=== PATIENT | female | born 1950 | race Caucasian/White ===

== ENCOUNTER 2016-10-18 23:04 | Emergency (ER) | payer OTHER, MEDICARE ==
[~2016-10-18] VITALS: Ht 165.1 cm; Wt 121.8 kg
[2016-10-18 23:14] VITALS: Ht 165.1 cm; Wt 121.8 kg
[2016-10-18 23:40] LABS: BASO % 0.5 %; BASO ABS # 0.05 K/uL (0-0.2); COMPLETE YES; EOS % 3.4 %; HEMATOCRIT 40.3 % (37-47); IG% 0.3 %; LYMPH % 42.2 %; LYMPH ABS # 4.68 K/uL (1.2-3.4); MEAN CELL VOLUME 93.1 fL (80-100); MEAN CORPUSCULAR HEMOGLOBIN 31.2 pg (25-34); MEAN CORPUSCULAR HGB CONC 33.5 g/dl (32-36); MEAN PLATELET VOLUME 10.7 fL (7.4-10.4); MONO % 5.1 %; NEUT % 48.5 %; PLATELET COUNT 245 K/uL (130-400); RED BLOOD COUNT 4.33 M/uL (4.2-5.4)
[2016-10-19 00:07] LABS: BUN/CREATININE RATIO 20.8 (10-20); CALCIUM 9.9 mg/dl (8.5-10.1); POTASSIUM 3.5 mmol/L (3.5-5.1)
[2016-10-19] MEDS ORDERED: ONDANSETRON INJ 2 MG/ML 2 ML VIAL IV STA ×2 (00:11→02:22)
[2016-10-19] MEDS ORDERED: ONDANSETRON INJ 2 MG/ML 2 ML VIAL ONE ×2 (00:12→02:12)
[2016-10-19] MEDS ORDERED: FRS/40 PO (00:20)
[2016-10-19] MEDS ORDERED: LISI-461 PO (00:21)
[2016-10-19] MEDS ORDERED: PANT40TA PO (00:22)
[2016-10-19] MEDS ORDERED: SERT-234 PO (00:22)
[2016-10-19] MEDS ORDERED: MAGN400T6 PO (00:23)
[2016-10-19] MEDS ORDERED: FENO145T26 PO (00:24)
[2016-10-19] MEDS ORDERED: ASPI81TA28 PO (00:26)
[2016-10-19] MEDS ORDERED: EZET10TA63 PO (00:27)
[2016-10-19] MEDS ORDERED: ALLO100T PO (00:28)
[2016-10-19] MEDS ORDERED: CARV6.252 PO (00:29)
[2016-10-19] MEDS ORDERED: CLB/200 PO (00:29)
[2016-10-19] MEDS ORDERED: GLUCTAB7 PO (00:31)
[2016-10-19] MEDS ORDERED: DEXTROSE 50% 50 ML SYR ONE (00:33)
[2016-10-19] MEDS ORDERED: LEVO137T3 PO ×2 (00:33→00:35)
[2016-10-19] MEDS ORDERED: INSDGI SQ (00:37)
[2016-10-19] MEDS ORDERED: INSU100I SQ ×3 (00:39→00:42)
[2016-10-19] MEDS ORDERED: ACET-1256 BT (00:43)
[2016-10-19] MEDS ORDERED: HYDR-4383 PO (00:44)
[2016-10-19] MEDS ORDERED: ACETAMINOPHEN 500 MG TAB PO STA (01:44)
[2016-10-19] MEDS ORDERED: ACETAMINOPHEN 500 MG TAB PO ONE (01:46)
--- NOTE | 2016-10-19 03:26 | EMERGENCY ROOM VISIT NOTE ---
History First contact with patient: 23:08 Chief Complaint: OVERDOSE (ACCIDENTAL) Stated Complaint: INSULIN OVERDOSE Nursing Triage Summary: Patient accidently took humalog when she thought she was taking her Lantus. Patient Usually takes 30 units humalog and 54 units of Lantus but accidently took a total of 65 units of humalog and 19 units of Lantus about one hour prior to arival . BSG for EMS 208 History of Present Illness The patient is a 65 year old female who presents to the Emergency Room with complaints of accidental overdose of insulin. Patient is a diabetic and normally takes Lantus 54 units daily at bedtime and Humalog 24 units in the morning and 18 units at lunch and 26 units with dinner with also a sliding scale. Patient states she was giving her bedtime dose of Lantus and sara up 19 units which was left in the bottle and then she reached for another bottle and pulled out 35 units and gave this to herself. She thought this was Lantus but was Humalog instead. Patient states tonight she had extra bread and a huge- sized chocolate cake so she ended up taking Humalog 30 units with dinner. She took the extra medication at 10 PM tonight. Initial blood sugar was 278 at home. It is currently 132. Patient state she has no current symptoms. Patient denies chest pain, dyspnea, diaphoresis, shakiness, vision problems, urinary issues, abdominal pain, vomiting, diarrhea. Patient states she feels fine. 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 Review of Systems See HPI for pertinent positives & negatives. A total of 10 systems reviewed and were otherwise negative. Past Medical/Surgical History Diabetes, hypertension, hyperlipidemia, gout, GERD, anxiety, depression, thyroid disorder, knee surgery, appendectomy, cholecystectomy Social History Smoking Status: Never Smoker Smokeless Tobacco Use: No Alcohol Use: none Drug Use: none Occupation Status: retired Current/Historical Medications Scheduled Allopurinol (Zyloprim), 100 MG PO BID Aspirin (Aspirin Ec), 81 MG PO HS Carvedilol (Coreg), 6.25 MG PO BID Celecoxib (CeleBREX), 200 MG PO BID Ezetimibe (Zetia), 10 MG PO HS Fenofibrate (Tricor ), 145 MG PO HS Furosemide (Lasix), 40 MG PO DAILY Mixyzzuqhfz-Tafouxfszii-Jsx C- (Glucosamine Chondroitin), 1 TAB PO BID Insulin Glargine (Lantus), 54 UNITS SQ HS Insulin Lispro (Human) (Humalog), 24 UNITS SQ QAM Insulin Lispro (Human) (Humalog), 18 UNITS SQ DAILY@NOON Insulin Lispro (Human) (Humalog), 26 UNITS SQ EVENING MEAL Levothyroxine Sodium (Levothyroxine Sodium), 137 MCG PO 3XWK Levothyroxine Sodium (Levothyroxine Sodium), 274 MCG PO 4XWK Lisinopril (Zestril), 10 MG PO DAILY Magnesium Oxide (Mag-Ox), Unknown Dose PO TID Pantoprazole (Protonix), 40 MG PO DAILY Sertraline (Zoloft), 100 MG PO DAILY Scheduled PRN Acetaminophen (Tylenol), 500 MG BT Q8 PRN for Pain Hydrocodone/Acetaminophen ([place] 10/325 Tab), 1 TAB PO Q8 PRN for Pain Physical Exam Vital Signs Date Time Temp Pulse Resp B/P (MAP) Pulse Ox O2 Delivery O2 Flow Rate FiO2 10/19/16 02:46 62 16 118/63 94 Room Air 10/19/16 02:41 60 16 99/38 94 Room Air 10/19/16 00:54 60 20 104/53 95 Room Air 10/19/16 00:19 62 16 106/34 94 Room Air 10/18/16 23:14 36.9 60 16 115/69 95 Room Air Physical Exam VITALS: Vitals are noted on the nurse's note and reviewed by myself. Vital signs stable. GENERAL: Pleasant female, in no acute distress, nondiaphoretic, well-developed well-nourished. SKIN: The skin was without rashes, erythema, edema, or bruising. There is no tenting of the skin. Capillary reflex less than 2 seconds. HEAD: Normocephalic atraumatic. EARS: External auditory canals clear, tympanic membranes pearly meier without erythema or effusion bilaterally. EYES: Pupils equal round and reactive to light and accommodation. Conjunctivae without injection, sclerae without icterus. Extraocular movements intact. NOSE: Patent, turbinates without inflammation or discharge. MOUTH: Mucous membranes moist. Pharynx without erythema or exudate. Uvula midline. Airway patent. Tongue does not deviate. NECK: Supple without nuchal rigidity. No lymphadenopathy. No thyromegaly. Cervical spine is nontender. No JVD. HEART: Regular rate and rhythm without murmurs gallops or rubs. LUNGS: Clear to auscultation bilaterally without wheezes, rales or rhonchi. No dullness to percussion. No retractions or accessory muscle use. ABDOMEN: Positive bowel sounds x 4. Normal tympanic percussion. Soft, nontender, without masses or organomegaly. Maldonado sign negative. No guarding or rebound tenderness. MUSCULOSKELETAL: No muscle atrophy, erythema, or edema noted. NEURO: Patient was alert and oriented to person place and time. Normal sensation to light and sharp touch. No focal neurological deficits. Medical Decision & Procedures Laboratory Results 10/18/16 23:25 Red Blood Count 4.33, Mean Corpuscular Volume 93.1, Mean Corpuscular Hemoglobin 31.2, Mean Corpuscular Hemoglobin Concent 33.5, Mean Platelet Volume 10.7, Neutrophils (%) (Auto) 48.5, Lymphocytes (%) (Auto) 42.2, Monocytes (%) (Auto) 5.1, Eosinophils (%) (Auto) 3.4, Basophils (%) (Auto) 0.5, Neutrophils # (Auto) 5.39, Lymphocytes # (Auto) 4.68, Monocytes # (Auto) 0.57, Eosinophils # (Auto) 0.38, Basophils # (Auto) 0.05 10/18/16 23:25 Test 10/18/16 23:25 10/19/16 02:45 White Blood Count 11.10 K/uL (4.8-10.8) Red Blood Count 4.33 M/uL (4.2-5.4) Hemoglobin 13.5 g/dL (12.0-16.0) Hematocrit 40.3 % (37-47) Mean Corpuscular Volume 93.1 fL (80-100) Mean Corpuscular Hemoglobin 31.2 pg (25-34) Mean Corpuscular Hemoglobin Concent 33.5 g/dl (32-36) Platelet Count 245 K/uL (130-400) Mean Platelet Volume 10.7 fL (7.4-10.4) Neutrophils (%) (Auto) 48.5 % Lymphocytes (%) (Auto) 42.2 % Monocytes (%) (Auto) 5.1 % Eosinophils (%) (Auto) 3.4 % Basophils (%) (Auto) 0.5 % Neutrophils # (Auto) 5.39 K/uL (1.4-6.5) Lymphocytes # (Auto) 4.68 K/uL (1.2-3.4) Monocytes # (Auto) 0.57 K/uL (0.11-0.59) Eosinophils # (Auto) 0.38 K/uL (0-0.5) Basophils # (Auto) 0.05 K/uL (0-0.2) RDW Standard Deviation 45.0 fL (36.4-46.3) RDW Coefficient of Variation 13.2 % (11.5-14.5) Immature Granulocyte % (Auto) 0.3 % Immature Granulocyte # (Auto) 0.03 K/uL (0.00-0.02) Anion Gap 7.0 mmol/L (3-11) Est Creatinine Clear Calc Drug Dose 74.4 ml/min Estimated GFR () 69.0 Estimated GFR (Non- 59.5 BUN/Creatinine Ratio 20.8 (10-20) Calcium Level 9.9 mg/dl (8.5-10.1) Bedside Glucose 113 mg/dl (70-90) Medications Administered Medications (Trade) Dose Ordered Sig/Stephenie Route Start Time Stop Time Status Last Admin Dose Admin Ondansetron HCl (Zofran Inj) 4 mg STK-MED ONCE .ROUTE 10/19/16 00:12 10/19/16 00:13 DC 10/19/16 00:17 4 MG Dextrose (Dextrose 50% 50ML Syringe) 50 ml STK-MED ONCE .ROUTE 10/19/16 00:33 10/19/16 00:34 DC 10/19/16 00:41 50 ML Acetaminophen (Tylenol Tab) 1,000 mg NOW STAT PO 10/19/16 01:44 10/19/16 01:45 DC 10/19/16 01:48 1,000 MG Ondansetron HCl (Zofran Inj) 4 mg STK-MED ONCE .ROUTE 10/19/16 02:12 10/19/16 02:13 DC 10/19/16 02:14 4 MG ED Course Prior records/ancillary studies reviewed and summarized above. Nursing notes reviewed. Additional history obtained from family. The patient's history was concerning for accidental overdose of insulin. Differential diagnosis: Etiologies such as metabolic, infection, hypo/hyperglycemia, electrolyte abnormalities, cardiac sources, intracerebral event, toxicologic, neurologic, as well as others were entertained. Physical examination: As above. ER treatment provided: IV Lock IV fluids, by mouth food, dextrose On reassessment the patient felt better. Diagnostics interpretation by me: The labs revealed hyperglycemia than hypoglycemia then hyperglycemia Exam and history seem consistent with accidental overdose of insulin. Patient was observed for greater than 4 hours. The Humalog should've worn off by now. Her blood sugars have normalized. She was offered admission and declined. She states her daughter will check her sugar every hour throughout the night and will stay with her. 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 Patient was strongly encouraged to return to the ER immediately for problems with her blood sugar, chest pains, diaphoresis, weakness, worsening signs or symptoms or as needed. By the evaluation outlined above emergent etiologies such as infection, electrolyte abnormalities, cardiac sources, intracerebral event, toxologic, neurologic, metabolic, as well as others were deemed relatively unlikely. The pt informed about the findings as listed above. All questions were answered and pleased with the treatment. Return instructions were outlined and the patient was discharged in stable condition. Referral: The patient was referred back to primary care physician for follow-up in 2 to 3 days for a recheck of the current condition. Case reviewed with my attending Medical Decision As above Medication Reconcilliation Current Medication List: was personally reviewed by me Blood Pressure Screening Patient's blood pressure: Normal blood pressure Impression Primary Impression: Accidental overdose Departure Information Dispostion Home / Self-Care Condition GOOD Referrals Russ Browning D.O. (PCP) Patient Instructions My [facility] Additional Instructions Check her blood sugar every hour for the next 8 hours. Carefully watch which insulin you use. Rest and drink plenty of fluids as tolerated. Continue current medications. Return to the ER immediately for worsening or persistent problems with blood sugar, abdominal pain, vomiting, fevers, chest pains, difficulty breathing, worsening of your condition, or as needed. Follow up with your primary physician in 2-3 days for a recheck of your current condition. Problem Qualifiers Primary Impression: Accidental overdose Encounter type: initial encounter Qualified Codes: T50.901A - Poisoning by unspecified drugs, medicaments and biological substances, accidental ( unintentional), initial encounter
--- NOTE | 2016-10-19 03:27 | EMERGENCY ROOM VISIT NOTE ---
ED Visit Note First contact with patient: 23:08 Patient seen with the venous practitioner, agree with assessment, agree with the patient's evaluation and treatment of an accidental overdose of insulin. 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 Medications Scheduled Allopurinol (Zyloprim), 100 MG PO BID Aspirin (Aspirin Ec), 81 MG PO HS Carvedilol (Coreg), 6.25 MG PO BID Celecoxib (CeleBREX), 200 MG PO BID Ezetimibe (Zetia), 10 MG PO HS Fenofibrate (Tricor ), 145 MG PO HS Furosemide (Lasix), 40 MG PO DAILY Psmazfgciok-Lbnszpqqnte-Hma C- (Glucosamine Chondroitin), 1 TAB PO BID Insulin Glargine (Lantus), 54 UNITS SQ HS Insulin Lispro (Human) (Humalog), 24 UNITS SQ QAM Insulin Lispro (Human) (Humalog), 18 UNITS SQ DAILY@NOON Insulin Lispro (Human) (Humalog), 26 UNITS SQ EVENING MEAL Levothyroxine Sodium (Levothyroxine Sodium), 137 MCG PO 3XWK Levothyroxine Sodium (Levothyroxine Sodium), 274 MCG PO 4XWK Lisinopril (Zestril), 10 MG PO DAILY Magnesium Oxide (Mag-Ox), Unknown Dose PO TID Pantoprazole (Protonix), 40 MG PO DAILY Sertraline (Zoloft), 100 MG PO DAILY Scheduled PRN Acetaminophen (Tylenol), 500 MG BT Q8 PRN for Pain Hydrocodone/Acetaminophen ([place] 10/325 Tab), 1 TAB PO Q8 PRN for Pain Allergies Uncoded Allergies: SULFA (Allergy, Severe, ANAPHYLAXIS, 10/18/16) TALWIN (Allergy, Intermediate, lethagic, nausea, 10/19/16) Vital Signs Date Time Temp Pulse Resp B/P (MAP) Pulse Ox O2 Delivery O2 Flow Rate FiO2 10/19/16 02:46 62 16 118/63 94 Room Air 10/19/16 02:41 60 16 99/38 94 Room Air 10/19/16 00:54 60 20 104/53 95 Room Air 10/19/16 00:19 62 16 106/34 94 Room Air 10/18/16 23:14 36.9 60 16 115/69 95 Room Air Laboratory Results 10/18/16 23:25 Red Blood Count 4.33, Mean Corpuscular Volume 93.1, Mean Corpuscular Hemoglobin 31.2, Mean Corpuscular Hemoglobin Concent 33.5, Mean Platelet Volume 10.7, Neutrophils (%) (Auto) 48.5, Lymphocytes (%) (Auto) 42.2, Monocytes (%) (Auto) 5.1, Eosinophils (%) (Auto) 3.4, Basophils (%) (Auto) 0.5, Neutrophils # (Auto) 5.39, Lymphocytes # (Auto) 4.68, Monocytes # (Auto) 0.57, Eosinophils # (Auto) 0.38, Basophils # (Auto) 0.05 10/18/16 23:25 Test 10/18/16 23:25 10/19/16 02:45 White Blood Count 11.10 K/uL (4.8-10.8) Red Blood Count 4.33 M/uL (4.2-5.4) Hemoglobin 13.5 g/dL (12.0-16.0) Hematocrit 40.3 % (37-47) Mean Corpuscular Volume 93.1 fL (80-100) Mean Corpuscular Hemoglobin 31.2 pg (25-34) Mean Corpuscular Hemoglobin Concent 33.5 g/dl (32-36) Platelet Count 245 K/uL (130-400) Mean Platelet Volume 10.7 fL (7.4-10.4) Neutrophils (%) (Auto) 48.5 % Lymphocytes (%) (Auto) 42.2 % Monocytes (%) (Auto) 5.1 % Eosinophils (%) (Auto) 3.4 % Basophils (%) (Auto) 0.5 % Neutrophils # (Auto) 5.39 K/uL (1.4-6.5) Lymphocytes # (Auto) 4.68 K/uL (1.2-3.4) Monocytes # (Auto) 0.57 K/uL (0.11-0.59) Eosinophils # (Auto) 0.38 K/uL (0-0.5) Basophils # (Auto) 0.05 K/uL (0-0.2) RDW Standard Deviation 45.0 fL (36.4-46.3) RDW Coefficient of Variation 13.2 % (11.5-14.5) Immature Granulocyte % (Auto) 0.3 % Immature Granulocyte # (Auto) 0.03 K/uL (0.00-0.02) Anion Gap 7.0 mmol/L (3-11) Est Creatinine Clear Calc Drug Dose 74.4 ml/min Estimated GFR () 69.0 Estimated GFR (Non- 59.5 BUN/Creatinine Ratio 20.8 (10-20) Calcium Level 9.9 mg/dl (8.5-10.1) Bedside Glucose 113 mg/dl (70-90) Medications Administered Medications (Trade) Dose Ordered Sig/Stephenie Route Start Time Stop Time Status Last Admin Dose Admin Ondansetron HCl (Zofran Inj) 4 mg STK-MED ONCE .ROUTE 10/19/16 00:12 10/19/16 00:13 DC 10/19/16 00:17 4 MG Dextrose (Dextrose 50% 50ML Syringe) 50 ml STK-MED ONCE .ROUTE 10/19/16 00:33 10/19/16 00:34 DC 10/19/16 00:41 50 ML Acetaminophen (Tylenol Tab) 1,000 mg NOW STAT PO 10/19/16 01:44 10/19/16 01:45 DC 10/19/16 01:48 1,000 MG Ondansetron HCl (Zofran Inj) 4 mg STK-MED ONCE .ROUTE 10/19/16 02:12 10/19/16 02:13 DC 10/19/16 02:14 4 MG Departure Information Impression Primary Impression: Accidental overdose Dispostion Home / Self-Care Condition GOOD Referrals Russ Browning D.O. (PCP) Patient Instructions My [facility] Additional Instructions Check her blood sugar every hour for the next 8 hours. Carefully watch which insulin you use. Rest and drink plenty of fluids as tolerated. Continue current medications. Return to the ER immediately for worsening or persistent problems with blood sugar, abdominal pain, vomiting, fevers, chest pains, difficulty breathing, worsening of your condition, or as needed. Follow up with your primary physician in 2-3 days for a recheck of your current condition.
[2016-10-19 03:34] VITALS: BP 118/63; PULSE 62; TEMP 36.9; O2SAT 94
== END 2016-10-19 03:30 | disposition home or self-care (01) ==
LOC: EDBD 23:04 → C.EDC 23:05
DX: T38.3X1A Poisoning by insulin and oral hypoglycemic [antidiabetic] drugs, accidental (unintentional), initial encounter (principal); I10 Essential (primary) hypertension; E78.5 Hyperlipidemia, unspecified; E11.9 Type 2 diabetes mellitus without complications; K21.9 Gastro-esophageal reflux disease without esophagitis; F41.9 Anxiety disorder, unspecified; F32.9 Major depressive disorder, single episode, unspecified; M10.9 Gout, unspecified; E07.9 Disorder of thyroid, unspecified; Z90.49 Acquired absence of other specified parts of digestive tract; Z98.890 Other specified postprocedural states; Z79.82 Long term (current) use of aspirin; Z79.4 Long term (current) use of insulin; Z79.899 Other long term (current) drug therapy

== ENCOUNTER 2018-04-02 16:57 | Inpatient (IN) ==
[2018-04-02] MEDS ORDERED: ONDANSETRON INJ 2 MG/ML 2 ML VIAL IV STA (18:17)
[2018-04-02] MEDS ORDERED: ALBUT/IPRATROP 3MG/0.5MG NEB 3 ML VIAL NEB STA (18:27)
--- NOTE | 2018-04-02 19:14 | XRay Report ---
SINGLE VIEW CHEST CLINICAL HISTORY: Atypical chest pain. FINDINGS: An AP, portable, upright chest radiograph is obtained. No prior studies are available for c omparison at the time of dictation. The examination is degraded by portable technique and patient rot ation. The heart is enlarged. The pulmonary vasculature is noncongested. Emphysematous changes suspe cted. Bibasilar scarring/atelectasis is observed. No airspace consolidation or large pleural effusion is identified. No pneumothorax is seen. The skeletal structures are osteopenic. The bony thorax is g rossly intact. IMPRESSION: Cardiomegaly with no acute cardiopulmonary abnormality. Electronically signed by: Manuel Coreas M.D. 04/02/2018 7:12 PM
[2018-04-02 19:16] LABS: Influenza B virus by PCR Neg for Influ B (Neg)
[2018-04-02 19:17] LABS: BUN Creatinine Ratio 28.2 (10-20); Blood Urea Nitrogen 29 mg/dl (7-18); Calcium 8.6 mg/dl (8.5-10.1); Carbon Dioxide 28 mmol/L (21-32); Chloride 104 mmol/L (98-107); Creatinine Clr Calc Pharmacy 61.8 ml/min; Est GFR (African American) 65.6; Est GFR (Non-African American) 56.6; Glucose 172 mg/dl (70-99); Potassium 4.1 mmol/L (3.5-5.1); Sodium 137 mmol/L (136-145)
[2018-04-02 19:18] LABS: Base Excess VBG 1.5 mEq/L; Oxygen Saturation VBG 80.9 %; pH VBG 7.42 (7.36-7.41)
[2018-04-02 19:22] LABS: NT Pro B Type Natriuretic Pept 65 pg/ml (0-900); Troponin I < 0.015 ng/ml (0-0.045)
[2018-04-02 19:35] LABS: Basophils # (auto) 0.02 K/uL (0-0.2); Basophils % (auto) 0.2 %; Eosinophils # (auto) 0.04 K/uL (0-0.5); Eosinophils % (auto) 0.4 %; Hematocrit (blood only) 44.4 % (37-47); Hemoglobin 14.5 g/dL (12.0-16.0); Immature Granulocytes # (auto) 0.07 K/uL (0.00-0.02); Immature Granulocytes % (auto) 0.7 %; Lymphocytes # (auto) 2.85 K/uL (1.2-3.4); Lymphocytes % (auto) 28.2 %; Mean Corpuscular Hgb Conc 32.7 g/dL (32-36); Mean Corpuscular Volume 91.9 fL (80-100); Mean Platelet Volume 10.8 fL (7.4-10.4); Monocytes # (auto) 0.93 K/uL (0.11-0.59); Monocytes % (auto) 9.2 %; Neutrophils # (auto) 6.19 K/uL (1.4-6.5); Neutrophils % (auto) 61.3 %; Platelet Count 223 K/uL (130-400); RDW Coefficient of Variation 13.8 % (11.5-14.5); RDW Standard Deviation 46.6 fL (36.4-46.3); Red Blood Count 4.83 M/uL (4.2-5.4)
[2018-04-02] MEDS ORDERED: OPTIRAY 320 125ml IV PRN (19:49)
--- NOTE | 2018-04-02 20:06 | CT Scan Report ---
CHEST CTA for PULMONARY ARTERIES CT DOSE: 701.44 mGy.cm HISTORY: Atypical Chest Pain, eval for PE TECHNIQUE: Multiaxial CT images of the chest were performed following the intravenous administration of contrast to evaluate the pulmonary arteries. Maximal intensity projection images were also obtaine d. A dose lowering technique was utilized adhering to the principles of ALARA. COMPARISON STUDY: None. FINDINGS: Normal caliber thoracic aorta with no evidence for dissection. The heart is mildly enlarged . Suboptimal evaluation of the bilateral lower lobe segmental pulmonary arteries due to the respirato ry motion artifact. However, no definite filling defects within the pulmonary arteries to suggest pul monary embolus. No pleural or pericardial effusions. Normal esophagus. A few prominent bilateral yo r lymph nodes the largest on the right measuring 1 cm in short axis diameter. No mediastinal lymphade nopathy. Hepatic steatosis. The spleen and right adrenal gland are unremarkable. Indeterminate 2 cm l eft adrenal gland nodule. No fractures within the visualized osseous structures. Mild bilateral bronc hial wall thickening. No pneumothorax. A 9 mm groundglass nodule within the left lower lobe on image 99. An 8 mm nodule at the base of the right lower lobe on image 80. IMPRESSION: 1. No evidence for pulmonary embolus. 2. Mild cardiomegaly. 3. A few prominent bilateral hilar lymph nodes. These bear watching on future examinations. 4. Bilateral lower lobe nodules as described above with the largest on the left measuring 9 mm. These may represent atelectasis or mild inflammatory change. [address] follow-up is recommended to ensure stability. 5. An indeterminate 2 cm left adrenal gland nodule. Electronically signed by: Jenaro Posada M.D. 04/02/2018 8:04 PM
[2018-04-02 20:07] LABS: Partial Thromboplastin Ratio 0.9; Partial Thromboplastin Time 24.5 Seconds (21.0-31.0); Prothrombin Time 10.1 Seconds (9.0-12.0)
[2018-04-02] MEDS ORDERED: OSELTAMIVIR PHOSPHATE 75 MG CAP PO STA (21:15)
[2018-04-02] MEDS ORDERED: KETOROLAC TROMETHAMINE 15 MG/ML VIAL IV STA (21:22)
[2018-04-02 22:49] LABS: Magnesium 1.8 mg/dl (1.8-2.4)
[2018-04-02] MEDS ORDERED: ACETAMINOPHEN 325 MG TAB PO STA (23:04)
[2018-04-02] MEDS ORDERED: DOXYCYCLINE HYCLATE 100 MG in DEXTROSE 5% 100 ML IV STA (23:04)
[2018-04-02] MEDS ORDERED: MAGNESIUM SULFATE / D5W 1 GM/100 ML BAG IV STA (23:13)
[2018-04-02] MEDS ORDERED: DOXYCYCLINE HYCLATE 100 MG CAP PO ONE (23:20)
--- NOTE | 2018-04-02 23:59 | Emergency Department Note ---
Entered by Hillary Chaudhry acting as a scribe for Alexandre James History of Present Illness General Chief complaint: Respiratory Problems Stated complaint: BRONCHITIS, PAIN IN RT CHEST Time Seen by Provider: 04/02/18 18:04 Source: patient History of Present Illness Onset (ago): week(s) 1 Location: chest Pain Consistency: + other (persistent ) Maximum Pain Intensity: 9 Quality: + other (cough) Associated symptoms: + chest pain (constant right-sided ), + cough (positive coughed up a blood clot ), + nausea/vomiting (positive nausea; negative vomiting ) and + other (positive diarrhea) Treatments prior to arrival: other (prednisone; inhaler; tessalon perles) The patient is a 67 year old female who presents to the Emergency Room with complaints of a persistent cough that began last week. The patient states that last week she was diagnosed with bronchitis, and was put on 10mg of prednisone that she finished yesterday. The patient states that she has also been using an inhaler and tessalon perles during this time. The patient states that her cough has not resolved. The patient states that she now has a constant pain in the right side of her chest. She states that she has nausea and diarrhea today. The patient states that several hours ago she coughed up a blood clot. The patient denies fever. The patient states that she is not on blood thinners. The patient states that she had asthma as a child. Home Medications Home Medications Medication Instructions Recorded Confirmed Type allopurinol 100 mg PO DAILY 04/02/18 04/02/18 History apremilast [Otezla] 30 mg PO BID 04/02/18 04/02/18 History aspirin [Aspir-81] 81 mg PO DAILY 04/02/18 04/02/18 History carvedilol [Coreg] 6.25 mg PO BID 04/02/18 04/02/18 History celecoxib 200 mg PO BID 04/02/18 04/02/18 History empagliflozin [Jardiance] 25 mg PO DAILY 04/02/18 04/02/18 History ergocalciferol (vitamin D2) 50,000 unit PO WK 04/02/18 04/02/18 History [Vitamin D2] ezetimibe 10 mg PO DAILY 04/02/18 04/02/18 History fenofibrate nanocrystallized 145 mg PO HS 04/02/18 04/02/18 History [Tricor] furosemide 40 mg PO DAILY 04/02/18 04/02/18 History gabapentin 400 mg PO BID 04/02/18 04/02/18 History glucosamine sulfate [Glucosamine] 500 mg PO BID 04/02/18 04/02/18 History hydrocodone-acetaminophen 1 tab PO TID PRN 04/02/18 04/02/18 History insulin glargine [Lantus Solostar 50 unit SUBCUT HS 04/02/18 04/02/18 History U-100 Insulin] insulin lispro [Humalog KwikPen 14 unit SUBCUT QAM 04/02/18 04/02/18 History Insulin] insulin lispro [Humalog KwikPen 15 unit SUBCUT BID 04/02/18 04/02/18 History Insulin] levothyroxine 137 mcg PO 3XWK 04/02/18 04/02/18 History levothyroxine 274 mcg PO 4XWK 04/02/18 04/02/18 History lisinopril 10 mg PO DAILY 04/02/18 04/02/18 History magnesium 200 mg PO DAILY 04/02/18 04/02/18 History pantoprazole [Protonix] 40 mg PO DAILY 04/02/18 04/02/18 History sertraline 100 mg PO DAILY 04/02/18 04/02/18 History Allergies Allergy/AdvReac Type Severity Reaction Status Date / Time Sulfa (Sulfonamide Allergy Anaphylaxis Unverified 04/02/18 18:13 Antibiotics) pentazocine [From Talwin] AdvReac Nausea Unverified 04/02/18 18:13 Past Med/Surg History Medical History Asthma (Resolved) Social History Feels Safe at Home: Yes Smoking Status: Never smoker Preferred Language: Tajik Review of Systems See HPI for pertinent positives & negatives. and A total of 10 systems reviewed and were otherwise negative Physical Exam Vital Signs Vital Signs - 24 hr 04/02/18 17:09 04/02/18 17:21 04/02/18 18:20 Temperature 37 C Temperature Source Oral Sepsis Recent Fever Within 48 Hours No Sepsis New/Unexplained Change in Mental Status No Sepsis Action Taken by Nursing No Action Required Pulse Rate 61 61 Pulse Rate [Apical] Pulse Rate [Recovery] Pulse Rate from SpO2 Sensor Pulse Rhythm Regular Regular Pulse Rhythm [Apical] Pulse Strength Normal Respiratory Rate 22 22 Respiratory Rate [Exercises] Respiratory Rate [Recovery] Respiratory Effort / Characteristics Non-Labored Spontaneous Respiratory Depth Normal Respiratory Pattern Blood Pressure 102/61 Blood Pressure [Left Arm] Blood Pressure Mean 74 Blood Pressure Mean [Left Arm] Blood Pressure Position Sitting Pulse Oximetry 92 94 94 Pulse Oximetry [Exercises] Pulse Oximetry [Recovery] Oxygen Delivery Method Room Air Nasal Cannula Nasal Cannula Oxygen Flow Rate 2 2 04/02/18 19:05 04/02/18 19:06 04/02/18 21:16 Temperature Temperature Source Sepsis Recent Fever Within 48 Hours Sepsis New/Unexplained Change in Mental Status Sepsis Action Taken by Nursing Pulse Rate 50 L 54 L Pulse Rate [Apical] 53 L 52 L Pulse Rate [Recovery] 56 L Pulse Rate from SpO2 Sensor 51 L 55 L Pulse Rhythm Pulse Rhythm [Apical] Regular Regular Pulse Strength Respiratory Rate 18 18 19 Respiratory Rate [Exercises] 30 H Respiratory Rate [Recovery] 25 H Respiratory Effort / Characteristics Non-Labored Respiratory Depth Normal Normal Respiratory Pattern Regular Blood Pressure 105/59 L 124/68 Blood Pressure [Left Arm] 105/59 L 124/68 Blood Pressure Mean 74 86 Blood Pressure Mean [Left Arm] 74 86 Blood Pressure Position Pulse Oximetry 94 93 95 Pulse Oximetry [Exercises] 91 Pulse Oximetry [Recovery] 88 L Oxygen Delivery Method Room Air Room Air Oxygen Flow Rate 2 04/02/18 22:48 Temperature Temperature Source Sepsis Recent Fever Within 48 Hours Sepsis New/Unexplained Change in Mental Status Sepsis Action Taken by Nursing Pulse Rate 57 L Pulse Rate [Apical] Pulse Rate [Recovery] Pulse Rate from SpO2 Sensor 60 Pulse Rhythm Pulse Rhythm [Apical] Pulse Strength Respiratory Rate 15 Respiratory Rate [Exercises] Respiratory Rate [Recovery] Respiratory Effort / Characteristics Respiratory Depth Respiratory Pattern Blood Pressure 127/71 Blood Pressure [Left Arm] Blood Pressure Mean 89 Blood Pressure Mean [Left Arm] Blood Pressure Position Pulse Oximetry 95 Pulse Oximetry [Exercises] Pulse Oximetry [Recovery] Oxygen Delivery Method Oxygen Flow Rate GENERAL: The patient is oriented to person, place, and time. Appears well- developed and well-nourished. Does not appear distressed. HENT: Exam performed. Head: Normocephalic and atraumatic. Right Ear: External ear normal. No mastoid tenderness. Left Ear: External ear normal. No mastoid tenderness. Mouth/Throat: The oropharynx is clear and moist. No trismus in the jaw. No dental abscesses or uvula swelling. No oropharyngeal exudate or tonsillar abscesses. EYES: Conjunctivae and EOM are normal. Pupils are equal, round, and reactive to light. Right eye exhibits no discharge. Left eye exhibits no discharge. No scleral icterus. NECK: Normal range of motion. Neck supple. No JVD present. No spinous process tenderness present. No carotid bruit present. No rigidity. No tracheal deviation and normal range of motion present. No Brudzinski's sign and no Kernig 's sign noted. CV: Normal rate, regular rhythm, normal heart sounds and intact distal pulses. There is no peripheral edema. Palpable radial pulses bue. PULM/CHEST: Effort normal. No respiratory distress. No stridor. There are no rales. Expiratory wheezes bilterally. Chest Wall: Patient exhibits no tenderness. ABD: The abdomen is soft. Bowel sounds are normal. There is no distension. No mass is present. There is no tenderness. There is no rebound, no guarding, no Maldonado's sign and no tenderness at McBurney's point. Rovsig negative MUSC/SKEL: Normal range of motion. There is no peripheral edema, tenderness or deformity. LYMPH: No cervical adenopathy. NEURO: Patient is alert and oriented to person, place, and time. Normal strength. No cranial nerve deficit or sensory deficit. Coordination and gait normal. GCS eye subscore is 4. GCS verbal subscore is 5. GCS motor subscore is 6. cerbellar tests wnl. SKIN: Skin is warm and dry. Patient is not diaphoretic. PSYCH: Patient has a normal mood and affect. Behavior is normal. Judgment and thought content normal. Course 1812: Past medical records reviewed. The patient was evaluated in room B10, and a complete history and physical examination were performed. 2117: The patient's labs were within normal limits with the exception of positive influenza A. The CTA of the chest was negative for pneumonia, but showed mutlipe nodules. The patient was still coughing, so an ambulatory trial was performed. The patient's oxygen saturation dropped to 88, so the patient was started on 2L of oxygen via nasal cannula. The patient was given tamaflu in the emergency department. The patient will be evaluated under Dr. Juan Miguel Hospitalist service. Administered Medications Doxycycline Hyclate 100 mg/ (Dextrose) 110 mls @ 50 mls/hr IV NOW STA Stop: 04/03/18 01:15 Last Admin: 04/02/18 23:34 Dose: 50 mls/hr Magnesium Sulfate/Dextrose (Magnesium Sulfate / D5w) 1 gm in 100 mls @ 100 mls/ hr IV NOW STA Stop: 04/03/18 00:12 Last Admin: 04/02/18 23:27 Dose: 100 mls/hr Ioversol (Optiray 320 125ml) 120 ml IV ONCE PRN PRN Reason: Interaction Checking Stop: 04/06/18 19:48 Last Admin: 04/02/18 19:50 Dose: 120 ml Discontinued Medications Acetaminophen (Tylenol) 650 mg PO NOW STA Stop: 04/02/18 23:05 Last Admin: 04/02/18 23:26 Dose: 650 mg Albuterol (Duoneb) 3 ml NEB NOW STA Stop: 04/02/18 18:28 Last Admin: 04/02/18 19:06 Dose: 3 ml Doxycycline Hyclate (Vibramycin) Confirm Administered Dose 100 mg PO .STK-MED ONE Stop: 04/02/18 23:21 Last Admin: 04/02/18 23:26 Dose: Not Given Ketorolac Tromethamine (Toradol) 15 mg IV NOW STA Stop: 04/02/18 21:23 Last Admin: 04/02/18 22:00 Dose: 15 mg Methylprednisolone (Solumedrol) 20 mg IV NOW STA Stop: 04/02/18 22:43 Last Admin: 04/02/18 22:58 Dose: 20 mg Ondansetron HCl (Zofran) 4 mg IV NOW STA Stop: 04/02/18 18:18 Last Admin: 04/02/18 19:06 Dose: 4 mg Oseltamivir Phosphate (Tamiflu) 75 mg PO NOW STA Stop: 04/02/18 21:16 Last Admin: 04/02/18 22:00 Dose: 75 mg Medical Decision Making Medical Records Attestation: I reviewed the patient's medical records. Home Medications Current Medication List: was personally reviewed by me Laboratory Data Attestation: I reviewed the patient's lab results. Result diagrams: 04/02/18 18:35 04/02/18 18:35 Lab Results 04/02/18 04/02/18 04/02/18 Range/Units 18:25 18:35 18:35 WBC 10.10 (4.8-10.8) K/uL RBC 4.83 (4.2-5.4) M/uL Hgb 14.5 (12.0-16.0) g/dL Hct 44.4 (37-47) % MCV 91.9 (80-100) fL MCH 30.0 (25-34) pg MCHC 32.7 (32-36) g/dL RDW Std Deviation 46.6 H (36.4-46.3) fL RDW Coeff of Nadege 13.8 (11.5-14.5) % Plt Count 223 (130-400) K/uL MPV 10.8 H (7.4-10.4) fL Immature Gran % (Auto) 0.7 % Neut % (Auto) 61.3 % Lymph % (Auto) 28.2 % Ransom % (Auto) 9.2 % Eos % (Auto) 0.4 % Baso % (Auto) 0.2 % Immature Gran # (Auto) 0.07 H (0.00-0.02) K/uL Neut # (Auto) 6.19 (1.4-6.5) K/uL Lymph # (Auto) 2.85 (1.2-3.4) K/uL Ransom # (Auto) 0.93 H (0.11-0.59) K/uL Eos # (Auto) 0.04 (0-0.5) K/uL Baso # (Auto) 0.02 (0-0.2) K/uL PT 10.1 (9.0-12.0) Seconds INR 1.0 (0.9-1.1) APTT 24.5 (21.0-31.0) Seconds PTT Ratio 0.9 VBG pH (7.36-7.41) VBG pCO2 (38-50) mmHg VBG pO2 mmHg VBG HCO3 mmol/L VBG O2 Saturation % VBG Base Excess mEq/L Barometric Pressure mm/Hg Sodium (136-145) mmol/L Potassium (3.5-5.1) mmol/L Chloride (98-107) mmol/L Carbon Dioxide (21-32) mmol/L Anion Gap (3-11) BUN (7-18) mg/dl Creatinine (0.6-1.2) mg/dl Est Cr Clr Drug Dosing ml/min Est GFR ( Amer) Est GFR (Non-Af Amer) BUN/Creatinine Ratio (10-20) Glucose (70-99) mg/dl Lactate (0.4-2.0) mmol/L Calcium (8.5-10.1) mg/dl Magnesium (1.8-2.4) mg/dl Troponin I (0-0.045) ng/ml NT-Pro-B Natriuret Pep (0-900) pg/ml TSH (0.300-4.500) uIu/ml Influenza Type A (PCR) Pos for Influ A A* (Neg) Influenza Type B (PCR) Neg for Influ B (Neg) 04/02/18 04/02/18 04/02/18 Range/Units 18:35 18:35 18:40 WBC (4.8-10.8) K/uL RBC (4.2-5.4) M/uL Hgb (12.0-16.0) g/dL Hct (37-47) % MCV (80-100) fL MCH (25-34) pg MCHC (32-36) g/dL RDW Std Deviation (36.4-46.3) fL RDW Coeff of Nadege (11.5-14.5) % Plt Count (130-400) K/uL MPV (7.4-10.4) fL Immature Gran % (Auto) % Neut % (Auto) % Lymph % (Auto) % Ransom % (Auto) % Eos % (Auto) % Baso % (Auto) % Immature Gran # (Auto) (0.00-0.02) K/uL Neut # (Auto) (1.4-6.5) K/uL Lymph # (Auto) (1.2-3.4) K/uL Ransom # (Auto) (0.11-0.59) K/uL Eos # (Auto) (0-0.5) K/uL Baso # (Auto) (0-0.2) K/uL PT (9.0-12.0) Seconds INR (0.9-1.1) APTT (21.0-31.0) Seconds PTT Ratio VBG pH (7.36-7.41) VBG pCO2 (38-50) mmHg VBG pO2 mmHg VBG HCO3 mmol/L VBG O2 Saturation % VBG Base Excess mEq/L Barometric Pressure mm/Hg Sodium 137 (136-145) mmol/L Potassium 4.1 (3.5-5.1) mmol/L Chloride 104 (98-107) mmol/L Carbon Dioxide 28 (21-32) mmol/L Anion Gap 5.0 (3-11) BUN 29 H (7-18) mg/dl Creatinine 1.03 (0.6-1.2) mg/dl Est Cr Clr Drug Dosing 61.8 ml/min Est GFR ( Amer) 65.6 Est GFR (Non-Af Amer) 56.6 BUN/Creatinine Ratio 28.2 H (10-20) Glucose 172 H (70-99) mg/dl Lactate 1.2 (0.4-2.0) mmol/L Calcium 8.6 (8.5-10.1) mg/dl Magnesium 1.8 (1.8-2.4) mg/dl Troponin I < 0.015 (0-0.045) ng/ml NT-Pro-B Natriuret Pep 65 (0-900) pg/ml TSH 0.257 L (0.300-4.500) uIu/ml Influenza Type A (PCR) (Neg) Influenza Type B (PCR) (Neg) 04/02/18 Range/Units 18:41 WBC (4.8-10.8) K/uL RBC (4.2-5.4) M/uL Hgb (12.0-16.0) g/dL Hct (37-47) % MCV (80-100) fL MCH (25-34) pg MCHC (32-36) g/dL RDW Std Deviation (36.4-46.3) fL RDW Coeff of Nadege (11.5-14.5) % Plt Count (130-400) K/uL MPV (7.4-10.4) fL Immature Gran % (Auto) % Neut % (Auto) % Lymph % (Auto) % Ransom % (Auto) % Eos % (Auto) % Baso % (Auto) % Immature Gran # (Auto) (0.00-0.02) K/uL Neut # (Auto) (1.4-6.5) K/uL Lymph # (Auto) (1.2-3.4) K/uL Ransom # (Auto) (0.11-0.59) K/uL Eos # (Auto) (0-0.5) K/uL Baso # (Auto) (0-0.2) K/uL PT (9.0-12.0) Seconds INR (0.9-1.1) APTT (21.0-31.0) Seconds PTT Ratio VBG pH 7.42 H (7.36-7.41) VBG pCO2 41 (38-50) mmHg VBG pO2 44 mmHg VBG HCO3 26 mmol/L VBG O2 Saturation 80.9 % VBG Base Excess 1.5 mEq/L Barometric Pressure 745.1 mm/Hg Sodium (136-145) mmol/L Potassium (3.5-5.1) mmol/L Chloride (98-107) mmol/L Carbon Dioxide (21-32) mmol/L Anion Gap (3-11) BUN (7-18) mg/dl Creatinine (0.6-1.2) mg/dl Est Cr Clr Drug Dosing ml/min Est GFR ( Amer) Est GFR (Non-Af Amer) BUN/Creatinine Ratio (10-20) Glucose (70-99) mg/dl Lactate (0.4-2.0) mmol/L Calcium (8.5-10.1) mg/dl Magnesium (1.8-2.4) mg/dl Troponin I (0-0.045) ng/ml NT-Pro-B Natriuret Pep (0-900) pg/ml TSH (0.300-4.500) uIu/ml Influenza Type A (PCR) (Neg) Influenza Type B (PCR) (Neg) Imaging Data Radiologist's Impression: Radiology results as stated below per my review and the radiologist's interpretation: SINGLE VIEW CHEST CLINICAL HISTORY: Atypical chest pain. FINDINGS: An AP, portable, upright chest radiograph is obtained. No prior studies are available for comparison at the time of dictation. The examination is degraded by portable technique and patient rotation. The heart is enlarged. The pulmonary vasculature is noncongested. Emphysematous changes suspected. Bibasilar scarring/atelectasis is observed. No airspace consolidation or large pleural effusion is identified. No pneumothorax is seen. The skeletal structures are osteopenic. The bony thorax is grossly intact. IMPRESSION: Cardiomegaly with no acute cardiopulmonary abnormality. Electronically signed by: Manuel Coreas M.D. 04/02/2018 7:12 PM CHEST CTA for PULMONARY ARTERIES CT DOSE: 701.44 mGy.cm HISTORY: Atypical Chest Pain, eval for PE TECHNIQUE: Multiaxial CT images of the chest were performed following the intravenous administration of contrast to evaluate the pulmonary arteries. Maximal intensity projection images were also obtained. A dose lowering technique was utilized adhering to the principles of ALARA. COMPARISON STUDY: None. FINDINGS: Normal caliber thoracic aorta with no evidence for dissection. The heart is mildly enlarged. Suboptimal evaluation of the bilateral lower lobe segmental pulmonary arteries due to the respiratory motion artifact. However, no definite filling defects within the pulmonary arteries to suggest pulmonary embolus. No pleural or pericardial effusions. Normal esophagus. A few prominent bilateral hilar lymph nodes the largest on the right measuring 1 cm in short axis diameter. No mediastinal lymphadenopathy. Hepatic steatosis. The spleen and right adrenal gland are unremarkable. Indeterminate 2 cm left adrenal gland nodule. No fractures within the visualized osseous structures. Mild bilateral bronchial wall thickening. No pneumothorax. A 9 mm groundglass nodule within the left lower lobe on image 99. An 8 mm nodule at the base of the right lower lobe on image 80. IMPRESSION: 1. No evidence for pulmonary embolus. 2. Mild cardiomegaly. 3. A few prominent bilateral hilar lymph nodes. These bear watching on future examinations. 4. Bilateral lower lobe nodules as described above with the largest on the left measuring 9 mm. These may represent atelectasis or mild inflammatory change. [address] follow-up is recommended to ensure stability. 5. An indeterminate 2 cm left adrenal gland nodule. Electronically signed by: Jenaro Posada M.D. 04/02/2018 8:04 PM ECG Data Attestation: I personally reviewed and interpreted this ECG as follows: Indication: SOB/dyspnea Rate (beats per minute): 53 Rhythm: sinus rhythm Findings: + other (NE, QRS, QTC intervals within normal limits); no ST depression and no ST elevation Blood Pressure Blood Pressure Findings: Normal blood pressure MDM Narrative The patient's labs were within normal limits with the exception of positive influenza A. The CTA of the chest was negative for pneumonia, but showed mutlipe nodules. The patient was still coughing, so an ambulatory trial was performed. The patient's oxygen saturation dropped to 88, so the patient was started on 2L of oxygen via nasal cannula. The patient was given tamaflu in the emergency department. The patient will be evaluated under Dr. Linton Hospitalist service. Impression & Plan Hypoxia, Influenza A Discharge Plan Visit Data Chief Complaint: Respiratory Problems Stated Complaint: BRONCHITIS, PAIN IN RT CHEST ED Provider: Alexandre James Discharge Problem: Hypoxia, Influenza A Patient Disposition: Being Evaluated by Hospitalist Forms Stand Alone Forms: [facility] Prescriptions Prescriptions: No Action celecoxib 200 mg capsule 200 mg PO BID RF: 0 furosemide 40 mg Tablet 40 mg PO DAILY RF: 0 levothyroxine 137 mcg Tablet 137 mcg PO 3XWK RF: 0 levothyroxine 137 mcg Tablet 274 mcg PO 4XWK RF: 0 carvedilol [Coreg] 6.25 mg tablet 6.25 mg PO BID RF: 0 gabapentin 400 mg capsule 400 mg PO BID RF: 0 sertraline 100 mg Tablet 100 mg PO DAILY RF: 0 glucosamine sulfate [Glucosamine] 500 mg tablet 500 mg PO BID RF: 0 allopurinol 100 mg tablet 100 mg PO DAILY RF: 0 aspirin [Aspir-81] 81 mg Tablet,Delayed Release (Dr/Ec) 81 mg PO DAILY RF: 0 pantoprazole [Protonix] 40 mg tablet,delayed release (DR/EC) 40 mg PO DAILY RF: 0 lisinopril 10 mg tablet 10 mg PO DAILY RF: 0 ergocalciferol (vitamin D2) [Vitamin D2] 50,000 unit capsule 50,000 unit PO WK RF: 0 magnesium 200 mg tablet 200 mg PO DAILY RF: 0 insulin lispro [Humalog KwikPen Insulin] 100 unit/mL Insulin Pen 14 unit SUBCUT QAM RF: 0 insulin lispro [Humalog KwikPen Insulin] 100 unit/mL Insulin Pen 15 unit SUBCUT BID RF: 0 ezetimibe 10 mg tablet 10 mg PO DAILY RF: 0 hydrocodone-acetaminophen 10-300 mg tablet 1 tab PO TID PRN (Reason: Pain) RF: 0 fenofibrate nanocrystallized [Tricor] 145 mg tablet 145 mg PO HS RF: 0 insulin glargine [Lantus Solostar U-100 Insulin] 100 unit/mL (3 mL) Insulin Pen 50 unit SUBCUT HS RF: 0 apremilast [Otezla] 30 mg tablet 30 mg PO BID RF: 0 empagliflozin [Jardiance] 25 mg tablet 25 mg PO DAILY RF: 0 Referrals Referrals: Russ Browning [Primary Care Provider] - The scribe's documentation has been prepared under my direction and personally reviewed by me in its entirety. I confirm that the note above accurately reflects all work, treatment, procedures, and medical decision making performed by me.
[2018-04-03] MEDS ORDERED: GLUCAGON FOR INJ 1 MG VIAL SQ PRN (00:23)
[2018-04-03] MEDS ORDERED: CARBOHYDRATES FOR HYPOGLYCEMIA PO PRN (00:23)
[2018-04-03] MEDS ORDERED: MoRPHine SULFATE 4 MG/ML 1 ML CARP\\VIAL IV PRN (00:23)
[2018-04-03] MEDS ORDERED: GLUCOSE 40% GEL 15 GM TUBE PO PRN (00:23)
[2018-04-03] MEDS ORDERED: GLUCOSE 10 TABS/TUBE PO PRN (00:23)
[2018-04-03] MEDS ORDERED: PROCHLORPERAZINE 5 MG in SYRINGE 4 ML IV PRN (00:23)
[2018-04-03] MEDS ORDERED: DEXTROSE 50% 50 ML SYRINGE IV PRN (00:23)
[2018-04-03] MEDS ORDERED: SODIUM CHLORIDE 0.9% 1000ML 1,000 ML IV STA (00:23)
[2018-04-03 00:46] LABS: Hemoglobin 13.5 g/dL (12.0-16.0)
[2018-04-03] MEDS: TRAMADOL HCL 50 MG TABLET PO PRN ×3 (01:17→18:07)
[2018-04-03] MEDS: INSULIN ASPART 100 UNITS/ML 3 ML PEN SC SCH ×5 (01:21→20:19)
[2018-04-03] MEDS: INSULIN GLARGINE SOLOSTAR 100 UNITS/ML 3 ML PEN SC SCH ×3 (01:23→20:19)
[2018-04-03] MEDS ORDERED: XOPENEX/ATROVENT 1.25mg/0.5MG NEB COMBO NEB SCH (02:00)
[2018-04-03] MEDS: IPRATROPIUM BROMIDE NEB SOLN 0.02% 2.5 ML VIAL INH SCH ×4 (02:24→19:34)
[2018-04-03] MEDS: LEVALBUTEROL 1.25MG/0.5ML NEB INH SCH ×4 (02:25→19:34)
--- NOTE | 2018-04-03 03:00 | History & Physical Report ---
Date of Service April 02, 2018 Assessment & Plan (1) Acute hypoxemic respiratory failure: Secondary to complicated bronchitis secondary to flu pneumonia No sepsis Hemoptysis secondary to above, hemoglobin stable chronic diastolic heart failure as per records, patient on the dry side hypertension, stable CHRISTIANO on CPAP psoriatic arthritis as per records DM2, insulin requiring, unknown baseline control Asymptomatic bradycardia likely secondary to home beta-noreen Incidental finding of pulmonary nodules on CT GMF Supplemental O2 Doxycycline, nebs, prednisone course Tamiflu course Antitussives as needed to prevent further hemoptysis Pulmonary consult if without improvement for respiratory failure or for persistent hemoptysis Serial H&H, transfuse PRBC if hemoglobin less than 7 and or for symptomatic anemia Basal insulin, ISS BG goal 140-180, check hemoglobin A1c Decrease maintenance Coreg dose Outpatient CT chest surveillance follow-up study for pulmonary nodules DVT prophylaxis. SCDs RE hemoptysis Full code Total critical time was 45 minutes. History of Present Illness Chief Complaint: Cough, S OB Primary Care Provider: Russ Browning History obtained from patient and records. Medical history significant for chronic diastolic heart failure as per records, hypertension, hyperlipidemia, CHRISTIANO on CPAP, psoriatic arthritis, DM2, insulin requiring. 10 days history of dry cough symptoms later noted to be junky. Patient prescribed prednisone, inhaler, Tessalon Perles for bronchitis symptoms by urgent care center. Worsening cough, shortness of breath, chest pain with coughing, loose stools symptoms. Patient coughed out blood clots today. Home blood sugars a little lower than usual. At the ER, patient noted to be hypoxemic in the 80s. Patient given neb treatment and Tamiflu with positive flu swab. 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 Allergies Allergy/AdvReac Type Severity Reaction Status Date / Time Sulfa (Sulfonamide Allergy Anaphylaxis Unverified 04/02/18 18:13 Antibiotics) pentazocine [From Talwin] AdvReac Nausea Unverified 04/02/18 18:13 Home Medications Home Medications Medication Instructions Recorded Confirmed Type allopurinol 100 mg PO DAILY 04/02/18 04/02/18 History apremilast [Otezla] 30 mg PO BID 04/02/18 04/02/18 History aspirin [Aspir-81] 81 mg PO DAILY 04/02/18 04/02/18 History carvedilol [Coreg] 6.25 mg PO BID 04/02/18 04/02/18 History celecoxib 200 mg PO BID 04/02/18 04/02/18 History empagliflozin [Jardiance] 25 mg PO DAILY 04/02/18 04/02/18 History ergocalciferol (vitamin D2) 50,000 unit PO WK 04/02/18 04/02/18 History [Vitamin D2] ezetimibe 10 mg PO DAILY 04/02/18 04/02/18 History fenofibrate nanocrystallized 145 mg PO HS 04/02/18 04/02/18 History [Tricor] furosemide 40 mg PO DAILY 04/02/18 04/02/18 History gabapentin 400 mg PO BID 04/02/18 04/02/18 History glucosamine sulfate [Glucosamine] 500 mg PO BID 04/02/18 04/02/18 History hydrocodone-acetaminophen 1 tab PO TID PRN 04/02/18 04/02/18 History insulin glargine [Lantus Solostar 50 unit SUBCUT HS 04/02/18 04/02/18 History U-100 Insulin] insulin lispro [Humalog KwikPen 14 unit SUBCUT QAM 04/02/18 04/02/18 History Insulin] insulin lispro [Humalog KwikPen 15 unit SUBCUT BID 04/02/18 04/02/18 History Insulin] levothyroxine 137 mcg PO 3XWK 04/02/18 04/02/18 History levothyroxine 274 mcg PO 4XWK 04/02/18 04/02/18 History lisinopril 10 mg PO DAILY 04/02/18 04/02/18 History magnesium 200 mg PO DAILY 04/02/18 04/02/18 History pantoprazole [Protonix] 40 mg PO DAILY 04/02/18 04/02/18 History sertraline 100 mg PO DAILY 04/02/18 04/02/18 History Past Med/Surg History Medical History Asthma (Resolved) Social History Current Living Situation: Alone Other Information That Helps Us Care for You: No Feels Safe at Home: Yes Safety Concerns: Feels Safe At This Time Smoking Status: Never smoker Hx Alcohol Use: Yes (occasionally) Hx Substance Use: No Beliefs That Will Affect Care: None Preferred Language: Nauruan Communication Ability: Effective Senior Quality Technician Required: No Review of Systems As per HPI, all 10 systems reviewed, all other ROS negative Physical Exam 2 Vital Signs (Past 24 Hours): Last Vital Signs Temp 36.6 C 04/03/18 01:32 Pulse 88 04/03/18 02:25 Resp 18 04/03/18 02:25 BP 103/65 04/03/18 01:32 Pulse Ox 92 04/03/18 02:25 Physical Exam: GENERAL: Obese, slightly uncomfortable , audible wheezing, minimal respiratory distress, pleasant SKIN: Normal color, warm HEENT: Bespectacled, pink palpebral conjunctivae, no ptosis, dry buccal mucosa NECK : Supple, short neck, no tenderness CHEST : Expiratory wheezes/rhonchi, no tenderness HEART : RRR, no obvious murmurs ABDOMEN: Some distention, nontender EXTREMITIES : No LE swelling/tenderness, no other conspicuous deformities noted NEUROLOGIC : Coherent, no facial asymmetry, no other gross focality Results & Data Laboratory Results Laboratory Results WBC 10.10 K/uL (4.8-10.8) 04/02/18 18:35 RBC 4.83 M/uL (4.2-5.4) 04/02/18 18:35 Hgb 13.5 g/dL (12.0-16.0) 04/03/18 00:28 Hct 42.0 % (37-47) 04/03/18 00:28 MCV 91.9 fL (80-100) 04/02/18 18:35 MCH 30.0 pg (25-34) 04/02/18 18:35 MCHC 32.7 g/dL (32-36) 04/02/18 18:35 RDW Std Deviation 46.6 fL (36.4-46.3) H 04/02/18 18:35 RDW Coeff of Nadege 13.8 % (11.5-14.5) 04/02/18 18:35 Plt Count 223 K/uL (130-400) 04/02/18 18:35 MPV 10.8 fL (7.4-10.4) H 04/02/18 18:35 Immature Gran % (Auto) 0.7 % 04/02/18 18:35 Neut % (Auto) 61.3 % 04/02/18 18:35 Lymph % (Auto) 28.2 % 04/02/18 18:35 Cavalier % (Auto) 9.2 % 04/02/18 18:35 Eos % (Auto) 0.4 % 04/02/18 18:35 Baso % (Auto) 0.2 % 04/02/18 18:35 Immature Gran # (Auto) 0.07 K/uL (0.00-0.02) H 04/02/18 18:35 Neut # (Auto) 6.19 K/uL (1.4-6.5) 04/02/18 18:35 Lymph # (Auto) 2.85 K/uL (1.2-3.4) 04/02/18 18:35 Cavalier # (Auto) 0.93 K/uL (0.11-0.59) H 04/02/18 18:35 Eos # (Auto) 0.04 K/uL (0-0.5) 04/02/18 18:35 Baso # (Auto) 0.02 K/uL (0-0.2) 04/02/18 18:35 PT 10.1 Seconds (9.0-12.0) 04/02/18 18:35 INR 1.0 (0.9-1.1) 04/02/18 18:35 APTT 24.5 Seconds (21.0-31.0) 04/02/18 18:35 PTT Ratio 0.9 04/02/18 18:35 VBG pH 7.42 (7.36-7.41) H 04/02/18 18:41 VBG pCO2 41 mmHg (38-50) 04/02/18 18:41 VBG pO2 44 mmHg 04/02/18 18:41 VBG HCO3 26 mmol/L 04/02/18 18:41 VBG O2 Saturation 80.9 % 04/02/18 18:41 VBG Base Excess 1.5 mEq/L 04/02/18 18:41 Barometric Pressure 745.1 mm/Hg 04/02/18 18:41 Sodium 137 mmol/L (136-145) 04/02/18 18:35 Potassium 4.1 mmol/L (3.5-5.1) 04/02/18 18:35 Chloride 104 mmol/L (98-107) 04/02/18 18:35 Carbon Dioxide 28 mmol/L (21-32) 04/02/18 18:35 Anion Gap 5.0 (3-11) 04/02/18 18:35 BUN 29 mg/dl (7-18) H 04/02/18 18:35 Creatinine 1.03 mg/dl (0.6-1.2) 04/02/18 18:35 Est Cr Clr Drug Dosing 61.8 ml/min 04/02/18 18:35 Est GFR ( Amer) 65.6 04/02/18 18:35 Est GFR (Non-Af Amer) 56.6 04/02/18 18:35 BUN/Creatinine Ratio 28.2 (10-20) H 04/02/18 18:35 Glucose 172 mg/dl (70-99) H 04/02/18 18:35 POC Glucose 232 (70-99) H 04/03/18 00:33 Lactate 1.2 mmol/L (0.4-2.0) 04/02/18 18:40 Calcium 8.6 mg/dl (8.5-10.1) 04/02/18 18:35 Magnesium 1.8 mg/dl (1.8-2.4) 04/02/18 18:35 Troponin I < 0.015 ng/ml (0-0.045) 04/02/18 18:35 NT-Pro-B Natriuret Pep 65 pg/ml (0-900) 04/02/18 18:35 TSH 0.257 uIu/ml (0.300-4.500) L 04/02/18 18:35 Influenza Type A (PCR) Pos for Influ A (Neg) A* 04/02/18 18:25 Influenza Type B (PCR) Neg for Influ B (Neg) 04/02/18 18:[address] chest: 1. No evidence for pulmonary embolus. 2. Mild cardiomegaly. 3. A few prominent bilateral hilar lymph nodes. These bear watching on future examinations. 4. Bilateral lower lobe nodules as described above with the largest on the left measuring 9 mm. These may represent atelectasis or mild inflammatory change. [address] follow-up is recommended to ensure stability. 5. An indeterminate 2 cm left adrenal gland nodule. EKG as per my interpretation: Rate 50, sinus bradycardia, T wave flattening septal leads
[2018-04-03] MEDS: LEVOTHYROXINE SODIUM 137 MCG TABLET PO SCH (05:39)
[2018-04-03 06:39] LABS: Estimated Average Glucose 209 mg/dl
[2018-04-03 07:28] LABS: Basophils # (auto) 0.01 K/uL (0-0.2); Basophils % (auto) 0.1 %; Eosinophils # (auto) 0.01 K/uL (0-0.5); Eosinophils % (auto) 0.1 %; Hematocrit (blood only) 43.1 % (37-47); Immature Granulocytes # (auto) 0.03 K/uL (0.00-0.02); Immature Granulocytes % (auto) 0.4 %; Lymphocytes # (auto) 2.19 K/uL (1.2-3.4); Lymphocytes % (auto) 27.4 %; Mean Corpuscular Hgb Conc 32.5 g/dL (32-36); Mean Corpuscular Volume 92.5 fL (80-100); Mean Platelet Volume 10.5 fL (7.4-10.4); Monocytes # (auto) 0.39 K/uL (0.11-0.59); Monocytes % (auto) 4.9 %; Neutrophils # (auto) 5.37 K/uL (1.4-6.5); Neutrophils % (auto) 67.1 %; Platelet Count 213 K/uL (130-400); RDW Standard Deviation 47.3 fL (36.4-46.3); Red Blood Count 4.66 M/uL (4.2-5.4)
[2018-04-03] MEDS: DOXYCYCLINE HYCLATE 100 MG CAP PO SCH ×2 (08:15→20:23)
[2018-04-03] MEDS: EZETIMIBE 10 MG TABLET PO SCH (08:15)
[2018-04-03] MEDS ORDERED: PNEUMOCOCCAL POLYSACCHARIDES 25 MCG/0.5 ML VIAL/SYR IM ONE (08:15)
[2018-04-03] MEDS ORDERED: PNEUMOCOCCAL ADMINISTRATION CHARGE ONE (08:15)
[2018-04-03] MEDS: PANTOprazole 40 MG TAB PO SCH (08:15)
[2018-04-03] MEDS ORDERED: INFLUENZA VACCINE HIGH DOSE 65+ 0.5 ML SYR IM ONE (08:15)
[2018-04-03] MEDS ORDERED: INFLUENZA ADMINISTRATION CHARGE ONE (08:15)
[2018-04-03] MEDS: GABAPENTIN 400 MG CAP PO SCH ×2 (08:15→20:14)
[2018-04-03] MEDS: ALLOPURINOL 100 MG TAB PO SCH (08:16)
[2018-04-03] MEDS: SERTRALINE HCL 100 MG TABLET PO SCH (08:16)
[2018-04-03] MEDS: CARVEDILOL 3.125 MG TAB PO SCH ×2 (08:16→20:14)
[2018-04-03] MEDS: predniSONE 20 MG TAB PO SCH (08:16)
[2018-04-03] MEDS: BENZONATATE 100 MG CAPSULE PO PRN ×2 (08:16→20:13)
[2018-04-03] MEDS: LISINOPRIL 10 MG TAB PO SCH (08:16)
[2018-04-03] MEDS: OSELTAMIVIR PHOSPHATE 75 MG CAP PO SCH ×3 (08:29→20:17)
[2018-04-03] MEDS ORDERED: CARVEDILOL 6.25 MG TAB PO SCH (09:00)
--- NOTE | 2018-04-03 17:09 | Hospitalist Progress Note ---
Date of Service April 03, 2018 Assessment & Plan (1) Acute hypoxemic respiratory failure: Secondary to complicated bronchitis secondary to flu pneumonia,No sepsis Hemoptysis secondary to above, hemoglobin stable Complicated by chronic diastolic heart failure Supplemental O2 Doxycycline, nebs, prednisone course Tamiflu course Antitussives as needed to prevent further hemoptysis Clinically much better this morning We will continue current medications Chronic diastolic heart failure No acute symptoms Chest x-ray is not showing any fluid overload hypertension, stable Continue current medications CHRISTIANO on CPAP Breathing seems to be improved Psoriatic arthritis as per records DM2, insulin requiring, unknown baseline control Basal insulin, ISS BG goal 140-180, check hemoglobin A1c Asymptomatic bradycardia likely secondary to home beta-noreen Beta-noreen dose has been adjusted DVT prophylaxis. SCDs RE hemoptysis Full code Subjective She is a 67 y old Female with significant PMH of chronic diastolic heart failure as per records, hypertension, hyperlipidemia, CHRISTIANO on CPAP, psoriatic arthritis, DM2, insulin requiring. Admitted with 10 days history of dry cough symptoms later noted to be junky. 04/03 Patient was seen and examined the medical floor She has minimal cough otherwise denies any symptoms She feels a lot better following admission Physical Exam 2 Vital Signs (Past 24 Hours): Last Vital Signs Temp 36.7 C 04/03/18 14:58 Pulse 66 04/03/18 14:58 Resp 18 04/03/18 14:58 BP 112/70 04/03/18 14:58 Pulse Ox 91 04/03/18 14:58 Physical Exam: Minimal discomfort at rest Constitutional: WD/WN, vitals as above Eyes: PERRL, conjunctivae normal, anicteric sclerae ENMT: external ear and nose normal, oropharynx normal Neck: trachea midline, no thyromegaly Respiratory: normal respiratory effort; no respiratory distress, no labored breathing and does not use accessory muscles Auscultation: + diminished lung sounds and + wheezes (Minimal wheezing) Cardiovascular: Rate/Rhythm: regular rate and regular rhythm Heart Sounds: normal S1 and normal S2 Gastrointestinal (Abdomen): Inspection/Auscultation: abdomen normal to inspection and normal bowel sounds Percussion/Palpation: abdomen soft Neurologic: Alert, awake and oriented x3. Generally weak
[2018-04-03] MEDS: ACETAMINOPHEN 325 MG TAB PO PRN (20:13)
[2018-04-03] MEDS: FENOFIBRATE NANOCRYSTALLIZED 145 MG TABLET PO SCH (20:15)
[2018-04-04] MEDS: LEVALBUTEROL 1.25MG/0.5ML NEB INH SCH ×4 (02:35→19:21)
[2018-04-04] MEDS: IPRATROPIUM BROMIDE NEB SOLN 0.02% 2.5 ML VIAL INH SCH ×4 (02:35→19:22)
[2018-04-04] MEDS: ACETAMINOPHEN 325 MG TAB PO PRN ×2 (06:27→23:16)
[2018-04-04] MEDS ORDERED: LEVOTHYROXINE SODIUM 137 MCG TABLET PO SCH (06:30)
[2018-04-04] MEDS: OSELTAMIVIR PHOSPHATE 75 MG CAP PO SCH ×2 (07:33→20:38)
[2018-04-04] MEDS: GABAPENTIN 400 MG CAP PO SCH ×2 (07:34→20:38)
[2018-04-04] MEDS: DOXYCYCLINE HYCLATE 100 MG CAP PO SCH ×2 (07:34→20:38)
[2018-04-04] MEDS: LISINOPRIL 10 MG TAB PO SCH (07:34)
[2018-04-04] MEDS: ALLOPURINOL 100 MG TAB PO SCH (07:36)
[2018-04-04] MEDS: CARVEDILOL 3.125 MG TAB PO SCH ×2 (07:37→20:42)
[2018-04-04] MEDS: INSULIN GLARGINE SOLOSTAR 100 UNITS/ML 3 ML PEN SC SCH ×2 (07:41→20:44)
[2018-04-04] MEDS: INSULIN ASPART 100 UNITS/ML 3 ML PEN SC SCH ×4 (07:41→20:44)
[2018-04-04] MEDS: PANTOprazole 40 MG TAB PO SCH (09:01)
[2018-04-04] MEDS: SERTRALINE HCL 100 MG TABLET PO SCH (09:01)
[2018-04-04] MEDS: predniSONE 20 MG TAB PO SCH (09:01)
[2018-04-04] MEDS: EZETIMIBE 10 MG TABLET PO SCH (09:02)
[2018-04-04] MEDS: BENZONATATE 100 MG CAPSULE PO PRN (09:12)
[2018-04-04] MEDS: HYDROCODONE/HOMATROPINE SYRUP 5MG/1.5MG 5ML UDP PO PRN ×2 (12:49→20:39)
--- NOTE | 2018-04-04 18:12 | Hospitalist Progress Note ---
Date of Service April 04, 2018 Assessment & Plan (1) Acute hypoxemic respiratory failure: (1) Acute hypoxemic respiratory failure: Secondary to complicated bronchitis secondary to flu pneumonia,No sepsis Hemoptysis secondary to above, hemoglobin stable Complicated by chronic diastolic heart failure Supplemental O2 Doxycycline, nebs, prednisone course Tamiflu course Antitussives as needed to prevent further hemoptysis Clinically much better this morning We will continue current medications Appreciate pulmonary input and recommendation Continue current treatment With discharge tomorrow Chronic diastolic heart failure No acute symptoms Chest x-ray is not showing any fluid overload hypertension, stable Continue current medications CHRISTIANO on CPAP Breathing seems to be improved Psoriatic arthritis as per records DM2, insulin requiring, unknown baseline control Basal insulin, ISS BG goal 140-180, check hemoglobin A1c Asymptomatic bradycardia likely secondary to home beta-noreen Beta-noreen dose has been adjusted DVT prophylaxis. SCDs RE hemoptysis Full code Subjective She is a 67 y old Female with significant PMH of chronic diastolic heart failure as per records, hypertension, hyperlipidemia, CHRISTIANO on CPAP, psoriatic arthritis, DM2, insulin requiring. Admitted with 10 days history of dry cough symptoms later noted to be junky. 04/03 Patient was seen and examined the medical floor She has minimal cough otherwise denies any symptoms She feels a lot better following admission 04/04 The patient was seen and examined in medical floor She is symptomatically not better Denies any increasing cough and no shortness of breath Physical Exam 2 Vital Signs (Past 24 Hours): Last Vital Signs Temp 36.7 C 04/04/18 15:06 Pulse 65 04/04/18 15:06 Resp 20 04/04/18 15:06 BP 118/71 04/04/18 15:06 Pulse Ox 92 04/04/18 15:06 Constitutional: WD/WN, vitals as above Eyes: PERRL, conjunctivae normal, anicteric sclerae ENMT: external ear and nose normal, oropharynx normal Neck: trachea midline, no thyromegaly Respiratory: normal respiratory effort; no respiratory distress, no labored breathing and does not use accessory muscles Auscultation: + diminished lung sounds and + wheezes (Minimal wheezing) Cardiovascular: Rate/Rhythm: regular rate and regular rhythm Heart Sounds: normal S1 and normal S2 Gastrointestinal (Abdomen): Inspection/Auscultation: abdomen normal to inspection and normal bowel sounds Percussion/Palpation: abdomen soft Neurologic: Alert, awake and oriented x3. Generally weak Results & Data Medications Administered Current Inpatient Medications Acetaminophen (Tylenol) 650 mg PO Q4H PRN PRN Reason: pain/fever Stop: 05/03/18 00:22 Last Admin: 04/04/18 06:27 Dose: 650 mg Allopurinol (Zyloprim) 100 mg PO DAILY HAYDEN Stop: 05/03/18 08:59 Last Admin: 04/04/18 07:36 Dose: 100 mg Benzonatate (Tessalon Perle) 100 mg PO TID PRN PRN Reason: Cough Stop: 05/03/18 00:22 Last Admin: 04/04/18 09:12 Dose: 100 mg Carvedilol (Coreg) 3.125 mg PO BID HAYDEN Stop: 05/03/18 08:59 Last Admin: 04/04/18 07:37 Dose: Not Given Dextrose (Dextrose 50%) 25 - 50 ml IV UD PRN; Protocol PRN Reason: Hypoglycemia Protocol Stop: 05/03/18 00:22 Doxycycline Hyclate (Vibramycin) 100 mg PO BID HAYDEN Stop: 04/10/18 08:59 Last Admin: 04/04/18 07:34 Dose: 100 mg Ezetimibe (Zetia) 10 mg PO DAILY HAYDEN Stop: 05/03/18 08:59 Last Admin: 04/04/18 09:02 Dose: 10 mg Fenofibrate (Tricor) 145 mg PO HS [facility] Stop: 05/03/18 20:59 Last Admin: 04/03/18 20:15 Dose: 145 mg Gabapentin (Neurontin) 400 mg PO BID HAYDEN Stop: 05/03/18 08:59 Last Admin: 04/04/18 07:34 Dose: 400 mg Glucagon (Glucagen) 1 mg SQ UD PRN; Protocol PRN Reason: Hypoglycemia Protocol Stop: 05/03/18 00:22 Glucose (Dex4 Glucose) 4 - 8 tabs PO UD PRN; Protocol PRN Reason: Hypoglycemia Protocol Stop: 05/03/18 00:22 Glucose (Glucose 40%) 15 - 30 gm PO UD PRN; Protocol PRN Reason: Hypoglycemia Protocol Stop: 05/03/18 00:22 Hydrocodone Bit/Homatropine Methylb (Hycodan) 5 ml PO Q6H PRN PRN Reason: Cough Stop: 04/18/18 09:39 Last Admin: 04/04/18 12:49 Dose: 5 ml Prochlorperazine 5 mg/ Syringe 5 mls @ 5 mls/min IV Q6H PRN PRN Reason: Nausea And Vomiting Stop: 05/03/18 00:22 Insulin Aspart (Novolog Flexpen) 0 units SC ACHS [facility] Stop: 05/03/18 00:22 Last Admin: 04/04/18 12:47 Dose: 3 units Insulin Glargine (Lantus Solostar Pen) 20 units SC BID [facility] Stop: 05/03/18 00:22 Last Admin: 04/04/18 07:41 Dose: Not Given Ipratropium [place] (Atrovent 0.02% 0.5mg/2.5ml) 0.5 mg INH Q6R [facility] Stop: 05/03/18 01:59 Last Admin: 04/04/18 13:47 Dose: 0.5 mg Levalbuterol HCl (Xopenex 1.25mg/0.5ml Neb) 1.25 mg INH Q6R [facility] Stop: 05/03/18 01:59 Last Admin: 04/04/18 13:48 Dose: 1.25 mg Levothyroxine Sodium (Levothyroxine Sodium) 137 mcg PO [email or web address] [facility] Stop: 05/03/18 06:29 Last Admin: 04/03/18 05:39 Dose: 137 mcg Levothyroxine Sodium (Levothyroxine Sodium) 274 mcg PO [email or web address] [facility] Stop: 05/04/18 06:29 Last Admin: 04/04/18 05:43 Dose: 274 mcg Lisinopril (Zestril) 10 mg PO DAILY [facility] Stop: 05/03/18 08:59 Last Admin: 04/04/18 07:34 Dose: 10 mg Miscellaneous (Carbohydrates For Hypoglycemia) 15 - 30 gm PO UD PRN PRN Reason: Hypoglycemia Treatment Stop: 05/03/18 00:22 Miscellaneous (Order Awaiting Action) 1 ea N/A QS [facility] Stop: 05/03/18 07:59 Last Admin: 04/04/18 16:25 Dose: Not Given Morphine Sulfate (Morphine Sulfate) 4 mg IV Q4H PRN PRN Reason: Pain Stop: 04/17/18 00:22 Last Admin: 02/21/19 00:30 Dose: 4 mg Oseltamivir Phosphate (Tamiflu) 75 mg PO BID [facility] Stop: 04/08/18 08:59 Last Admin: 04/04/18 07:33 Dose: 75 mg Pantoprazole Sodium (Protonix) 40 mg PO DAILY HAYDEN Stop: 05/03/18 08:59 Last Admin: 04/04/18 09:01 Dose: 40 mg Prednisone (Prednisone) 20 mg PO DAILY HAYDEN Stop: 04/07/18 08:59 Last Admin: 04/04/18 09:01 Dose: 20 mg Sertraline HCl (Zoloft) 100 mg PO DAILY [facility] Stop: 05/03/18 08:59 Last Admin: 04/04/18 09:01 Dose: 100 mg Tramadol HCl (Ultram) 25 - 50 mg PO Q4H PRN PRN Reason: Pain Stop: 05/03/18 00:22 Last Admin: 04/03/18 18:07 Dose: 50 mg
[2018-04-04] MEDS: FENOFIBRATE NANOCRYSTALLIZED 145 MG TABLET PO SCH (20:39)
--- NOTE | 2018-04-04 22:00 | Pulmonary Consultation ---
Date of Consultation April 04, 2018 Assessment & Plan (1) Acute hypoxemic respiratory failure: Impression: 1. Reticulonodular disease of the chest in a patient who had history of psoriasis is suspicious for Psoriatec pneumonitis. 2. Incidental finding of influenza a. Not influenza pneumonia, patient has no fever, and no signs of constitutional symptoms, or leukocytosis. 3. Persistent cough. 4. Obstructive sleep apnea on CPAP. Plan: 1. Start prednisone 0.5 mg/kg dose, I will start the patient at 60 mg p.o. daily. 2. Continue prednisone for 7 days then decrease it to 40 mg for 7 days then 20 mg ongoing until seen in the pulmonary clinic. 3. Add amantadine 100 mg p.o. twice daily for 7 days. 4. Discontinue lisinopril. 5. Start losartan p.o. 6. Glucose control. 7. She would need repeat CAT scan of the chest in 3 months. 8. Continue oseltamivir even though the patient is only a carrier, the patient is not vaccinated. Thank you, will follow. History of Present Illness Reason for Consultation: Respiratory failure. Requesting Physician: Dr. Webb. Attending Physician: Royal Webb MD History of Present Illness Dear Dr. Webb: Thank you for the kind referral of Mrs. Jacobo to pulmonary service. This is 67 -year-old female who is non-smoker lifetime, does not have history of respiratory disease, does not have a history of COPD, history of asthma as a child, has a history of obstructive sleep apnea with morbid obesity, treated with CPAP at home, history of diabetes, and psoriasis, presented to the hospital with persistent cough for the past 10 days, accompanied with mild sputum production, she has been treated as an outpatient with Tessalon Perles in addition to as needed inhaler, the patient also was given a short course of prednisone without any benefit, her cough has been worsening and the patient was admitted to the hospital for further evaluation. Patient was found to have O2 saturation in the 80s, she did not have any chest pain, no abdominal pain, denies any nausea or vomiting, she does have a heartburn but she takes pill for it according to her. No increased swelling in her lower extremities, no nausea or vomiting and no change of bowel movements or urine habits. No increased rash or increased swelling in any of her joints. No constitutional symptoms or fever. 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 Allergies Allergy/AdvReac Type Severity Reaction Status Date / Time Sulfa (Sulfonamide Allergy Anaphylaxis Unverified 04/02/18 18:13 Antibiotics) pentazocine [From Talwin] AdvReac Nausea Unverified 04/02/18 18:13 Home Medications Home Medications Medication Instructions Recorded Confirmed Type allopurinol 100 mg PO DAILY 04/02/18 04/02/18 History apremilast [Otezla] 30 mg PO BID 04/02/18 04/02/18 History aspirin [Aspir-81] 81 mg PO DAILY 04/02/18 04/02/18 History carvedilol [Coreg] 6.25 mg PO BID 04/02/18 04/02/18 History celecoxib 200 mg PO BID 04/02/18 04/02/18 History empagliflozin [Jardiance] 25 mg PO DAILY 04/02/18 04/02/18 History ergocalciferol (vitamin D2) 50,000 unit PO WK 04/02/18 04/02/18 History [Vitamin D2] ezetimibe 10 mg PO DAILY 04/02/18 04/02/18 History fenofibrate nanocrystallized 145 mg PO HS 04/02/18 04/02/18 History [Tricor] furosemide 40 mg PO DAILY 04/02/18 04/02/18 History gabapentin 400 mg PO BID 04/02/18 04/02/18 History glucosamine sulfate [Glucosamine] 500 mg PO BID 04/02/18 04/02/18 History hydrocodone-acetaminophen 1 tab PO TID PRN 04/02/18 04/02/18 History insulin glargine [Lantus Solostar 50 unit SUBCUT HS 04/02/18 04/02/18 History U-100 Insulin] insulin lispro [Humalog KwikPen 14 unit SUBCUT QAM 04/02/18 04/02/18 History Insulin] insulin lispro [Humalog KwikPen 15 unit SUBCUT BID 04/02/18 04/02/18 History Insulin] levothyroxine 137 mcg PO 3XWK 04/02/18 04/02/18 History levothyroxine 274 mcg PO 4XWK 04/02/18 04/02/18 History lisinopril 10 mg PO DAILY 04/02/18 04/02/18 History magnesium 200 mg PO DAILY 04/02/18 04/02/18 History pantoprazole [Protonix] 40 mg PO DAILY 04/02/18 04/02/18 History sertraline 100 mg PO DAILY 04/02/18 04/02/18 History Patient History Medical History Asthma (Resolved) Social History Current Living Situation: Alone Other Information That Helps Us Care for You: No Feels Safe at Home: Yes Safety Concerns: Feels Safe At This Time Smoking Status: Never smoker Hx Alcohol Use: Yes (occasionally) Hx Substance Use: No Beliefs That Will Affect Care: None Preferred Language: Italian Communication Ability: Effective Ambulatory Technologist Required: No Review of Systems 14 systems has been reviewed as above otherwise were unremarkable. Physical Exam 2 Vital Signs (Past 24 Hours): Last Vital Signs Temp 36.7 C 04/04/18 15:06 Pulse 78 04/04/18 19:22 Resp 18 04/04/18 19:22 BP 118/71 04/04/18 15:06 Pulse Ox 96 04/04/18 19:22 Physical Exam: Vital signs are stable, S1-S2 regular rate and rhythm, occasional cough, distant breath sounds bilaterally, abdomen is benign, no edema , neurologically she is nonfocal, no rash and oral mucosa is normal. Results & Data Laboratory Results No leukocytosis, pH is normal, BMP is normal. Influenza A is positive. Diagnostic Findings CAT scan of the chest reviewed personally which showed mild lymphadenopathy in the mediastinum, 2 cm left adrenal mass, bilateral lower lobe nodules noted.
[2018-04-05] MEDS: IPRATROPIUM BROMIDE NEB SOLN 0.02% 2.5 ML VIAL INH SCH ×3 (01:43→13:57)
[2018-04-05] MEDS: LEVALBUTEROL 1.25MG/0.5ML NEB INH SCH ×3 (01:43→13:57)
[2018-04-05] MEDS: ACETAMINOPHEN 325 MG TAB PO PRN (05:47)
[2018-04-05] MEDS: LEVOTHYROXINE SODIUM 137 MCG TABLET PO SCH (05:47)
[2018-04-05] MEDS: DOXYCYCLINE HYCLATE 100 MG CAP PO SCH (08:07)
[2018-04-05] MEDS: OSELTAMIVIR PHOSPHATE 75 MG CAP PO SCH (08:07)
[2018-04-05] MEDS: SERTRALINE HCL 100 MG TABLET PO SCH (08:07)
[2018-04-05] MEDS: PANTOprazole 40 MG TAB PO SCH (08:07)
[2018-04-05] MEDS: EZETIMIBE 10 MG TABLET PO SCH (08:07)
[2018-04-05] MEDS: ALLOPURINOL 100 MG TAB PO SCH (08:07)
[2018-04-05] MEDS: LISINOPRIL 10 MG TAB PO SCH (08:08)
[2018-04-05] MEDS: CARVEDILOL 3.125 MG TAB PO SCH (08:09)
[2018-04-05] MEDS: INSULIN GLARGINE SOLOSTAR 100 UNITS/ML 3 ML PEN SC SCH (08:09)
[2018-04-05] MEDS: GABAPENTIN 400 MG CAP PO SCH (08:09)
[2018-04-05] MEDS: BENZONATATE 100 MG CAPSULE PO PRN (08:09)
[2018-04-05] MEDS: TRAMADOL HCL 50 MG TABLET PO PRN (08:17)
[2018-04-05] MEDS: HYDROCODONE/HOMATROPINE SYRUP 5MG/1.5MG 5ML UDP PO PRN (08:17)
[2018-04-05] MEDS ORDERED: predniSONE 20 MG TAB PO SCH (09:00)
[2018-04-05] MEDS ORDERED: AMANTADINE HCL 100 MG CAPSULE PO SCH (09:00)
[2018-04-05] MEDS: INSULIN ASPART 100 UNITS/ML 3 ML PEN SC SCH ×2 (10:28→12:53)
--- NOTE | 2018-04-05 13:27 | Hospitalist Progress Note ---
Date of Service April 05, 2018 Assessment & Plan (1) Acute hypoxemic respiratory failure: (1) Acute hypoxemic respiratory failure: Secondary to complicated bronchitis secondary to flu pneumonia,No sepsis Hemoptysis secondary to above, hemoglobin stable Complicated by chronic diastolic heart failure Supplemental O2 Doxycycline, nebs, prednisone course Tamiflu course Antitussives as needed to prevent further hemoptysis Clinically much better this morning We will continue current medications Appreciate pulmonary input and recommendation Continue current treatment-steroid tapered dose Will give Hycodan for cough Chronic cough May be complicated by use of lisinopril Lisinopril has been stopped and losartan has been prescribed We will give Hycodan on discharge Chronic diastolic heart failure No acute symptoms Chest x-ray is not showing any fluid overload hypertension, stable Continue current medications CHRISTIANO on CPAP Breathing seems to be improved Psoriatic arthritis as per records May have psoriatic lung disease DM2, insulin requiring, unknown baseline control Basal insulin, ISS BG goal 140-180, check hemoglobin A1c Asymptomatic bradycardia likely secondary to home beta-noreen Beta-noreen dose has been adjusted DVT prophylaxis. SCDs RE hemoptysis Full code Likely be discharged this afternoon To a steps oxygen saturation test before discharge Subjective She is a 67 y old Female with significant PMH of chronic diastolic heart failure as per records, hypertension, hyperlipidemia, CHRISTIANO on CPAP, psoriatic arthritis, DM2, insulin requiring. Admitted with 10 days history of dry cough symptoms later noted to be junky. 04/03 Patient was seen and examined the medical floor She has minimal cough otherwise denies any symptoms She feels a lot better following admission 04/04 The patient was seen and examined in medical floor She is symptomatically not better Denies any increasing cough and no shortness of breath 04/05 The patient was seen and examined in medical Her cough is better and shortness of breath is much improved Denies any chest pain Will have to a steps oxygen saturation test before discharge Physical Exam 2 Vital Signs (Past 24 Hours): Last Vital Signs Temp 36.7 C 04/05/18 11:39 Pulse 54 L 04/05/18 11:39 Resp 16 04/05/18 11:39 BP 108/65 04/05/18 11:39 Pulse Ox 91 04/05/18 11:39 Physical Exam: Lying in bed comfortably Constitutional: WD/WN, vitals as above Eyes: PERRL, conjunctivae normal, anicteric sclerae ENMT: external ear and nose normal, oropharynx normal Neck: trachea midline, no thyromegaly Respiratory: normal respiratory effort; no respiratory distress, no labored breathing and does not use accessory muscles Auscultation: + diminished lung sounds, + crackles (Minimal bibasilar crackles) and + wheezes (Minimal) Cardiovascular: Rate/Rhythm: regular rate and regular rhythm Heart Sounds: normal S1 and normal S2 Gastrointestinal (Abdomen): Inspection/Auscultation: abdomen normal to inspection and normal bowel sounds Percussion/Palpation: abdomen soft Neurologic: Alert, awake and oriented x3. Generally weak
--- NOTE | 2018-04-06 08:20 | Discharge Summary ---
Date of Service April 06, 2018 Admission HPI Per Admitting Provider History obtained from patient and records. Medical history significant for chronic diastolic heart failure as per records, hypertension, hyperlipidemia, CHRISTIANO on CPAP, psoriatic arthritis, DM2, insulin requiring. 10 days history of dry cough symptoms later noted to be junky. Patient prescribed prednisone, inhaler, Tessalon Perles for bronchitis symptoms by urgent care center. Worsening cough, shortness of breath, chest pain with coughing, loose stools symptoms. Patient coughed out blood clots today. Home blood sugars a little lower than usual. At the ER, patient noted to be hypoxemic in the 80s. Patient given neb treatment and Tamiflu with positive flu swab. 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 Admission Exam Per Admitting Provider Vital Signs (Past 24 Hours): Last Vital Signs Temp 36.6 C 04/03/18 01:32 Pulse 88 04/03/18 02:25 Resp 18 04/03/18 02:25 BP 103/65 04/03/18 01:32 Pulse Ox 92 04/03/18 02:25 Physical Exam: GENERAL: Obese, slightly uncomfortable , audible wheezing, minimal respiratory distress, pleasant SKIN: Normal color, warm HEENT: Bespectacled, pink palpebral conjunctivae, no ptosis, dry buccal mucosa NECK : Supple, short neck, no tenderness CHEST : Expiratory wheezes/rhonchi, no tenderness HEART : RRR, no obvious murmurs ABDOMEN: Some distention, nontender EXTREMITIES : No LE swelling/tenderness, no other conspicuous deformities noted NEUROLOGIC : Coherent, no facial asymmetry, no other gross focality Principal Diagnosis Acute hypoxic respiratory failure, 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 , complicated bronchitis, influenza A Discharge Exam Constitutional WD/WN, vitals as above Eyes PERRL, conjunctivae normal, anicteric sclerae ENMT external ear and nose normal, oropharynx normal Neck trachea midline, no thyromegaly Respiratory normal respiratory effort; no respiratory distress, no labored breathing and does not use accessory muscles Auscultation: + diminished lung sounds, + crackles (Minimal bibasilar crackles) and + wheezes (Minimal) Cardiovascular Rate/Rhythm: regular rate and regular rhythm Heart Sounds: normal S1 and normal S2 Gastrointestinal (Abdomen) Inspection/Auscultation: abdomen normal to inspection and normal bowel sounds Percussion/Palpation: abdomen soft Discharge Data Allergies Allergy/AdvReac Type Severity Reaction Status Date / Time Sulfa (Sulfonamide Allergy Anaphylaxis Unverified 04/02/18 18:13 Antibiotics) pentazocine [From Talwin] AdvReac Nausea Unverified 04/02/18 18:13 Consultations 04/02/18 21:16 ED Decision to Admit Stat 04/04/18 09:38 Consult Pulmonology Routine Ordered Studies 04/02/18 18:18 CT angio chest PE protocol Stat Hospital Course (1) Acute hypoxemic respiratory failure: (1) Acute hypoxemic respiratory failure: Secondary to complicated bronchitis secondary to flu pneumonia,No sepsis Hemoptysis secondary to above, hemoglobin stable Complicated by chronic diastolic heart failure Supplemental O2 Doxycycline, nebs, prednisone course Tamiflu course Antitussives as needed to prevent further hemoptysis Clinically much better this morning We will continue current medications Appreciate pulmonary input and recommendation Continue current treatment-steroid tapered dose Will give Hycodan for cough Chronic cough May be complicated by use of lisinopril Lisinopril has been stopped and losartan has been prescribed We will give Hycodan on discharge Chronic diastolic heart failure No acute symptoms Chest x-ray is not showing any fluid overload hypertension, stable Continue current medications CHRISTIANO on CPAP Breathing seems to be improved Psoriatic arthritis as per records May have psoriatic lung disease DM2, insulin requiring, unknown baseline control Basal insulin, ISS BG goal 140-180, check hemoglobin A1c Asymptomatic bradycardia likely secondary to home beta-noreen Beta-noreen dose has been adjusted DVT prophylaxis. SCDs RE hemoptysis Full code Likely be discharged this afternoon To a steps oxygen saturation test before discharge Total Time Total Time Spent Total Time Spent (In Minutes): 35 minutes Total Time Includes: Examination of the Patient, Discharge Planning, Medication Reconciliation and Communication With Other Providers Discharge Plan Discharge Items Patient Disposition: Home - Self-Care Reason For Visit: RESP FAILURE Discharge Diagnosis: Acute hypoxic respiratory failure, 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, complicated bronchitis, influenza A Condition: Fair Discharge Goals: Decrease discomfort, Improve disease control and Improve function Activity: Resume your previous activity Non-emergency contact: Primary Care Provider Call non-emergency contact if: you have any medication questions and your symptoms worsen Follow-up/Referrals: David Benitez MD [Physician] - (Please make an appointment with Dr. Benitez in about 2-3 weeks) SELF,REFERRED [Staff Physician] - (Please make an appointment with your primary care provider in 1 week) Diet: Heart Healthy and Lactose Intolerant Addtl Provider Instructions: Please take precaution to avoid fall Prescriptions: New doxycycline hyclate 100 mg Capsule 100 mg PO BID 4 Days Qty: 8 RF: 0 oseltamivir [Tamiflu] 75 mg Capsule 75 mg PO BID Qty: 4 RF: 0 hydrocodone-homatropine [Hydromet] 5-1.5 mg/5 mL Syrup 5 ml PO Q6H PRN (Reason: cough) Qty: 100 RF: 0 prednisone 20 mg Tablet 20 mg PO UD 15 Days Qty: 30 RF: 0 Continue celecoxib 200 mg capsule 200 mg PO BID RF: 0 furosemide 40 mg Tablet 40 mg PO DAILY RF: 0 levothyroxine 137 mcg Tablet 137 mcg PO 3XWK RF: 0 levothyroxine 137 mcg Tablet 274 mcg PO 4XWK RF: 0 carvedilol 6.25 mg tablet 6.25 mg PO BID RF: 0 gabapentin 400 mg capsule 400 mg PO BID RF: 0 sertraline 100 mg Tablet 100 mg PO DAILY RF: 0 glucosamine sulfate 500 mg tablet 500 mg PO BID RF: 0 allopurinol 100 mg tablet 100 mg PO DAILY RF: 0 aspirin [Aspir-81] 81 mg Tablet,Delayed Release (Dr/Ec) 81 mg PO DAILY RF: 0 pantoprazole 40 mg tablet,delayed release (DR/EC) 40 mg PO DAILY RF: 0 ergocalciferol (vitamin D2) 50,000 unit capsule 50,000 unit PO WK RF: 0 magnesium 200 mg tablet 200 mg PO DAILY RF: 0 insulin lispro [Humalog KwikPen Insulin] 100 unit/mL Insulin Pen 14 unit SUBCUT QAM RF: 0 insulin lispro [Humalog KwikPen Insulin] 100 unit/mL Insulin Pen 15 unit SUBCUT BID RF: 0 ezetimibe 10 mg tablet 10 mg PO DAILY RF: 0 hydrocodone-acetaminophen 10-300 mg tablet 1 tab PO TID PRN (Reason: Pain) RF: 0 fenofibrate nanocrystallized 145 mg tablet 145 mg PO HS RF: 0 insulin glargine [Lantus Solostar U-100 Insulin] 100 unit/mL (3 mL) Insulin Pen 50 unit SUBCUT HS RF: 0 apremilast 30 mg tablet 30 mg PO BID RF: 0 empagliflozin 25 mg tablet 25 mg PO DAILY RF: 0 Discontinued lisinopril 10 mg tablet 10 mg PO DAILY RF: 0 Stand-Alone Forms: [facility] Discharge Orders: Discharge Order (Routine); Ordered 04/05/18 Ordered By: Royal Webb Admission Data Admit Date/Time: 04/02/18 23:12 Attending Provider: Royal Webb Admit Provider: Jluis Kim Primary Care Provider: Russ Browning Other Providers: Jluis Kim ; David Benitez ; Hussein Wilson ; Nancy Brice ; Manuel Ornelas Jessica L. ; Jluis Matos ; Heather Frazier ; Janell Devries ; Edson Gallagher ; Edward Branham ; Ernesto Yu ; Clifford Beck Service: Medical Other Interventions: Discharge Summary Assessment (RN) Last Done: 04/05/18 14:29 DC Date/Time DO NOT enter until pt leaves facility: 04/05/18 15:11
== END 2018-04-05 15:11 | disposition home or self-care (01) | DRG 193 ==
LOC: ED 16:57 → 4E 23:12

== ENCOUNTER 2019-07-26 19:28 | Inpatient (IN) ==
[2019-07-26] MEDS ORDERED: MoRPHine SULFATE 4 MG/ML 1 ML CARP\\VIAL IV STA ×2 (20:49→21:42)
[2019-07-26 21:11] LABS: Appearance Urine Clear (Clear); Bacteria Urine Automated Negative (Negative); Bilirubin Urine Negative (Negative); Blood Urine Negative (Negative); Color Urine Yellow; Epithelial Cell Urine Auto >30 /lpf (0-5); Glucose Urine UA 2+ (Negative); Ketones Urine Negative (Negative); Leukocyte Esterase Urine 1+ (Negative); Nitrite Urine Negative (Negative); Protein Urine Negative (Negative); RBC Urine Automated 0-4 /hpf (0-4); Specific Gravity Urine 1.018 (1.000-1.030); Urobilinogen Urine Negative (Negative)
[2019-07-26 22:14] LABS: Basophils # (auto) 0.04 K/uL (0-0.2); Basophils % (auto) 0.3 %; Eosinophils # (auto) 0.31 K/uL (0-0.5); Eosinophils % (auto) 2.3 %; Hematocrit (blood only) 38.7 % (37-47); Hemoglobin 12.8 g/dL (12.0-16.0); Immature Granulocytes # (auto) 0.03 K/uL (0.00-0.02); Immature Granulocytes % (auto) 0.2 %; Lymphocytes # (auto) 4.74 K/uL (1.2-3.4); Lymphocytes % (auto) 35.1 %; Mean Corpuscular Hgb Conc 33.1 g/dL (32-36); Mean Corpuscular Volume 93.7 fL (80-100); Mean Platelet Volume 10.3 fL (7.4-10.4); Monocytes # (auto) 0.87 K/uL (0.11-0.59); Monocytes % (auto) 6.4 %; Neutrophils # (auto) 7.52 K/uL (1.4-6.5); Neutrophils % (auto) 55.7 %; Platelet Count 244 K/uL (130-400); RDW Coefficient of Variation 13.2 % (11.5-14.5); RDW Standard Deviation 45.6 fL (36.4-46.3); Red Blood Count 4.13 M/uL (4.2-5.4); White Blood Count 13.51 K/uL (4.8-10.8)
[2019-07-26 22:33] LABS: Albumin Level 3.5 gm/dl (3.4-5.0); BUN Creatinine Ratio 31.5 (10-20); Calcium 9.3 mg/dl (8.5-10.1); Creatinine Clr Calc Pharmacy 80.8 ml/min; Est GFR (African American) 84.6; Potassium 3.7 mmol/L (3.5-5.1)
[2019-07-26 22:35] LABS: Bilirubin,Total 0.2 mg/dl (0.2-1); Globulin 3.4 gm/dl (2.5-4.0); Total Protein 6.9 gm/dl (6.4-8.2)
--- NOTE | 2019-07-26 23:23 | Emergency Department Note ---
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 She is been having back pain radiating into her left hip and down her left leg for the past several months. She was seen here recently for the same complaint following which she had x-rays and was discharged. She notes that she normally walks with a cane but recently has been having to use 2 canes to support her. She notes that tonight she fell and she could not get herself back up because she was having severe pain. She brushed her head as she went down. She has no headache or neck pain. No chest pain shortness of breath or belly pain. She describes her pain as a 10 out of 10. Pain is significantly w orse with movement of the left hip. She denies any focal weakness but is weak throughout. No numbness in the groin. She does note that she has been unable to get to the bathroom several times to urinate and has went in her pants because of the pain or trouble moving. No other exacerbating or remitting factors. ROS: See above HPI for pertinent positives & negatives. A total of 10 systems reviewed and were otherwise negative. PAST MEDICAL HISTORY:See Below PAST SURGICAL HISTORY:See Below FAMILY HISTORY:See Below SOCIAL HISTORY:See Below HOME MEDICATIONS:See Below ALLERGIES:See Below VITALS:See Below PHYSICAL EXAMINATION: GENERAL: Laying in bed disheveled, moderate distress EYE EXAM: normal conjunctiva. OROPHARYNX: no exudate, no erythema, lips, buccal mucosa, and tongue normal and mucous membranes are moist NECK: supple, no nuchal rigidity, no adenopathy, non-tender LUNGS: Clear to auscultation. Normal chest wall mechanics HEART: no murmurs, S1 normal and S2 normal ABDOMEN: abdomen soft, non-tender, normo-active bowel sounds, no masses, no rebound or guarding. BACK: Back is symmetrical on inspection and there is no deformity, no midline tenderness, no CVA tenderness. UPPER EXTREMITIES: upper extremities are grossly normal. LOWER EXTREMITIES: Cold incisions over bilateral knees. Flexion-extension of the hip knee ankle and EHL on the right 5 out of 5. Flexion extension of the hip on the left 4 out of 5 with significant pain with flexion beyond 30 degrees. Significant pain with flexion extension of the knee and ankle and EHL although 5 out of 5 on the left. Unable to obtain reflexes. Her sensation intact. NEURO EXAM: Normal sensorium, cranial nerves II-XII grossly intact, normal speech. MEDICAL DECISION MAKING: Patient is a 68-year-old female who presents the ER for severe back and hip pain associated with a fall. IV was established blood work was obtained. Labs show mild leukocytosis 13,000. No significant anemia. BMP along with LFTs bilirubin was unremarkable. UA was contaminated with multiple epithelial cells. X-rays of the left hip and knee show no acute fractures. Patient was updated bedside. She was given multiple dose IV morphine. She is really unable to get up at this point. Do not believe that there is any acute cauda equina. She was agreeable to coming into the hospital. Discussed with the hospitalist and she will likely need an MRI and further work-up. Triage Nursing notes reviewed. Prior medical records reviewed Vital Signs: reviewed and remarkable for no significant abnormalities Differential diagnosis: Differential diagnoses includes but is not limited to lumbar radiculopathy, kidney stone, muscle strain, facture, cauda equina, mass, and disc herniation. ER treatment provided: See below Diagnostics interpreted by me: Cardiac Monitoring: An order was placed for continuous cardiac monitoring. The monitor shows a rate of 69 with sinus rhythm. Laboratory studies: As stated above and show below. 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 Required: No Beliefs That Will Affect Care: None Current Living Situation: Alone Feels Safe at Home: Yes Smoking Status: Never smoker Hx Alcohol Use: Yes (occasionally) Hx Substance Use: No Allergies Allergies Allergy/AdvReac Type Severity Reaction Status Date / Time Sulfa (Sulfonamide Allergy Anaphylaxis Unverified 07/22/19 09:27 Antibiotics) pentazocine [From Talwin] AdvReac Nausea Unverified 07/22/19 09:27 Home Meds Home Medications Medication Instructions Recorded Confirmed allopurinol 100 mg PO BID 04/02/18 07/26/19 apremilast 30 mg PO BID 04/02/18 07/26/19 aspirin [Aspir-81] 81 mg PO DAILY 04/02/18 07/26/19 carvedilol 6.25 mg PO BID 04/02/18 07/26/19 ergocalciferol (vitamin D2) 50,000 unit PO WK 04/02/18 07/26/19 fenofibrate nanocrystallized 145 mg PO HS 04/02/18 07/26/19 furosemide 40 mg PO DAILY 04/02/18 07/26/19 gabapentin 400 mg PO BID 04/02/18 07/26/19 hydrocodone-acetaminophen 1 tab PO TID PRN 04/02/18 07/26/19 sertraline 150 mg PO DAILY 04/02/18 07/26/19 acetaminophen [Tylenol Extra 1,500 mg PO BID PRN 05/30/18 07/26/19 Strength] diphenhydramine HCl [Benadryl] 25 mg PO DIRECTED PRN 05/30/18 07/26/19 glucosamine de la cruz 2KCl-chondroit 1 tab PO BID 05/30/18 07/26/19 [Glucosamine-Chondroitin DS] lisinopril 10 mg PO DAILY 05/30/18 07/26/19 famotidine 40 mg tablet 40 mg PO DAILY 01/14/19 07/26/19 insulin glargine 100 unit/mL (3 30 units SUBCUT BID ml 01/14/19 07/26/19 mL) subcutaneous pen insulin lispro 100 unit/mL 0 units SUBCUT TIDM ml 01/14/19 07/26/19 subcutaneous pen alirocumab [Praluent Pen] 0 mg SUBCUT .[id number] 07/05/19 07/26/19 levothyroxine [Synthroid] 200 mcg PO DAILY 07/05/19 07/26/19 diclofenac sodium 1 % topical gel 4 gm TOP QID gm 07/18/19 07/26/19 magnesium oxide 500 mg capsule 500 mg PO DAILY cap 07/18/19 07/26/19 lidocaine 5 % topical patch 1 patch TOPICAL Q24H PRN ea 07/22/19 07/26/19 methylprednisolone 4 mg tablet 4 mg PO DAILY PRN 07/22/19 07/26/19 Previous Rx's Medication Instructions Recorded albuterol sulfate [Proventil HFA] 2 puffs INH Q6H PRN #8 gm 03/27/19 oxycodone 5 mg PO Q8H PRN #10 tab 07/06/19 Results & Data (ED) Vital Signs Vital Signs - 24 hr 07/26/19 19:40 07/26/19 20:59 07/26/19 21:48 Temperature 36.8 C Temperature Source Oral Pulse Rate 50 L Pulse Rate [Right Finger] 49 L 52 L Pulse Rhythm Irregular Pulse Rhythm [Right Finger] Irregular Respiratory Rate 14 14 16 Respiratory Effort / Characteristics Non-Labored Spontaneous Non-Labored Spontaneous Non-Labored Spontaneous Respiratory Depth Normal Normal Normal Blood Pressure 134/72 Blood Pressure [Right Arm] 130/67 122/53 L Blood Pressure Mean 92 Blood Pressure Mean [Right Arm] 88 76 Pulse Oximetry 97 97 100 Oxygen Delivery Method Room Air Room Air Room Air Sepsis Recent Fever Within 48 Hours No Sepsis New/Unexplained Change in Mental Status No Sepsis Action Taken by Nursing No Action Required 07/26/19 22:02 Temperature Temperature Source Pulse Rate Pulse Rate [Right Finger] Pulse Rhythm Pulse Rhythm [Right Finger] Respiratory Rate Respiratory Effort / Characteristics Respiratory Depth Blood Pressure Blood Pressure [Right Arm] Blood Pressure Mean Blood Pressure Mean [Right Arm] Pulse Oximetry 100 Oxygen Delivery Method Room Air Sepsis Recent Fever Within 48 Hours Sepsis New/Unexplained Change in Mental Status Sepsis Action Taken by Nursing Laboratory Data Result diagrams: 07/26/19 22:06 07/26/19 22:06 Lab Results 07/26/19 07/26/19 07/26/19 Range/Units 20:55 22:06 22:06 WBC 13.51 H (4.8-10.8) K/uL RBC 4.13 L (4.2-5.4) M/uL Hgb 12.8 (12.0-16.0) g/dL Hct 38.7 (37-47) % MCV 93.7 (80-100) fL MCH 31.0 (25-34) pg MCHC 33.1 (32-36) g/dL RDW Std Deviation 45.6 (36.4-46.3) fL RDW Coeff of Nadege 13.2 (11.5-14.5) % Plt Count 244 (130-400) K/uL MPV 10.3 (7.4-10.4) fL Immature Gran % (Auto) 0.2 % Neut % (Auto) 55.7 % Lymph % (Auto) 35.1 % [place] % (Auto) 6.4 % Eos % (Auto) 2.3 % Baso % (Auto) 0.3 % Immature Gran # (Auto) 0.03 H (0.00-0.02) K/uL Neut # (Auto) 7.52 H (1.4-6.5) K/uL Lymph # (Auto) 4.74 H (1.2-3.4) K/uL [place] # (Auto) 0.87 H (0.11-0.59) K/uL Eos # (Auto) 0.31 (0-0.5) K/uL Baso # (Auto) 0.04 (0-0.2) K/uL Sodium 141 (136-145) mmol/L Potassium 3.7 (3.5-5.1) mmol/L Chloride 105 (98-107) mmol/L Carbon Dioxide 30 (21-32) mmol/L Anion Gap 6.0 (3-11) BUN 26 H (7-18) mg/dl Creatinine 0.83 (0.6-1.2) mg/dl Est Cr Clr Drug Dosing 80.8 ml/min Est GFR ( Amer) 84.6 Est GFR (Non-Af Amer) 73.0 BUN/Creatinine Ratio 31.5 H (10-20) Glucose 91 (70-99) mg/dl Calcium 9.3 (8.5-10.1) mg/dl Total Bilirubin 0.2 (0.2-1) mg/dl AST 10 L (15-37) U/L ALT 28 (12-78) U/L Alkaline Phosphatase 38 L (45-117) U/L Total Protein 6.9 (6.4-8.2) gm/dl Albumin 3.5 (3.4-5.0) gm/dl Globulin 3.4 (2.5-4.0) gm/dl Albumin/Globulin Ratio 1.0 (0.9-2) Urine Color Yellow Urine Appearance Clear (Clear) Urine pH 5.0 (4.5-7.5) Ur Specific [place] 1.018 (1.000-1.030) Urine Protein Negative (Negative) Urine Glucose (UA) 2+ H (Negative) Urine Ketones Negative (Negative) Urine Blood Negative (Negative) Urine Nitrite Negative (Negative) Urine Bilirubin Negative (Negative) Urine Urobilinogen Negative (Negative) Ur Leukocyte Esterase 1+ H (Negative) Urine WBC (Auto) 10-30 H (0-5) /hpf Urine RBC (Auto) 0-4 (0-4) /hpf U Hyaline Cast (Auto) 1-5 (0-5) /lpf U Epithel Cells (Auto) >30 H (0-5) /lpf Urine Bacteria (Auto) Negative (Negative) Administered Medications Discontinued Medications Morphine Sulfate (Morphine Sulfate) 4 mg IV NOW STA Stop: 07/26/19 20:50 Last Admin: 07/26/19 20:56 Dose: 4 mg Documented by: [id number] Morphine Sulfate (Morphine Sulfate) 4 mg IV NOW STA Stop: 07/26/19 21:43 Last Admin: 07/26/19 21:48 Dose: 4 mg Documented by: [id number] Discharge Plan Visit Data Chief Complaint: Hip Pain Stated Complaint: FALL, L HIP PAIN ED Provider: Theodore Hall Discharge Problem: Fall, Back pain, Acute knee pain, Leukocytosis Patient Disposition: Admitted As Inpatient Forms Stand Alone Forms: [facility] Prescriptions Prescriptions: No Action magnesium oxide 500 mg capsule 500 mg PO DAILY RF: 0 diclofenac sodium 1 % gel 4 gm TOP QID RF: 0 lidocaine 5 % adhesive patch,medicated 1 patch topical Q24H PRN (Reason: Pain) RF: 0 famotidine [Pepcid] 40 mg tablet 40 mg PO DAILY RF: 0 albuterol sulfate [Proventil HFA] 90 mcg/actuation HFA aerosol inhaler 2 puffs INH Q6H PRN (Reason: shortness of breath or wheezing) Qty: 8 RF: 0 levothyroxine [Synthroid] 200 mcg tablet 200 mcg PO DAILY RF: 0 Praluent Pen 150 mg/mL pen injector 0 mg SUBCUT .[id number] RF: 0 oxycodone 5 mg tablet 5 mg PO Q8H PRN (Reason: pain) Qty: 10 RF: 0 methylprednisolone [Medrol] 4 mg tablet 4 mg PO DAILY PRN (Reason: Unknown) RF: 0 furosemide 40 mg Tablet 40 mg PO DAILY RF: 0 carvedilol 6.25 mg tablet 6.25 mg PO BID RF: 0 gabapentin 400 mg capsule 400 mg PO BID RF: 0 sertraline 100 mg Tablet 150 mg PO DAILY RF: 0 allopurinol 100 mg tablet 100 mg PO BID RF: 0 aspirin [Aspir-81] 81 mg Tablet,Delayed Release (Dr/Ec) 81 mg PO DAILY RF: 0 ergocalciferol (vitamin D2) 50,000 unit capsule 50,000 unit PO WK RF: 0 hydrocodone-acetaminophen 10-300 mg tablet 1 tab PO TID PRN (Reason: Pain) RF: 0 fenofibrate nanocrystallized 145 mg tablet 145 mg PO HS RF: 0 apremilast 30 mg tablet 30 mg PO BID RF: 0 Lantus Solostar U-100 Insulin 100 unit/mL (3 mL) insulin pen 30 units SUBCUT BID RF: 0 acetaminophen [Tylenol Extra Strength] 500 mg Tablet 1,500 mg PO BID PRN (Reason: Pain) RF: 0 diphenhydramine HCl [Benadryl] 25 mg Capsule 25 mg PO DIRECTED PRN (Reason: NEEDED) RF: 0 lisinopril 10 mg Tablet 10 mg PO DAILY RF: 0 glucosamine de la cruz 2KCl-chondroit [Glucosamine-Chondroitin DS] 500-400 mg Tablet 1 tab PO BID RF: 0 insulin lispro [Humalog KwikPen Insulin] 100 unit/mL insulin pen 0 units SUBCUT TIDM RF: 0 Referrals Referrals: Russ Browning [Primary Care Provider] - Discharge Problem: Fall Qualifiers: Encounter type: initial encounter Qualified Code(s): W19.XXXA - Unspecified fall, initial encounter Back pain Qualifiers: Back pain location: low back pain Chronicity: acute Back pain laterality: unspecified Sciatica presence: unspecified whether sciatica present Qualified Code(s): M54.5 - Low back pain Acute knee pain Qualifiers: Laterality: left Qualified Code(s): M25.562 - Pain in left knee Leukocytosis Qualifiers: Leukocytosis type: unspecified Qualified Code(s): D72.829 - Elevated white blood cell count, unspecified
[2019-07-26] MEDS ORDERED: methylPREDNISolone 4 MG TAB PO PRN (23:54)
[2019-07-26] MEDS ORDERED: POLYETHYLENE (MIRALAX) 17 GM PACK PO PRN (23:54)
[2019-07-26] MEDS ORDERED: LIDOCAINE 5% 1 PATCH TD PRN (23:54)
[2019-07-26] MEDS ORDERED: ACETAMINOPHEN 325 MG TAB PO PRN (23:54)
[2019-07-26] MEDS ORDERED: ONDANSETRON INJ 2 MG/ML 2 ML VIAL IV PRN (23:54)
[2019-07-26] MEDS ORDERED: ALBUTEROL HFA 8 GM INHALER INH PRN (23:54)
[2019-07-26] MEDS ORDERED: HYDROmorphone INJ 0.5 MG/0.5 ML SYR IV PRN (23:54)
[2019-07-27] MEDS ORDERED: CARBOHYDRATES FOR HYPOGLYCEMIA PO PRN (00:30)
[2019-07-27] MEDS ORDERED: GLUCOSE 40% GEL 15 GM TUBE PO PRN (00:30)
[2019-07-27] MEDS ORDERED: GLUCAGON FOR INJ 1 MG VIAL SQ PRN (00:30)
[2019-07-27] MEDS ORDERED: DEXTROSE 50% 50 ML SYRINGE IV PRN (00:30)
[2019-07-27] MEDS ORDERED: GLUCOSE 10 TABS/TUBE PO PRN (00:30)
[2019-07-27] MEDS: HYDROCODONE/ACETAMINOPHEN 10/325 TAB PO PRN ×3 (01:53→23:52)
--- NOTE | 2019-07-27 02:04 | History and Physical Report ---
DATE OF ADMISSION: 07/26/2019 CHIEF COMPLAINT: Severe left hip pain and back pain. HISTORY OF PRESENT ILLNESS: This is a 68-year-old female with past medical history significant for chronic diastolic heart failure, hypertension, hyperlipidemia, obstructive sleep apnea on CPAP, psoriatic arthritis, diabetes insulin requiring, diabetic neuropathy, who lives alone, but kids are close by. Walks with help of cane. Presents with severe left hip pain and back pain. Today while she was ambulating with her cane her left hip gave away. The patient says this pain is going on for last 2 months. She could not see a doctor because of the COVID lock down. She just saw Dr. Little last Sunday and she was given a short into bursa on the left hip and he also advised to get an MRI scan as the pain is mostly coming from the back and it is radiating to the left hip and leg region.She is also having some mild incontinence of urine for last 1 month. Saw her PCP, did a UA which was negative and was told that it could be coming from the back. No burning micturition, no blood in the urine. Normal bowel movements. No black stools or blood in the stools. Currently resting comfortable and hemodynamically stable. X-rays were done which were unremarkable. Denies any chest pain, no shortness of breath, no cough, no fever, no chills, no nausea, no abdominal pain. Appetite is okay. No dysphagia. No runny nose, no sore throat. No blurred visions. No earache. Currently, no headache or dizziness. No loss of smell or taste. No exposure to COVID patients. ALLERGIES: SULFA ANTIBIOTICS, PENTAZOCINE. PAST MEDICAL HISTORY: As mentioned above. PAST SURGICAL HISTORY: Carpal tunnel surgery, lumpectomy under the left arm, appendectomy, cholecystectomy, nasal septum repair, total abdominal hysterectomy with bilateral salpingo-oophorectomy, knee replacement. FAMILY HISTORY: Significant for stomach cancer, lung cancer. SOCIAL HISTORY: No smoking. No alcohol use. 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 MEDICATIONS: The patient is currently on Tylenol Extra Strength b.i.d. p.r.n., albuterol 2 puffs q. 6 hours p.r.n., Praluent subcutaneous q. 2 weeks, allopurinol 100 mg p.o. b.i.d., apremilast 30 mg p.o. b.i.d., aspirin 81 mg p.o. daily, Coreg 6.25 mg p.o. b.i.d., diclofenac sodium 4 grams topical q.i.d., Benadryl 25 mg p.o. p.r.n., vitamin D 50,000 units p.o. q. weekly, famotidine 40 mg p.o. daily, fenofibrate 145 mg p.o. at bedtime, Lasix 40 mg p.o. daily, gabapentin 400 mg p.o. b.i.d., glucosamine/chondroitin 1 tablet p.o. b.i.d., hydrocodone/acetaminophen 10 mg one tablet p.o. t.i.d. p.r.n., Lantus 30 units b.i.d., insulin lispro subcutaneous t.i.d., levothyroxine 200 mcg p.o. daily, lidocaine topical daily p.r.n., lisinopril 10 mg p.o. daily, magnesium oxide 500 mg p.o. daily, methylprednisolone 4 mg p.o. daily, oxycodone, sertraline 150 mg p.o. daily. REVIEW OF SYSTEMS: As per HPI. Rest of the review of systems negative. PHYSICAL EXAMINATION: GENERAL: The patient is obese, not in acute distress. VITAL SIGNS: Temperature 36.8, pulse 52, respiratory rate 16, blood pressure 122/53, oxygen 100% on room air. HEENT: No pallor, no icterus. Pupils equal, round, reactive to light. Extraocular muscles intact. NECK: No JVD, no neck masses. CARDIOVASCULAR: S1, S2 heard, regular rate and rhythm, no murmur, no gallop. RESPIRATORY SYSTEM: Normal AP diameter. No accessory muscle use. No wheezing, no crackles. ABDOMEN: Soft, bowel sounds present, nontender. No distention. CENTRAL NERVOUS SYSTEM: Alert and oriented. Obeys commands. Moves extremities. EXTREMITIES: No edema, no erythema. MUSCULOSKELETAL: Left leg straight leg raise test positive. LABORATORY DATA: WBC 13.5, hemoglobin 12.8, hematocrit 38.7, platelets 244. Sodium 141, potassium 3.7, chloride 105, bicarbonate 30, BUN 26, creatinine 0.8, serum glucose 91, calcium 9.3, total bilirubin 0.2, AST 10, ALT 22, alkaline phosphatase 38, total protein 6.9. Urinalysis +2 glucose, +1 leukocyte esterase. IMAGING DATA: Hip and pelvic x-ray and knee x-ray results pending. ASSESSMENT AND PLAN: This is a 68-year-old female who presents with ongoing left hip pain and back pain. 1. Left hip and back pain, going for last 2 months. The patient saw Pain Management and given injection to her bursa and advised to get MRI scan. X-ray done in the ER was unremarkable on the preliminary report. Today, she was walking with a cane in the house. Her hip gave in and she fell down. Ambulatory dysfunction. We will get MRI scans in a.m. We will get ortho consult. Pain control, PT, OT. Monitor in the medical floor. 2. Possible urinary tract infection. We will follow the urine culture. We will empirically start on Rocephin. 3. Diabetes. Continue home insulin glargine, insulin sliding scale. Follow the blood sugars. 4. Hypothyroidism. Continue Synthroid. 5. High blood pressure. Continue lisinopril. 6. Arthritis. Her kohinoor operator recently put her on methylprednisone 4 mg and also increased her gabapentin. 7. Depression. Continue Zoloft. 8. Hyperlipidemia, continue fenofibrate. 9. Chronic diastolic congestive heart failure, on Lasix daily and Coreg. 10. Gout, on allopurinol. 11. Obstructive sleep apnea, on CPAP. 12. Deep venous thrombosis prophylaxis, sequential compression devices for now. 13. Disposition: Monitor in the medical floor. Expect to discharge home and follow with family doctor. PT and OT prior to discharge. Social service to help with discharge planning. CODE STATUS: Full code. MTDD
[2019-07-27 04:40] LABS: Basophils # (auto) 0.05 K/uL (0-0.2); Basophils % (auto) 0.4 %; Eosinophils # (auto) 0.34 K/uL (0-0.5); Eosinophils % (auto) 2.9 %; Hematocrit (blood only) 38.4 % (37-47); Hemoglobin 12.4 g/dL (12.0-16.0); Immature Granulocytes # (auto) 0.04 K/uL (0.00-0.02); Immature Granulocytes % (auto) 0.3 %; Lymphocytes # (auto) 4.27 K/uL (1.2-3.4); Lymphocytes % (auto) 36.5 %; Mean Corpuscular Hemoglobin 30.6 pg (25-34); Mean Corpuscular Hgb Conc 32.3 g/dL (32-36); Mean Corpuscular Volume 94.8 fL (80-100); Mean Platelet Volume 10.2 fL (7.4-10.4); Monocytes # (auto) 0.75 K/uL (0.11-0.59); Monocytes % (auto) 6.4 %; Neutrophils # (auto) 6.25 K/uL (1.4-6.5); Neutrophils % (auto) 53.5 %; Platelet Count 232 K/uL (130-400); RDW Coefficient of Variation 13.3 % (11.5-14.5); RDW Standard Deviation 46.3 fL (36.4-46.3); Red Blood Count 4.05 M/uL (4.2-5.4)
[2019-07-27 05:07] LABS: BUN Creatinine Ratio 28.1 (10-20); Calcium 8.7 mg/dl (8.5-10.1); Creatinine Clr Calc Pharmacy 74.8 ml/min; Est GFR (Non-African American) 69.9; Magnesium 1.6 mg/dl (1.8-2.4); Potassium 4.1 mmol/L (3.5-5.1)
[2019-07-27] MEDS ORDERED: LEVOTHYROXINE SODIUM 200 MCG TABLET PO SCH ×2 (06:30→21:00)
[2019-07-27] MEDS ORDERED: TRAMADOL HCL 50 MG TABLET PO STA (07:51)
[2019-07-27] MEDS ORDERED: TRAMADOL HCL 50 MG TABLET PO PRN (07:51)
[2019-07-27] MEDS: DICLOFENAC SOD 1% GEL 100 GM TUBE EXT SCH ×4 (08:00→20:48)
[2019-07-27] MEDS: SERTRALINE HCL 50 MG TABLET PO SCH (08:04)
[2019-07-27] MEDS: allopurinoL 100 MG TAB PO SCH ×2 (08:05→20:50)
[2019-07-27] MEDS: ASPIRIN 81 MG ECTAB PO SCH (08:05)
[2019-07-27] MEDS: FAMOTIDINE 40 MG TABLET PO SCH (08:05)
[2019-07-27] MEDS: lisinopriL 10 MG TAB PO SCH (08:05)
[2019-07-27] MEDS: GABAPENTIN 400 MG CAP PO SCH ×2 (08:05→20:48)
[2019-07-27] MEDS: MAGNESIUM OXIDE 400 MG TAB PO SCH (08:05)
[2019-07-27] MEDS: carvediloL 6.25 MG TAB PO SCH ×2 (08:05→20:49)
[2019-07-27] MEDS: cefTRIAXone SODIUM 2,000 MG in DEXTROSE 5% 50 ML IV SCH (08:13)
[2019-07-27] MEDS: INSULIN GLARGINE SOLOSTAR 100 UNITS/ML 3 ML PEN SQ SCH ×2 (08:17→20:48)
--- NOTE | 2019-07-27 08:28 | XRay Report ---
XR hip LT 2V w pelvis HISTORY: 68 years-old Female l hip pain acute left-sided hip pain status post fall COMPARISON: Pelvis and left hip radiographs 07/05/2019 TECHNIQUE: AP view the pelvis with 2 views of the left hip FINDINGS: Limited exam secondary to patient body habitus with overlying pannus. There is at least mild osteoart hritis of the bilateral femoral acetabular joints. No definite acute fracture, dislocation or avascul ar necrosis identified. Moderate degeneration of the SI joints and pubic symphysis with disc space na rrowing, spondylitic spurring and facet arthrosis noted involving the lower lumbar spine. IMPRESSION: No acute fracture or dislocation identified. ACT 112: Negative or not required by law. The above report was generated using voice recognition software. It may contain grammatical, syntax o r spelling errors. Electronically signed by: Alan Nichols M.D. 07/27/2019 8:26 AM
--- NOTE | 2019-07-27 08:28 | XRay Report ---
XR knee LT 3V HISTORY: 68 years-old Female l knee pain acute left-sided knee pain without reported trauma COMPARISON: None TECHNIQUE: 3 views of the left knee FINDINGS: Left knee total joint arthroplasty and patella resurfacing. No evidence of hardware complication. Dem ineralized appearance of the bones. No acute fracture or dislocation. Mild suprapatellar soft tissue swelling. IMPRESSION: No acute fracture or dislocation. ACT 112: Negative or not required by law. The above report was generated using voice recognition software. It may contain grammatical, syntax o r spelling errors. Electronically signed by: Alan Nichols M.D. 07/27/2019 8:27 AM
[2019-07-27] MEDS ORDERED: FUROSEMIDE 40 MG TAB PO SCH (09:00)
[2019-07-27] MEDS ORDERED: GLUCOSAMINE SU PO SCH (09:00)
[2019-07-27] MEDS: INSULIN ASPART 100 UNITS/ML 3 ML PEN SC SCH ×4 (09:05→20:47)
[2019-07-27] MEDS ORDERED: MoRPHine SULFATE 2 MG/ML CARP IV PRN (10:02)
[2019-07-27] MEDS: SENNA 8.6 MG TAB PO SCH (10:53)
[2019-07-27] MEDS ORDERED: LORazepam 0.5 MG/1 ML VIAL IV PRN (11:00)
[2019-07-27] MEDS ORDERED: SODIUM CHLORIDE 0.9% 1000ML 1,000 ML IV SCH ×2 (11:00→19:00)
[2019-07-27] MEDS ORDERED: GADOBUTROL 65ML VIAL IV PRN (16:00)
[2019-07-27] MEDS ORDERED: Nursing to Pharmacy Communication SCH (16:00)
--- NOTE | 2019-07-27 17:53 | Magnetic Resonance Report ---
MR lumbar spine wo/w con CLINICAL HISTORY: 68 years-old Female with severe back pain radiating to left hip and leg. Acute sev ere low back pain with reported radiation to the left lower extremity history of multiple recent fall s. COMPARISON: Pelvis and left hip radiographs 07/26/2019, lumbar spine radiographs 09/26/2018 TECHNIQUE: Multiplanar, multi sequence MRI of the lumbar spine was performed both with and without th e use of 10.7 mL Gadavist FINDINGS: Instructional Design Consultant localizer images demonstrate no gross extraspinal abnormality. Urinary bladder disten tion. Liver appears prominent in size. No aortic aneurysm or adenopathy. Paraspinal tissues are unrem arkable. Conus medullaris terminates at the L1-L2 interspace. Signal within imaged thoracic spinal co rd and cauda equina appears unremarkable. Mild to moderate bone marrow edema at L1-L2 likely secondar y to combination of Modic type I endplate degeneration. Multilevel Schmorl's node formation, notably at T10-T11 and T11-T12. Multilevel facet effusions. Enhancing focus at the T11-T12 disc space is sugg estive of a Schmorl's node. Reactive enhancement surrounding the L4-L5 facet. T12-L1: Mild to moderate disc space narrowing with small posterior annular disc bulge. Moderate to s evere facet arthrosis. No central canal or foraminal narrowing. L1-L2: Moderate disc space narrowing. Spondylitic spurring. Circumferential annular disc bulge. Liga mentum flavum thickening with severe facet arthrosis. AP dimension of the thecal sac measures 9 mm. T here is mild central canal stenosis with mild right and mild to moderate left lateral recess narrowin g. Mild left foraminal narrowing. The right neuroforamen is patent. L2-L3: Moderate disc space narrowing with spondylitic spurring, circumferential annular disc bulge w ith ligamentum flavum thickening and severe facet arthrosis. AP dimension of the thecal sac measures 9 mm. Mild central canal stenosis with mild narrowing of the lateral recesses. Moderate bilateral for aminal narrowing. L3-L4: Mild disc space narrowing. Spondylitic spurring with circumferential annular disc bulge. Liga mentum flavum thickening with severe facet arthrosis. Central canal is patent. Mild narrowing of the left lateral recess. Mild bilateral foraminal stenosis. L4-L5: Moderate disc space narrowing. 7 mm anterolisthesis L4 on L5, likely secondary to long-standi ng facet arthrosis. Circumferential annular disc bulge with disc space uncovering. Ligamentum flavum thickening with advanced facet arthrosis and large bilateral facet effusions. AP dimension of the the samira sac measures 6 mm. Moderate to severe central canal stenosis with severe narrowing of the lateral recesses. Severe bilateral foraminal narrowing. L5-S1: Severe disc space narrowing with spondylitic spurring, circumferential annular disc bulge wit h central posterior disc osteophyte complex. Ligamentum flavum thickening with advanced facet arthros is. No significant central canal narrowing. Severe right with moderate to severe left foraminal steno sis. IMPRESSION: 1. No acute fracture or subluxation. 2. Discogenic degeneration with advanced facet arthrosis as detailed above. 3. Multilevel central canal stenosis, moderate to severe at L4-L5. 4. Multilevel foraminal narrowing as above, most pronounced at L4-L5 and L5-S1. 5. Moderate enhancement surrounding the L4-L5 facets is likely on a reactive basis. ACT 112: Negative or not required by law. The above report was generated using voice recognition software. It may contain grammatical, syntax o r spelling errors. Electronically signed by: Alan Nichlos M.D. 07/27/2019 5:52 PM
[2019-07-27] MEDS: MAGNESIUM SULFATE / D5W 1 GM/100 ML BAG IV SCH ×2 (18:00→20:40)
--- NOTE | 2019-07-27 18:20 | Magnetic Resonance Report ---
MR hip LT wo/w con CLINICAL HISTORY: 68 years-old Female with severe left hip pain. Acute severe left-sided hip pain wi th history of psoriatic arthritis COMPARISON: Pelvis and left hip radiographs 07/26/2019 TECHNIQUE: Multiplanar, multi sequence MRI of the left hip was performed both with and without the us e of 10.7 mL Gadavist FINDINGS: Mapping Analyst localizer images demonstrate a moderate-sized fat filled periumbilical hernia. Mild urinary yodit dder distention. No pelvic free fluid. Hysterectomy. No adnexal mass lesions. LABRUM: Multifocal fraying and irregularity of the bilateral rich. Probable chronic tear of the ant erosuperior left labrum. BONE MARROW: Bone marrow signal is within normal limits. No evidence of avascular necrosis, fractur e or transient osteoporosis. BURSAE: There is no evidence for iliopsoas or trochanteric bursitis. HIP JOINT: Mild to moderate right and moderate left hip osteoarthritis. Mild subcortical cystic otoole ges of the left acetabulum. Trace bilateral hip joint effusions. MUSCLES: Partially imaged moderate enhancement is noted adjacent to the right ischial tuberosity, im age 27 series 17 and 21 of series 30 with edema/fluid surrounding the insertional fibers of the abduc tor panda which appears to be at least partially torn.. This portion of the anatomy is only partiall y imaged on the axial series. Mild enhancement and edema surrounds the insertional tendinous fibers o f the right hamstring tendon insertion sites without high-grade partial or full-thickness tear. SCIATIC NERVE: The morphology and signal characteristics of the sciatic nerve appear normal. IMPRESSION: 1. No acute fracture, dislocation or bone marrow edema. 2. Mild to moderate right and moderate left hip osteoarthritis with subcortical cystic changes of the left acetabulum. 3. No evidence of erosive arthropathy. 4. Acute or subacute appearing partial-thickness tearing of the insertional tendon fibers of the righ t abductor panda at the insertion site of the ischial tuberosity with mild reactive edema and modera te enhancement. 5. Moderate sized periumbilical hernia. ACT 112: Negative or not required by law. The above report was generated using voice recognition software. It may contain grammatical, syntax o r spelling errors. Electronically signed by: Alan Nichols M.D. 07/27/2019 6:19 PM
--- NOTE | 2019-07-27 18:38 | Hospitalist Progress Note ---
Date of Service July 27, 2019 Assessment & Plan (1) Fall: Left Hip pain from Acute or subacute appearing partial-thickness tearing of the insertional tendon fibers of the right abductor panda Osteoarthritis Back pain from multilevel degenerative disc disease -This is a 68-year-old female who presents with ongoing left hip pain and back pain. -symptoms for around 2 months. The patient saw Pain Management and given injection to her bursa and advised to get MRI scan. Which originally was scheduled as outpatient for 07/28/2019 -However, on 07/26/2019, she was walking with a cane in the house when her hip gave in and she fell down. Admission X ray of left knee and hip with no fracture or dislocation. On exam when on the bed, patient appears to have difficulty doing left lower extremity leg raises from pain limitations and was given some morphine IV. -MRI scan lumbar spine without contrast -10/25/2017 (FINDINGS There is at least moderate multilevel degenerative disc disease with loss of disc height and disc desiccation seen diffusely throughout the lumbar spine. Th ere is a grade 1 anterolisthesis of L4 over L5. Degenerative disc disease is more progressed at L5-S1 with loss of disc height and disc desiccation. On the sagittal T2 weighted images, The canal narrows at the L4-5 disc level without evidence of a high-grade canal stenosis. Conus ends normally at L1 level. On review of axial images, At L1-2 global disc bulge with irky-jz-hjfwjztl bilateral foraminal narrowing and lkoi-mt-goaryovo canal stenosis At L2-3 global disc bulge with moderate bilateral foraminal narrowing and qmsa-ya-lhzjwkpl canal stenosis. At L3-4 global disc bulge mild canal stenosis and glnu-ac-axzfrwzn bilateral foraminal narrowing At L4-5 global disc bulge and facet hypertrophy with fluid in the facet joints with yolcnsnz-yv-rqpxun bilateral foraminal narrowing that appears greater on the left. At L5-S1 global disc bulge with tboe-kt-ihsiqcmj canal stenosis with severe bilateral foraminal narrowing. Bilateral lateral recess narrowing is noted at this level. IMPRESSION 1. At least moderate multilevel degenerative disc disease. 2. Grade 1 anterolisthesis of L4 over L5. 3. At L4-5 global disc bulge and facet hypertrophy with fluid in the facet joints with atfftecu-py-nvidui bilateral foraminal narrowing appears greater on the left. 4. At L5-S1 global disc bulge with qtuy-ky-ncttcpuy canal stenosis with severe bilateral foraminal narrowing. Bilateral lateral recess narrowing is noted at this level) -MRI on this hospital stay: (MR lumbar spine wo/w con 07/27/2019 CLINICAL HISTORY: 68 years-old Female with severe back pain radiating to left hip and leg. Acute severe low back pain with reported radiation to the left lower extremity history of multiple recent falls. COMPARISON: Pelvis and left hip radiographs 07/26/2019, lumbar spine radiographs 09/26/2018 TECHNIQUE: Multiplanar, multi sequence MRI of the lumbar spine was performed both with and without the use of 10.7 mL Gadavist FINDINGS: Police Liaison Officer localizer images demonstrate no gross extraspinal abnormality. Urinary bladder distention. Liver appears prominent in size. No aortic aneurysm or adenopathy. Paraspinal tissues are unremarkable. Conus medullaris terminates at the L1-L2 interspace. Signal within imaged thoracic spinal cord and cauda equina appears unremarkable. Mild to moderate bone marrow edema at L1-L2 likely secondary to combination of Modic type I endplate degeneration. Multilevel Schmorl's node formation, notably at T10-T11 and T11-T12. Multilevel facet effusions. Enhancing focus at the T11-T12 disc space is suggestive of a Schmorl's node. Reactive enhancement surrounding the L4-L5 facet. T12-L1: Mild to moderate disc space narrowing with small posterior annular disc bulge. Moderate to severe facet arthrosis. No central canal or foraminal narrowing. L1-L2: Moderate disc space narrowing. Spondylitic spurring. Circumferential annular disc bulge. Ligamentum flavum thickening with severe facet arthrosis. AP dimension of the thecal sac measures 9 mm. There is mild central canal stenosis with mild right and mild to moderate left lateral recess narrowing. Mild left foraminal narrowing. The right neuroforamen is patent. L2-L3: Moderate disc space narrowing with spondylitic spurring, circumferential annular disc bulge with ligamentum flavum thickening and severe facet arthrosis. AP dimension of the thecal sac measures 9 mm. Mild central canal stenosis with mild narrowing of the lateral recesses. Moderate bilateral foraminal narrowing. L3-L4: Mild disc space narrowing. Spondylitic spurring with circumferential annular disc bulge. Ligamentum flavum thickening with severe facet arthrosis. Central canal is patent. Mild narrowing of the left lateral recess. Mild bilateral foraminal stenosis. L4-L5: Moderate disc space narrowing. 7 mm anterolisthesis L4 on L5, likely secondary to long-standing facet arthrosis. Circumferential annular disc bulge with disc space uncovering. Ligamentum flavum thickening with advanced facet arthrosis and large bilateral facet effusions. AP dimension of the thecal sac measures 6 mm. Moderate to severe central canal stenosis with severe narrowing of the lateral recesses. Severe bilateral foraminal narrowing. L5-S1: Severe disc space narrowing with spondylitic spurring, circumferential annular disc bulge with central posterior disc osteophyte complex. Ligamentum flavum thickening with advanced facet arthrosis. No significant central canal narrowing. Severe right with moderate to severe left foraminal stenosis. IMPRESSION: 1. No acute fracture or subluxation. 2. Discogenic degeneration with advanced facet arthrosis as detailed above. 3. Multilevel central canal stenosis, moderate to severe at L4-L5. 4. Multilevel foraminal narrowing as above, most pronounced at L4-L5 and L5-S1. 5. Moderate enhancement surrounding the L4-L5 facets is likely on a reactive basis.) Left Hip MRI w/wout contrast (MR hip LT wo/w con CLINICAL HISTORY: 68 years-old Female with severe left hip pain. Acute severe left-sided hip pain with history of psoriatic arthritis COMPARISON: Pelvis and left hip radiographs 07/26/2019 TECHNIQUE: Multiplanar, multi sequence MRI of the left hip was performed both with and without the use of 10.7 mL Gadavist FINDINGS: Police Liaison Officer localizer images demonstrate a moderate-sized fat filled periumbilical hernia. Mild urinary bladder distention. No pelvic free fluid. Hysterectomy. No adnexal mass lesions. LABRUM: Multifocal fraying and irregularity of the bilateral rich. Probable chronic tear of the anterosuperior left labrum. BONE MARROW: Bone marrow signal is within normal limits. No evidence of avascular necrosis, fracture or transient osteoporosis. BURSAE: There is no evidence for iliopsoas or trochanteric bursitis. HIP JOINT: Mild to moderate right and moderate left hip osteoarthritis. Mild subcortical cystic changes of the left acetabulum. Trace bilateral hip joint effusions. MUSCLES: Partially imaged moderate enhancement is noted adjacent to the right ischial tuberosity, image 26 series 17 and 21 of series 30 with edema/fluid surrounding the insertional fibers of the abductor panda which appears to be at least partially torn.. This portion of the anatomy is only partially imaged on the axial series. Mild enhancement and edema surrounds the insertional tendinous fibers of the right hamstring tendon insertion sites without high-grade partial or full-thickness tear. SCIATIC NERVE: The morphology and signal characteristics of the sciatic nerve appear normal. IMPRESSION: 1. No acute fracture, dislocation or bone marrow edema. 2. Mild to moderate right and moderate left hip osteoarthritis with subcortical cystic changes of the left acetabulum. 3. No evidence of erosive arthropathy. 4. Acute or subacute appearing partial-thickness tearing of the insertional tendon fibers of the right abductor panda at the insertion site of the ischial tuberosity with mild reactive edema and moderate enhancement. 5. Moderate sized periumbilical hernia.) -hospitalist explained to patient that this injury may not be operable but will wait for orthopedic service to assess (2) Hypomagnesemia: -serum magnesium 1.6. patient was ordered magnesium supplements, trend and replete to target level close to 2 -Patient should have magnesium levels followed by primary care doctor and continue home oral magnesium supplements daily especially while cristy on furosemide medication which can reduce serum magnesium levels Chronic diastolic congestive heart failure -on Lasix daily and Coreg. Pinpoint growth in urine culture is not suggestive of urinary tract infection but patient was empirically given ceftriaxone by admitting physician. will continue ceftriaxone for now, because of unclear whether any surgical interventions of the hip Diabetes Type 2 with hospice spiritual care coordinator current use of insulin -Continue home insulin glargine, insulin sliding scale. -continue Lisinopril for renal protection - Arthritis. Her cio recently put her on methylprednisone 4 mg and also increased her gabapentin Hypothyroidism -Continue Synthroid. Dyslipidemia -continue fenofibrate. Obstructive sleep apnea, on CPAP. -CPAP at night Gout, on allopurinol. Depression -Continue Zoloft. Admission and Anticipated Discharge Date Admission Date: July 26, 2019 Subjective patient seen and examined multiple times today. Main painful areas as running down the left thigh from the back but was able to perform adequately when hospitalist physician returned to see her at end of a physical therapy session. Patient returned from MRI testing and getting IV magnesium and post imaging IV fluids Review of Systems Review of Systems: All systems reviewed & are unremarkable except as noted in Subjective Physical Exam Constitutional: + obese Eyes: PERRL, conjunctivae normal, anicteric sclerae EOM intact bilaterally ENMT: external ear and nose normal, oropharynx normal Neck: normal visual inspection Respiratory: normal respiratory effort, lungs clear to auscultation Cardiovascular: Rate/Rhythm: regular rate and regular rhythm Gastrointestinal (Abdomen): normal bowel sounds, soft, nontender, no hepatosplenomegaly Musculoskeletal: Head/Neck/Chest: normocephalic and head atraumatic Neurologic: PERRL, EOMI, accommodation nl, no face palsy, no dysarthria CN's II-XI intact bilaterally Psychiatric: A+Ox3, euthymic affect Results & Data Results & Data ([facility]) Vital Signs (Past 12 Hours) Vital Signs Temp Pulse Resp BP Pulse Ox 07/27/19 07:29 36.4 C L 58 L 17 117/67 92 (1) Fall Encounter type: initial encounter Qualified Code(s): W19.XXXA - Unspecified fall, initial encounter
[2019-07-27] MEDS ORDERED: FENOFIBRATE NANOCRYSTALLIZED 145 MG TABLET PO SCH (21:00)
[2019-07-27 22:18] LABS: BUN Creatinine Ratio 19.8 (10-20); Calcium 9.5 mg/dl (8.5-10.1); Creatinine Clr Calc Pharmacy 48.4 ml/min; Est GFR (African American) 47.8; Est GFR (Non-African American) 41.3; Magnesium 2.1 mg/dl (1.8-2.4); Potassium 4.3 mmol/L (3.5-5.1)
[2019-07-28] MEDS ORDERED: SODIUM CHLORIDE 0.9% 1000ML 250 ML IV ONE (07:23)
[2019-07-28] MEDS ORDERED: SODIUM CHLORIDE 0.9% 500 ML IV SCH (07:30)
[2019-07-28] MEDS: MAGNESIUM OXIDE 400 MG TAB PO SCH (08:34)
[2019-07-28] MEDS: GABAPENTIN 400 MG CAP PO SCH (08:34)
[2019-07-28] MEDS: SENNA 8.6 MG TAB PO SCH (08:35)
[2019-07-28] MEDS: lisinopriL 10 MG TAB PO SCH (08:35)
[2019-07-28] MEDS: FAMOTIDINE 40 MG TABLET PO SCH (08:35)
[2019-07-28] MEDS: allopurinoL 100 MG TAB PO SCH (08:36)
[2019-07-28] MEDS: SERTRALINE HCL 50 MG TABLET PO SCH (08:36)
[2019-07-28] MEDS: ASPIRIN 81 MG ECTAB PO SCH (08:36)
[2019-07-28] MEDS: carvediloL 6.25 MG TAB PO SCH (08:40)
[2019-07-28] MEDS: INSULIN GLARGINE SOLOSTAR 100 UNITS/ML 3 ML PEN SQ SCH (08:44)
[2019-07-28] MEDS: INSULIN ASPART 100 UNITS/ML 3 ML PEN SC SCH ×2 (08:46→12:58)
[2019-07-28] MEDS: cefTRIAXone SODIUM 2,000 MG in DEXTROSE 5% 50 ML IV SCH (08:51)
[2019-07-28] MEDS ORDERED: ERGOCALCIFEROL 50,000 UNITS CAP PO SCH (09:00)
[2019-07-28 12:32] LABS: BUN Creatinine Ratio 28.5 (10-20); Calcium 9.2 mg/dl (8.5-10.1); Creatinine Clr Calc Pharmacy 71.5 ml/min; Est GFR (African American) 76.7; Est GFR (Non-African American) 66.2; Potassium 3.7 mmol/L (3.5-5.1)
--- NOTE | 2019-07-28 12:57 | Orthopedic Consultation ---
Date of Consultation July 28, 2019 Assessment & Plan (1) Neurogenic claudication due to lumbar spinal stenosis: I did review the patient's MRI findings with her. She does have evidence of spondylolisthesis L4-5 with severe bilateral neuroforaminal disease left greater than right. There could be underlying far lateral disc herniation at L4-5 and on the left as well. There is evidence is complete disc base collapse and spondylosis at L4-5 S1. At this time we discussed treatment options which could continue with this oral medications observation or ultimately surgical intervention. Surgery would require a lumbar decompression and fusion at L4-5 L5-S1. Risk benefits pros cons and alternatives were outlined in detail. Patient will consider her options would like to follow-up in our office. We will make further recommendations at that time. Present on Admission?: Yes History of Present Illness Reason for Consultation: Back and leg pain Attending Physician: Jimbo Carlin MD History of Present Illness This is a 68-year-old female that noted worsening back bilateral buttock and left leg pain. Is been progressive over the past 5 or 6 months. She has had several epidural injections without prolonged relief. Her symptoms are quite debilitating nature. She is only unable to stand and ambulate for any distance. She does obtain relief with sitting. Allergies Allergy/AdvReac Type Severity Reaction Status Date / Time Sulfa (Sulfonamide Allergy Anaphylaxis Unverified 07/22/19 09:27 Antibiotics) pentazocine [From Talwin] AdvReac Nausea Unverified 07/22/19 09:27 Home Medications Home Medications Medication Instructions Recorded Confirmed Type allopurinol 100 mg PO BID 04/02/18 07/26/19 History apremilast 30 mg PO BID 04/02/18 07/26/19 History aspirin [Aspir-81] 81 mg PO DAILY 04/02/18 07/26/19 History carvedilol 6.25 mg PO BID 04/02/18 07/26/19 History ergocalciferol (vitamin D2) 50,000 unit PO WK 04/02/18 07/26/19 History fenofibrate nanocrystallized 145 mg PO HS 04/02/18 07/26/19 History furosemide 40 mg PO DAILY 04/02/18 07/26/19 History gabapentin 400 mg PO BID 04/02/18 07/26/19 History hydrocodone-acetaminophen 1 tab PO TID PRN 04/02/18 07/26/19 History sertraline 150 mg PO DAILY 04/02/18 07/26/19 History acetaminophen [Tylenol Extra 1,500 mg PO BID PRN 05/30/18 07/26/19 History Strength] diphenhydramine HCl [Benadryl] 25 mg PO DIRECTED PRN 05/30/18 07/26/19 History glucosamine de la cruz 2KCl-chondroit 1 tab PO BID 05/30/18 07/26/19 History [Glucosamine-Chondroitin DS] lisinopril 10 mg PO DAILY 05/30/18 07/26/19 History famotidine 40 mg tablet 40 mg PO DAILY 01/14/19 07/26/19 History insulin glargine 100 unit/mL (3 30 units SUBCUT BID ml 01/14/19 07/26/19 History mL) subcutaneous pen insulin lispro 100 unit/mL 0 units SUBCUT TIDM ml 01/14/19 07/26/19 History subcutaneous pen albuterol sulfate [Proventil HFA] 2 puffs INH Q6H PRN #8 gm 03/27/19 07/26/19 Rx alirocumab [Praluent Pen] 0 mg SUBCUT .[id number] 07/05/19 07/26/19 History levothyroxine [Synthroid] 200 mcg PO DAILY 07/05/19 07/26/19 History oxycodone 5 mg PO Q8H PRN #10 tab 07/06/19 07/26/19 Rx diclofenac sodium 1 % topical gel 4 gm TOP QID gm 07/18/19 07/26/19 History magnesium oxide 500 mg capsule 500 mg PO DAILY cap 07/18/19 07/26/19 History lidocaine 5 % topical patch 1 patch TOPICAL Q24H PRN ea 07/22/19 07/26/19 History methylprednisolone 4 mg tablet 4 mg PO DAILY PRN 07/22/19 07/26/19 History Patient History Social History Preferred Language: Yoruba Communication Ability: Effective Supervisor Sandblaster Required: No Beliefs That Will Affect Care: None Current Living Situation: Alone Feels Safe at Home: No Is there a partner from a previous relationship who is making you feel unsafe now?: No Safety Concerns: Feels Safe At This Time Smoking Status: Never smoker Hx Alcohol Use: Yes (occasionally) Alcohol type: beer, wine and hard liquor Hx Substance Use: No Physical Exam Physical Exam: Patient is able to sit up in the side of the bed. She has tension signs to straight leg raising on the left negative on the right. She has reasonable plus out of 5 plantar flexion dorsiflexion quadriceps bilaterally. Results & Data ([facility]) Vital Signs (Past 12 Hours) Vital Signs Temp Pulse Pulse Resp BP Pulse Ox 07/28/19 08:39 78 118/68 91 07/28/19 07:14 36.7 C 55 L 16 109/62 92 07/28/19 03:56 60 20 93
--- NOTE | 2019-07-28 13:02 | Hospitalist Progress Note ---
Date of Service July 28, 2019 Assessment & Plan (1) Fall: Left Hip pain from Acute or subacute appearing partial-thickness tearing of the insertional tendon fibers of the right abductor pnada Osteoarthritis (Back pain from multilevel degenerative disc disease) Neurogenic claudication due to lumbar spinal stenosis: -This is a 68-year-old female who presents with ongoing left hip pain and back pain. -symptoms for around 2 months. The patient saw Pain Management and given injection to her bursa and advised to get MRI scan. Which originally was scheduled as outpatient for 07/28/2019 -However, on 07/26/2019, she was walking with a cane in the house when her hip gave in and she fell down. Admission X ray of left knee and hip with no fracture or dislocation. On exam when on the bed, patient appears to have difficulty doing left lower extremity leg raises from pain limitations and was given some morphine IV. -MRI scan lumbar spine without contrast -10/25/2017 (FINDINGS There is at least moderate multilevel degenerative disc disease with loss of disc height and disc desiccation seen diffusely throughout the lumbar spine. There is a grade 1 anterolisthesis of L4 over L5. Degenerative disc disease is more progressed at L5-S1 with loss of disc height and disc desiccation. On the sagittal T2 weighted images, The canal narrows at the L4-5 disc level without evidence of a high-grade canal stenosis. Conus ends normally at L1 level. On review of axial images, At L1-2 global disc bulge with cxnb-ne-sezafguu bilateral foraminal narrowing and xaad-op-zkmvdfyg canal stenosis At L2-3 global disc bulge with moderate bilateral foraminal narrowing and xzyj-nb-yoxlzwav canal stenosis. At L3-4 global disc bulge mild canal stenosis and iieq-gu-kxtzszhg bilateral foraminal narrowing At L4-5 global disc bulge and facet hypertrophy with fluid in the facet joints with kulvgegs-of-kfufsc bilateral foraminal narrowing that appears greater on the left. At L5-S1 global disc bulge with epso-ok-kuakoeoj canal stenosis with severe bilateral foraminal narrowing. Bilateral lateral recess narrowing is noted at this level. IMPRESSION 1. At least moderate multilevel degenerative disc disease. 2. Grade 1 anterolisthesis of L4 over L5. 3. At L4-5 global disc bulge and facet hypertrophy with fluid in the facet joints with mgbzsavh-ra-lwrdbn bilateral foraminal narrowing appears greater on the left. 4. At L5-S1 global disc bulge with afyz-ha-xzbdkwxp canal stenosis with severe bilateral foraminal narrowing. Bilateral lateral recess narrowing is noted at this level) -MRI on this hospital stay: (MR lumbar spine wo/w con 07/27/2019 CLINICAL HISTORY: 68 years-old Female with severe back pain radiating to left hip and leg. Acute severe low back pain with reported radiation to the left lower extremity history of multiple recent falls. COMPARISON: Pelvis and left hip radiographs 07/26/2019, lumbar spine radiographs 09/26/2018 TECHNIQUE: Multiplanar, multi sequence MRI of the lumbar spine was performed both with and without the use of 10.7 mL Gadavist FINDINGS: Cabana Attendant localizer images demonstrate no gross extraspinal abnormality. Urinary bladder distention. Liver appears prominent in size. No aortic aneurysm or adenopathy. Paraspinal tissues are unremarkable. Conus medullaris terminates at the L1-L2 interspace. Signal within imaged thoracic spinal cord and cauda equina appears unremarkable. Mild to moderate bone marrow edema at L1-L2 likely secondary to combination of Modic type I endplate degeneration. Multilevel Schmorl's node formation, notably at T10-T11 and T11-T12. Multilevel facet effusions. Enhancing focus at the T11-T12 disc space is suggestive of a Schmorl's node. Reactive enhancement surrounding the L4-L5 facet. T12-L1: Mild to moderate disc space narrowing with small posterior annular disc bulge. Moderate to severe facet arthrosis. No central canal or foraminal narrowing. L1-L2: Moderate disc space narrowing. Spondylitic spurring. Circumferential annular disc bulge. Ligamentum flavum thickening with severe facet arthrosis. AP dimension of the thecal sac measures 9 mm. There is mild central canal stenosis with mild right and mild to moderate left lateral recess narrowing. Mild left foraminal narrowing. The right neuroforamen is patent. L2-L3: Moderate disc space narrowing with spondylitic spurring, circumferential annular disc bulge with ligamentum flavum thickening and severe facet arthrosis. AP dimension of the thecal sac measures 9 mm. Mild central canal stenosis with mild narrowing of the lateral recesses. Moderate bilateral foraminal narrowing. L3-L4: Mild disc space narrowing. Spondylitic spurring with circumferential annular disc bulge. Ligamentum flavum thickening with severe facet arthrosis. Central canal is patent. Mild narrowing of the left lateral recess. Mild bilateral foraminal stenosis. L4-L5: Moderate disc space narrowing. 7 mm anterolisthesis L4 on L5, likely secondary to long-standing facet arthrosis. Circumferential annular disc bulge with disc space uncovering. Ligamentum flavum thickening with advanced facet arthrosis and large bilateral facet effusions. AP dimension of the thecal sac measures 6 mm. Moderate to severe central canal stenosis with severe narrowing of the lateral recesses. Severe bilateral foraminal narrowing. L5-S1: Severe disc space narrowing with spondylitic spurring, circumferential annular disc bulge with central posterior disc osteophyte complex. Ligamentum flavum thickening with advanced facet arthrosis. No significant central canal narrowing. Severe right with moderate to severe left foraminal stenosis. IMPRESSION: 1. No acute fracture or subluxation. 2. Discogenic degeneration with advanced facet arthrosis as detailed above. 3. Multilevel central canal stenosis, moderate to severe at L4-L5. 4. Multilevel foraminal narrowing as above, most pronounced at L4-L5 and L5-S1. 5. Moderate enhancement surrounding the L4-L5 facets is likely on a reactive basis.) Left Hip MRI w/wout contrast (MR hip LT wo/w con CLINICAL HISTORY: 68 years-old Female with severe left hip pain. Acute severe left-sided hip pain with history of psoriatic arthritis COMPARISON: Pelvis and left hip radiographs 07/26/2019 TECHNIQUE: Multiplanar, multi sequence MRI of the left hip was performed both with and without the use of 10.7 mL Gadavist FINDINGS: Cabana Attendant localizer images demonstrate a moderate-sized fat filled periumbilical hernia. Mild urinary bladder distention. No pelvic free fluid. Hysterectomy. No adnexal mass lesions. LABRUM: Multifocal fraying and irregularity of the bilateral rich. Probable chronic tear of the anterosuperior left labrum. BONE MARROW: Bone marrow signal is within normal limits. No evidence of avascular necrosis, fracture or transient osteoporosis. BURSAE: There is no evidence for iliopsoas or trochanteric bursitis. HIP JOINT: Mild to moderate right and moderate left hip osteoarthritis. Mild subcortical cystic changes of the left acetabulum. Trace bilateral hip joint effusions. MUSCLES: Partially imaged moderate enhancement is noted adjacent to the right ischial tuberosity, image 26 series 17 and 21 of series 30 with edema/fluid surrounding the insertional fibers of the abductor panda which appears to be at least partially torn.. This portion of the anatomy is only partially imaged on the axial series. Mild enhancement and edema surrounds the insertional tendinous fibers of the right hamstring tendon insertion sites without high-grade partial or full-thickness tear. SCIATIC NERVE: The morphology and signal characteristics of the sciatic nerve appear normal. IMPRESSION: 1. No acute fracture, dislocation or bone marrow edema. 2. Mild to moderate right and moderate left hip osteoarthritis with subcortical cystic changes of the left acetabulum. 3. No evidence of erosive arthropathy. 4. Acute or subacute appearing partial-thickness tearing of the insertional tendon fibers of the right abductor panda at the insertion site of the ischial tuberosity with mild reactive edema and moderate enhancement. 5. Moderate sized periumbilical hernia.) - patient evaluted by Dr. Berman from orthopedics on 07/28/2019 " I did review the patient's MRI findings with her. She does have evidence of spondylolisthesis L4-5 with severe bilateral neuroforaminal disease left greater than right. There could be underlying far lateral disc herniation at L4-5 and on the left as well. There is evidence is complete disc base collapse and spondylosis at L4-5 S1. At this time we discussed treatment options which could continue with this oral medications observation or ultimately surgical intervention. Surgery would require a lumbar decompression and fusion at L4-5 L5-S1. Risk benefits pros cons and alternatives were outlined in detail. Patient will consider her options would like to follow-up in our office. We will make further recommendations at that time." -the hip is apparently not the acute issue that Dr. Franco assesses in regards for surgical options -Patient should have a CD of hospital imaging when leaving on discharge to bring to her outpatient doctors. Patient should follow up with primary care doctor and pain management doctor and surgical doctor Patient should have magnesium levels followed by primary care doctor and continue home oral magnesium supplements daily especially while cristy on furosemide medication which can reduce serum magnesium levels Patient should avoid more than 2000 mg of acetaminophen in a day in her home medication uses because excessive acetaminophen use can lead to liver problems and hepatic toxicity (2) Hypomagnesemia: -serum magnesium 1.6 on 07/27/2019. patient was given magnesium supplements, serum magnesium at goal on 07/28/2019 -Patient should have magnesium levels followed by primary care doctor and continue home oral magnesium supplements daily especially while cristy on furosemide medication which can reduce serum magnesium levels Chronic diastolic congestive heart failure -on Lasix daily and Coreg. Acute Kidney Injury secondary to MRI contrast (acute kidney injury resolved) -creatinine incased to 1.3 after MRI imaging on 07/28/2019 despite pre-hydration. after further IV fluids by 07/28/2019, the creatinine returned to normal Pinpoint growth in urine culture is not suggestive of urinary tract infection but patient was empirically given ceftriaxone by admitting physician. 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 -continue Lisinopril for renal protection - Arthritis. Her ladies attendant recently put her on methylprednisone 4 mg and also increased her gabapentin Hypothyroidism -Continue Synthroid. Dyslipidemia -continue fenofibrate. Obstructive sleep apnea, on CPAP. -CPAP at night Gout, on allopurinol. Depression -Continue Zoloft. Admission and Anticipated Discharge Date Admission Date: July 26, 2019 Subjective patient seen and examined. no acute distress. breathing on room air. no chest pain. no shortness of breath. appears to be able to tolerate back hip discomfort s. no dizziness. no lightheadedness Review of Systems Review of Systems: All systems reviewed & are unremarkable except as noted in Subjective Physical Exam Constitutional: + obese Eyes: PERRL, conjunctivae normal, anicteric sclerae EOM intact bilaterally ENMT: external ear and nose normal, oropharynx normal Neck: normal visual inspection Respiratory: normal respiratory effort, lungs clear to auscultation Cardiovascular: Rate/Rhythm: regular rate and regular rhythm Gastrointestinal (Abdomen): normal bowel sounds, soft, nontender, no hepatosplenomegaly Musculoskeletal: Head/Neck/Chest: normocephalic and head atraumatic Neurologic: PERRL, EOMI, accommodation nl, no face palsy, no dysarthria CN's II-XI intact bilaterally Psychiatric: A+Ox3, euthymic affect Results & Data Results & Data ([facility]) Vital Signs (Past 12 Hours) Vital Signs Temp Pulse Pulse Resp BP Pulse Ox 07/28/19 08:39 78 118/68 91 07/28/19 07:14 36.7 C 55 L 16 109/62 92 07/28/19 03:56 60 20 93 (1) Fall Encounter type: initial encounter Qualified Code(s): W19.XXXA - Unspecified fall, initial encounter
--- NOTE | 2019-07-28 13:22 | Discharge Summary ---
Date of Service July 28, 2019 Admission HPI Per Admitting Provider CHIEF COMPLAINT: Severe left hip pain and back pain. HISTORY OF PRESENT ILLNESS: This is a 68-year-old female with past medical history significant for chronic diastolic heart failure, hypertension, hyperlipidemia, obstructive sleep apnea on CPAP, psoriatic arthritis, diabetes insulin requiring, diabetic neuropathy, who lives alone, but kids are close by. Walks with help of cane. Presents with severe left hip pain and back pain. Today while she was ambulating with her cane her left hip gave away. The patient says this pain is going on for last 2 months. She could not see a doctor because of the COVID lock down. She just saw Dr. Little last Sunday and she was given a short into bursa on the left hip and he also advised to get an MRI scan as the pain is mostly coming from the back and it is radiating to the left hip and leg region.She is also having some mild incontinence of urine for last 1 month. Saw her PCP, did a UA which was negative and was told that it could be coming from the back. No burning micturition, no blood in the urine. Normal bowel movements. No black stools or blood in the stools. Currently resting comfortable and hemodynamically stable. X-rays were done which were unremarkable. Denies any chest pain, no shortness of breath, no cough, no fever, no chills, no nausea, no abdominal pain. Appetite is okay. No dysphagia. No runny nose, no sore throat. No blurred visions. No earache. Currently, no headache or dizziness. No loss of smell or taste. No exposure to COVID patients. Principal Diagnosis Left Hip pain from Acute or subacute appearing partial-thickness tearing of the insertional tendon fibers of the right abductor panda Osteoarthritis (Back pain from multilevel degenerative disc disease) Neurogenic claudication due to lumbar spinal stenosis Hypomagnesemia Acute Kidney Injury secondary to MRI contrast (acute kidney injury resolved) Discharge Exam Constitutional + obese Eyes PERRL, conjunctivae normal, anicteric sclerae EOM intact bilaterally ENMT external ear and nose normal, oropharynx normal Neck normal visual inspection Respiratory normal respiratory effort, lungs clear to auscultation Cardiovascular Rate/Rhythm: regular rate and regular rhythm Gastrointestinal (Abdomen) normal bowel sounds, soft, nontender, no hepatosplenomegaly Musculoskeletal Head/Neck/Chest: normocephalic and head atraumatic Neurologic PERRL, EOMI, accommodation nl, no face palsy, no dysarthria CN's II-XI intact bilaterally Psychiatric A+Ox3, euthymic affect Discharge Data Allergies Allergy/AdvReac Type Severity Reaction Status Date / Time Sulfa (Sulfonamide Allergy Anaphylaxis Unverified 07/22/19 09:27 Antibiotics) pentazocine [From Talwin] AdvReac Nausea Unverified 07/22/19 09:27 Consultations 07/26/19 22:00 ED Decision to Admit Stat 07/26/19 23:54 Consult Case Management - Discharge Planning Routine 07/27/19 08:00 Consult Orthopedic Surgery Routine 07/28/19 09:34 Burn CD for patient Stat Ordered Studies 07/27/19 08:00 MR hip LT wo/w con Routine MR lumbar spine wo/w con Routine Hospital Course (1) Fall: Left Hip pain from Acute or subacute appearing partial-thickness tearing of the insertional tendon fibers of the right abductor panda Osteoarthritis (Back pain from multilevel degenerative disc disease) Neurogenic claudication due to lumbar spinal stenosis: -This is a 68-year-old female who presents with ongoing left hip pain and back pain. -symptoms for around 2 months. The patient saw Pain Management and given injection to her bursa and advised to get MRI scan. Which originally was scheduled as outpatient for 07/28/2019 -However, on 07/26/2019, she was walking with a cane in the house when her hip gave in and she fell down. Admission X ray of left knee and hip with no fracture or dislocation. On exam when on the bed, patient appears to have difficulty doing left lower extremity leg raises from pain limitations and was given some morphine IV. -MRI scan lumbar spine without contrast -10/25/2017 (FINDINGS There is at least moderate multilevel degenerative disc disease with loss of disc height and disc desiccation seen diffusely throughout the lumbar spine. There is a grade 1 anterolisthesis of L4 over L5. Degenerative disc disease is more progressed at L5-S1 with loss of disc height and disc desiccation. On the sagittal T2 weighted images, The canal narrows at the L4-5 disc level without evidence of a high-grade canal stenosis. Conus ends normally at L1 level. On review of axial images, At L1-2 global disc bulge with gxvl-lz-pyabjydc bilateral foraminal narrowing and ljbw-uz-cmtdyisj canal stenosis At L2-3 global disc bulge with moderate bilateral foraminal narrowing and zxlv-er-ehfnhvuq canal stenosis. At L3-4 global disc bulge mild canal stenosis and gjhx-ar-bzvcegyi bilateral foraminal narrowing At L4-5 global disc bulge and facet hypertrophy with fluid in the facet joints with wkruezyl-oj-tlpsjc bilateral foraminal narrowing that appears greater on the left. At L5-S1 global disc bulge with muer-qm-sxkilcah canal stenosis with severe bilateral foraminal narrowing. Bilateral lateral recess narrowing is noted at this level. IMPRESSION 1. At least moderate multilevel degenerative disc disease. 2. Grade 1 anterolisthesis of L4 over L5. 3. At L4-5 global disc bulge and facet hypertrophy with fluid in the facet joints with wxdrdoob-bw-bxzoue bilateral foraminal narrowing appears greater on the left. 4. At L5-S1 global disc bulge with tldx-jy-ioxoctkk canal stenosis with severe bilateral foraminal narrowing. Bilateral lateral recess narrowing is noted at this level) -MRI on this hospital stay: (MR lumbar spine wo/w con 07/27/2019 CLINICAL HISTORY: 68 years-old Female with severe back pain radiating to left hip and leg. Acute severe low back pain with reported radiation to the left lower extremity history of multiple recent falls. COMPARISON: Pelvis and left hip radiographs 07/26/2019, lumbar spine radiographs 09/26/2018 TECHNIQUE: Multiplanar, multi sequence MRI of the lumbar spine was performed both with and without the use of 10.7 mL Gadavist FINDINGS: Buffer Copper localizer images demonstrate no gross extraspinal abnormality. Urinary bladder distention. Liver appears prominent in size. No aortic aneurysm or adenopathy. Paraspinal tissues are unremarkable. Conus medullaris terminates at the L1-L2 interspace. Signal within imaged thoracic spinal cord and cauda equina appears unremarkable. Mild to moderate bone marrow edema at L1-L2 likely secondary to combination of Modic type I endplate degeneration. Multilevel Schmorl's node formation, notably at T10-T11 and T11-T12. Multilevel facet effusions. Enhancing focus at the T11-T12 disc space is suggestive of a Schmorl's node. Reactive enhancement surrounding the L4-L5 facet. T12-L1: Mild to moderate disc space narrowing with small posterior annular disc bulge. Moderate to severe facet arthrosis. No central canal or foraminal narrowing. L1-L2: Moderate disc space narrowing. Spondylitic spurring. Circumferential annular disc bulge. Ligamentum flavum thickening with severe facet arthrosis. AP dimension of the thecal sac measures 9 mm. There is mild central canal stenosis with mild right and mild to moderate left lateral recess narrowing. Mild left foraminal narrowing. The right neuroforamen is patent. L2-L3: Moderate disc space narrowing with spondylitic spurring, circumferential annular disc bulge with ligamentum flavum thickening and severe facet arthrosis. AP dimension of the thecal sac measures 9 mm. Mild central canal stenosis with mild narrowing of the lateral recesses. Moderate bilateral foraminal narrowing. L3-L4: Mild disc space narrowing. Spondylitic spurring with circumferential annular disc bulge. Ligamentum flavum thickening with severe facet arthrosis. Central canal is patent. Mild narrowing of the left lateral recess. Mild bilateral foraminal stenosis. L4-L5: Moderate disc space narrowing. 7 mm anterolisthesis L4 on L5, likely secondary to long-standing facet arthrosis. Circumferential annular disc bulge with disc space uncovering. Ligamentum flavum thickening with advanced facet arthrosis and large bilateral facet effusions. AP dimension of the thecal sac measures 6 mm. Moderate to severe central canal stenosis with severe narrowing of the lateral recesses. Severe bilateral foraminal narrowing. L5-S1: Severe disc space narrowing with spondylitic spurring, circumferential annular disc bulge with central posterior disc osteophyte complex. Ligamentum flavum thickening with advanced facet arthrosis. No significant central canal narrowing. Severe right with moderate to severe left foraminal stenosis. IMPRESSION: 1. No acute fracture or subluxation. 2. Discogenic degeneration with advanced facet arthrosis as detailed above. 3. Multilevel central canal stenosis, moderate to severe at L4-L5. 4. Multilevel foraminal narrowing as above, most pronounced at L4-L5 and L5-S1. 5. Moderate enhancement surrounding the L4-L5 facets is likely on a reactive basis.) Left Hip MRI w/wout contrast (MR hip LT wo/w con CLINICAL HISTORY: 68 years-old Female with severe left hip pain. Acute severe left-sided hip pain with history of psoriatic arthritis COMPARISON: Pelvis and left hip radiographs 07/26/2019 TECHNIQUE: Multiplanar, multi sequence MRI of the left hip was performed both with and without the use of 10.7 mL Gadavist FINDINGS: Buffer Copper localizer images demonstrate a moderate-sized fat filled periumbilical hernia. Mild urinary bladder distention. No pelvic free fluid. Hysterectomy. No adnexal mass lesions. LABRUM: Multifocal fraying and irregularity of the bilateral rich. Probable chronic tear of the anterosuperior left labrum. BONE MARROW: Bone marrow signal is within normal limits. No evidence of avascular necrosis, fracture or transient osteoporosis. BURSAE: There is no evidence for iliopsoas or trochanteric bursitis. HIP JOINT: Mild to moderate right and moderate left hip osteoarthritis. Mild subcortical cystic changes of the left acetabulum. Trace bilateral hip joint effusions. MUSCLES: Partially imaged moderate enhancement is noted adjacent to the right ischial tuberosity, image 26 series 17 and 21 of series 30 with edema/fluid surrounding the insertional fibers of the abductor panda which appears to be at least partially torn.. This portion of the anatomy is only partially imaged on the axial series. Mild enhancement and edema surrounds the insertional tendinous fibers of the right hamstring tendon insertion sites without high-grade partial or full-thickness tear. SCIATIC NERVE: The morphology and signal characteristics of the sciatic nerve appear normal. IMPRESSION: 1. No acute fracture, dislocation or bone marrow edema. 2. Mild to moderate right and moderate left hip osteoarthritis with subcortical cystic changes of the left acetabulum. 3. No evidence of erosive arthropathy. 4. Acute or subacute appearing partial-thickness tearing of the insertional tendon fibers of the right abductor panda at the insertion site of the ischial tuberosity with mild reactive edema and moderate enhancement. 5. Moderate sized periumbilical hernia.) - patient evaluted by Dr. Berman from orthopedics on 07/28/2019 " I did review the patient's MRI findings with her. She does have evidence of spondylolisthesis L4-5 with severe bilateral neuroforaminal disease left greater than right. There could be underlying far lateral disc herniation at L4-5 and on the left as well. There is evidence is complete disc base collapse and spondylosis at L4-5 S1. At this time we discussed treatment options which could continue with this oral medications observation or ultimately surgical intervention. Surgery would require a lumbar decompression and fusion at L4-5 L5-S1. Risk benefits pros cons and alternatives were outlined in detail. Patient will consider her options would like to follow-up in our office. We will make further recommendations at that time." -the hip is apparently not the acute issue that Dr. Franco assesses in regards for surgical options -Patient should have a CD of hospital imaging when leaving on discharge to bring to her outpatient doctors. Patient should follow up with primary care doctor and pain management doctor and surgical doctor Patient should have magnesium levels followed by primary care doctor and continue home oral magnesium supplements daily especially while cristy on furosemide medication which can reduce serum magnesium levels Patient should avoid more than 2000 mg of acetaminophen in a day in her home medication uses because excessive acetaminophen use can lead to liver problems and hepatic toxicity (2) Hypomagnesemia: -serum magnesium 1.6 on 07/27/2019. patient was given magnesium supplements, serum magnesium at goal on 07/28/2019 -Patient should have magnesium levels followed by primary care doctor and continue home oral magnesium supplements daily especially while cristy on furosemide medication which can reduce serum magnesium levels Chronic diastolic congestive heart failure -on Lasix daily and Coreg. Acute Kidney Injury secondary to MRI contrast (acute kidney injury resolved) -creatinine incased to 1.3 after MRI imaging on 07/28/2019 despite pre-hydration. after further IV fluids by 07/28/2019, the creatinine returned to normal Pinpoint growth in urine culture is not suggestive of urinary tract infection but patient was empirically given ceftriaxone by admitting physician. was empirically on ceftriaxone but urine culture as Group B Beta Strep which is likely from skin fela and no further antibiotics for urinary imdication on discharge Diabetes Type 2 with usp current use of insulin -Continue home insulin glargine, insulin sliding scale. -continue Lisinopril for renal protection - Arthritis. 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 Dyslipidemia -continue fenofibrate. Obstructive sleep apnea, on CPAP. -CPAP at night Gout, on allopurinol. Depression -Continue Zoloft. Total Time Total Time Spent Total Time Spent (In Minutes): 40 minutes Total Time Includes: Examination of the Patient, Discharge Planning, Medication Reconciliation and Communication With Other Providers Discharge Plan Discharge Items Patient Disposition: Home - Self-Care Reason For Visit: HIP AND BACK PAIN Discharge Diagnosis: Left Hip pain from Acute or subacute appearing partial-thickness tearing of the insertional tendon fibers of the right abductor panda Osteoarthritis (Back pain from multilevel degenerative disc disease) Neurogenic claudication due to lumbar spinal stenosis Hypomagnesemia Acute Kidney Injury secondary to MRI contrast (acute kidney injury resolved) Condition on Discharge: Fair Activity: Resume your previous activity Non-emergency contact: Primary Care Provider and Specialist Call non-emergency contact if: you have any medication questions Follow-up/Referrals: Spencer Berman DO [Surgeon] - Russ Browning [Primary Care Provider] - Diet: Carb Consistent or DM2 Addtl Attending Provider Instructions: Patient should have a CD of hospital imaging when leaving on discharge to bring to her outpatient doctors. Patient should follow up with primary care doctor and pain management doctor and surgical doctor Patient should have magnesium levels followed by primary care doctor and continue home oral magnesium supplements daily especially while cristy on furo semide medication which can reduce serum magnesium levels Patient should avoid more than 2000 mg of acetaminophen in a day in her home medication uses because excessive acetaminophen use can lead to liver problems and hepatic toxicity Patient's preferred pharmacy is [facility] [address] [address] Pending Studies at Discharge: No Stand-Alone Forms: My [facility], Smoking Cessation Medications and DC Order Prescriptions: Continued magnesium oxide 500 mg capsule 500 mg PO DAILY RF: 0 diclofenac sodium 1 % gel 4 gm TOP QID RF: 0 lidocaine 5 % adhesive patch,medicated 1 patch topical Q24H PRN (Reason: Pain) RF: 0 famotidine [Pepcid] 40 mg tablet 40 mg PO DAILY RF: 0 albuterol sulfate [Proventil HFA] 90 mcg/actuation HFA aerosol inhaler 2 puffs INH Q6H PRN (Reason: shortness of breath or wheezing) Qty: 8 RF: 0 levothyroxine [Synthroid] 200 mcg tablet 200 mcg PO DAILY RF: 0 Praluent Pen 150 mg/mL pen injector 0 mg SUBCUT .[id number] RF: 0 oxycodone 5 mg tablet 5 mg PO Q8H PRN (Reason: pain) Qty: 10 RF: 0 methylprednisolone [Medrol] 4 mg tablet 4 mg PO DAILY PRN (Reason: Unknown) RF: 0 furosemide 40 mg Tablet 40 mg PO DAILY RF: 0 carvedilol 6.25 mg tablet 6.25 mg PO BID RF: 0 gabapentin 400 mg capsule 400 mg PO BID RF: 0 sertraline 100 mg Tablet 150 mg PO DAILY RF: 0 allopurinol 100 mg tablet 100 mg PO BID RF: 0 aspirin [Aspir-81] 81 mg Tablet,Delayed Release (Dr/Ec) 81 mg PO DAILY RF: 0 ergocalciferol (vitamin D2) 50,000 unit capsule 50,000 unit PO WK RF: 0 hydrocodone-acetaminophen 10-300 mg tablet 1 tab PO TID PRN (Reason: Pain) RF: 0 fenofibrate nanocrystallized 145 mg tablet 145 mg PO HS RF: 0 apremilast 30 mg tablet 30 mg PO BID RF: 0 Lantus Solostar U-100 Insulin 100 unit/mL (3 mL) insulin pen 30 units SUBCUT BID RF: 0 diphenhydramine HCl [Benadryl] 25 mg Capsule 25 mg PO DIRECTED PRN (Reason: NEEDED) RF: 0 lisinopril 10 mg Tablet 10 mg PO DAILY RF: 0 glucosamine de [place] cruz 2KCl-chondroit [Glucosamine-Chondroitin DS] 500-400 mg Tablet 1 tab PO BID RF: 0 insulin lispro [Humalog KwikPen Insulin] 100 unit/mL insulin pen 0 units SUBCUT TIDM RF: 0 Discontinued acetaminophen [Tylenol Extra Strength] 500 mg Tablet 1,500 mg PO BID PRN (Reason: Pain) RF: 0 Discharge Orders: Discharge Order (Routine); Ordered 07/28/19 Ordered By: Jimbo Carlin Admission Data Admit Date/Time: 07/26/19 22:45 Attending Provider: Jimbo Carlin Admit Provider: Jacob Abdi Primary Care Provider: Russ Browning Other Providers: Jacob Abdi ; Spencer Berman
[2019-07-28] MEDS: HYDROCODONE/ACETAMINOPHEN 10/325 TAB PO PRN (13:41)
== END 2019-07-28 16:40 | disposition home or self-care (01) | DRG 554 ==
LOC: ED 19:28 → SUATTDRO 22:45 → 3N 22:45

== ENCOUNTER 2019-08-29 06:16 | Inpatient (IN) ==
--- NOTE | 2019-08-05 09:37 | PAT Medication Instructions ---
Medication Instructions Date of Service August 05, 2019 Home Medications Medication Instructions Recorded albuterol sulfate [Proventil HFA] 2 puffs INH Q6H PRN #8 gm 03/27/19 allopurinol 100 mg PO BID apremilast [Otezla] 30 mg PO BID aspirin [Aspir-81] 81 mg PO DAILY carvedilol 6.25 mg PO BID ergocalciferol (vitamin D2) 50,000 unit PO WK fenofibrate nanocrystallized 145 mg PO HS furosemide 40 mg PO DAILY gabapentin 400 mg PO TID hydrocodone-acetaminophen 1 tab PO TID PRN sertraline 150 mg PO DAILY diphenhydramine HCl [Benadryl] 25 mg PO BID PRN glucosamine de la cruz 2KCl-chondroit [Glucosamine-Chondroitin DS] 1 tab PO BID lisinopril 10 mg PO DAILY famotidine 40 mg tablet 40 mg PO DAILY insulin glargine 100 unit/mL (3 mL) subcutaneous pen 30 units SUBCUT BID insulin lispro 100 unit/mL subcutaneous pen 0 units SUBCUT TIDM albuterol sulfate [Proventil HFA] 2 puffs INH Q6H PRN Praluent Pen 150 mg SUBCUT Q14D levothyroxine [Synthroid] 200 mcg PO DAILY diclofenac sodium 1 % topical gel 4 gm TOP QID PRN magnesium oxide 500 mg capsule 500 mg PO DAILY methylprednisolone 4 mg tablet 4 mg PO DAILY PRN ASK your prescriber and surgeon apremilast [Otezla] 30 mg PO BID aspirin [Aspir-81] 81 mg PO DAILY Praluent Pen 150 mg SUBCUT Q14D STOP taking 2 weeks before surgery (or as soon as possible if surgery is within 2 weeks) glucosamine de la cruz 2KCl-chondroit [Glucosamine-Chondroitin DS] 1 tab PO BID STOP taking 48 hours before surgery fenofibrate nanocrystallized 145 mg PO HS STOP taking 24 hours before surgery diclofenac sodium 1 % topical gel 4 gm TOP QID PRN DO NOT take the morning of surgery ergocalciferol (vitamin D2) 50,000 unit PO WK furosemide 40 mg PO DAILY diphenhydramine HCl [Benadryl] 25 mg PO BID PRN lisinopril 10 mg PO DAILY insulin lispro 100 unit/mL subcutaneous pen 0 units SUBCUT TIDM magnesium oxide 500 mg capsule 500 mg PO DAILY Take morning of surgery With a small sip of water, OTHERWISE NOTHING TO EAT OR DRINK AFTER MIDNIGHT: allopurinol 100 mg PO BID carvedilol 6.25 mg PO BID gabapentin 400 mg PO TID hydrocodone-acetaminophen 1 tab PO TID PRN (okay to take up to 4 hours prior to surgery if needed) sertraline 150 mg PO DAILY famotidine 40 mg tablet 40 mg PO DAILY albuterol sulfate [Proventil HFA] 2 puffs INH Q6H PRN (use if needed; please b ring with you to hospital day of surgery if possible) levothyroxine [Synthroid] 200 mcg PO DAILY methylprednisolone 4 mg tablet 4 mg PO DAILY PRN (if needed) Take evening before surgery allopurinol 100 mg PO BID apremilast [Otezla] 30 mg PO BID carvedilol 6.25 mg PO BID gabapentin 400 mg PO TID hydrocodone-acetaminophen 1 tab PO TID PRN (if needed) diphenhydramine HCl [Benadryl] 25 mg PO BID PRN (if needed) insulin glargine 100 unit/mL (3 mL) subcutaneous pen 30 units SUBCUT BID insulin lispro 100 unit/mL subcutaneous pen 0 units SUBCUT TIDM albuterol sulfate [Proventil HFA] 2 puffs INH Q6H PRN (if needed) methylprednisolone 4 mg tablet 4 mg PO DAILY PRN (if needed) Insulin Dependent Diabetic Patients * Test your blood sugar the morning of surgery * If Blood Sugar is GREATER THAN 150, take HALF of your regular dose of: insulin glargine 100 unit/mL (3 mL) subcutaneous pen take 15 units * If Blood Sugar is LESS THAN 150, DO NOT TAKE ANY: insulin glargine Other Notes If you have any questions please call us at [phone] or [phone] or [phone] or [phone]
--- NOTE | 2019-08-05 14:56 | Anesthesiology Consultation ---
Date of Service August 05, 2019 Assessment & Plan (1) Encounter for pre-operative examination: - Awaiting most recent hgba1c. - Patient states she is scheduled to see cardiology prior to surgery. Awaiting cardiology office visit (Dr. Pruitt). Also awaiting cardiac cath which was done 12/2018 for evaluation of abormal stress test 11/2018. Per PAT assessment on 08/04: No known COVID-19 positive contacts. No current COVID-19 related symptoms. No hx of COVID-19 testing. Patient went to visit sister at [place] who is not doing well [facility] (not a COVID type of concern- in fact sister has recently been COVID tested negative). Patient has gowned, mask, gloved, + face shield in order to visit sister. No COVID positive residents or staff at [facility]'s facility. She states that she will contact surgeon/PAT if visiting [facility]/[place] in the two weeks leading up to surgery. Patient states surgeon is preop protocol COVID-19 testing (exact date/location TBD). Awaiting results. - Check BSG AM DOS History Surgery Operation Date: 08/29/19 13:25 Proposed Procedures p L4-S1 Decompression and Fusion, Spinal Cord Monitoring - Spencer Berman, Height/Weight Height: 5 ft 3 in Weight: 109.1 kg Allergies Allergy/AdvReac Type Severity Reaction Status Date / Time Sulfa (Sulfonamide Allergy Anaphylaxis, Unverified 08/05/19 08:34 Antibiotics) rash pentazocine [From Talwin] AdvReac Nausea Unverified 08/05/19 08:34 Medications Home Medications Medication Instructions Recorded Confirmed Last Taken allopurinol 100 mg PO BID 04/02/18 08/05/19 05/29/18 apremilast [Otezla] 30 mg PO BID 04/02/18 08/05/19 05/29/18 aspirin [Aspir-81] 81 mg PO DAILY 04/02/18 08/05/19 05/29/18 carvedilol 6.25 mg PO BID 04/02/18 08/05/19 05/29/18 ergocalciferol (vitamin D2) 50,000 unit PO WK 04/02/18 08/05/19 Unknown fenofibrate nanocrystallized 145 mg PO HS 04/02/18 08/05/19 05/29/18 furosemide 40 mg PO DAILY 04/02/18 08/05/19 05/29/18 gabapentin 400 mg PO TID 04/02/18 08/05/19 05/29/18 hydrocodone-acetaminophen 1 tab PO TID PRN 04/02/18 08/05/19 Unknown sertraline 150 mg PO DAILY 04/02/18 08/05/19 05/29/18 diphenhydramine HCl [Benadryl] 25 mg PO BID PRN 05/30/18 08/05/19 Unknown glucosamine de la cruz 2KCl-chondroit 1 tab PO BID 05/30/18 08/05/19 05/29/18 [Glucosamine-Chondroitin DS] lisinopril 10 mg PO DAILY 05/30/18 08/05/19 05/29/18 famotidine 40 mg tablet 40 mg PO DAILY 01/14/19 08/05/19 Unknown insulin glargine 100 unit/mL (3 30 units SUBCUT BID ml 01/14/19 08/05/19 Unknown mL) subcutaneous pen insulin lispro 100 unit/mL 0 units SUBCUT TIDM ml 01/14/19 08/05/19 Unknown subcutaneous pen albuterol sulfate [Proventil HFA] 2 puffs INH Q6H PRN #8 gm 03/27/19 08/05/19 Unknown Praluent Pen 150 mg SUBCUT Q14D 07/05/19 08/05/19 Unknown levothyroxine [Synthroid] 200 mcg PO DAILY 07/05/19 08/05/19 Unknown diclofenac sodium 1 % topical gel 4 gm TOP QID PRN gm 07/18/19 08/05/19 Unknown magnesium oxide 500 mg capsule 500 mg PO DAILY cap 07/18/19 08/05/19 Unknown methylprednisolone 4 mg tablet 4 mg PO DAILY PRN 07/22/19 08/05/19 Unknown Past Medical History Medical History (Updated 08/05/19 @ 15:32 by Shira Eng) Anxiety Arthritis with psoriasis on chronic methylprednisolone 4mg daily Asthma (Resolved) chronic obstructive airway disease. rarely uses albuterol inhaler Bronchitis hx CAD (coronary artery disease) non-obstructive per 12/2018 cardiac cath per patient Chronic back pain Congestive heart failure 2013 with pulmonary edema --> respiratory arrest --> [facility] Degenerative disc disease Depression DM type 2 (diabetes mellitus, type 2) IDDM GERD (gastroesophageal reflux disease) History of blood transfusion post-op knee surgery Hyperlipidemia Hypertension Hypothyroidism s/p radioactive iodine Lumbar radiculopathy CHRISTIANO (obstructive sleep apnea) CPAP Osteoarthritis Peptic ulcer disease hx Peripheral neuropathy right foot Exercise / Class Metabolic Activity III < 4 Walking/Shop/Light housework (uses walker PRN) Past Family History Family History Other No family history of adverse response to anesthesia No pertinent family history Past Surgical History Surgical History History of appendectomy History of cardiac cath no stents. Fall 2018, [facility] History of carpal tunnel release bilateral History of cholecystectomy History of colonoscopy History of dilatation and curettage History of esophagogastroduodenoscopy (EGD) History of nasal septoplasty History of revision of total knee arthroplasty left History of tonsillectomy History of total knee arthroplasty bilateral S/P Achilles tendon repair and tarsal tunnel repair right foot S/P epidural steroid injection S/P lymph node biopsy left axillary node (-) S/P right knee arthroscopy S/P SHONA-BSO umbilicial hernia repair with cystocele & rectocele Past Anesthesia History No Family Hx of Anesthesia Complications and Other "2013" respiratory arrest following post op day 1 (knee surgery) at [facility], from pulmonary edema after "receiving too much fluid in the OR." Patient also reports that she has been told she has had perioperative hypotension with previous surgeries in the past. History of PONV No Hx of PONV and No Hx of Motion Sickness Social History Smoking Status: Never smoker Do You Dip or Chew Tobacco: No Hx Alcohol Use: Yes (occasionally) Alcohol type: beer, wine and hard liquor alcohol intake frequency: holidays/special occasions only Hx Substance Use: No substance use type: does not use Review of Systems Patient denies chest pain, shortness of breath, fever, chills, cough, wheezing, palpitations. Physical Exam Vital Signs VITALS BP 100/57 P 67 TEMP 98.8 SP02 94%RA RESP 16 PHYSICAL Full neck and c-spine range of motion. Full TMJ range of motion. TMD 3 finger breaths Mallampati Score 1 (large tonsils) Dentition: intact Lungs: clear throughout to auscultation Cardiac: regular rate and rhythm, no murmurs noted Spine: normal Carotid arteries: negative bruit Extremities: no edema Testing Laboratory Results 08/05/19 15:20 PT 10.9 Seconds (9.0-12.0) 08/05/19 15:20 INR 1.0 (0.9-1.1) 08/05/19 15:20 APTT 25.7 Seconds (21.0-31.0) 08/05/19 15:20 Urine Color Yellow 08/05/19 15:20 Urine Appearance Clear (Clear) 08/05/19 15:20 Urine pH 5.0 (4.5-7.5) 08/05/19 15:20 Ur Specific Cullen 1.016 (1.000-1.030) 08/05/19 15:20 Urine Protein Negative (Negative) 08/05/19 15:20 Urine Glucose (UA) Negative (Negative) 08/05/19 15:20 Urine Ketones Negative (Negative) 08/05/19 15:20 Urine Nitrite Negative (Negative) 08/05/19 15:20 Ur Leukocyte Esterase Negative (Negative) 08/05/19 15:20 Surgeon's office made aware of elevated WBC. Patient on chronic steroids for arthritis* 07/28/19 SODIUM 139 POTASSIUM 3.7 CHLORIDE 101 CO2 30 BUN 26 CREATININE 0.90 GLUCOSE 143 Electrocardiogram Date: 08/05/19 Findings: + SB @ (59) Chest X-Ray Date: 03/27/19 Findings: + NAD Echocardiogram Date: 12/03/18 EF 50%. No RWMA. LAE/LVE. Borderline LVH. Mild MD/TI. Mild to at most low moderate pulmonary HTN. Stress Test Date: 12/03/18 Type: nuclear Abnormal myocardial perfusion SPECT images with evidence for pharmacologically induced large, moderately dense anteroapical ischemia. LVEF rest 62%.
[2019-08-05 15:58] LABS: Basophils # (auto) 0.05 K/uL (0-0.2); Basophils % (auto) 0.4 %; Eosinophils # (auto) 0.16 K/uL (0-0.5); Eosinophils % (auto) 1.1 %; Hematocrit (blood only) 39.1 % (37-47); Hemoglobin 12.5 g/dL (12.0-16.0); Immature Granulocytes # (auto) 0.05 K/uL (0.00-0.02); Immature Granulocytes % (auto) 0.4 %; Lymphocytes # (auto) 2.85 K/uL (1.2-3.4); Lymphocytes % (auto) 20.4 %; Mean Corpuscular Hemoglobin 30.5 pg (25-34); Mean Corpuscular Volume 95.4 fL (80-100); Mean Platelet Volume 10.5 fL (7.4-10.4); Monocytes % (auto) 5.7 %; Neutrophils # (auto) 10.03 K/uL (1.4-6.5); Platelet Count 285 K/uL (130-400); RDW Coefficient of Variation 13.4 % (11.5-14.5); RDW Standard Deviation 46.4 fL (36.4-46.3); White Blood Count 13.94 K/uL (4.8-10.8)
[2019-08-05 16:00] LABS: Appearance Urine Clear (Clear); Bilirubin Urine Negative (Negative); Blood Urine Negative (Negative); Color Urine Yellow; Glucose Urine UA Negative (Negative); Ketones Urine Negative (Negative); Leukocyte Esterase Urine Negative (Negative); Nitrite Urine Negative (Negative); Protein Urine Negative (Negative); Specific Gravity Urine 1.016 (1.000-1.030); Urobilinogen Urine Negative (Negative)
--- NOTE | 2019-08-05 16:02 | Electrocardiogram Report ---
Test Reason : Blood Pressure : / mmHG Vent. Rate : 059 BPM Atrial Rate : 059 BPM P-R Int : 136 ms QRS Dur : 092 ms QT Int : 430 ms P-R-T Axes : 013 021 069 degrees QTc Int : 425 ms Sinus bradycardia Otherwise normal ECG When compared with ECG of 30-MAY-2018 00:10, Premature atrial complexes are no longer Present Confirmed by David Mar ([id number]) on 08/05/2019 4:01:44 PM Referred By: Spencer Berman Confirmed By:David Mar
[2019-08-05 16:12] LABS: Partial Thromboplastin Ratio 0.9; Partial Thromboplastin Time 25.7 Seconds (21.0-31.0); Prothrombin Time 10.9 Seconds (9.0-12.0)
[~2019-08-29 06:16] MED LIST: ACETAMINOPHEN 500 MG TAB PO SCH; CEFAZOLIN 2000MG 2,000 MG/15 ML SYR IV SCH; GABAPENTIN 300 MG CAP PO SCH; LR 15ML/HR IV SCH
[2019-08-29] MEDS ORDERED: BACITRACIN INJ 50,000 UNIT VIAL ONE (06:57)
[2019-08-29] MEDS ORDERED: BUPIVACAINE/EPINEPHRINE 0.5% MPF 1:200,000 10 ML VIAL ONE (06:57)
[2019-08-29] MEDS ORDERED: ROCURONIUM BROMIDE 10 MG/ML 5 ML VIAL IV ONE ×4 (07:00→09:22)
[2019-08-29] MEDS ORDERED: LIDOCAINE HCL 2% 2 ML VIAL/AMP(20MG/ML) INFIL ONE (07:00)
[2019-08-29] MEDS ORDERED: ONDANSETRON INJ 2 MG/ML 2 ML VIAL ONE (07:00)
[2019-08-29] MEDS ORDERED: MIDAZOLAM HCL 1 MG/ML 2ML VIAL ONE (07:00)
[2019-08-29] MEDS ORDERED: PROPOFOL IV EMULSION 10 MG/ML 20 ML VIAL IV ONE (07:00)
[2019-08-29] MEDS ORDERED: fentaNYL citrate 100 MCG/2 ML VIAL ONE (07:00)
[2019-08-29] MEDS ORDERED: DEXAMETHASONE SOD INJ 4 MG/ML VIAL ONE (07:00)
[2019-08-29] MEDS: CeleBREX 200 MG CAP PO SCH ×2 (07:20→07:25)
--- NOTE | 2019-08-29 07:25 | History & Physical Bridge Note ---
Date of Service August 29, 2019 History & Physical Bridge Note I have examined the patient, reviewed the History & Physical and in the interval since the performance of the History & Physical I have noted the following changes of clinical significance: no changes noted
--- NOTE | 2019-08-29 07:26 | History & Physical Report ---
Date of Service August 29, 2019 Assessment & Plan (1) Neurogenic claudication due to lumbar spinal stenosis: L4-S1 decompression fusion Present on Admission?: Yes History of Present Illness Chief Complaint: Back and leg pain Primary Care Provider: Russ Browning This is a 68-year-old female who presents with worsening back and bilateral leg pain. After failing extensive course of nonoperative care is here for surgical intervention. Allergies Allergy/AdvReac Type Severity Reaction Status Date / Time Sulfa (Sulfonamide Allergy Anaphylaxis, Unverified 08/29/19 06:41 Antibiotics) rash pentazocine [From Talwin] AdvReac Nausea Unverified 08/29/19 06:41 Home Medications Home Medications Medication Instructions Recorded Confirmed Type allopurinol 100 mg PO BID 04/02/18 08/29/19 History apremilast [Otezla] 30 mg PO BID 04/02/18 08/29/19 History aspirin [Aspir-81] 81 mg PO DAILY 04/02/18 08/29/19 History carvedilol 6.25 mg PO BID 04/02/18 08/29/19 History ergocalciferol (vitamin D2) 50,000 unit PO WK 04/02/18 08/29/19 History fenofibrate nanocrystallized 145 mg PO HS 04/02/18 08/29/19 History furosemide 40 mg PO DAILY 04/02/18 08/29/19 History gabapentin 400 mg PO TID 04/02/18 08/29/19 History hydrocodone-acetaminophen 1 tab PO TID PRN 04/02/18 08/29/19 History sertraline 150 mg PO DAILY 04/02/18 08/29/19 History diphenhydramine HCl [Benadryl] 25 mg PO BID PRN 05/30/18 08/29/19 History glucosamine de la cruz 2KCl-chondroit 1 tab PO BID 05/30/18 08/29/19 History [Glucosamine-Chondroitin DS] lisinopril 10 mg PO DAILY 05/30/18 08/29/19 History famotidine 40 mg tablet 40 mg PO DAILY 01/14/19 08/29/19 History insulin glargine 100 unit/mL (3 30 units SUBCUT BID ml 01/14/19 08/29/19 History mL) subcutaneous pen insulin lispro 100 unit/mL 0 units SUBCUT TIDM ml 01/14/19 08/29/19 History subcutaneous pen albuterol sulfate [Proventil HFA] 2 puffs INH Q6H PRN #8 gm 03/27/19 08/29/19 Rx Praluent Pen 150 mg SUBCUT Q14D 07/05/19 08/29/19 History levothyroxine [Synthroid] 200 mcg PO DAILY 07/05/19 08/29/19 History diclofenac sodium 1 % topical gel 4 gm TOP QID PRN gm 07/18/19 08/29/19 History magnesium oxide 500 mg capsule 500 mg PO DAILY cap 07/18/19 08/29/19 History methylprednisolone 4 mg tablet 4 mg PO DAILY 07/22/19 08/29/19 History semaglutide 0.25 mg SQ WK 08/19/19 08/29/19 History Past Med/Surg History Medical History Anxiety Arthritis with psoriasis on chronic methylprednisolone 4mg daily Asthma (Resolved) chronic obstructive airway disease. rarely uses albuterol inhaler Bronchitis hx CAD (coronary artery disease) non-obstructive per 12/2018 cardiac cath per patient Chronic back pain Congestive heart failure 2013 with pulmonary edema --> respiratory arrest --> [facility] Degenerative disc disease Depression DM type 2 (diabetes mellitus, type 2) IDDM GERD (gastroesophageal reflux disease) History of blood transfusion post-op knee surgery Hyperlipidemia Hypertension Hypothyroidism s/p radioactive iodine Lumbar radiculopathy CHRISTIANO (obstructive sleep apnea) CPAP Osteoarthritis Peptic ulcer disease hx Peripheral neuropathy right foot Surgical History (Updated 08/29/19 @ 06:41 by Kassandra Michele, RICHARD) History of appendectomy History of cardiac cath no stents. Fall 2018, [facility] History of carpal tunnel release bilateral History of cholecystectomy History of colonoscopy History of dilatation and curettage History of esophagogastroduodenoscopy (EGD) History of nasal septoplasty History of revision of total knee arthroplasty left History of total knee arthroplasty bilateral S/P Achilles tendon repair and tarsal tunnel repair right foot S/P epidural steroid injection S/P lymph node biopsy left axillary node (-) S/P right knee arthroscopy S/P SHONA-BSO umbilicial hernia repair with cystocele & rectocele Family History Other No family history of adverse response to anesthesia No pertinent family history Social History Preferred Language: Bermudian Communication Ability: Effective Fire Management Technician Required: No Beliefs That Will Affect Care: None Current Living Situation: Alone Other Information That Helps Us Care for You: No Feels Safe at Home: No Is there a partner from a previous relationship who is making you feel unsafe now?: No Any Concerns about Your Family Situation: No Would You Like to Speak to Someone About Your Situation: No Safety Concerns: Feels Safe At This Time Smoking Status: Never smoker Do You Dip or Chew Tobacco: No ; Second Hand Exposure: No ; Tobacco Cessation Education Requested by Patient: No Hx Alcohol Use: Yes (occasionally) Alcohol type: beer, wine and hard liquor Hx Substance Use: No Physical Exam Physical Exam: Patient is alert and oriented neurologically intact. Heart regular rate and rhythm. Lungs clear to auscultation. Results & Data Vital Signs (Past 12 Hours) Vital Signs Temp Pulse Resp BP Pulse Ox 08/29/19 06:58 36.7 C 58 L 20 118/74 96
[2019-08-29] MEDS ORDERED: ATROPINE SULFATE 0.1 MG/ML 10ML SYR IV PRN (07:35)
[2019-08-29] MEDS ORDERED: ONDANSETRON INJ 2 MG/ML 2 ML VIAL IV PRN ×2 (07:35→12:13)
[2019-08-29] MEDS ORDERED: HYDROmorphone INJ 1 MG/ML SYRINGE IV PRN ×2 (07:35→12:13)
[2019-08-29] MEDS ORDERED: ePHEDrine sulfate 50 MG/ML AMP IV PRN (07:35)
[2019-08-29] MEDS ORDERED: SUCCINYLCHOLINE 100MG/5ML SYR IV ONE (08:26)
[2019-08-29] MEDS ORDERED: FLOSEAL HEMOSTATIC MATRIX 10ML TOP ONE (08:27)
[2019-08-29] MEDS ORDERED: HYDROCORTISONE SOD SUCCINATE 100 MG/2 ML VIAL ONE (08:28)
[2019-08-29] MEDS ORDERED: ePHEDrine sulfate 50 MG/ML SYR ONE ×2 (08:54→09:30)
--- NOTE | 2019-08-29 10:06 | Operative Report ---
Post Operative Report Pre & Post Diagnosis Operation Date: 08/29/19 07:45 Pre-Op Diagnosis: Neurogenic claudication due to lumbar spinal stenosis Spondylolisthesis L4-5. Morbid obesity Post-Op Diagnosis: Same I identified the patient and participated in the time-out.: Yes Procedure Operation Date: 08/29/19 07:45 Actual Procedures 1 lumbar decompression with bilateral medial facetectomies and foraminotomies L3-4, L4-5 and L5-S1. #2 posterior spinal fusion L4-5 L5-S1. #3 placement posterior instrumentation L4-5 L5-S1. #4 interbody fusion L4-5 per #5 placement of 11 x 22 mm peek cage at L4-5. #6 placement of locally harvested morselized autograft in the posterior gutters. #7 placement infuse collagen sponge, master graft in the posterior lateral gutters and ostial amp and interbody space. Surgeon Spencer Berman, DO Chute [employer] Winston Yoon Estimated Blood Loss 400 Findings See Below Patient is 5 foot 3 inches tall weighing 108 kg with a BMI in excess of 42. The patient's body habitus did create significant technical difficulty requiring her deepest retractors and longus instruments in order to perform her procedure. This added at least 50% increase to the operative time. Specimens None Indications This is a 68-year-old female presents with above-mentioned diagnosis after failing course of nonoperative care is here for the above-mentioned procedure. Description of Procedure Patient was met with identified informed consent obtained. Patient was then taken to the operative suite underwent intubation placed in the prone position Mat table on top of the Jaime frame. All bony prominences well-padded eyes inspected to ensure no external pressure placed upon them. This point the lumbar spine was prepped and draped in a normal sterile fashion. Sharp dissection with the assistance of Bovie cautery was performed down to and exposing the lamina and transverse processes of L 4 L5 and the sacral ala bilaterally. From caudal cephalad fashion complete laminectomy of L5 L4 and partial laminectomy L3 was performed including bilateral medial facetectomies and foraminotomies addressing severe spinal stenosis. Pedicle screws and placed in L4-L5 and S1 levels bilaterally with assistance of fluoroscopy and appropriate size fiorella placed. By way of a transforaminal approach on the left complete discectomy of L4-5 was performed endplates curetted to subcortical bleeding bone and 11 x 22 mm peek cage filled osteo-bone graft tapped in position. The rods were then locked into final position bilaterally. The transverse processes of L 4 L5 and the sacral ala burred to subcortical bleeding bone. Infuse collagen sponge master graft local autograft was then placed in the posterior gutters. 15 round DAVID drain inserted. The incision was then closed with 1 Vicryl the fascia 2-0 Vicryl subcutaneously and 4 Monocryl for fi nal skin closure. Steri-Strips dressings placed. Patient will continue PACU stable addition. Please note spinal cord monitoring was utilized that the procedure no changes noted. Lastly Winston shultz was present at the entire procedure involved the patient positioning complex portions of the surgery and final skin closure. I attest to the content of the Intraoperative Record and any orders documented therein. Any exceptions are noted below.
--- NOTE | 2019-08-29 10:11 | Fluoroscopy Report ---
FL lumbar spine 2-3V CLINICAL HISTORY: L4-S1 DECOMPRESSION/FUSION/INTERBODY COMPARISON STUDY: L4 S1 decompression and fusion FLUOROSCOPY TIME: 25 seconds. FINDINGS: 2 fluoroscopic spot images of the lumbar spine demonstrate posterior decompression fusion f rom L4 through S1 with pedicle screws and rods. The hardware appears intact. IMPRESSION: Fluoroscopy provided for L4-S1 posterior decompression and fusion. ACT 112: Negative or not required by law. Electronically signed by: Jenaro Posada M.D. 08/29/2019 10:10 AM
[2019-08-29] MEDS: fentaNYL citrate 100 MCG/2 ML VIAL IV PRN ×2 (11:06→11:13)
[2019-08-29] MEDS ORDERED: GLYCOPYRROLATE 0.2 MG/ML VIAL ONE (11:28)
[2019-08-29] MEDS ORDERED: NEOSTIGMINE METHYLSULFATE 1 MG/ML 10ML VIAL ONE (11:28)
[2019-08-29] MEDS ORDERED: ESMOLOL HCL INJ 10 MG/ML 10ML VIAL IV ONE (11:28)
--- NOTE | 2019-08-29 11:40 | Anesthesiology Progress Note ---
Date of Service August 29, 2019 Anesthesia Post Procedure Vital Signs Vital Signs: Temp Pulse Pulse Resp BP BP Pulse Ox 08/29/19 11:10 69 15 121/80 96 08/29/19 11:00 81 16 134/74 95 08/29/19 10:50 91 H 16 135/89 98 08/29/19 10:40 90 20 135/84 95 08/29/19 10:32 36.4 C L 101 H 20 157/96 H 97 08/29/19 06:58 36.7 C 58 L 20 118/74 96 Pain Intensity Bilateral Lower Back: Pain Intensity: 4 Transfer of Care Handoff Completed per policy Notes Mental Status: alert / awake / arousable and participated in evaluation Patient Amnestic to Procedure: Yes Nausea / Vomiting: adequately controlled Pain: adequately controlled Airway Patency, RR, SpO2: stable & adequate BP & HR: stable & adequate Hydration State: stable & adequate Anesthetic Complications: no major complications apparent and Pt Satisfied with anesthetic care Notes: Patient discussed with Dr. Casiano who will be following the patient on the floor.
[2019-08-29] MEDS ORDERED: ALUMINUM/MAGNESIUM SUSP 30 ML UDC PO PRN (12:13)
[2019-08-29] MEDS ORDERED: DO NOT ADMINISTER FLU VACCINE PRN (12:13)
[2019-08-29] MEDS ORDERED: DO NOT ADMINISTER PNEUMOCOCCAL VACCINE PRN (12:13)
[2019-08-29] MEDS ORDERED: HYDROmorphone INJ 0.5 MG/0.5 ML SYR IV PRN (12:13)
[2019-08-29] MEDS ORDERED: TRAMADOL HCL 50 MG TABLET PO PRN (12:13)
[2019-08-29] MEDS ORDERED: MAGNESIUM HYDROXIDE SUSP 30 ML UDC PO PRN (12:13)
[2019-08-29] MEDS ORDERED: NON-FORMULARY MEDICATION (Hydrocodone-Acetaminophen 1 TAB) PO PRN (12:13)
[2019-08-29] MEDS ORDERED: LORazepam 0.5 MG TAB PO PRN (12:13)
[2019-08-29] MEDS ORDERED: LORazepam 0.5 MG/1 ML VIAL IV PRN (12:13)
[2019-08-29] MEDS ORDERED: SOD PHOSPHATE/SOD BIPHOSPHATE ENEMA 132 ML BTL PR PRN (12:13)
[2019-08-29] MEDS ORDERED: FAMOTIDINE 20 MG TAB PO PRN (12:13)
[2019-08-29] MEDS ORDERED: NALOXONE HCL 0.4 MG/1 ML VIAL/CARP IV PRN (12:13)
[2019-08-29] MEDS ORDERED: bisacodyL 10 MG SUPP PR PRN (12:13)
[2019-08-29] MEDS ORDERED: ALBUTEROL HFA 8 GM INHALER INH PRN (12:13)
[2019-08-29] MEDS ORDERED: METOCLOPRAMIDE HCL INJ 5 MG/ML 2 ML VIAL IV PRN (12:13)
[2019-08-29] MEDS ORDERED: PROMETHAZINE HCL 12.5 MG in SODIUM CHLORIDE 0.9% 50 ML IV PRN (12:13)
[2019-08-29] MEDS ORDERED: ONDANSETRON 4 MG OD TAB PO PRN (12:13)
[2019-08-29] MEDS ORDERED: ACETAMINOPHEN 1,000 MG/100 ML VIAL IV PRN (12:13)
[2019-08-29] MEDS ORDERED: PHARMACY GLYCEMIC MGMT CONSULT SCH (12:45)
--- NOTE | 2019-08-29 12:47 | Hospitalist Consultation ---
Date of Consultation August 29, 2019 Assessment & Plan (1) Neurogenic claudication due to lumbar spinal stenosis: - POD#0 L4-S1 decompression and fusion by Dr. Berman - activity and wound care orders as per ortho - pain control with bowel regimen - PT/OT - monitor H/H for acute blood loss anemia and transfuse blood products PRN - EBL 400 cc (2) DM type 2 (diabetes mellitus, type 2): -Hgb A1c 8.9 03/2019 -Hold home Ozempic and utilize Lantus and NovoLog per protocol while hospitalized -Monitor closely for hyperglycemia due to steroids given intraoperatively -Glycemic pharmacy consult placed by spine orthopedics (3) CAD (coronary artery disease): -Cardiac cath 12/2017 showed moderate multivessel CAD, no intervention was performed -Continue beta-noreen, noted to be statin intolerant and takes Praluent every 14 days (4) Chronic diastolic CHF (congestive heart failure): -Appears euvolemic -Echo 11/2018: EF 50%, left atrium and left ventricle enlarged, borderline LVH, mild mitral and tricuspid valvular insufficiency, mild to moderate pulmonary hypertension -Hold Lasix pending a.m. labs and blood pressure (5) Arthritis with psoriasis: -Managed with Otezla and chronic methylprednisolone 4 mg daily -Received Decadron 8 mg and hydrocortisone 100 mg intraoperatively -Resume home dose of methylprednisolone tomorrow, no need for stress dose steroids at this time (6) CHRISTIANO (obstructive sleep apnea): -CPAP as per home settings (7) Hypertension: BP controlled, continue carvedilol and lisinopril (8) DVT prophylaxis: -TEDs/SCDs as per spine orthopedics Thank you for this consultation. We will follow the patient with you during their hospital stay. You can reach a member of the [facility] Hospitalist Team 04/09 via pager @ [phone]. Supervising Physician Co-Signing Physician Notes Patient is a 68-year-old female with history of CAD, diabetes mellitus, obstructive sleep apnea on CPAP, diastolic heart failure, asthma, lumbar radiculopathy and other medical problems was seen and examined postop after having lumbar decompression/fusion surgery for neurogenic claudication due to lumbar spinal stenosis spondylolisthesis L4-5. Patient is doing well postop. She denies any chest pain, shortness of breath, dizziness, nausea, abdominal pain. Back pain at surgical site is well controlled. Offers no other complaints currently. Patient is on methylprednisolone 4 mg daily for psoriatic arthritis. She received hydrocortisone 100 mg postop. Also receiving Decadron 8 mg. Physical Exam: Vitals signs as noted above General Appearance:Morbidly Obese, no apparent distress Head: normocephalic, Atraumatic Eyes: normal inspection, EOMI Neck: supple, Trachea midline Respiratory/Chest: Decreased breath sounds, CTA, No accessory muscle use Cardiovascular: S1, S2, No murmur, distant heart sounds Abdomen/GI:Soft, Non tender, +Umbilical Hernia, Bowel sounds present Back: Surgical site in dressing, +Drain Extremities/Musculoskelatal:normal inspection, Trace pedal edema, +Arthritic changes in UE small Jts Neurologic/Psych:AAOX3, grossly no focal neurological deficits Skin: normal color, warm, +Psoriatic skin changes on extremities S/P L4-S1 decompression and fusion by Dr. Berman Pain management, DVT prophylaxis, activity as per primary team Monitor for postop anemia Continue bowel regimen to prevent constipation Continue incentive spirometry Chronic methylprednisolone use Likely nonsuppressed HPA axis given low-dose steroid use Already received hydrocortisone, Decadron Continue methylprednisolone 4 mg daily Check a.m. cortisol and consider hydrocortisone if HPA axis suppressed Asthma No signs of exacerbation I personally reviewed the record. Patient is interviewed and examined at bedside. Patient's care is coordinated with Sherri Melendez NP. Please refer to the documentation above for details of patient's presentation and for discussion of other issues. History of Present Illness Reason for Consultation: Post Op Medical Management Requesting Physician: Dr. Berman Attending Physician: Dr. Hoyos History of Present Illness 68 year old female with PMH CAD, diastolic CHF, HTN, DM type II on insulin, CHRISTIANO on CPAP, and other problems listed below who is s/p L4-S1 decompression and fusion today by Dr. Berman. Post operatively the patient is doing well. She reports her pain is well controlled. No numbness or tingling to the lower extremities. Denies chest pain and shortness of breath. No abdominal pain or nausea. Denies lightheadedness and dizziness. Bello is plance draining clear yellow urine. Allergies Allergy/AdvReac Type Severity Reaction Status Date / Time Sulfa (Sulfonamide Allergy Anaphylaxis, Unverified 08/29/19 06:41 Antibiotics) rash pentazocine [From Talwin] AdvReac Nausea Unverified 08/29/19 06:41 Home Medications Home Medications Medication Instructions Recorded Confirmed Type allopurinol 100 mg PO BID 04/02/18 08/29/19 History apremilast [Otezla] 30 mg PO BID 04/02/18 08/29/19 History aspirin [Aspir-81] 81 mg PO DAILY 04/02/18 08/29/19 History carvedilol 6.25 mg PO BID 04/02/18 08/29/19 History ergocalciferol (vitamin D2) 50,000 unit PO WK 04/02/18 08/29/19 History fenofibrate nanocrystallized 145 mg PO HS 04/02/18 08/29/19 History furosemide 40 mg PO DAILY 04/02/18 08/29/19 History gabapentin 400 mg PO TID 04/02/18 08/29/19 History hydrocodone-acetaminophen 1 tab PO TID PRN 04/02/18 08/29/19 History sertraline 150 mg PO DAILY 04/02/18 08/29/19 History diphenhydramine HCl [Benadryl] 25 mg PO BID PRN 05/30/18 08/29/19 History glucosamine de la cruz 2KCl-chondroit 1 tab PO BID 05/30/18 08/29/19 History [Glucosamine-Chondroitin DS] lisinopril 10 mg PO DAILY 05/30/18 08/29/19 History famotidine 40 mg tablet 40 mg PO DAILY 01/14/19 08/29/19 History insulin glargine 100 unit/mL (3 30 units SUBCUT BID ml 01/14/19 08/29/19 History mL) subcutaneous pen insulin lispro 100 unit/mL 0 units SUBCUT TIDM ml 01/14/19 08/29/19 History subcutaneous pen albuterol sulfate [Proventil HFA] 2 puffs INH Q6H PRN #8 gm 03/27/19 08/29/19 Rx Praluent Pen 150 mg SUBCUT Q14D 07/05/19 08/29/19 History levothyroxine [Synthroid] 200 mcg PO DAILY 07/05/19 08/29/19 History diclofenac sodium 1 % topical gel 4 gm TOP QID PRN gm 07/18/19 08/29/19 History magnesium oxide 500 mg capsule 500 mg PO DAILY cap 07/18/19 08/29/19 History methylprednisolone 4 mg tablet 4 mg PO DAILY 07/22/19 08/29/19 History semaglutide 0.25 mg SQ WK 08/19/19 08/29/19 History Patient History Medical History (Updated 08/29/19 @ 13:05 by MARY JANE Tai) Anxiety Arthritis with psoriasis on chronic methylprednisolone 4mg daily Asthma (Resolved) chronic obstructive airway disease. rarely uses albuterol inhaler Bronchitis hx CAD (coronary artery disease) non-obstructive per 12/2018 cardiac cath per patient Chronic back pain Chronic diastolic CHF (congestive heart failure) Congestive heart failure 2013 with pulmonary edema --> respiratory arrest --> [facility] Degenerative disc disease Depression DM type 2 (diabetes mellitus, type 2) IDDM GERD (gastroesophageal reflux disease) History of blood transfusion post-op knee surgery Hyperlipidemia Hypertension Hypothyroidism s/p radioactive iodine Lumbar radiculopathy CHRISTIANO (obstructive sleep apnea) CPAP Osteoarthritis Peptic ulcer disease hx Peripheral neuropathy right foot Surgical History History of appendectomy History of cardiac cath no stents. Fall 2018, [facility] History of carpal tunnel release bilateral History of cholecystectomy History of colonoscopy History of dilatation and curettage History of esophagogastroduodenoscopy (EGD) History of nasal septoplasty History of revision of total knee arthroplasty left History of total knee arthroplasty bilateral S/P Achilles tendon repair and tarsal tunnel repair right foot S/P epidural steroid injection S/P lymph node biopsy left axillary node (-) S/P right knee arthroscopy S/P SHONA-BSO umbilicial hernia repair with cystocele & rectocele Family History Other No family history of adverse response to anesthesia No pertinent family history Social History Preferred Language: Yi Communication Ability: Effective Embedder Required: No Beliefs That Will Affect Care: None Current Living Situation: Alone Other Information That Helps Us Care for You: No Feels Safe at Home: No Is there a partner from a previous relationship who is making you feel unsafe now?: No Any Concerns about Your Family Situation: No Would You Like to Speak to Someone About Your Situation: No Safety Concerns: Feels Safe At This Time Smoking Status: Never smoker Do You Dip or Chew Tobacco: No ; Second Hand Exposure: No ; Tobacco Cessation Education Requested by Patient: No Hx Alcohol Use: Yes (occasionally) Alcohol type: beer, wine and hard liquor Hx Substance Use: No Review of Systems Review of Systems: ROS per HPI, all other systems reviewed and negative Physical Exam Physical Exam: please refer to Dr. Hoyos's addendum for physical exam Results & Data Results & Data ([facility]) Vital Signs (Past 12 Hours) Vital Signs Temp Pulse Pulse Resp BP BP Pulse Ox 08/29/19 12:32 36.6 C 71 16 101/63 97 08/29/19 11:59 36.7 C 86 16 94/48 L 96 08/29/19 11:45 36.4 C L 74 14 125/57 L 96 08/29/19 11:30 83 15 116/46 L 96 08/29/19 11:20 80 16 121/59 L 94 08/29/19 11:10 69 15 121/80 96 08/29/19 11:00 81 16 134/74 95 08/29/19 10:50 91 H 16 135/89 98 08/29/19 10:40 90 20 135/84 95 08/29/19 10:32 36.4 C L 101 H 20 157/96 H 97 08/29/19 06:58 36.7 C 58 L 20 118/74 96
[2019-08-29] MEDS ORDERED: CARBOHYDRATES FOR HYPOGLYCEMIA PO PRN (13:00)
[2019-08-29] MEDS ORDERED: DEXTROSE 50% 50 ML SYRINGE IV PRN (13:00)
[2019-08-29] MEDS ORDERED: GLUCAGON FOR INJ 1 MG VIAL IM PRN (13:00)
[2019-08-29] MEDS ORDERED: GLUCOSE 10 TABS/TUBE PO PRN (13:00)
[2019-08-29] MEDS ORDERED: GLUCOSE 40% GEL 15 GM TUBE PO PRN (13:00)
[2019-08-29] MEDS: INSULIN ASPART 100 UNITS/ML 3 ML PEN SC SCH ×3 (13:44→21:40)
--- NOTE | 2019-08-29 13:47 | Communication Note ---
Date of Service: August 29, 2019 Delayed entry: A 20 [address] arterial line was [address] in the left upper extremity intraoperatively. The are was prepped with chloraprep, sterile technique was used. There was one attempt, atraumatic, easily placed.
[2019-08-29] MEDS: INSULIN GLARGINE SOLOSTAR 100 UNITS/ML 3 ML PEN SC SCH ×2 (14:12→21:40)
[2019-08-29] MEDS: GABAPENTIN 400 MG CAP PO SCH ×2 (14:14→21:39)
--- NOTE | 2019-08-29 14:25 | Pharmacy Report ---
Glycemic Control Consultation - Date of Service August 29, 2019 - Scope Scope: Glycemic Pharmacist consulted for glycemic control and to write orders per [facility] inpatient glycemic control protocol. - Objective Weight: 108 kg Accuchecks BSG (last 24hrs): 08/29/19 08/29/19 08/29/19 06:39 10:38 12:21 POC Glucose 103 H 156 H 168 H - Recent Pertinent Medications Outpatient Anti-diabetic Regimen: * Lantus 30 units BID * Humalog Sliding scale * A1c = 8.9 % 04/02/18, updated A1c ordered Risk Factors for Insulin Resistance: * Steroids: Hydrocortisone 100mg IV x1 preop * Recent Surgery:POD#0 L4-S1 decompression and fusion * Diet:Type 2 DM - Assessment & Plan Assessment & Plan: ASSESSMENT: * 68 yo female, POD#0 L4-S1 decompression and fusion by Dr. Berman, uncontrolled type 2 diabetic on Lantus and Humalog at home. * Will continue basal bolus dosing while inpatient, and give dose of basal now to cover steroids and because basal was held this morning prior to surgery. * Will begin with tight CF/CR for steroid coverage and loosen as needed. * ADA & AACE recommend a goal blood sugar range 140-180 mg/dl for the majority of critically ill & non-critically ill patients. However, more stringent targets may be selected in individual cases. Will utilize more stringent goal of 110-140mg/dl based on patient age & comorbidities. Additionally, tighter glycemic control is warranted to facilitate wound/infection healing. PLAN FOR INPATIENT GLYCEMIC CONTROL: * Basal insulin * Lantus SQ BID starting now at 1400 * 0 units for BSG < 100mg/dl * 30 units for BSG 100-180mg/dl * 40 units for BSG > 180mg/dl * Bolus insulin * NovoLog per scale ACHS or Q6hrs while NPO * Goal Range: Low 110 mg/dL - High 140 mg/dL * Correction Factor: 15 mg/dL/unit * Nutritional / Prandial insulin per carb ratio of 1 unit per 5 grams CHO consumed * Please note that the plan above was derived based on current level of insulin resistance and hospital stress. These recommendations are appropriate for inpatient admission only. Plan of care upon discharge will need to be reassessed to avoid potential outpatient hypo/hyperglycemia. Thank you.
[2019-08-29] MEDS: SODIUM CHLORIDE 0.9% 1000ML 1,000 ML IV SCH ×2 (15:53→22:40)
[2019-08-29] MEDS: CEFAZOLIN 2000MG 2,000 MG/15 ML SYR IV SCH ×2 (16:00→23:55)
[2019-08-29] MEDS: OXYCODONE HCL IR 5 MG TAB (IMMEDIATE RELEASE) PO PRN ×2 (18:47→23:55)
[2019-08-29] MEDS: FENOFIBRATE NANOCRYSTALLIZED 145 MG TABLET PO SCH (21:38)
[2019-08-29] MEDS: allopurinoL 100 MG TAB PO SCH (21:38)
[2019-08-29] MEDS: carvediloL 6.25 MG TAB PO SCH (21:38)
[2019-08-29] MEDS: DOCUSATE SODIUM/SENNA 50/8.6MG TAB PO SCH (21:39)
[2019-08-30] MEDS: INSULIN ASPART 100 UNITS/ML 3 ML PEN SC SCH ×6 (00:19→20:42)
[2019-08-30] MEDS: SODIUM CHLORIDE 0.9% 1000ML 1,000 ML IV SCH ×2 (03:40→16:27)
[2019-08-30] MEDS: LEVOTHYROXINE SODIUM 200 MCG TABLET PO SCH (05:36)
[2019-08-30] MEDS: ACETAMINOPHEN 500 MG TAB PO PRN ×2 (05:36→17:21)
[2019-08-30] MEDS: POLYETHYLENE (MIRALAX) 17 GM PACK PO SCH ×4 (05:37→23:47)
[2019-08-30 08:04] LABS: Basophils # (auto) 0.03 K/uL (0-0.2); Basophils % (auto) 0.2 %; Eosinophils # (auto) 0.08 K/uL (0-0.5); Eosinophils % (auto) 0.6 %; Hematocrit (blood only) 35.3 % (37-47); Hemoglobin 11.3 g/dL (12.0-16.0); Immature Granulocytes # (auto) 0.04 K/uL (0.00-0.02); Immature Granulocytes % (auto) 0.3 %; Lymphocytes # (auto) 2.46 K/uL (1.2-3.4); Lymphocytes % (auto) 16.9 %; Mean Corpuscular Hemoglobin 30.4 pg (25-34); Mean Corpuscular Volume 94.9 fL (80-100); Mean Platelet Volume 9.6 fL (7.4-10.4); Monocytes # (auto) 1.17 K/uL (0.11-0.59); Neutrophils # (auto) 10.76 K/uL (1.4-6.5); Platelet Count 234 K/uL (130-400); RDW Coefficient of Variation 13.7 % (11.5-14.5); RDW Standard Deviation 47.6 fL (36.4-46.3); Red Blood Count 3.72 M/uL (4.2-5.4); White Blood Count 14.54 K/uL (4.8-10.8)
[2019-08-30 08:10] LABS: Estimated Average Glucose 197 mg/dl; Hemoglobin A1C 8.5 % (4.5-5.6)
[2019-08-30] MEDS: OXYCODONE HCL IR 5 MG TAB (IMMEDIATE RELEASE) PO PRN ×2 (08:13→20:40)
[2019-08-30 08:46] LABS: BUN Creatinine Ratio 15.6 (10-20); Calcium 8.6 mg/dl (8.5-10.1); Creatinine Clr Calc Pharmacy 82.5 ml/min; Est GFR (African American) 91.2; Est GFR (Non-African American) 78.7; Potassium 3.9 mmol/L (3.5-5.1)
[2019-08-30 08:49] LABS: Magnesium 1.4 mg/dl (1.8-2.4)
[2019-08-30] MEDS ORDERED: lisinopriL 10 MG TAB PO SCH (09:00)
[2019-08-30] MEDS ORDERED: FUROSEMIDE 40 MG TAB PO SCH (09:00)
[2019-08-30] MEDS: GABAPENTIN 400 MG CAP PO SCH ×3 (09:35→20:17)
[2019-08-30] MEDS: carvediloL 6.25 MG TAB PO SCH (09:35)
[2019-08-30] MEDS: ASPIRIN 81 MG ECTAB PO SCH (09:35)
[2019-08-30] MEDS: allopurinoL 100 MG TAB PO SCH ×2 (09:35→20:18)
[2019-08-30] MEDS: FAMOTIDINE 40 MG TABLET PO SCH (09:35)
[2019-08-30] MEDS: MAGNESIUM OXIDE 400 MG TAB PO SCH ×4 (09:36→20:18)
[2019-08-30] MEDS: SERTRALINE HCL 50 MG TABLET PO SCH (09:37)
[2019-08-30] MEDS: methylPREDNISolone 4 MG TAB PO SCH (09:37)
[2019-08-30] MEDS: INSULIN GLARGINE SOLOSTAR 100 UNITS/ML 3 ML PEN SC SCH ×2 (09:43→20:41)
--- NOTE | 2019-08-30 09:51 | Orthopedic Progress Note ---
Date of Service August 30, 2019 Assessment & Plan (1) Neurogenic claudication due to lumbar spinal stenosis: This time we will continue physical therapy monitor DAVID output anticipate discharge home Sunday. Present on Admission?: Yes Admission and Anticipated Discharge Date Admission Date: August 29, 2019 Subjective Back pain controlled leg symptoms markedly improved. Physical Exam Physical Exam: Patient is in a chair at the bedside. Is good strength testing. Appears comfortable. Results & Data ([facility]) Vital Signs (Past 12 Hours) Vital Signs Temp Pulse Resp BP Pulse Ox 08/30/19 07:28 37.0 C 104 H 18 119/74 90 08/30/19 04:01 37.4 C 87 16 105/67 91 08/29/19 22:56 37.1 C 83 18 107/54 L 92
[2019-08-30] MEDS: NYSTATIN 30 ML, DEXAMETHASONE CONC 3.75 MG, DiphenhydrAMINE Syrup 300 MG, ORA-SWEET SYR... PO PRN ×2 (16:27→22:03)
[2019-08-30] MEDS ORDERED: CEFEPIME CONSULT ACTIVE PRN (18:50)
--- NOTE | 2019-08-30 19:02 | Ultrasound Report ---
LEFT LOWER EXTREMITY VENOUS DOPPLER CLINICAL HISTORY: left leg swelling r/o dvt COMPARISON STUDY: Left lower extremity venous Doppler ultrasound July 06, 2019. TECHNIQUE: Sonography of the deep venous system of the left lower extremity was performed. Compressi on and augmentation were evaluated. FINDINGS: The left common femoral, superficial femoral and popliteal veins were compressible. Augmen tation was normal. Flow was shown within the deep calf vessels. IMPRESSION: No evidence of deep venous thrombus within the left lower extremity. ACT 112: Negative or not required by law. Electronically signed by: James Kaplan M.D. 08/30/2019 7:00 PM
--- NOTE | 2019-08-30 19:15 | Hospitalist Progress Note ---
Date of Service August 30, 2019 Assessment & Plan (1) Fever: T-max 38.4 Check urinalysis, chest x-ray, blood cultures Start cefepime IV Monitor closely (2) Neurogenic claudication due to lumbar spinal stenosis: Postop day #1 L4-S1 decompression and fusion by Dr. Berman Monitor hemoglobin (3) DM type 2 (diabetes mellitus, type 2): -Hgb A1c 8.9 03/2019 -Hold home Ozempic and utilize Lantus and NovoLog per protocol while hospitalized Pharmacy glycemic control consult placed BSG's within acceptable range (4) CAD (coronary artery disease): -Cardiac cath 12/2017 showed moderate multivessel CAD, no intervention was performed -Continue beta-noreen, noted to be statin intolerant and takes Praluent every 14 days -No cardiac symptoms (5) Chronic diastolic CHF (congestive heart failure): Patient appears dry, blood pressure on the lower side Hold Lasix Start gentle IV fluids -Echo 11/2018: EF 50%, left atrium and left ventricle enlarged, borderline LVH, mild mitral and tricuspid valvular insufficiency, mild to moderate pulmonary hypertension -Hold Lasix (6) Arthritis with psoriasis: -Managed with Otezla and chronic methylprednisolone 4 mg daily -Received Decadron 8 mg and hydrocortisone 100 mg intraoperatively -Resume home dose of methylprednisolone Decadron ordered for tomorrow Continue to monitor closely (7) CHRISTIANO (obstructive sleep apnea): -CPAP as per home settings (8) Hypertension: BP on the lower side Hold carvedilol and lisinopril Monitor blood pressure closely (9) DVT prophylaxis: -TEDs/SCDs as per spine orthopedics Thank you for this consultation. We will follow the patient with you during their hospital stay. You can reach a member of the [facility] Hospitalist Team 04/09 via pager @ [phone]. Admission and Anticipated Discharge Date Admission Date: August 29, 2019 Subjective Follow-up for postoperative back surgery Seen resting in bed, not in distress, appears tired States she feels increased pain today in her back Also reports a sore throat Denies dizziness stood up and walked today Denies chest pain, palpitations, dizziness, No other symptoms Review of Systems Review of Systems: All systems reviewed & are unremarkable except as noted in HPI & below Physical Exam Physical Exam: General- oriented x 3, not in distress, speaks in sentences with no effort or accessory muscle use Eyes- anicteric Neck- no JVD Lungs- clear breath sounds bilaterally, no rales/wheezes Heart- normal rate, regular rhythm; no murmurs Abdomen- normal bowel sounds, nondistended, soft, nontender Extremities- no pretibial edema, no calf tenderness Left lower extremity: Positive mild edema, no erythema/warmth/tenderness Back-dressings in place, no discharge or bleeding Neuro- alert, oriented x 3; no gross focal neurologic deficits Skin- warm & dry Results & Data Results & Data ([facility]) Vital Signs (Past 12 Hours) Vital Signs Temp Pulse Resp BP Pulse Ox 08/30/19 18:23 38 C H 08/30/19 17:13 38.4 C H 08/30/19 15:13 36.8 C 78 17 97/58 L 91 08/30/19 11:57 37.5 C 70 18 91/49 L 92 08/30/19 07:28 37.0 C 104 H 18 119/74 90 Laboratory Results Laboratory Results - last 24 hr 08/29/19 08/30/19 08/30/19 20:35 00:00 03:59 WBC RBC Hgb Hct MCV MCH MCHC RDW Std Deviation RDW Coeff of Nadege Plt Count MPV Immature Gran % (Auto) Neut % (Auto) Lymph % (Auto) [place] % (Auto) Eos % (Auto) Baso % (Auto) Neut # (Auto) Lymph # (Auto) [place] # (Auto) Eos # (Auto) Baso # (Auto) Immature Gran # (Auto) Sodium Potassium Chloride Carbon Dioxide Anion Gap BUN Creatinine Est Cr Clr Drug Dosing Est GFR ( Amer) Est GFR (Non-Af Amer) BUN/Creatinine Ratio Glucose POC Glucose 85 111 H 104 H Estimat Average Glucose Hemoglobin A1c Calcium Magnesium Cortisol AM Sample 08/30/19 08/30/19 08/30/19 07:51 07:51 07:51 WBC 14.54 H RBC 3.72 L Hgb 11.3 L Hct 35.3 L MCV 94.9 MCH 30.4 MCHC 32.0 RDW Std Deviation 47.6 H RDW Coeff of Nadege 13.7 Plt Count 234 MPV 9.6 Immature Gran % (Auto) 0.3 Neut % (Auto) 74.0 Lymph % (Auto) 16.9 [place] % (Auto) 8.0 Eos % (Auto) 0.6 Baso % (Auto) 0.2 Neut # (Auto) 10.76 H Lymph # (Auto) 2.46 [place] # (Auto) 1.17 H Eos # (Auto) 0.08 Baso # (Auto) 0.03 Immature Gran # (Auto) 0.04 H Sodium 141 Potassium 3.9 Chloride 107 Carbon Dioxide 32 Anion Gap 2.0 L BUN 12 Creatinine 0.78 Est Cr Clr Drug Dosing 82.5 Est GFR ( Amer) 91.2 Est GFR (Non-Af Amer) 78.7 BUN/Creatinine Ratio 15.6 Glucose 118 H POC Glucose Estimat Average Glucose 197 Hemoglobin A1c 8.5 H Calcium 8.6 Magnesium 1.4 L Cortisol AM Sample 08/30/19 08/30/19 08/30/19 07:51 07:51 12:02 WBC RBC Hgb Hct MCV MCH MCHC RDW Std Deviation RDW Coeff of Nadege Plt Count MPV Immature Gran % (Auto) Neut % (Auto) Lymph % (Auto) [place] % (Auto) Eos % (Auto) Baso % (Auto) Neut # (Auto) Lymph # (Auto) [place] # (Auto) Eos # (Auto) Baso # (Auto) Immature Gran # (Auto) Sodium Potassium Chloride Carbon Dioxide Anion Gap BUN Creatinine Est Cr Clr Drug Dosing Est GFR ( Amer) Est GFR (Non-Af Amer) BUN/Creatinine Ratio Glucose POC Glucose 126 H 179 H Estimat Average Glucose Hemoglobin A1c Calcium Magnesium Cortisol AM Sample 9.64 08/30/19 17:03 WBC RBC Hgb Hct MCV MCH MCHC RDW Std Deviation RDW Coeff of Nadege Plt Count MPV Immature Gran % (Auto) Neut % (Auto) Lymph % (Auto) [place] % (Auto) Eos % (Auto) Baso % (Auto) Neut # (Auto) Lymph # (Auto) [place] # (Auto) Eos # (Auto) Baso # (Auto) Immature Gran # (Auto) Sodium Potassium Chloride Carbon Dioxide Anion Gap BUN Creatinine Est Cr Clr Drug Dosing Est GFR ( Amer) Est GFR (Non-Af Amer) BUN/Creatinine Ratio Glucose POC Glucose 224 H Estimat Average Glucose Hemoglobin A1c Calcium Magnesium Cortisol AM Sample
--- NOTE | 2019-08-30 19:29 | XRay Report ---
XR chest 1V portable CLINICAL HISTORY: fever, r/o pneumonia COMPARISON STUDY: Chest CT January 14, 2019. Chest radiograph March 17, 2019. FINDINGS: Lung volumes are normal. There is no pneumothorax or pleural effusion. Cardiomegaly is unch anged. There is no evidence for pulmonary edema or pneumonia. The appearance of the chest is unchange d. Apparent mild left basilar opacity is likely artifactual. IMPRESSION: No acute cardiopulmonary findings. No change in appearance of the chest. ACT 112: Negative or not required by law. Electronically signed by: James Kaplan M.D. 08/30/2019 7:27 PM
[2019-08-30] MEDS: DOCUSATE SODIUM/SENNA 50/8.6MG TAB PO SCH (20:16)
[2019-08-30] MEDS: CEFEPIME 2,000 MG in SYRINGE 7.5 ML IV SCH (20:16)
[2019-08-30] MEDS: FENOFIBRATE NANOCRYSTALLIZED 145 MG TABLET PO SCH (20:17)
[2019-08-30 21:06] LABS: Appearance Urine Clear (Clear); Bilirubin Urine Negative (Negative); Blood Urine Trace (Negative); Color Urine Yellow; Glucose Urine UA Negative (Negative); Ketones Urine Negative (Negative); Leukocyte Esterase Urine Negative (Negative); Nitrite Urine Negative (Negative); Protein Urine Negative (Negative); Specific Gravity Urine 1.014 (1.000-1.030); Urobilinogen Urine Negative (Negative)
[2019-08-30 21:50] LABS: Bacteria Urine Negative (Negative); RBC Urine 0-4 /hpf (0-4); WBC Urine 0-5 /hpf (0-5)
[2019-08-31] MEDS: CEFEPIME 2,000 MG in SYRINGE 7.5 ML IV SCH ×3 (04:59→20:16)
[2019-08-31] MEDS: LEVOTHYROXINE SODIUM 200 MCG TABLET PO SCH (05:00)
[2019-08-31] MEDS: POLYETHYLENE (MIRALAX) 17 GM PACK PO SCH ×4 (05:01→23:30)
[2019-08-31] MEDS: SODIUM CHLORIDE 0.9% 1000ML 1,000 ML IV SCH ×2 (05:01→17:20)
[2019-08-31] MEDS: OXYCODONE HCL IR 5 MG TAB (IMMEDIATE RELEASE) PO PRN ×3 (07:31→19:42)
[2019-08-31] MEDS: NYSTATIN 30 ML, DEXAMETHASONE CONC 3.75 MG, DiphenhydrAMINE Syrup 300 MG, ORA-SWEET SYR... PO PRN ×2 (07:32→21:16)
[2019-08-31] MEDS: ASPIRIN 81 MG ECTAB PO SCH (08:34)
[2019-08-31] MEDS: methylPREDNISolone 4 MG TAB PO SCH (08:34)
[2019-08-31] MEDS: allopurinoL 100 MG TAB PO SCH ×2 (08:34→20:16)
[2019-08-31] MEDS: FAMOTIDINE 40 MG TABLET PO SCH (08:34)
[2019-08-31] MEDS: GABAPENTIN 400 MG CAP PO SCH ×3 (08:34→20:16)
[2019-08-31] MEDS: MAGNESIUM OXIDE 400 MG TAB PO SCH ×3 (08:35→20:16)
[2019-08-31] MEDS: SERTRALINE HCL 50 MG TABLET PO SCH (08:36)
[2019-08-31] MEDS: DEXAMETHASONE SOD PHOSPHATE 8 MG in SYRINGE 0 ML IV SCH (08:37)
[2019-08-31] MEDS: INSULIN GLARGINE SOLOSTAR 100 UNITS/ML 3 ML PEN SC SCH ×2 (08:42→21:09)
[2019-08-31] MEDS: INSULIN ASPART 100 UNITS/ML 3 ML PEN SC SCH ×5 (08:43→23:33)
--- NOTE | 2019-08-31 08:51 | Orthopedic Progress Note ---
Date of Service August 31, 2019 Assessment & Plan (1) Neurogenic claudication due to lumbar spinal stenosis: We will continue with physical therapy today. Continue with pain control. Continue with aggressive bowel regimen. DVT prophylaxis is in the form of teds and SCDs. Plan to discharge home within the next 24 to 48 hours. Admission and Anticipated Discharge Date Admission Date: August 29, 2019 Supervising Physician Co-Signing Physician Notes Dr. Spencer Berman Billy Salas is postoperative day 2 L4-S1 decompression fusion. She is having some global complaints of pain. Yesterday in physical therapy she ambulated roughly 85 feet. She is passing flatus but no bowel movement. Denies shortness of breath or chest pain. Review of Systems Review of Systems: All systems reviewed & are unremarkable except as noted in HPI & below Physical Exam Physical Exam: Alert oriented x3. She sitting in bed eating breakfast in no acute distress. Lower extremities are neurovascular intact. Calves are soft and nontender bilaterally. Lumbar dressing clean dry and intact with DAVID drain intact and functioning. Results & Data ([facility]) Vital Signs (Past 12 Hours) Vital Signs Temp Pulse Resp BP Pulse Ox 08/31/19 07:27 37.2 C 71 18 121/71 91 08/30/19 23:12 37.0 C 72 20 93/51 L 90
[2019-08-31] MEDS ORDERED: SODIUM CHLORIDE 0.65% NA SOLN 45 ML (OCEAN) ONE ×2 (08:52→09:45)
[2019-08-31] MEDS ORDERED: SODIUM CHLORIDE 0.65% NA SOLN 45 ML (OCEAN) PRN (09:42)
--- NOTE | 2019-08-31 10:18 | Pharmacy Report ---
Pharmacy Glycemic Short Note 2 - Date of Service August 31, 2019 - Glycemic Short BSG Results (Last 24 hours): 08/30/19 08/30/19 08/30/19 12:02 17:03 20:19 POC Glucose 179 H 224 H 227 H 08/31/19 08:14 POC Glucose 180 H ASSESSMENT: 08/30 * Patient received total of 87 units of insulin yesterday, of which 50 were basal insulin * IV dexamethasone ordered this AM, anticipate BSGs to trend up - tightened CF/CR this AM PLAN FOR INPATIENT GLYCEMIC CONTROL: * Basal insulin * Lantus SQ BID 25-35 BID based upon BSG * Bolus insulin * NovoLog per scale ACHS or Q6hrs while NPO * Goal Range: Low 110 mg/dL - High 140 mg/dL * Correction Factor: 15 mg/dL/unit * Nutritional / Prandial insulin per carb ratio of 1 unit per 5 grams CHO consumed PLAN FOR DISCHARGE: * A1C ~8.5% on admission. A1C <8% is reasonable goal * Would recommend continuation of home diabetic medications at home as long as patient does not report frequent hypoglycemia * Would recommend continued healthy lifestyle (diet,exercise, etc) and disease self management (SMBG)
--- NOTE | 2019-08-31 14:14 | Anesthesiology Progress Note ---
Date of Service August 31, 2019 Anesthesia Post Procedure Vital Signs Vital Signs: Temp Pulse Resp BP BP Pulse Ox 08/31/19 07:27 37.2 C 71 18 121/71 91 08/30/19 23:12 37.0 C 72 20 93/51 L 90 08/30/19 20:14 37.2 C 112/71 08/30/19 18:23 38 C H 08/30/19 17:13 38.4 C H 08/30/19 15:13 36.8 C 78 17 97/58 L 91 Pain Intensity Bilateral Lower Back: Pain Intensity: 3 Notes Mental Status: alert / awake / arousable and participated in evaluation Nausea / Vomiting: adequately controlled Pain: adequately controlled Airway Patency, RR, SpO2: stable & adequate BP & HR: stable & adequate Hydration State: stable & adequate Anesthetic Complications: see Notes below (pt complains of overall achiness in all joints including shoulders, jaw, neck, knees and elbows; pt also had ulcer on right side of tongue and a sore throat. She stated the "magic swizzle" mouth wash helped.)
--- NOTE | 2019-08-31 15:37 | Hospitalist Progress Note ---
Date of Service August 31, 2019 Assessment & Plan (1) Fever: T-max 38.4 Analysis no UTI Chest x-ray no pneumonia Blood cultures pending Monitor fever curve Continue cefepime IV day #2, if continues to be afebrile negative blood cultures tomorrow, discontinue cefepime Monitor closely (2) Neurogenic claudication due to lumbar spinal stenosis: Postop day #2 L4-S1 decompression and fusion by Dr. Berman Patient with a fever noted above Monitor hemoglobin (3) DM type 2 (diabetes mellitus, type 2): -Hgb A1c 8.9 03/2019 -Hold home Ozempic and utilize Lantus and NovoLog per protocol while hospitalized Pharmacy glycemic control consult placed BSG is increasing likely secondary to Decadron (4) CAD (coronary artery disease): -Cardiac cath 12/2017 showed moderate multivessel CAD, no intervention was performed -Continue beta-noreen, noted to be statin intolerant and takes Praluent every 14 days -No cardiac symptoms (5) Chronic diastolic CHF (congestive heart failure): Patient appears dry, blood pressure on the lower side Hold Lasix Continue gentle IV fluids -Echo 11/2018: EF 50%, left atrium and left ventricle enlarged, borderline LVH, mild mitral and tricuspid valvular insufficiency, mild to moderate pulmonary hypertension -Hold Lasix (6) Arthritis with psoriasis: -Managed with Otezla and chronic methylprednisolone 4 mg daily -Received Decadron 8 mg and hydrocortisone 100 mg intraoperatively -Resume home dose of methylprednisolone Decadron ordered daily Continue to monitor closely (7) CHRISTIANO (obstructive sleep apnea): -CPAP as per home settings (8) Hypertension: BP on the lower side Hold carvedilol and lisinopril Monitor blood pressure closely (9) DVT prophylaxis: -TEDs/SCDs as per spine orthopedics Thank you for this consultation. We will follow the patient with you during their hospital stay. You [facility]/09 via pager @ [phone]. Admission and Anticipated Discharge Date Admission Date: August 29, 2019 Subjective Follow-up for postoperative state, fever, etc. Febrile last evening, T-max 30.4 Afebrile since then Seen resting in bed, comfortable, not in distress Awake alert oriented x3 States she still feels weak but improved compared to yesterday For generalized muscle aches Able to ambulate today better than yesterday Denies headache, chest pain, cough, shortness of breath, abdominal pain, nausea or vomiting, problems with urination No arthralgias No other symptoms Review of Systems Review of Systems: All systems reviewed & are unremarkable except as noted in HPI & below Physical Exam Physical Exam: General- oriented x 3, not in distress, speaks in sentences with no effort or accessory muscle use Eyes- anicteric Neck- no JVD Lungs- clear breath sounds bilaterally, no rales/wheezes Heart- normal rate, regular rhythm; no murmurs Abdomen- normal bowel sounds, nondistended, soft, nontender Extremities-mild left lower extremity edema Left lower extremity essentially normal Neuro- alert, oriented x 3; no gross focal neurologic deficits Skin- warm & dry Results & Data Results & Data ([facility]) Vital Signs (Past 12 Hours) Vital Signs Temp Pulse Resp BP BP Pulse Ox 08/31/19 15:11 37.2 C 91 H 17 116/65 92 08/31/19 07:27 37.2 C 71 18 121/71 91
[2019-08-31] MEDS ORDERED: INSULIN ASPART 100 UNITS/ML 3 ML PEN SC STA (15:51)
[2019-08-31 16:02] LABS: Basophils # (auto) 0.02 K/uL (0-0.2); Basophils % (auto) 0.1 %; Hematocrit (blood only) 33.5 % (37-47); Hemoglobin 10.8 g/dL (12.0-16.0); Immature Granulocytes # (auto) 0.04 K/uL (0.00-0.02); Immature Granulocytes % (auto) 0.3 %; Lymphocytes # (auto) 1.01 K/uL (1.2-3.4); Lymphocytes % (auto) 6.5 %; Mean Corpuscular Hemoglobin 30.6 pg (25-34); Mean Corpuscular Hgb Conc 32.2 g/dL (32-36); Mean Corpuscular Volume 94.9 fL (80-100); Mean Platelet Volume 9.7 fL (7.4-10.4); Monocytes # (auto) 0.65 K/uL (0.11-0.59); Monocytes % (auto) 4.2 %; Neutrophils # (auto) 13.71 K/uL (1.4-6.5); Neutrophils % (auto) 88.9 %; Platelet Count 232 K/uL (130-400); RDW Coefficient of Variation 13.4 % (11.5-14.5); RDW Standard Deviation 46.4 fL (36.4-46.3); Red Blood Count 3.53 M/uL (4.2-5.4); White Blood Count 15.43 K/uL (4.8-10.8)
[2019-08-31 16:19] LABS: BUN Creatinine Ratio 16.4 (10-20); Calcium 9.2 mg/dl (8.5-10.1); Creatinine Clr Calc Pharmacy 65.6 ml/min; Est GFR (African American) 69.2; Est GFR (Non-African American) 59.7; Potassium 4.4 mmol/L (3.5-5.1)
[2019-08-31] MEDS: FENOFIBRATE NANOCRYSTALLIZED 145 MG TABLET PO SCH (20:16)
[2019-08-31] MEDS: DOCUSATE SODIUM/SENNA 50/8.6MG TAB PO SCH (20:17)
[2019-09-01] MEDS: OXYCODONE HCL IR 5 MG TAB (IMMEDIATE RELEASE) PO PRN ×4 (03:48→23:04)
[2019-09-01] MEDS: CEFEPIME 2,000 MG in SYRINGE 7.5 ML IV SCH (03:49)
[2019-09-01] MEDS: INSULIN ASPART 100 UNITS/ML 3 ML PEN SC SCH ×5 (04:38→21:23)
[2019-09-01] MEDS: SODIUM CHLORIDE 0.9% 1000ML 1,000 ML IV SCH (05:51)
[2019-09-01] MEDS: LEVOTHYROXINE SODIUM 200 MCG TABLET PO SCH (05:51)
[2019-09-01] MEDS: POLYETHYLENE (MIRALAX) 17 GM PACK PO SCH ×4 (05:51→23:06)
[2019-09-01] MEDS: NYSTATIN 30 ML, DEXAMETHASONE CONC 3.75 MG, DiphenhydrAMINE Syrup 300 MG, ORA-SWEET SYR... PO PRN ×2 (07:33→21:18)
[2019-09-01] MEDS: INSULIN GLARGINE SOLOSTAR 100 UNITS/ML 3 ML PEN SC SCH ×2 (07:42→21:22)
--- NOTE | 2019-09-01 08:20 | Hospitalist Progress Note ---
Date of Service September 01, 2019 Assessment & Plan (1) Neurogenic claudication due to lumbar spinal stenosis: Postop day #3 L4-S1 decompression and fusion by Dr. Berman EBL: 400ml: DAVID Drain output 470ml tolerated procedure well pain/wound management per ortho activity and therapy as directed by ortho continue incentive spirometry H/H stable at 10.8 and 33.5 Monitor hemoglobin Had fever POD #1 - work up has been negative w/o recurrence of fever. She is doing well. D/C IV fluids and IV antibiotics (2) Fever: T-max 38.4 Analysis no UTI Chest x-ray no pneumonia Blood cultures pending afebrile D/C Cefepime (3) DM type 2 (diabetes mellitus, type 2): Hgb A1c 8.9 03/2019 Hold home Ozempic and utilize Lantus and NovoLog per protocol while hospitalized Pharmacy glycemic control consult placed BSG 116 this a.m. (4) CAD (coronary artery disease): Cardiac cath 12/2017 showed moderate multivessel CAD, no intervention was performed Continue beta-noreen, lisinopril, asa noted to be statin intolerant and takes Praluent every 14 days No cardiac symptoms (5) Chronic diastolic CHF (congestive heart failure): Weight 108kg, euvolemic, bp stable Resume lasix at discharge D/C IVF Echo 11/2018: EF 50%, left atrium and left ventricle enlarged, borderline LVH, mild mitral and tricuspid valvular insufficiency, mild to moderate pulmonary hypertension (6) Arthritis with psoriasis: Managed with Otezla and chronic methylprednisolone 4 mg daily Received Decadron 8 mg and hydrocortisone 100 mg intraoperatively Resume home dose of methylprednisolone Decadron ordered daily Continue to monitor closely (7) CHRISTIANO (obstructive sleep apnea): CPAP as per home settings (8) Hypertension: BP stable and improved consider resuming home meds in a.m. if remains stable (9) DVT prophylaxis: TEDs/SCDs as per spine orthopedics Pt was seen and examined in collaboration with Dr. Sanchez, please see addendum Thank you for this consultation. We will follow the patient with you during their hospital stay. You can reach a [facility] of the [facility] 04/09 via pager @ [phone]. Admission and Anticipated Discharge Date Admission Date: August 29, 2019 Supervising Physician Co-Signing Physician Notes Attending Addendum: care coordinated with THELMA Islas notes please refer to her notes for full details, I agree with her notes patient seen and examined, records reviewed by myself as well on exam, patient seen resting in chair, brighter, alert generalized pain is much better no SOB, cough, chills, abdominal pain no other symptoms VS noted and reviewed oriented x 2 , not in distress, speaks in sentences with no effort nor accessory muscle use normal rate, regular rhythm, no murmurs clear breath sounds bilaterally non distended, soft, nontender mild left leg edema, erythema, warmth no neuro deficits Blood cultures: negative ASSESSMENT AND PLAN Post Op Fever afebrile no source of infection clinically cultures negative d/c antibiotics history of arthritis on Decadron other diagnoses and plan of care as per THELMA Islas notes Joaquim Sanchez MD Subjective Patient was seen and examined in room 320. S/P Lumbar decompression fusion by Dr. Berman POD #3. Overall feels well. Mild incisional discomfort. Denies further f/c/s. Appetite has been well. Anxious to get off of IVF. Has been ambulating. Denies neurogenic claudication sx. Has urinary incontinence most times, but this was present before surgery. She had hoped surgery would correct that, but was told it likely wouldn't. Denies dizziness, lightheaded, chest pain, sob, cough, n/v/d. Hoping to stay another day for additional therapy with hopes to d/c home. Review of Systems Review of Systems: All systems reviewed & are unremarkable except as noted in HPI & below Physical Exam Physical Exam: Gen: WD/WN, F, sitting up at bedside, NAD, A&O x3 HEENT: Normocephalic, atraumatic, conjunctivae moist, sclerae anicteric, mucous membranes moist. Lung: Clear to Auscultation bilaterally, no wheezes/rales/rhonchi Heart: Regular rate, regular rhythm, no murmurs, rubs, or gallops Abdomen: Soft, NT, ND +BS x 4 Extremities: No edema, TEDS in place, lumbar dressing CDI, DAVID drain intact Skin: Warm, no rash, negative turgor. Results & Data Results & Data ([facility]) Vital Signs (Past 12 Hours) Vital Signs Temp Pulse Resp BP BP Pulse Ox 09/01/19 06:37 36.8 C 62 16 135/73 95 08/31/19 23:05 36.8 C 64 16 118/73 93 Laboratory Results Short CBC 08/31/19 Range/Units 15:54 WBC 15.43 H (4.8-10.8) K/uL Hgb 10.8 L (12.0-16.0) g/dL Hct 33.5 L (37-47) % Plt Count 232 (130-400) K/uL BMP 08/31/19 15:54 Sodium 139 Potassium 4.4 Chloride 104 Carbon Dioxide 29 BUN 16 Creatinine 0.98 Glucose 239 H Calcium 9.2 Diagnostic Findings VDS: negative CXR: negative UA: Negative B.C. NGTD Medications Administered Acetaminophen (Tylenol) 1,000 mg PO Q8H PRN PRN Reason: MILD Pain Scale 1,2,3 & Pre PT Stop: 09/28/19 12:12 Last Admin: 08/30/19 17:21 Dose: 1,000 mg Documented by: [id number] Admin: 08/30/19 05:36 Dose: 1,000 mg Documented by: [id number] Allopurinol (Zyloprim) 100 mg PO BID [facility] Stop: 09/28/19 20:59 Last Admin: 08/31/19 20:16 Dose: 100 mg Documented by: [id number] Admin: 08/31/19 08:34 Dose: 100 mg Documented by: [id number] Admin: 08/30/19 20:18 Dose: 100 mg Documented by: [id number] Admin: 08/30/19 09:35 Dose: 100 mg Documented by: [id number] Admin: 08/29/19 21:38 Dose: 100 mg Documented by: [id number] Aspirin (Ecotrin Ectab) 81 mg PO DAILY [facility] Stop: 09/29/19 08:59 Last Admin: 08/31/19 08:34 Dose: 81 mg Documented by: [id number] Admin: 08/30/19 09:35 Dose: 81 mg Documented by: [id number] Nystatin 30 ml/ Dexamethasone 3.75 mg/ Diphenhydramine HCl 300 mg/ Sucrose 45 ml/Microcrystalline Cellulose 45 ml/ [employer]CODE IDENTIFIER 1 ea 0 ml PO Q4H PRN PRN Reason: Sore Throat Stop: 09/29/19 15:45 Last Admin: 09/01/19 07:33 Dose: 5 ml Documented by: [id number] Admin: 08/31/19 21:16 Dose: 5 ml Documented by: [id number] Admin: 08/31/19 07:32 Dose: 5 ml Documented by: [id number] Admin: 08/30/19 22:03 Dose: 5 ml Documented by: [id number] Admin: 08/30/19 16:27 Dose: 5 ml Documented by: [id number] Famotidine (Pepcid) 40 mg PO DAILY [facility] Stop: 09/29/19 08:59 Last Admin: 08/31/19 08:34 Dose: 40 mg Documented by: [id number] Admin: 08/30/19 09:35 Dose: 40 mg Documented by: [id number] Fenofibrate (Tricor) 145 mg PO HS [facility] Stop: 09/28/19 20:59 Last Admin: 08/31/19 20:16 Dose: 145 mg Documented by: [id number] Admin: 08/30/19 20:17 Dose: 145 mg Documented by: [id number] Admin: 08/29/19 21:38 Dose: 145 mg Documented by: [id number] Gabapentin (Neurontin) 400 mg PO TID [facility] Stop: 09/28/19 13:59 Last Admin: 08/31/19 20:16 Dose: 400 mg Documented by: [id number] Admin: 08/31/19 13:31 Dose: 400 mg Documented by: [id number] Admin: 08/31/19 08:34 Dose: 400 mg Documented by: [id number] Admin: 08/30/19 20:17 Dose: 400 mg Documented by: [id number] Admin: 08/30/19 14:12 Dose: 400 mg Documented by: [id number] Admin: 08/30/19 09:35 Dose: 400 mg Documented by: [id number] Admin: 08/29/19 21:39 Dose: 400 mg Documented by: [id number] Admin: 08/29/19 14:14 Dose: 400 mg Documented by: [id number] Dexamethasone Sodium Phosphate (8 mg/ Syringe) 2 mls @ 1 mls/min IV DAILY [facility] Stop: 09/30/19 08:59 Last Admin: 08/31/19 08:37 Dose: 1 mls/min Documented by: [id number] Insulin Aspart (Novolog Flexpen) 0 units SC ACHS [facility]; Protocol Stop: 09/28/19 12:59 Last Admin: 09/01/19 07:42 Dose: 14 units Documented by: [id number] Cosigned by: [id number] Admin: 08/31/19 21:10 Dose: 12 units Documented by: [id number] Cosigned by: [id number] Admin: 08/31/19 17:57 Dose: 26 units Documented by: [id number] Cosigned by: [id number] Admin: 08/31/19 12:50 Dose: 24 units Documented by: [id number] Cosigned by: [id number] Admin: 08/31/19 08:43 Dose: 10 units Documented by: [id number] Cosigned by: [id number] Admin: 08/30/19 20:42 Dose: 5 units Documented by: [id number] Cosigned by: [id number] Admin: 08/30/19 18:19 Dose: 14 units Documented by: [id number] Cosigned by: [id number] Admin: 08/30/19 13:06 Dose: 10 units Documented by: [id number] Cosigned by: [id number] Admin: 08/30/19 09:42 Dose: 8 units Documented by: [id number] Cosigned by: [id number] Admin: 08/29/19 21:40 Dose: Not Given Documented by: [id number] Cosigned by: [id number] Admin: 08/29/19 18:40 Dose: 8 units Documented by: [id number] Cosigned by: [id number] Admin: 08/29/19 13:44 Dose: 13 units Documented by: [id number] Cosigned by: [id number] Insulin Glargine (Lantus Solostar Pen) 0 units SC BID [facility]; Protocol Stop: 09/28/19 12:59 Last Admin: 09/01/19 07:42 Dose: 25 units Documented by: [id number] Cosigned by: [id number] Admin: 08/31/19 21:09 Dose: 35 units Documented by: [id number] Cosigned by: [id number] Admin: 08/31/19 08:42 Dose: 30 units Documented by: [id number] Cosigned by: [id number] Admin: 08/30/19 20:41 Dose: 30 units Documented by: [id number] Cosigned by: [id number] Admin: 08/30/19 09:43 Dose: 20 units Documented by: [id number] Cosigned by: [id number] Admin: 08/29/19 21:40 Dose: Not Given Documented by: [id number] Admin: 08/29/19 14:12 Dose: 30 units Documented by: [id number] Cosigned by: [id number] Levothyroxine Sodium (Synthroid) 200 mcg PO DAILYBB [facility] Stop: 09/29/19 06:29 Last Admin: 09/01/19 05:51 Dose: 200 mcg Documented by: [id number] Admin: 08/31/19 05:00 Dose: 200 mcg Documented by: [id number] Admin: 08/30/19 05:36 Dose: 200 mcg Documented by: [id number] Magnesium Oxide (Mag-Ox) 400 mg PO DAILY [facility] Stop: 09/29/19 08:59 Last Admin: 08/31/19 08:35 Dose: 400 mg Documented by: [id number] Admin: 08/30/19 11:54 Dose: 400 mg Documented by: [id number] Admin: 08/30/19 09:36 Dose: 400 mg Documented by: [id number] Magnesium Oxide (Mag-Ox) 400 mg PO BID [facility] Stop: 09/29/19 09:59 Last Admin: 08/31/19 20:16 Dose: 400 mg Documented by: [id number] Admin: 08/31/19 08:37 Dose: 400 mg Documented by: [id number] Admin: 08/30/19 20:18 Dose: 400 mg Documented by: [id number] Admin: 08/30/19 11:54 Dose: 400 mg Documented by: [id number] Methylprednisolone (Medrol) 4 mg PO DAILY [facility] Stop: 09/29/19 08:59 Last Admin: 08/31/19 08:34 Dose: 4 mg Documented by: [id number] Admin: 08/30/19 09:37 Dose: 4 mg Documented by: [id number] Miscellaneous (Order Awaiting Action) 1 ea N/A QS [facility] Stop: 09/28/19 15:59 Last Admin: 09/01/19 07:49 Dose: Not Given Documented by: [id number] Admin: 08/31/19 23:00 Dose: Not Given Documented by: [id number] Admin: 08/31/19 15:49 Dose: Not Given Documented by: [id number] Admin: 08/31/19 08:34 Dose: Not Given Documented by: [id number] Admin: 08/30/19 22:48 Dose: Not Given Documented by: [id number] Admin: 08/30/19 15:24 Dose: Not Given Documented by: [id number] Admin: 08/30/19 09:46 Dose: Not Given Documented by: [id number] Admin: 08/29/19 23:56 Dose: Not Given Documented by: [id number] Admin: 08/29/19 15:54 Dose: Not Given Documented by: [id number] Oxycodone HCl (Roxicodone Immediate Rel) 5 - 10 mg PO Q4H PRN PRN Reason: Moderate-Severe Pain & Pre PT Stop: 09/12/19 12:12 Last Admin: 09/01/19 07:32 Dose: 10 mg Documented by: [id number] Admin: 09/01/19 03:48 Dose: 10 mg Documented by: [id number] Admin: 08/31/19 19:42 Dose: 10 mg Documented by: [id number] Admin: 08/31/19 08:48 Dose: 5 mg Documented by: [id number] Admin: 08/31/19 07:31 Dose: 5 mg Documented by: [id number] Admin: 08/30/19 20:40 Dose: 5 mg Documented by: [id number] Admin: 08/30/19 08:13 Dose: 10 mg Documented by: [id number] Admin: 08/29/19 23:55 Dose: 10 mg Documented by: [id number] Admin: 08/29/19 18:47 Dose: 10 mg Documented by: [id number] Polyethylene Glycol (Miralax Powder Packet) 17 gm PO Q6 [facility] Stop: 09/29/19 05:59 Last Admin: 09/01/19 05:51 Dose: 17 gm Documented by: [id number] Admin: 08/31/19 23:30 Dose: Not Given Documented by: [id number] Admin: 08/31/19 17:57 Dose: 17 gm Documented by: [id number] Admin: 08/31/19 11:51 Dose: Not Given Documented by: [id number] Admin: 08/31/19 05:01 Dose: Not Given Documented by: [id number] Admin: 08/30/19 23:47 Dose: Not Given Documented by: [id number] Admin: 08/30/19 17:21 Dose: 17 gm Documented by: [id number] Admin: 08/30/19 13:00 Dose: 17 gm Documented by: [id number] Admin: 08/30/19 05:37 Dose: Not Given Documented by: [id number] Senna/Docusate Sodium (Senokot S) 2 tab PO HS [facility] Stop: 09/28/19 20:59 Last Admin: 08/31/19 20:17 Dose: 2 tab Documented by: [id number] Admin: 08/30/19 20:16 Dose: 2 tab Documented by: [id number] Admin: 08/29/19 21:39 Dose: 2 tab Documented by: [id number] Sertraline HCl (Zoloft) 150 mg PO DAILY [facility] Stop: 09/29/19 08:59 Last Admin: 08/31/19 08:36 Dose: 150 mg Documented by: [id number] Admin: 08/30/19 09:37 Dose: 150 mg Documented by: [id number] Sodium Chloride ([place] Nasal) 1 sprays NA UD PRN PRN Reason: Dryness Stop: 09/30/19 09:41 Last Admin: 08/31/19 10:07 Dose: 1 sprays Documented by: [id number] Discontinued Medications Acetaminophen (Tylenol) 1,000 mg PO PREOP [facility] Stop: 08/29/19 18:00 Last Admin: 08/29/19 07:20 Dose: 1,000 mg Documented by: [id number] Bacitracin (Bacitracin) Confirm Administered Dose 50,000 units .ROUTE .STK-MED ONE Stop: 08/29/19 06:58 Last Admin: 08/29/19 08:26 Dose: 50,000 units Documented by: [id number] Bupivacaine HCl/Epinephrine Bitart (Sensorcaine/Epinephrine 0.5% Mpf 1:200,000) Confirm Administered Dose 30 ml .ROUTE .STK-MED ONE Stop: 08/29/19 06:58 Last Admin: 08/29/19 08:14 Dose: 30 ml Documented by: [id number] Carvedilol (Coreg) 6.25 mg PO BID [facility] Stop: 09/28/19 20:59 Last Admin: 08/30/19 09:35 Dose: 6.25 mg Documented by: [id number] Admin: 08/29/19 21:38 Dose: 6.25 mg Documented by: [id number] Celecoxib (Celebrex) 200 mg PO PREOP [facility] Stop: 08/29/19 18:00 Last Admin: 08/29/19 07:25 Dose: Not Given Documented by: [id number] Fentanyl Citrate (Fentanyl Citrate) 25 mcg IV Q5M PRN PRN Reason: PACU Use Only-Pain Stop: 08/29/19 15:35 Last Admin: 08/29/19 11:06 Dose: 25 mcg Documented by: [id number] Gabapentin (Neurontin) 300 mg PO PREOP [facility] Stop: 08/29/19 18:00 Last Admin: 08/29/19 07:20 Dose: 300 mg Documented by: [id number] Lactated Ringer's (Lr) 1,000 mls @ 15 mls/hr IV .Q24H [facility] Stop: 08/30/19 05:59 Last Infusion: 08/29/19 07:40 Dose: 0 mls/hr Documented by: [id number] Admin: 08/29/19 07:19 Dose: 15 mls/hr Documented by: [id number] Cefazolin Sodium (Ancef 2000mg) 2,000 mg in 15 mls @ 3.75 mls/min IV PREOP [facility]; Protocol Stop: 08/29/19 18:00 Last Admin: 08/29/19 07:40 Dose: 3.75 mls/min Documented by: [id number] Acetaminophen (Ofirmev) 1,000 mg in 100 mls @ 400 mls/hr IV Q8H PRN PRN Reason: MILD Pain Rating 1,2,3 Stop: 08/30/19 12:12 Last Infusion: 08/29/19 13:29 Dose: 0 mls/hr Documented by: [id number] Admin: 08/29/19 13:14 Dose: 400 mls/hr Documented by: [id number] Sodium Chloride (Nss 1000ml) 1,000 mls @ 150 mls/hr IV .Q6H40M [facility] Stop: 09/28/19 12:44 Last Infusion: 08/30/19 05:38 Dose: 0 mls/hr Documented by: [id number] Admin: 08/30/19 03:40 Dose: Not Given Documented by: [id number] Admin: 08/29/19 22:40 Dose: 150 mls/hr Documented by: [id number] Infusion: 08/29/19 22:34 Dose: 150 mls/hr Documented by: [id number] Admin: 08/29/19 15:53 Dose: 150 mls/hr Documented by: [id number] Cefazolin Sodium (Ancef 2000mg) 2,000 mg in 15 mls @ 3.75 mls/min IV Q8H [facility]; Protocol Stop: 08/30/19 00:03 Last Admin: 08/29/19 23:55 Dose: 3.75 mls/min Documented by: [id number] Admin: 08/29/19 16:00 Dose: 3.75 mls/min Documented by: [id number] Sodium Chloride (Nss 1000ml) 1,000 mls @ 80 mls/hr IV .[id number] [facility] Stop: 09/29/19 15:59 Last Infusion: 09/01/19 08:39 Dose: 0 mls/hr Documented by: [id number] Admin: 09/01/19 05:51 Dose: 80 mls/hr Documented by: [id number] Infusion: 09/01/19 05:50 Dose: 80 mls/hr Documented by: [id number] Admin: 08/31/19 17:20 Dose: 80 mls/hr Documented by: [id number] Infusion: 08/31/19 17:20 Dose: 80 mls/hr Documented by: [id number] Admin: 08/31/19 05:01 Dose: 80 mls/hr Documented by: [id number] Infusion: 08/31/19 04:57 Dose: 80 mls/hr Documented by: [id number] Admin: 08/30/19 16:27 Dose: 80 mls/hr Documented by: [id number] Cefepime HCl 2,000 mg/ Syringe 20 mls @ 5 mls/min IV Q8H [facility]; Protocol Stop: 09/01/19 19:59 Last Admin: 09/01/19 03:49 Dose: 5 mls/min Documented by: [id number] Admin: 08/31/19 20:16 Dose: 5 mls/min Documented by: [id number] Admin: 08/31/19 11:50 Dose: 5 mls/min Documented by: [id number] Admin: 08/31/19 04:59 Dose: 5 mls/min Documented by: [id number] Admin: 08/30/19 20:16 Dose: 5 mls/min Documented by: [id number] Insulin Aspart (Novolog Flexpen) 0 units SC 0000,0400 [facility]; Protocol Stop: 09/29/19 00:00 Last Admin: 08/30/19 04:29 Dose: Not Given Documented by: [id number] Cosigned by: [id number] Admin: 08/30/19 00:19 Dose: Not Given Documented by: [id number] Cosigned by: [id number] Insulin Aspart (Novolog Flexpen) 0 units SC 0000,0400 [facility]; Protocol Stop: 09/01/19 04:01 Last Admin: 09/01/19 04:38 Dose: Not Given Documented by: [id number] Cosigned by: [id number] Admin: 08/31/19 23:33 Dose: 4 units Documented by: [id number] Cosigned by: [id number] Insulin Aspart (Novolog Flexpen) 0 units SC NOW [facility]; Protocol Stop: 08/31/19 15:52 Last Admin: 08/31/19 15:56 Dose: 4 units Documented by: [id number] Cosigned by: [id number] Lisinopril (Zestril) 10 mg PO DAILY [facility] Stop: 09/29/19 08:59 Last Admin: 08/30/19 09:36 Dose: 10 mg Documented by: [id number] Miscellaneous (Floseal Hemostatic Matrix 10ml) 10 ml TOP ONCE ONE Stop: 08/29/19 08:28 Last Admin: 08/29/19 09:53 Dose: 25 ml Documented by: [id number]
[2019-09-01] MEDS: MAGNESIUM OXIDE 400 MG TAB PO SCH ×2 (09:19→21:16)
[2019-09-01] MEDS: GABAPENTIN 400 MG CAP PO SCH ×3 (09:19→21:16)
[2019-09-01] MEDS: DEXAMETHASONE SOD PHOSPHATE 8 MG in SYRINGE 0 ML IV SCH (09:19)
[2019-09-01] MEDS: ASPIRIN 81 MG ECTAB PO SCH (09:20)
[2019-09-01] MEDS: SERTRALINE HCL 50 MG TABLET PO SCH (09:20)
[2019-09-01] MEDS: allopurinoL 100 MG TAB PO SCH ×2 (09:20→21:16)
[2019-09-01] MEDS: methylPREDNISolone 4 MG TAB PO SCH (09:20)
[2019-09-01] MEDS: FAMOTIDINE 40 MG TABLET PO SCH (09:20)
--- NOTE | 2019-09-01 11:43 | Orthopedic Progress Note ---
Date of Service September 01, 2019 Assessment & Plan (1) Neurogenic claudication due to lumbar spinal stenosis: At this time we will continue physical therapy occupational therapy today. If she progresses appropriately hopefully discharge home tomorrow. Present on Admission?: Yes Admission and Anticipated Discharge Date Admission Date: August 29, 2019 Subjective Back pain controlled leg pain improved Physical Exam Physical Exam: Patient is good strength testing appears comfortable. Results & Data ([facility]) Vital Signs (Past 12 Hours) Vital Signs Temp Pulse Resp BP Pulse Ox 09/01/19 06:37 36.8 C 62 16 135/73 95
[2019-09-01] MEDS: DOCUSATE SODIUM/SENNA 50/8.6MG TAB PO SCH (21:16)
[2019-09-01] MEDS: FENOFIBRATE NANOCRYSTALLIZED 145 MG TABLET PO SCH (21:16)
[2019-09-02] MEDS: INSULIN ASPART 100 UNITS/ML 3 ML PEN SC SCH ×4 (00:37→12:54)
[2019-09-02] MEDS: ACETAMINOPHEN 500 MG TAB PO PRN (04:41)
[2019-09-02] MEDS: POLYETHYLENE (MIRALAX) 17 GM PACK PO SCH ×2 (05:51→12:57)
[2019-09-02] MEDS: LEVOTHYROXINE SODIUM 200 MCG TABLET PO SCH (05:51)
[2019-09-02] MEDS: DEXAMETHASONE SOD PHOSPHATE 8 MG in SYRINGE 0 ML IV SCH (07:59)
[2019-09-02] MEDS: methylPREDNISolone 4 MG TAB PO SCH (08:01)
[2019-09-02] MEDS: GABAPENTIN 400 MG CAP PO SCH ×2 (08:01→13:38)
[2019-09-02] MEDS: MAGNESIUM OXIDE 400 MG TAB PO SCH ×2 (08:01→08:02)
[2019-09-02] MEDS: allopurinoL 100 MG TAB PO SCH (08:01)
[2019-09-02] MEDS: FAMOTIDINE 40 MG TABLET PO SCH (08:01)
[2019-09-02] MEDS: SERTRALINE HCL 50 MG TABLET PO SCH (08:01)
[2019-09-02] MEDS: ASPIRIN 81 MG ECTAB PO SCH (08:02)
[2019-09-02] MEDS ORDERED: INSULIN GLARGINE SOLOSTAR 100 UNITS/ML 3 ML PEN SC SCH ×2 (09:00→21:00)
--- NOTE | 2019-09-02 09:19 | Hospitalist Progress Note ---
Date of Service September 02, 2019 Assessment & Plan (1) Neurogenic claudication due to lumbar spinal stenosis: Postop day #4 L4-S1 decompression and fusion by Dr. Berman EBL: 400ml: DAVID Drain output 470ml tolerated procedure well pain/wound management per ortho activity and therapy as directed by ortho continue incentive spirometry H/H stable at 10.8 and 33.5 Monitor hemoglobin Had fever POD #1 - work up has been negative w/o recurrence of fever. She is doing well. (2) Fever: T-max 38.4 Analysis no UTI Chest x-ray no pneumonia Blood cultures pending afebrile, antibiotics D/C resolved (3) DM type 2 (diabetes mellitus, type 2): Hgb A1c 8.9 03/2019 Hold home Ozempic and utilize Lantus and NovoLog per protocol while hospitalized Pharmacy glycemic control consult placed BSG 93 this a.m. (4) CAD (coronary artery disease): Cardiac cath 12/2017 showed moderate multivessel CAD, no intervention was performed Continue beta-noreen, lisinopril, asa noted to be statin intolerant and takes Praluent every 14 days No cardiac symptoms (5) Chronic diastolic CHF (congestive heart failure): Weight 108kg, euvolemic, bp stable Resume lasix at discharge with bp parameters Echo 11/2018: EF 50%, left atrium and left ventricle enlarged, borderline LVH, mild mitral and tricuspid valvular insufficiency, mild to moderate pulmonary hypertension (6) Arthritis with psoriasis: Managed with Otezla and chronic methylprednisolone 4 mg daily Received Decadron 8 mg and hydrocortisone 100 mg intraoperatively Resume home dose of methylprednisolone Decadron ordered daily Continue to monitor closely (7) CHRISTIANO (obstructive sleep apnea): CPAP as per home settings (8) Hypertension: BP on low side this a.m. discussed with patient regarding resuming BP meds at home recommend daily BP checks. IF SBP < 120 would hold lasix and lisinopril Continue coreg monitor daily weight as well, any increase >2lb 1 day or 5lb in 1 week contact PCP (9) DVT prophylaxis: TEDs/SCDs as per spine orthopedics Pt was seen and examined in collaboration with Dr. Sanchez, please see addendum Thank you for this consultation. We will follow the patient with you during their hospital stay. You can reach a member of the [facility] Hospitalist Team 04/09 via pager @ [phone]. Admission and Anticipated Discharge Date Admission Date: August 29, 2019 Supervising Physician Co-Signing Physician Notes Attending Addendum: care coordinated with THELMA Islas please refer to her notes for full details, I agree with her notes patient seen and examined, records reviewed by myself as well on exam, patient seen resting in bed sitting up states she feels fine overall no chest pain, dyspnea, dizziness, SOB no other symptoms VS noted and reviewed oriented x 3, not in distress, speaks in sentences with no effort nor accessory muscle use normal rate, regular rhythm, no murmurs clear breath sounds bilaterally non distended, soft, nontender no bipedal edema, erythema, warmth no neuro deficits blood cultures: negative ASSESSMENT AND PLAN Post Op Fever cultures negative no focus of infection afebrile d/c antibiotics Rheumatoid Arthritis continue usual Solumedrol other diagnoses and plan of care as per THELMA Islas's notes Joaquim Sanchez MD Subjective Patient seen and examined in room 320-1. Follow up Lumbar decompression/fusion POD #4. Feels well this morning. Has not had a BM and is drinking coffee to help, "stimulate one." Denies f/c/s, dizziness, lightheaded, chest pain, sob, n/v/d. Tolerating diet. Appetite is good. PT is going well. C/o muscle spasm to posterior thigh and knee last evening. Review of Systems Review of Systems: All systems reviewed & are unremarkable except as noted in HPI & below Physical Exam Physical Exam: Gen: WD/WN, F, sitting up at bedside, NAD, A&O x3 HEENT: Normocephalic, atraumatic, conjunctivae moist, sclerae anicteric, mucous membranes moist. Lung: Clear to Auscultation bilaterally, no wheezes/rales/rhonchi Heart: Regular rate, regular rhythm,1/6 BUTCH noted LUSB, rubs, or gallops Abdomen: Soft, NT, ND +BS x 4 Extremities: No edema, TEDS in place, lumbar dressing CDI, Skin: Warm, no rash, negative turgor. Results & Data Results & Data ([facility]) Vital Signs (Past 12 Hours) Vital Signs Temp Pulse Resp BP Pulse Ox 09/02/19 06:48 36.4 C L 53 L 16 103/64 96 07/20/20 23:15 36.6 C 86 16 123/69 93 Medications Administered Acetaminophen (Tylenol) 1,000 mg PO Q8H PRN PRN Reason: MILD Pain Scale 1,2,3 & Pre PT Stop: 09/28/19 12:12 Last Admin: 09/02/19 04:41 Dose: 1,000 mg Documented by: [id number] Admin: 08/30/19 17:21 Dose: 1,000 mg Documented by: [id number] Admin: 08/30/19 05:36 Dose: 1,000 mg Documented by: [id number] Allopurinol (Zyloprim) 100 mg PO BID [facility] Stop: 09/28/19 20:59 Last Admin: 09/02/19 08:01 Dose: 100 mg Documented by: [id number] Admin: 09/01/19 21:16 Dose: 100 mg Documented by: [id number] Admin: 09/01/19 09:20 Dose: 100 mg Documented by: [id number] Admin: 08/31/19 20:16 Dose: 100 mg Documented by: [id number] Admin: 08/31/19 08:34 Dose: 100 mg Documented by: [id number] Admin: 08/30/19 20:18 Dose: 100 mg Documented by: [id number] Admin: 08/30/19 09:35 Dose: 100 mg Documented by: [id number] Admin: 08/29/19 21:38 Dose: 100 mg Documented by: [id number] Aspirin (Ecotrin Ectab) 81 mg PO DAILY [facility] Stop: 09/29/19 08:59 Last Admin: 09/02/19 08:02 Dose: 81 mg Documented by: [id number] Admin: 09/01/19 09:20 Dose: 81 mg Documented by: [id number] Admin: 08/31/19 08:34 Dose: 81 mg Documented by: [id number] Admin: 08/30/19 09:35 Dose: 81 mg Documented by: [id number] Nystatin 30 ml/ Dexamethasone 3.75 mg/ Diphenhydramine HCl 300 mg/ Sucrose 45 ml/Microcrystalline Cellulose 45 ml/ [employer]CODE IDENTIFIER 1 ea 0 ml PO Q4H PRN PRN Reason: Sore Throat Stop: 09/29/19 15:45 Last Admin: 09/01/19 21:18 Dose: 5 ml Documented by: [id number] Admin: 09/01/19 07:33 Dose: 5 ml Documented by: [id number] Admin: 08/31/19 21:16 Dose: 5 ml Documented by: [id number] Admin: 08/31/19 07:32 Dose: 5 ml Documented by: [id number] Admin: 08/30/19 22:03 Dose: 5 ml Documented by: [id number] Admin: 08/30/19 16:27 Dose: 5 ml Documented by: [id number] Famotidine (Pepcid) 40 mg PO DAILY [facility] Stop: 09/29/19 08:59 Last Admin: 09/02/19 08:01 Dose: 40 mg Documented by: [id number] Admin: 09/01/19 09:20 Dose: 40 mg Documented by: [id number] Admin: 08/31/19 08:34 Dose: 40 mg Documented by: [id number] Admin: 08/30/19 09:35 Dose: 40 mg Documented by: [id number] Fenofibrate (Tricor) 145 mg PO HS [facility] Stop: 09/28/19 20:59 Last Admin: 09/01/19 21:16 Dose: 145 mg Documented by: [id number] Admin: 08/31/19 20:16 Dose: 145 mg Documented by: [id number] Admin: 08/30/19 20:17 Dose: 145 mg Documented by: [id number] Admin: 08/29/19 21:38 Dose: 145 mg Documented by: [id number] Gabapentin (Neurontin) 400 mg PO TID [facility] Stop: 09/28/19 13:59 Last Admin: 09/02/19 08:01 Dose: 400 mg Documented by: [id number] Admin: 09/01/19 21:16 Dose: 400 mg Documented by: [id number] Admin: 09/01/19 13:27 Dose: 400 mg Documented by: [id number] Admin: 09/01/19 09:19 Dose: 400 mg Documented by: [id number] Admin: 08/31/19 20:16 Dose: 400 mg Documented by: [id number] Admin: 08/31/19 13:31 Dose: 400 mg Documented by: [id number] Admin: 08/31/19 08:34 Dose: 400 mg Documented by: [id number] Admin: 08/30/19 20:17 Dose: 400 mg Documented by: [id number] Admin: 08/30/19 14:12 Dose: 400 mg Documented by: [id number] Admin: 08/30/19 09:35 Dose: 400 mg Documented by: [id number] Admin: 08/29/19 21:39 Dose: 400 mg Documented by: [id number] Admin: 08/29/19 14:14 Dose: 400 mg Documented by: [id number] Dexamethasone Sodium Phosphate (8 mg/ Syringe) 2 mls @ 1 mls/min IV DAILY [facility] Stop: 09/30/19 08:59 Last Admin: 09/02/19 07:59 Dose: Not Given Documented by: [id number] Admin: 09/01/19 09:19 Dose: 1 mls/min Documented by: [id number] Admin: 08/31/19 08:37 Dose: 1 mls/min Documented by: [id number] Insulin Aspart (Novolog Flexpen) 0 units SC ACHS [facility]; Protocol Stop: 09/28/19 12:59 Last Admin: 09/02/19 07:53 Dose: 17 units Documented by: [id number] Cosigned by: [id number] Admin: 09/01/19 21:23 Dose: 15 units Documented by: [id number] Cosigned by: [id number] Admin: 09/01/19 17:39 Dose: 29 units Documented by: [id number] Cosigned by: [id number] Admin: 09/01/19 12:27 Dose: 21 units Documented by: [id number] Cosigned by: [id number] Admin: 09/01/19 07:42 Dose: 14 units Documented by: [id number] Cosigned by: [id number] Admin: 08/31/19 21:10 Dose: 12 units Documented by: [id number] Cosigned by: [id number] Admin: 08/31/19 17:57 Dose: 26 units Documented by: [id number] Cosigned by: [id number] Admin: 08/31/19 12:50 Dose: 24 units Documented by: [id number] Cosigned by: [id number] Admin: 08/31/19 08:43 Dose: 10 units Documented by: [id number] Cosigned by: [id number] Admin: 08/30/19 20:42 Dose: 5 units Documented by: [id number] Cosigned by: [id number] Admin: 08/30/19 18:19 Dose: 14 units Documented by: [id number] Cosigned by: [id number] Admin: 08/30/19 13:06 Dose: 10 units Documented by: [id number] Cosigned by: [id number] Admin: 08/30/19 09:42 Dose: 8 units Documented by: [id number] Cosigned by: [id number] Admin: 08/29/19 21:40 Dose: Not Given Documented by: [id number] Cosigned by: [id number] Admin: 08/29/19 18:40 Dose: 8 units Documented by: [id number] Cosigned by: [id number] Admin: 08/29/19 13:44 Dose: 13 units Documented by: [id number] Cosigned by: [id number] Insulin Glargine (Lantus Solostar Pen) 25 units SC BID [facility]; Protocol Stop: 10/02/19 08:59 Last Admin: 09/02/19 07:54 Dose: 25 units Documented by: [id number] Cosigned by: [id number] [facility] Stop: 09/29/19 06:29 Last Admin: 09/02/19 05:51 Dose: 200 mcg Documented by: [id number] Admin: 09/01/19 05:51 Dose: 200 mcg Documented by: [id number] Admin: 08/31/19 05:00 Dose: 200 mcg Documented by: [id number] Admin: 08/30/19 05:36 Dose: 200 mcg Documented by: [id number] Magnesium Hydroxide (Milk Of Magnesia) 30 ml PO DAILY PRN PRN Reason: Constipation Stop: 09/28/19 12:12 Last Admin: 09/02/19 08:11 Dose: 30 ml Documented by: [id number] Magnesium Oxide (Mag-Ox) 400 mg PO DAILY [facility] Stop: 09/29/19 08:59 Last Admin: 09/02/19 08:01 Dose: 400 mg Documented by: [id number] Admin: 08/31/19 08:35 Dose: 400 mg Documented by: [id number] Admin: 08/30/19 11:54 Dose: 400 mg Documented by: [id number] Admin: 08/30/19 09:36 Dose: 400 mg Documented by: [id number] Magnesium Oxide (Mag-Ox) 400 mg PO BID [facility] Stop: 09/29/19 09:59 Last Admin: 09/02/19 08:02 Dose: 400 mg Documented by: [id number] Admin: 09/01/19 21:16 Dose: 400 mg Documented by: [id number] Admin: 09/01/19 09:19 Dose: 400 mg Documented by: [id number] Admin: 08/31/19 20:16 Dose: 400 mg Documented by: [id number] Admin: 08/31/19 08:37 Dose: 400 mg Documented by: [id number] Admin: 08/30/19 20:18 Dose: 400 mg Documented by: [id number] Admin: 08/30/19 11:54 Dose: 400 mg Documented by: [id number] Methylprednisolone (Medrol) 4 mg PO DAILY [facility] Stop: 09/29/19 08:59 Last Admin: 09/02/19 08:01 Dose: 4 mg Documented by: [id number] Admin: 09/01/19 09:20 Dose: 4 mg Documented by: [id number] Admin: 08/31/19 08:34 Dose: 4 mg Documented by: [id number] Admin: 08/30/19 09:37 Dose: 4 mg Documented by: [id number] Miscellaneous (Order Awaiting Action) 1 ea N/A QS [facility] Stop: 09/28/19 15:59 Last Admin: 09/02/19 07:57 Dose: Not Given Documented by: [id number] Admin: 09/01/19 23:17 Dose: Not Given Documented by: [id number] Admin: 09/01/19 15:42 Dose: Not Given Documented by: [id number] Admin: 09/01/19 07:49 Dose: Not Given Documented by: [id number] Admin: 08/31/19 23:00 Dose: Not Given Documented by: [id number] Admin: 08/31/19 15:49 Dose: Not Given Documented by: [id number] Admin: 08/31/19 08:34 Dose: Not Given Documented by: [id number] Admin: 08/30/19 22:48 Dose: Not Given Documented by: [id number] Admin: 08/30/19 15:24 Dose: Not Given Documented by: [id number] Admin: 08/30/19 09:46 Dose: Not Given Documented by: [id number] Admin: 08/29/19 23:56 Dose: Not Given Documented by: [id number] Admin: 08/29/19 15:54 Dose: Not Given Documented by: [id number] Oxycodone HCl (Roxicodone Immediate Rel) 5 - 10 mg PO Q4H PRN PRN Reason: Moderate-Severe Pain & Pre PT Stop: 09/12/19 12:12 Last Admin: 09/01/19 23:04 Dose: 10 mg Documented by: [id number] Admin: 09/01/19 14:30 Dose: 10 mg Documented by: [id number] Admin: 09/01/19 07:32 Dose: 10 mg Documented by: [id number] Admin: 09/01/19 03:48 Dose: 10 mg Documented by: [id number] Admin: 08/31/19 19:42 Dose: 10 mg Documented by: [id number] Admin: 08/31/19 08:48 Dose: 5 mg Documented by: [id number] Admin: 08/31/19 07:31 Dose: 5 mg Documented by: [id number] Admin: 08/30/19 20:40 Dose: 5 mg Documented by: [id number] Admin: 08/30/19 08:13 Dose: 10 mg Documented by: [id number] Admin: 08/29/19 23:55 Dose: 10 mg Documented by: [id number] Admin: 08/29/19 18:47 Dose: 10 mg Documented by: [id number] Polyethylene Glycol (Miralax Powder Packet) 17 gm PO Q6 [facility] Stop: 09/29/19 05:59 Last Admin: 09/02/19 05:51 Dose: 17 gm Documented by: [id number] Admin: 09/01/19 23:06 Dose: 17 gm Documented by: [id number] Admin: 09/01/19 17:35 Dose: 17 gm Documented by: [id number] Admin: 09/01/19 12:29 Dose: 17 gm Documented by: [id number] Admin: 09/01/19 05:51 Dose: 17 gm Documented by: [id number] Admin: 08/31/19 23:30 Dose: Not Given Documented by: [id number] Admin: 08/31/19 17:57 Dose: 17 gm Documented by: [id number] Admin: 08/31/19 11:51 Dose: Not Given Documented by: [id number] Admin: 08/31/19 05:01 Dose: Not Given Documented by: [id number] Admin: 08/30/19 23:47 Dose: Not Given Documented by: [id number] Admin: 08/30/19 17:21 Dose: 17 gm Documented by: [id number] Admin: 08/30/19 13:00 Dose: 17 gm Documented by: [id number] Admin: 08/30/19 05:37 Dose: Not Given Documented by: [id number] Senna/Docusate Sodium (Senokot S) 2 tab PO HS [facility] Stop: 09/28/19 20:59 Last Admin: 09/01/19 21:16 Dose: 2 tab Documented by: [id number] Admin: 08/31/19 20:17 Dose: 2 tab Documented by: [id number] Admin: 08/30/19 20:16 Dose: 2 tab Documented by: [id number] Admin: 08/29/19 21:39 Dose: 2 tab Documented by: [id number] Sertraline HCl (Zoloft) 150 mg PO DAILY [facility] Stop: 09/29/19 08:59 Last Admin: 09/02/19 08:01 Dose: 150 mg Documented by: [id number] Admin: 09/01/19 09:20 Dose: 150 mg Documented by: [id number] Admin: 08/31/19 08:36 Dose: 150 mg Documented by: [id number] Admin: 08/30/19 09:37 Dose: 150 mg Documented by: [id number] Sodium Chloride ([place] Nasal) 1 sprays NA UD PRN PRN Reason: Dryness Stop: 09/30/19 09:41 Last Admin: 08/31/19 10:07 Dose: 1 sprays Documented by: [id number] Discontinued Medications Acetaminophen (Tylenol) 1,000 mg PO PREOP [facility] Stop: 08/29/19 18:00 Last Admin: 08/29/19 07:20 Dose: 1,000 mg Documented by: [id number] Bacitracin (Bacitracin) Confirm Administered Dose 50,000 units .ROUTE .STK-MED ONE Stop: 08/29/19 06:58 Last Admin: 08/29/19 08:26 Dose: 50,000 units Documented by: [id number] Bupivacaine HCl/Epinephrine Bitart (Sensorcaine/Epinephrine 0.5% Mpf 1:200,000) Confirm Administered Dose 30 ml .ROUTE .STK-MED ONE Stop: 08/29/19 06:58 Last Admin: 08/29/19 08:14 Dose: 30 ml Documented by: [id number] Carvedilol (Coreg) 6.25 mg PO BID [facility] Stop: 09/28/19 20:59 Last Admin: 08/30/19 09:35 Dose: 6.25 mg Documented by: [id number] Admin: 08/29/19 21:38 Dose: 6.25 mg Documented by: [id number] Celecoxib (Celebrex) 200 mg PO PREOP [facility] Stop: 08/29/19 18:00 Last Admin: 08/29/19 07:25 Dose: Not Given Documented by: [id number] Fentanyl Citrate (Fentanyl Citrate) 25 mcg IV Q5M PRN PRN Reason: PACU Use Only-Pain Stop: 08/29/19 15:35 Last Admin: 08/29/19 11:06 Dose: 25 mcg Documented by: [id number] Gabapentin (Neurontin) 300 mg PO PREOP [facility] Stop: 08/29/19 18:00 Last Admin: 08/29/19 07:20 Dose: 300 mg Documented by: [id number] Lactated Ringer's (Lr) 1,000 mls @ 15 mls/hr IV .Q24H [facility] Stop: 08/30/19 05:59 Last Infusion: 08/29/19 07:40 Dose: 0 mls/hr Documented by: [id number] Admin: 08/29/19 07:19 Dose: 15 mls/hr Documented by: [id number] Cefazolin Sodium (Ancef 2000mg) 2,000 mg in 15 mls @ 3.75 mls/min IV PREOP [facility]; Protocol Stop: 08/29/19 18:00 Last Admin: 08/29/19 07:40 Dose: 3.75 mls/min Documented by: [id number] Acetaminophen (Ofirmev) 1,000 mg in 100 mls @ 400 mls/hr IV Q8H PRN PRN Reason: MILD Pain Rating 1,2,3 Stop: 08/30/19 12:12 Last Infusion: 08/29/19 13:29 Dose: 0 mls/hr Documented by: [id number] Admin: 08/29/19 13:14 Dose: 400 mls/hr Documented by: [id number] Sodium Chloride (Nss 1000ml) 1,000 mls @ 150 mls/hr IV .Q6H40M [facility] Stop: 09/28/19 12:44 Last Infusion: 08/30/19 05:38 Dose: 0 mls/hr Documented by: [id number] Admin: 08/30/19 03:40 Dose: Not Given Documented by: [id number] Admin: 08/29/19 22:40 Dose: 150 mls/hr Documented by: [id number] Infusion: 08/29/19 22:34 Dose: 150 mls/hr Documented by: [id number] Admin: 08/29/19 15:53 Dose: 150 mls/hr Documented by: [id number] Cefazolin Sodium (Ancef 2000mg) 2,000 mg in 15 mls @ 3.75 mls/min IV Q8H [facility]; Protocol Stop: 08/30/19 00:03 Last Admin: 08/29/19 23:55 Dose: 3.75 mls/min Documented by: [id number] Admin: 08/29/19 16:00 Dose: 3.75 mls/min Documented by: [id number] Sodium Chloride (Nss 1000ml) 1,000 mls @ 80 mls/hr IV .[id number] [facility] Stop: 09/29/19 15:59 Last Infusion: 09/01/19 08:39 Dose: 0 mls/hr Documented by: [id number] Admin: 09/01/19 05:51 Dose: 80 mls/hr Documented by: [id number] Infusion: 09/01/19 05:50 Dose: 80 mls/hr Documented by: [id number] Admin: 08/31/19 17:20 Dose: 80 mls/hr Documented by: [id number] Infusion: 08/31/19 17:20 Dose: 80 mls/hr Documented by: [id number] Admin: 08/31/19 05:01 Dose: 80 mls/hr Documented by: [id number] Infusion: 08/31/19 04:57 Dose: 80 mls/hr Documented by: [id number] Admin: 08/30/19 16:27 Dose: 80 mls/hr Documented by: [id number] Cefepime HCl 2,000 mg/ Syringe 20 mls @ 5 mls/min IV Q8H [facility]; Protocol Stop: 09/01/19 19:59 Last Admin: 09/01/19 03:49 Dose: 5 mls/min Documented by: [id number] Admin: 08/31/19 20:16 Dose: 5 mls/min Documented by: [id number] Admin: 08/31/19 11:50 Dose: 5 mls/min Documented by: [id number] Admin: 08/31/19 04:59 Dose: 5 mls/min Documented by: [id number] Admin: 08/30/19 20:16 Dose: 5 mls/min Documented by: [id number] Insulin Aspart (Novolog Flexpen) 0 units SC 0000,0400 [facility]; Protocol Stop: 09/29/19 00:00 Last Admin: 08/30/19 04:29 Dose: Not Given Documented by: [id number] Cosigned by: [id number] Admin: 08/30/19 00:19 Dose: Not Given Documented by: [id number] Cosigned by: [id number] Insulin Aspart (Novolog Flexpen) 0 units SC 0000,0400 [facility]; Protocol Stop: 09/01/19 04:01 Last Admin: 09/01/19 04:38 Dose: Not Given Documented by: [id number] Cosigned by: [id number] Admin: 08/31/19 23:33 Dose: 4 units Documented by: [id number] Cosigned by: [id number] Insulin Aspart (Novolog Flexpen) 0 units SC NOW [facility]; Protocol Stop: 08/31/19 15:52 Last Admin: 08/31/19 15:56 Dose: 4 units Documented by: [id number] Cosigned by: [id number] Insulin Aspart (Novolog Flexpen) 0 units SC 0030,0400 [facility]; Protocol Stop: 09/02/19 04:01 Last Admin: 09/02/19 04:08 Dose: Not Given Documented by: [id number] Cosigned by: [id number] Admin: 09/02/19 00:37 Dose: Not Given Documented by: [id number] Cosigned by: [id number] Insulin Glargine (Lantus Solostar Pen) 0 units SC BID [facility]; Protocol Stop: 09/28/19 12:59 Last Admin: 09/01/19 21:22 Dose: 35 units Documented by: [id number] Cosigned by: [id number] Admin: 09/01/19 07:42 Dose: 25 units Documented by: [id number] Cosigned by: [id number] Admin: 08/31/19 21:09 Dose: 35 units Documented by: [id number] Cosigned by: [id number] Admin: 08/31/19 08:42 Dose: 30 units Documented by: [id number] Cosigned by: [id number] Admin: 08/30/19 20:41 Dose: 30 units Documented by: [id number] Cosigned by: [id number] Admin: 08/30/19 09:43 Dose: 20 units Documented by: [id number] Cosigned by: [id number] Admin: 08/29/19 21:40 Dose: Not Given Documented by: [id number] Admin: 08/29/19 14:12 Dose: 30 units Documented by: [id number] Cosigned by: [id number] Lisinopril (Zestril) 10 mg PO DAILY [facility] Stop: 09/29/19 08:59 Last Admin: 08/30/19 09:36 Dose: 10 mg Documented by: [id number] Miscellaneous (Floseal Hemostatic Matrix 10ml) 10 ml TOP ONCE ONE Stop: 08/29/19 08:28 Last Admin: 08/29/19 09:53 Dose: 25 ml Documented by: [id number]
--- NOTE | 2019-09-02 10:00 | Discharge Summary ---
Date of Service September 02, 2019 Admission HPI Per Admitting Provider This is a 68-year-old female who presents with worsening back and bilateral leg pain. After failing extensive course of nonoperative care is here for surgical intervention. Principal Diagnosis Lumbar spinal stenosis with neurogenic claudication Discharge Data Allergies Allergy/AdvReac Type Severity Reaction Status Date / Time Sulfa (Sulfonamide Allergy Anaphylaxis, Unverified 08/29/19 06:41 Antibiotics) rash pentazocine [From [facility]] AdvReac Nausea Unverified 08/29/19 06:41 Consultations 08/29/19 12:13 Consult Case Management - Discharge Planning Routine Consult Hospitalist Routine Procedures Performed Operation Date: 08/29/19 07:45 Actual Procedures p L4-S1 Decompression and Fusion, Interbody Cage Insertion L4-L5, Spinal Cord Monitoring(Not Applicable) - Spencer Berman DO Ordered Studies 08/29/19 07:45 FL fluoroscopy <1hr Routine FL lumbar spine 2-3V Routine 08/30/19 15:46 US venous doppler LE LT Stat Hospital Course (1) Neurogenic claudication due to lumbar spinal stenosis: Patient underwent lumbar decompression fusion tolerated this well was taken to orthopedic for postoperative. Postop day 1 she was up and ambulating progressed to postop day 2 and 3 DAVID drain decreasing appropriately. Pain well controlled. Excellent strength testing. Subsequently discharged home. Discharge orders and instructions from the chart for further review. Total Time Total Time Spent Total Time Spent (In Minutes): 20 minutes Discharge Plan Discharge Items Patient Disposition: Home - Self-Care Reason For Visit: LUMBAR SPINAL STENOSIS WO NEUROGENIC CLAUDICATION Discharge Diagnosis: Lumbar spinal stenosis with neurogenic claudication Activity: As commented below Non-emergency contact: Primary Care Provider Call non-emergency contact if: you have any medication questions Follow-up/Referrals: Russ Browning [Primary Care Provider] - Diet: Regular Addtl Attending Provider Instructions: ACTIVITY RECOMMENDATIONS: SELF CARE INSTRUCTIONS AFTER THORACIC/LUMBAR FUSIONS 1. You may walk to your tolerance. It is good exercise for your legs and back. Expect some back and intermittent leg aches and pains. 2. You may perform "counter-top" level activities (make a sandwich, hayden with a project, etc.). 3. No bending or lifting of more than 10 pounds or back twisting of any nature (roll like a log when turning in bed). 4. You may ride in a car for 20-30 minutes at a time. No driving until after your first visit with your doctor. 5. Frequent changes of position and restricting sitting to 30 minutes at a time will help limit the amount of back spasms and stiffness you may experience. 6. You may discontinue the use of ambulatory aids (cane, crutches, etc.) once your strength and confidence allow. 7. You may principal trainer the shower and let water strike your incision when you arrive home at least once daily. Do not take a tub bath, sit in a hot tub or go into a swimming pool until after your first recheck in the office. SPECIAL CARE INSTRUCTIONS: VERY IMPORTANT TO READ AND REVIEW A. Your surgical incision has been closed with a cosmetic suture under the skin that will dissolve in about 6 weeks. In 14 days, you can use a pair of clean scissors and cut the suture that is left outside of the skin at the ends of your incision. 1. The small skin tapes can be removed 7 days after surgery if they have not fallen off by that point. 2. You may keep the wound open to air as much as possible to promote healing after post-op day number 5 unless told otherwise by your doctor. 3. If you think the wound looks like it is becoming infected (redness or worsening drainage) and/or you are experiencing fever, chill or worsening back pain and muscle spasms, contact the office so that we may evaluate you as soon as possible. B. Complications are uncommon, but please contact us if you have any signs or symptoms of: 1. wound infection (fever higher than 102.5 degrees F, redness, separation of wound, drainage, or increasing pain from the incision) 2. blood clots in legs (pain, swelling, redness and warmth in legs) 3. urinary tract infection (fever higher than 102.5 degrees F, burning upon urination or increased frequency of urination) 4. nerve problems (inability to walk on your toes or heels, numbness, loss of bowel or bladder control) 5. any other symptoms that concern you C. Please call the office at if you have any concerns or questions about your operation or recovery. D. No smoking! Smoking drastically decreases the chance of a solid fusion. E. Do not take any anti-inflammatory medications (Indocin, Advil, Motrin, Aspirin, Naprosyn, etc.) as these may inhibit the chance of a solid fusion. Tylenol is okay to take for pain. MANAGING PAIN AFTER SPINAL SURGERY 1. Narcotic medication is intended for short-term use and will be provided for surgical pain. Surgical pain usually lasts for a period of 4-6 weeks. Narcotic medication includes Percocet, Vicodin, Darvocet, Tylenol #3 or Lortab. 2. Longer-term pain is more appropriately treated with non-narcotic medication such as Tylenol ES. 3. Muscle spasm is not appropriately treated with narcotics. Muscle relaxers such as Soma, Flexeril or Skelaxin can be used along with Tylenol ES. 4. Remember that we all live with some "aches and pains". This is not unusual or uncommon after an injury or as we get older. a. Back pain is expected and may include muscle spasms for 4 to 6 weeks after surgery. The pain should gradually improve. If the pain worsens for no apparent reason, please contact the office. b. Intermittent leg pain may also be experienced and should not be concerned about unless it worsens for no apparent reason. If so, please contact the office. 5. We will provide appropriate medication within the normal guidelines of their prescribed use. We will also be very cautious and aware of potential abuse and extended duration of patients' medication needs. a. Pain medications are for your comfort and to assist with sleep and rest so that the tissue can heal. They are not provided in order to return to normal activity and should not be used through the day. To do so or worsening pain at night can result from ongoing tissue damage and development of tolerance to the prescribed medicine. 6. Please allow 2-3 days to process refills. Prescriptions will not be mailed but must be picked up at the office. FOLLOW UP VISIT: Keep your scheduled follow-up appointment. Any questions, please call the office at . Pending Studies at Discharge: No Stand-Alone Forms: My [employer], Smoking Cessation Medications and DC Order Prescriptions: New oxycodone 5 mg tablet 5 mg PO Q6H PRN (Reason: pain, severe) Qty: 20 RF: 0 tramadol 50 mg tablet 50 mg PO Q6H PRN (Reason: pain, moderate) Qty: 30 RF: 0 Continued magnesium oxide 500 mg capsule 500 mg PO DAILY RF: 0 diclofenac sodium 1 % gel 4 gm TOP QID PRN (Reason: Pain) RF: 0 Ozempic 0.25 mg or 0.5 mg(2 mg/1.5 mL) pen injector 0.25 mg SQ WK RF: 0 famotidine [Pepcid] 40 mg tablet 40 mg PO DAILY RF: 0 albuterol sulfate [Proventil HFA] 90 mcg/actuation HFA aerosol inhaler 2 puffs INH Q6H PRN (Reason: shortness of breath or wheezing) Qty: 8 RF: 0 levothyroxine [Synthroid] 200 mcg tablet 200 mcg PO DAILY RF: 0 Praluent Pen 150 mg/mL pen injector 150 mg SUBCUT Q14D RF: 0 methylprednisolone [Medrol] 4 mg tablet 4 mg PO DAILY RF: 0 furosemide 40 mg Tablet 40 mg PO DAILY RF: 0 carvedilol 6.25 mg tablet 6.25 mg PO BID RF: 0 gabapentin 400 mg capsule 400 mg PO TID RF: 0 sertraline 100 mg Tablet 150 mg PO DAILY RF: 0 allopurinol 100 mg tablet 100 mg PO BID RF: 0 aspirin [Aspir-81] 81 mg Tablet,Delayed Release (Dr/Ec) 81 mg PO DAILY RF: 0 ergocalciferol (vitamin D2) 50,000 unit capsule 50,000 unit PO WK RF: 0 fenofibrate nanocrystallized 145 mg tablet 145 mg PO HS RF: 0 Otezla 30 mg tablet 30 mg PO BID RF: 0 Lantus Solostar U-100 Insulin 100 unit/mL (3 mL) insulin pen 30 units SUBCUT BID RF: 0 diphenhydramine HCl [Benadryl] 25 mg Capsule 25 mg PO BID PRN (Reason: Itching) RF: 0 lisinopril 10 mg Tablet 10 mg PO DAILY RF: 0 glucosamine de [place]z 2KCl-chondroit [Glucosamine-Chondroitin DS] 500-400 mg Tablet 1 tab PO BID RF: 0 insulin lispro [Humalog KwikPen Insulin] 100 unit/mL insulin pen 0 units SUBCUT TIDM RF: 0 Discontinued hydrocodone-acetaminophen 10-300 mg tablet 1 tab PO TID PRN (Reason: Pain) RF: 0 Discharge Orders: Discharge Order (Routine); Ordered 09/02/19 Ordered By: Spencer M Antonella Krames/Other Patient Handouts: Managing Type 2 Diabetes Admission Data Admit Date/Time: 08/29/19 10:48 Attending Provider: Spencer Berman Admit Provider: Spencer Berman Primary Care Provider: Russ Browning Other Providers: Brad Casiano ; Joaquim Sanchez
== END 2019-09-02 15:41 | disposition home or self-care (01) | DRG 454 ==
LOC: ASU 06:16 → 3E 10:48

== ENCOUNTER 2024-05-15 23:11 | Inpatient (IN) ==
--- NOTE | 2024-05-16 00:52 | Emergency Department Note ---
Impression & Plan Severe sepsis, Acute UTI (urinary tract infection), Hypomagnesemia ED Provider Note Name: LENNY MOTLEY Age: 73 Sex: Female Arrives Via: Ambulance Informant: Patient, daughter ED Provider: Obinna Jones MD Chief Complaint: Illness Impression: As per impressions above Medical Decision Makin-year-old female with essentially 12 hours of worsening fevers, chills, body aches, weakness and multiple ground-level falls. No head injury or other injury reported by patient. Patient on arrival is mildly hypoxic hypotensive and tachycardic. She did have fevers at home. Concern for sepsis. Blood cultures lactic acid obtained. She is given 1 L normal saline bolus IV with significant improvement in her blood pressure. She was feeling a bit better after this. Urinalysis shows bacteria and is consistent with infection. Laboratory workup also is consistent with infection. She does not have an elevated lactic acid. Zosyn given for infection coverage does not have significant risk factors for MRSA. Patient did have blood pressure start trending down a bit. She was given another 1 L normal saline bolus with again good improvement of blood pressure. Sepsis resuscitation: Patient was given initial 1 L normal saline bolus IV resuscitation rather than 30/kg IV bolus given history of CHF and concerns for fluid overload. Sepsis reevaluation: A sepsis reevaluation examination was completed at 3 AM by me. Blood pressure 106/80 heart rate of 95 and patient breathing comfortably. She is agreeable to hospitalization at this time. Triage/Nursing Notes reviewed by Me Differential:Infection, dehydration, metabolic abnormality, hypo/hyperglycemia, electrolyte disturbance, anemia, hypoxia, cardiac sources, intracerebral event, toxicologic, neurologic, as well as other pathologies. Vital Signs: reviewed and remarkable for hypotensive, tachycardic hypoxia Interventions: Normal saline bolus 1 L IV x 2, Zosyn 4.5 g IV, magnesium 1 g IV Labs:ED labs Reviewed by me and remarkable for elevated white blood cell count, elevated procalcitonin, urinalysis consistent with infection, low magnesium Imagin view chest x-ray as per my interpretation mild congestive findings no lobar infiltrate appreciated. EKG:As per my interpretation. Indication generalized weakness. Sinus rhythm with PACs at 73 bpm and a QTc of 440. There is no ischemia. Compared to EKG of August 05, 2019 PACs are new. Cardiac/Tele Monitoring: Cardiac Monitoring: An Order was placed for continuous cardiac monitoring. The monitor shows a rate of 70 with a normal sinus rhythm. Cons[facility] and manage. Plan: Disposition:Hospitalization. Condition: Fair History of Present Illness: 73-year-old female arrives for evaluation illness. Patient notes for last week she has been having some increased aches and pains but related that to her chronic arthritic problems. Over the last 12 hours no significant worsening body aches, fevers, chills, weakness. She has been unable to get around the house and actually has been sitting on the floor much. She notes falls but without any trauma to head or neck and sort of lowers herself to the ground. He denies any headache or neck pain. Patient does note that she has had some increased urinary frequency. Patient denies any specific shortness of breath cough, runny nose, headache, neck stiffness, abdominal pain, nausea, vomiting, diarrhea, leg swelling, rashes or other concerning signs or symptoms. She has not been eating or drinking well the last day or so. Past Medical History:See Below Home Medications:See Below Allergies:See Below Vitals:Blood Pressure: 98/68, Pulse 115, RR 20, T 36.7C, O2 94% on 2L NC Physical Exam: GENERAL: Patient is unwell and diaphoretic appearing and in mild distress. RESPIRATORY: No dyspnea. Clear to auscultation and equal bilaterally. CARDIOVASCULAR: Tachycardic.No murmur appreciated. GASTROINTESTINAL: Abdomen soft, non-tender, no peritonitis. EXTREMITIES: Normal motion all extremities, no cyanosis, no edema. NEUROLOGIC: Alert and oriented. No focal neurologic deficits appreciated SKIN: No rash, no jaundice, no diaphoresis. PSYCH: Appropriate GCS: 15 ED Course: Times/Reassessments: Repeat evaluations show improvement in blood pressure and patient feeling a bit better after resuscitation. Continues to require some nasal cannula O2 though not in significant respiratory distress. Agreeable to hospitalization. Critical Care: I have personally spent 45 minutes of critical care time in the direct management of this patient. Severe sepsis with hypotension initially secondary to UTI. This was a life/limb threatening event. This 45 minutes is in excess of all separately billable procedures. Obinna Jones MD Past Med/Surg History Problem List (Updated 05/16/24 @ 05:25 by Everett Shaikh MD) Urine retention Hypokalemia Elevated troponin Hypomagnesemia (Acute) Acute UTI (urinary tract infection) (Acute) Severe sepsis (Acute) Chronic anticoagulation Apixaban for history of DVT History of lumbar fusion L4-S1 fusion with Dr. Berman in 2019 Chronic, continuous use of opioids Frequent falls Bilateral sacroiliitis Vulvar rash Arthritis with psoriasis on chronic methylprednisolone 4mg daily Lumbar radiculopathy CHRISTIANO (obstructive sleep apnea) CPAP DM type 2 (diabetes mellitus, type 2) IDDM Neurogenic claudication due to lumbar spinal stenosis Hypertension Hyperlipidemia Peripheral neuropathy right foot CAD (coronary artery disease) non-obstructive per 12/2018 cardiac cath per patient Chronic diastolic CHF (congestive heart failure) DVT prophylaxis Fever Urinary incontinence Acute and chronic respiratory failure with hypoxia Bronchopneumonia Indeterminate pulmonary nodules Influenza A Urinary incontinence Mixed incontinence DVT (deep venous thrombosis) Osteoarthritis of right wrist Chronic venous insufficiency Medical History History of blood transfusion post-op knee surgery Hypothyroidism s/p radioactive iodine Osteoarthritis Degenerative disc disease Chronic back pain Peptic ulcer disease hx GERD (gastroesophageal reflux disease) Depression Anxiety Congestive heart failure 2013 with pulmonary edema --> respiratory arrest --> [facility] [place] Bronchitis hx Surgical History History of cardiac cath no stents. Fall 2018, [facility] History of nasal septoplasty History of dilatation and curettage S/P right knee arthroscopy S/P lymph node biopsy left axillary node (-) S/P Achilles tendon repair and tarsal tunnel repair right foot S/P SHONA-BSO umbilicial hernia repair with cystocele & rectocele History of carpal tunnel release bilateral History of total knee arthroplasty bilateral History of revision of total knee arthroplasty left S/P epidural steroid injection History of cholecystectomy History of appendectomy History of esophagogastroduodenoscopy (EGD) History of colonoscopy Family History Other No family history of adverse response to anesthesia No pertinent family history Social History Smoking Status: Never smoker Second Hand Exposure: No; Do You Dip or Chew Tobacco: No; Hx Alcohol Use: Yes Alcohol type: beer and wine Hx Substance Use: No Preferred Language: Greenlandic Communication Ability: Effective Sales Stock Associate Required: No Beliefs That Will Affect Care: None marital status: / Current Living Situation: Alone Other Information That Helps Us Care for You: No Feels Safe at Home: Yes Safety Concerns: Feels Safe At This Time Assistive Devices: Cane, CPAP, Glasses and Walker Allergies Allergies Allergy/AdvReac Type Severity Reaction Status Date / Time Sulfa (Sulfonamide Allergy Anaphylaxis, Unverified 04/21/24 09:20 Antibiotics) rash pentazocine [From Talwin] AdvReac Nausea Unverified 04/21/24 09:20 Home Meds Home Medications Medication Instructions Recorded Confirmed allopurinol 100 mg tablet 100 mg PO BID 04/02/18 05/16/24 apremilast 30 mg tablet (Otezla) 30 mg PO BID 04/02/18 05/16/24 carvedilol 6.25 mg tablet 6.25 mg PO BID 04/02/18 05/16/24 ergocalciferol (vitamin D2) 1,250 50,000 unit PO WK 04/02/18 05/16/24 mcg (50,000 unit) capsule fenofibrate nanocrystallized 145 145 mg PO HS 04/02/18 05/16/24 mg tablet furosemide 40 mg tablet 40 mg PO DAILY 04/02/18 05/16/24 glucosamine sulf dipotassium Cl 1 tab PO BID 05/30/18 05/16/24 500 mg-chondroitin sulf 400 mg tablet (Glucosamine-Chondroitin DS) lisinopril 10 mg tablet 10 mg PO DAILY 05/30/18 05/16/24 famotidine 40 mg tablet (Pepcid) 40 mg PO DAILY 01/14/19 05/16/24 insulin lispro 100 unit/mL 0 units subcut TIDM 01/14/19 05/16/24 subcutaneous pen (Humalog KwikPen (U-100) Insulin) magnesium oxide 500 mg capsule 500 mg PO DAILY 07/18/19 05/16/24 semaglutide 0.25 mg or 0.5 mg (2 0.25 mg subcut WK 08/19/19 05/16/24 mg/1.5 mL) subcutaneous pen injector (Ozempic) sertraline 100 mg tablet 100 mg PO DAILY 08/11/22 05/16/24 alirocumab 150 mg/mL subcutaneous 150 mg subcut 09/20/22 04/21/24 pen injector (Praluent Pen) insulin glargine 100 unit/mL (3 28 unit subcut DAILY 08/24/23 05/16/24 mL) subcutaneous pen (Lantus Solostar U-100 Insulin) levothyroxine 175 mcg tablet 175 mcg PO DAILY 08/24/23 05/16/24 gabapentin 400 mg capsule 400 mg PO BID 04/15/24 05/16/24 Previous Rx's Medication Instructions Recorded oxycodone 5 mg tablet 5 mg PO Q6H PRN pain, severe #20 08/30/19 tabs apixaban 5 mg tablet (Eliquis) 5 mg PO BID #180 tabs 05/23/23 betamethasone dipropionate 0.05 % 1 applic topical BID #45 grams 11/02/23 topical ointment clotrimazole-betamethasone 1 1 applic topical DAILY PRN itching 04/21/24 %-0.05 % topical cream #45 grams estradiol 0.01% (0.1 mg/gram) 1 g vaginal .COMPLEX #42.5 grams 04/21/24 vaginal cream (Estrace) vibegron 75 mg tablet (Gemtesa) 75 mg PO DAILY #90 tabs 05/09/24 Results & Data (ED) Vital Signs Vital Signs - 24 hr 05/16/24 00:00 05/16/24 00:30 05/16/24 00:30 Temperature Temperature Source Pulse Rate 91 H 82 Pulse Rate [Finger] 78 Pulse Rate from SpO2 Sensor 88 Pulse Rhythm [Finger] Regular Pulse Strength [Finger] Normal Respiratory Rate 24 20 24 Respiratory Effort / Characteristics Non-Labored Spontaneous Respiratory Depth Normal Respiratory Pattern Regular Blood Pressure 97/44 L 92/58 L Blood Pressure [Right Arm] 93/53 L Blood Pressure Mean 53 69 Blood Pressure Mean [Right Arm] 66 Blood Pressure Position [Right Arm] Pulse Oximetry 95 96 95 Oxygen Delivery Method Nasal Cannula Oxygen Flow Rate 2 05/16/24 01:00 05/16/24 01:00 05/16/24 01:06 Temperature Temperature Source Pulse Rate 90 Pulse Rate [Finger] 78 Pulse Rate from SpO2 Sensor 91 H Pulse Rhythm [Finger] Regular Pulse Strength [Finger] Respiratory Rate 24 24 Respiratory Effort / Characteristics Non-Labored Spontaneous Respiratory Depth Normal Respiratory Pattern Regular Blood Pressure 93/53 L Blood Pressure [Right Arm] 115/61 Blood Pressure Mean 66 Blood Pressure Mean [Right Arm] 79 Blood Pressure Position [Right Arm] Lying Pulse Oximetry 98 95 Oxygen Delivery Method Nasal Cannula Room Air Oxygen Flow Rate 2 05/16/24 01:30 05/16/24 02:00 05/16/24 02:00 Temperature 36.6 C Temperature Source Oral Pulse Rate 96 H Pulse Rate [Finger] 115 H 102 H Pulse Rate from SpO2 Sensor 76 Pulse Rhythm [Finger] Regular Regular Pulse Strength [Finger] Normal Normal Respiratory Rate 24 22 22 Respiratory Effort / Characteristics Non-Labored Spontaneous Non-Labored Spontaneous Respiratory Depth Normal Normal Respiratory Pattern Regular Regular Blood Pressure 101/56 L Blood Pressure [Right Arm] 107/65 107/65 Blood Pressure Mean 71 Blood Pressure Mean [Right Arm] 79 79 Blood Pressure Position [Right Arm] Lying Lying Pulse Oximetry 95 94 95 Oxygen Delivery Method Nasal Cannula Nasal Cannula Oxygen Flow Rate 2 2 05/16/24 02:15 05/16/24 02:47 05/16/24 03:00 Temperature Temperature Source Pulse Rate 90 82 Pulse Rate [Finger] 81 Pulse Rate from SpO2 Sensor Pulse Rhythm [Finger] Regular Pulse Strength [Finger] Normal Respiratory Rate 25 H 22 22 Respiratory Effort / Characteristics Non-Labored Respiratory Depth Normal Respiratory Pattern Regular Blood Pressure 107/63 95/62 L Blood Pressure [Right Arm] 106/80 Blood Pressure Mean 81 73 Blood Pressure Mean [Right Arm] 88 Blood Pressure Position [Right Arm] Pulse Oximetry 96 95 Oxygen Delivery Method Nasal Cannula Nasal Cannula Oxygen Flow Rate 2 2 05/16/24 03:00 05/16/24 03:15 05/16/24 03:22 Temperature Temperature Source Pulse Rate 94 H 103 H Pulse Rate [Finger] 100 H Pulse Rate from SpO2 Sensor Pulse Rhythm [Finger] Regular Pulse Strength [Finger] Normal Respiratory Rate 22 18 Respiratory Effort / Characteristics Non-Labored Spontaneous Respiratory Depth Normal Respiratory Pattern Regular Blood Pressure 106/80 Blood Pressure [Right Arm] 106/80 Blood Pressure Mean 93 Blood Pressure Mean [Right Arm] 88 Blood Pressure Position [Right Arm] Lying Pulse Oximetry 95 Oxygen Delivery Method Nasal Cannula Oxygen Flow Rate 2 Laboratory Data 05/16/24 14:09 05/16/24 14:09 Lab Results 05/15/24 05/16/24 05/16/24 Range/Units 23:20 01:15 02:01 WBC 16.97 H (4.8-10.8) K/ul RBC 3.90 L (4.20-5.40) M/uL Hgb 11.8 L (12.0-16.0) g/dl Hct 36.1 L (37.0-47.0) % MCV 92.6 (80.0-100.0) fL MCH 30.3 (25.0-34.0) pg MCHC 32.7 (32.0-36.0) g/dL RDW Std Deviation 45.9 (36.4-46.3) fL RDW Coeff of Nadege 13.7 (11.5-14.5) % Plt Count 269 (130-400) K/uL MPV 10.3 (9.4-12.4) fL Immature Gran % (Auto) 0.5 % Neut % (Auto) 86.1 % Lymph % (Auto) 5.7 % [place] % (Auto) 7.2 % Eos % (Auto) 0.2 % Baso % (Auto) 0.3 % Neut # (Auto) 14.63 H (1.40-6.50) K/uL Lymph # (Auto) 0.96 L (1.20-3.40) K/uL [place] # (Auto) 1.22 H (0.11-0.59) K/uL Eos # (Auto) 0.03 (0.00-0.50) K/uL Baso # (Auto) 0.05 (0.00-0.20) K/uL Immature Gran # (Auto) 0.08 (0.01-0.20) K/uL VBG pH 7.42 H (7.36-7.41) VBG pCO2 41 (38-50) mmHg VBG pO2 54 mmHg VBG HCO3 27 mmol/L VBG O2 Saturation 86.1 % VBG Base Excess 1.9 mEq/L Sodium 137 (136-145) mmol/L Potassium 3.3 L (3.5-5.1) mmol/L Chloride 102 (98-107) mmol/L Carbon Dioxide 26 (21-32) mmol/L Anion Gap 9 (3-11) BUN 28 H (6-23) mg/dl Creatinine 1.05 (0.6-1.2) mg/dl Est Cr Clr Drug Dosing 53.5 ml/min eGFR 56.45 BUN/Creatinine Ratio 26.7 H (10-20) Glucose 196 H (70-99(Fasting)) mg/dl Lactate 1.0 (0.4-2.0) mmol/L Calcium 9.2 (8.6-10.3) mg/dl Magnesium 1.4 L (1.7-2.4) mg/dl Total Bilirubin 0.6 (0.2-1.0) mg/dl Direct Bilirubin 0.2 (0-0.2) mg/dl AST 34 (13-39) U/L ALT 20 (7-52) U/L Alkaline Phosphatase 37 (34-104) U/L Troponin I High Sens 36.4 H (0-14) pg/ml Total Protein 6.4 (6.0-8.3) gm/dl Albumin 3.6 (3.4-5.0) gm/dl Procalcitonin 8.38 H (0-0.5) ng/ml Urine Color Yellow Urine Appearance Cloudy A (Clear) Urine pH 6.0 (4.5-7.5) Ur Specific [place] 1.015 (1.000-1.030) Urine Protein 2+ H (Negative) Urine Glucose (UA) Negative (Negative) Urine Ketones Trace H (Negative) Urine Blood 1+ H (Negative) Urine Nitrite Positive A (Negative) Urine Bilirubin Negative (Negative) Urine Urobilinogen Negative (Negative) Ur Leukocyte Esterase 3+ H (Negative) Urine WBC (Auto) >50 H (0-5) /hpf Urine RBC (Auto) 0-2 (0-2) /hpf U Hyaline Cast (Auto) 3-5 H (0-2) /lpf U Epithel Cells (Auto) 0-2 (0-2) /hpf Urine Bacteria (Auto) 4+ H (None Seen) SARS-CoV-2 (PCR) NEGATIVE (Negative) Enterobacterales (PCR) DETECTED A (NotDetected) E. coli (PCR) DETECTED A (NotDetected) Influenza Type A (PCR) Negative (Neg) Influenza Type B (PCR) Negative (Neg) RSV (RT-PCR) Negative (Neg) mcr-1 Colistin Res Gene PCR Not Detected (NotDetected) blaIMP Car res Gene PCR Not Detected (NotDetected) KPC-Carbap Res Gene PCR Not Detected (NotDetected) blaNDM Car Res Gene PCR Not Detected (NotDetected) OXA-48 Carbapenem Resis Gene (PCR) Not Detected (NotDetected) blaVIM Car Res Gene PCR Not Detected (NotDetected) CTX-M Gene Resistance (PCR) Not Detected (NotDetected) Bld Cult ID Panel PCR See PCR Comment (NotDetected) 05/16/24 Range/Units 03:07 WBC (4.8-10.8) K/ul RBC (4.20-5.40) M/uL Hgb (12.0-16.0) g/dl Hct (37.0-47.0) % MCV (80.0-100.0) fL MCH (25.0-34.0) pg MCHC (32.0-36.0) g/dL RDW Std Deviation (36.4-46.3) fL RDW Coeff of Nadege (11.5-14.5) % Plt Count (130-400) K/uL MPV (9.4-12.4) fL Immature Gran % (Auto) % Neut % (Auto) % Lymph % (Auto) % [place] % (Auto) % Eos % (Auto) % Baso % (Auto) % Neut # (Auto) (1.40-6.50) K/uL Lymph # (Auto) (1.20-3.40) K/uL [place] # (Auto) (0.11-0.59) K/uL Eos # (Auto) (0.00-0.50) K/uL Baso # (Auto) (0.00-0.20) K/uL Immature Gran # (Auto) (0.01-0.20) K/uL VBG pH (7.36-7.41) VBG pCO2 (38-50) mmHg VBG pO2 mmHg VBG HCO3 mmol/L VBG O2 Saturation % VBG Base Excess mEq/L Sodium (136-145) mmol/L Potassium (3.5-5.1) mmol/L Chloride (98-107) mmol/L Carbon Dioxide (21-32) mmol/L Anion Gap (3-11) BUN (6-23) mg/dl Creatinine (0.6-1.2) mg/dl Est Cr Clr Drug Dosing ml/min eGFR BUN/Creatinine Ratio (10-20) Glucose (70-99(Fasting)) mg/dl Lactate (0.4-2.0) mmol/L Calcium (8.6-10.3) mg/dl Magnesium (1.7-2.4) mg/dl Total Bilirubin (0.2-1.0) mg/dl Direct Bilirubin (0-0.2) mg/dl AST (13-39) U/L ALT (7-52) U/L Alkaline Phosphatase (34-104) U/L Troponin I High Sens 28.7 H (0-14) pg/ml Total Protein (6.0-8.3) gm/dl Albumin (3.4-5.0) gm/dl Procalcitonin (0-0.5) ng/ml Urine Color Urine Appearance (Clear) Urine pH (4.5-7.5) Ur Specific [place] (1.000-1.030) Urine Protein (Negative) Urine Glucose (UA) (Negative) Urine Ketones (Negative) Urine Blood (Negative) Urine Nitrite (Negative) Urine Bilirubin (Negative) Urine Urobilinogen (Negative) Ur Leukocyte Esterase (Negative) Urine WBC (Auto) (0-5) /hpf Urine RBC (Auto) (0-2) /hpf U Hyaline Cast (Auto) (0-2) /lpf U Epithel Cells (Auto) (0-2) /hpf Urine Bacteria (Auto) (None Seen) SARS-CoV-2 (PCR) (Negative) Enterobacterales (PCR) (NotDetected) E. coli (PCR) (NotDetected) Influenza Type A (PCR) (Neg) Influenza Type B (PCR) (Neg) RSV (RT-PCR) (Neg) mcr-1 Colistin Res Gene PCR (NotDetected) blaIMP Car res Gene PCR (NotDetected) KPC-Carbap Res Gene PCR (NotDetected) blaNDM Car Res Gene PCR (NotDetected) OXA-48 Carbapenem Resis Gene (PCR) (NotDetected) blaVIM Car Res Gene PCR (NotDetected) CTX-M Gene Resistance (PCR) (NotDetected) Bld Cult ID Panel PCR (NotDetected) Administered Medications Acetaminophen (Acetaminophen 325 Mg Tab) 650 mg PO QID [facility] Stop: 06/15/24 17:14 Last Admin: 05/16/24 21:43 Dose: 650 mg Documented By: Admin: 05/16/24 18:36 Dose: 650 mg Documented By: FELIPE Allopurinol (Allopurinol 100 Mg Tab) 100 mg PO BID [facility] Stop: 06/15/24 08:59 Last Admin: 05/16/24 21:44 Dose: 100 mg Documented By: Admin: 05/16/24 08:22 Dose: 100 mg Documented By: OLI Apixaban (Apixaban 5 Mg Tablet) 5 mg PO BID [facility] Stop: 06/15/24 08:59 Last Admin: 05/16/24 21:44 Dose: Not Given Documented By: Admin: 05/16/24 16:27 Dose: Not Given Documented By: OLI Famotidine (Famotidine 40 Mg Tablet) 40 mg PO DAILY [facility] Stop: 06/15/24 08:59 Last Admin: 05/16/24 08:22 Dose: 40 mg Documented By: OLI Fenofibrate (Fenofibrate Nanocrystallized 145 Mg Tablet) 145 mg PO HS [facility] Stop: 06/15/24 20:59 Last Admin: 05/16/24 21:43 Dose: 145 mg Documented By: OLI Gabapentin (Gabapentin 400 Mg Cap) 400 mg PO BID [facility] Stop: 06/15/24 08:59 Last Admin: 05/16/24 21:43 Dose: 400 mg Documented By: Admin: 05/16/24 08:22 Dose: 400 mg Documented By: OLI Piperacillin Sod/Tazobactam Sod (Zosyn) 4.5 gm in 100 mls @ 25 mls/hr IV Q8H [facility]; Protocol Stop: 05/18/24 07:59 Last Infusion: 05/16/24 19:33 Dose: Infused Documented By: Admin: 05/16/24 15:37 Dose: 25 mls/hr Documented By: Infusion: 05/16/24 12:41 Dose: Infused Documented By: Admin: 05/16/24 08:19 Dose: 25 mls/hr Documented By: OLI Insulin Aspart (Insulin Aspart Per Unit Charge) 0 units SC ACHS [facility] Stop: 06/15/24 07:29 Last Admin: 05/16/24 20:26 Dose: Not Given Documented By: Admin: 05/16/24 17:36 Dose: 6 units Documented By: OLI Co-signed By: LUIS Admin: 05/16/24 12:23 Dose: 11 units Documented By: OLI Co-signed By: FELIPE Admin: 05/16/24 08:31 Dose: 6 units Documented By: OLI Co-signed By: FELIPE Insulin Glargine (Lantus Per Unit Charge) 12 units SC QAM [facility] Stop: 06/15/24 11:59 Last Admin: 05/16/24 12:23 Dose: 12 units Documented By: OLI Co-signed By: FELIPE Levothyroxine Sodium (Levothyroxine Sodium 175 Mcg Tablet) 175 mcg PO DAILYBB [facility] Stop: 06/15/24 06:29 Last Admin: 05/16/24 06:54 Dose: 175 mcg Documented By: SEH Magnesium Oxide (Magnesium Oxide 400 Mg Tab) 400 mg PO DAILY [facility] Stop: 06/15/24 08:59 Last Admin: 05/16/24 08:22 Dose: 400 mg Documented By: OLI Miscellaneous (Otezla~Order Awaiting Action) 1 each N/A QS [facility] Stop: 06/15/24 07:59 Last Admin: 05/16/24 15:42 Dose: Not Given Documented By: Admin: 05/16/24 08:17 Dose: Not Given Documented By: OLI Oxycodone HCl (Oxycodone Hcl Ir 5 Mg Tab (Immediate Release)) 5 mg PO Q6H PRN PRN Reason: pain, severe Stop: 05/30/24 05:41 Last Admin: 05/16/24 18:36 Dose: 5 mg Documented By: FELIPE Sertraline HCl (Sertraline Hcl 100 Mg Tablet) 100 mg PO DAILY [facility] Stop: 06/15/24 08:59 Last Admin: 05/16/24 08:22 Dose: 100 mg Documented By: OLI Vibegron (Vibegron 75 Mg Tab) 75 mg PO DAILY [facility] Stop: 06/15/24 08:59 Last Admin: 05/16/24 08:22 Dose: 75 mg Documented By: OLI Discontinued Medications Acetaminophen (Acetaminophen 325 Mg Tab) 650 mg PO Q4H PRN PRN Reason: pain/fever Stop: 06/15/24 05:41 Last Admin: 05/16/24 14:30 Dose: 650 mg Documented By: OLI Sodium Chloride (Nss) 1,000 mls @ 999 mls/hr IV .Q1H1M [facility] Stop: 05/16/24 02:00 Last Infusion: 05/16/24 03:09 Dose: Infused Documented By: Admin: 05/16/24 02:04 Dose: 999 mls/hr Documented By: FRED Piperacillin Sod/Tazobactam Sod (Zosyn) 4.5 gm in 100 mls @ 200 mls/hr IV NOW ONE Stop: 05/16/24 02:07 Last Infusion: 05/16/24 02:34 Dose: Infused Documented By: Admin: 05/16/24 02:04 Dose: 200 mls/hr Documented By: FRED Sodium Chloride (Nss) 1,000 mls @ 999 mls/hr IV .Q1H1M ONE Stop: 05/16/24 03:34 Last Infusion: 05/16/24 03:58 Dose: Infused Documented By: Admin: 05/16/24 02:38 Dose: 999 mls/hr Documented By: FRED Magnesium Sulfate/Dextrose (Magnesium Sulfate / D5w) 1 gm in 100 mls @ 100 mls/hr IV NOW STA Stop: 05/16/24 03:41 Last Infusion: 05/16/24 04:10 Dose: Infused Documented By: Admin: 05/16/24 03:11 Dose: 100 mls/hr Documented By: FRED Acetaminophen (Ofirmev) 1,000 mg in 100 mls @ 400 mls/hr IV NOW STA Stop: 05/16/24 04:44 Last Infusion: 05/16/24 05:00 Dose: Infused Documented By: [facility] Admin: 05/16/24 04:46 Dose: 400 mls/hr Documented By: FRED Magnesium Sulfate/Dextrose (Magnesium Sulfate / D5w) 1 gm in 100 mls @ 100 mls/hr IV NOW STA Stop: 05/16/24 05:31 Last Infusion: 05/16/24 07:48 Dose: Infused Documented By: Admin: 05/16/24 05:44 Dose: 100 mls/hr Documented By: SHE Famotidine (Pepcid 20mg Iv Push) 20 mg in 5 mls @ 2.5 mls/min IV NOW STA Stop: 05/16/24 04:34 Last Admin: 05/16/24 04:58 Dose: 2.5 mls/min Documented By: FRED Potassium Chloride (K Johan / Wtr) 10 meq in 100 mls @ 100 mls/hr IV Q1H [place] Stop: 05/16/24 06:44 Last Infusion: 05/16/24 07:55 Dose: Infused Documented By: Admin: 05/16/24 06:53 Dose: 100 mls/hr Documented By: Infusion: 05/16/24 06:52 Dose: Infused Documented By: [facility] Admin: 05/16/24 05:52 Dose: 100 mls/hr Documented By: SHE Parenteral Electrolytes (Plasma-Lyte A Ph 7.4) 500 mls @ 80 mls/hr IV .Q6H15M STA Stop: 05/16/24 11:59 Last Infusion: 05/16/24 12:42 Dose: Infused Documented By: Admin: 05/16/24 06:07 Dose: 80 mls/hr Documented By: SHE Sodium Chloride (Nss) 1,000 mls @ 999 mls/hr IV .Q1H1M [place] Stop: 05/16/24 09:01 Last Admin: 05/16/24 09:34 Dose: Not Given Documented By: OLI Ondansetron HCl (Ondansetron Inj 2 Mg/Ml 2 Ml Vial) 4 mg IV NOW STA Stop: 05/16/24 04:32 Last Admin: 05/16/24 04:46 Dose: 4 mg Documented By: FRED Ondansetron HCl (Ondansetron Inj 2 Mg/Ml 2 Ml Vial) Confirm Administered Dose 4 mg .ROUTE .STK-MED ONE Stop: 05/16/24 04:36 Last Admin: 05/16/24 04:58 Dose: Not Given Documented By: [facility] Data Radiologist's Impression: Chest X-Ray 05/16/24 00:49 EXAM: XR chest 1V portable CLINICAL HISTORY: Sepsis. TECHNIQUE: An X-ray image of the chest is obtained in AP projection. COMPARISON: X-ray 08/30/2019 was reviewed. FINDINGS: Pulmonary Parenchyma: Prominent perihilar bronchovascular markings. No evidence of consolidation, collapse, or focal opacities. No pulmonary nodules are identified. Blunting of the left costophrenic angle. The right costophrenic angle is sharp. Heart and Mediastinum: Enlarged cardiac size. Prominent yo. No mediastinal widening or masses. Bony Thorax: The bony thorax appears intact without fractures or deformities. Soft Tissues: Calcification focus at the left greater tuberosity could represent calcific tendinosis. IMPRESSION: Blunting of the left costophrenic angle could represent minimal pleural effusion or be due to the cardiac shadow. Enlarged cardiac size. Stable. Mildly alert pulmonary congestion. Interval pronounced. Electronically signed by Lalit Aguilera 05-16-2024 02:12 AM Discharge Plan Visit Data Chief Complaint: Fall Stated Complaint: Falls, Weakness ED Provider: Obinna Jones Discharge Problem: Severe sepsis, Acute UTI (urinary tract infection), Hypomagnesemia Patient Disposition: Admitted As Inpatient Discharge Instructions Interventions: ED Discharge Assessment Last Done: 05/16/24 04:59
[2024-05-16 01:11] LABS: Basophils # (auto) 0.05 K/uL (0.00-0.20); Basophils % (auto) 0.3 %; Eosinophils # (auto) 0.03 K/uL (0.00-0.50); Eosinophils % (auto) 0.2 %; Hematocrit (blood only) 36.1 % (37.0-47.0); Hemoglobin 11.8 g/dl (12.0-16.0); Immature Granulocytes # (auto) 0.08 K/uL (0.01-0.20); Immature Granulocytes % (auto) 0.5 %; Lymphocytes # (auto) 0.96 K/uL (1.20-3.40); Lymphocytes % (auto) 5.7 %; Mean Corpuscular Hemoglobin 30.3 pg (25.0-34.0); Mean Corpuscular Hgb Conc 32.7 g/dL (32.0-36.0); Mean Corpuscular Volume 92.6 fL (80.0-100.0); Mean Platelet Volume 10.3 fL (9.4-12.4); Monocytes # (auto) 1.22 K/uL (0.11-0.59); Monocytes % (auto) 7.2 %; Neutrophils # (auto) 14.63 K/uL (1.40-6.50); Neutrophils % (auto) 86.1 %; Platelet Count 269 K/uL (130-400); RDW Coefficient of Variation 13.7 % (11.5-14.5); RDW Standard Deviation 45.9 fL (36.4-46.3); White Blood Count 16.97 K/ul (4.8-10.8)
[2024-05-16 01:29] LABS: Base Excess VBG 1.9 mEq/L; HCO3 VBG 27 mmol/L; Oxygen Saturation VBG 86.1 %; PCO2 VBG 41 mmHg (38-50); PO2 VBG 54 mmHg; pH VBG 7.42 (7.36-7.41)
[2024-05-16 01:34] LABS: Albumin Level 3.6 gm/dl (3.4-5.0); BUN Creatinine Ratio 26.7 (10-20); Bilirubin Direct 0.2 mg/dl (0-0.2); Bilirubin,Total 0.6 mg/dl (0.2-1.0); Calcium 9.2 mg/dl (8.6-10.3); Creatinine Clr Calc Pharmacy 53.5 ml/min; Magnesium 1.4 mg/dl (1.7-2.4); Potassium 3.3 mmol/L (3.5-5.1); Total Protein 6.4 gm/dl (6.0-8.3)
[2024-05-16 01:40] LABS: Troponin I High Sensitivity 36.4 pg/ml (0-14)
[2024-05-16] MEDS: SODIUM CHLORIDE 0.9% 1,000 ML IV SCH ×2 (02:04→09:34)
[2024-05-16] MEDS: PIPERACILLIN/TAZOBACTAM 4.5 GM/100 ML BAG IV ONE (02:04)
--- NOTE | 2024-05-16 02:12 | XRay Report ---
EXAM: XR chest 1V portable CLINICAL HISTORY: Sepsis. TECHNIQUE: An X-ray image of the chest is obtained in AP projection. COMPARISON: X-ray 08/30/2019 was reviewed. FINDINGS: Pulmonary Parenchyma: Prominent perihilar bronchovascular markings. No evidence of consolidation, collapse, or focal opacities. No pulmonary nodules are identified. Blunting of the left costophrenic angle. The right costophrenic angle is sharp. Heart and Mediastinum: Enlarged cardiac size. Prominent yo. No mediastinal widening or masses. Bony Thorax: The bony thorax appears intact without fractures or deformities. Soft Tissues: Calcification focus at the left greater tuberosity could represent calcific tendinosis. IMPRESSION: Blunting of the left costophrenic angle could represent minimal pleural effusion or be due to the cardiac shadow. Enlarged cardiac size. Stable. Mildly alert pulmonary congestion. Interval pronounced. Electronically signed by Lalit Aguilera 05-16-2024 02:12 AM
[2024-05-16 02:27] LABS: Appearance Urine Cloudy (Clear); Bacteria Urine Automated 4+ (None Seen); Bilirubin Urine Negative (Negative); Blood Urine 1+ (Negative); Color Urine Yellow; Epithelial Cell Urine Auto 0-2 /hpf (0-2); Glucose Urine UA Negative (Negative); Ketones Urine Trace (Negative); Leukocyte Esterase Urine 3+ (Negative); Nitrite Urine Positive (Negative); Protein Urine 2+ (Negative); RBC Urine Automated 0-2 /hpf (0-2); Specific Gravity Urine 1.015 (1.000-1.030); Urobilinogen Urine Negative (Negative); WBC Urine Automated >50 /hpf (0-5)
[2024-05-16] MEDS: SODIUM CHLORIDE 0.9% 1,000 ML IV ONE (02:38)
[2024-05-16 02:53] LABS: Influenza A virus by PCR Negative (Neg); Influenza B virus by PCR Negative (Neg); RSV by PCR Negative (Neg); SARS CoV2 RNA(COVID-19) Ceph NEGATIVE (Negative)
--- NOTE | 2024-05-16 03:04 | History & Physical Report ---
Date of Service May 16, 2024 Assessment & Plan (1) Severe sepsis: (2) Acute UTI (urinary tract infection): (3) Hypomagnesemia: (4) Hypokalemia: (5) Elevated troponin: (6) DM type 2 (diabetes mellitus, type 2): (7) Urine retention: Plan 73-year-old female PMHx frequent falls, CHRISTIANO, T2DM, HTN, HLD, CAD, CHF, prior DVT on Eliquis and chronic venous insufficiency presenting for ground-level fall at home. ED evaluation reveals leukocytosis 16.97, H&H 11.8/36.1; VBG's pH 7.42 otherwise grossly WNL; CMP potassium 3.3, BUN 28, ratio 26.7, glucose 196, magnesium 1.4; lactate 1; troponin 36.4, pending repeat; procalcitonin 8.38; UA with protein/ketones/blood/nitrite/LE/WBC/bacteria; pending serology; CXR blunting of L costophrenic angle, minimal pleural effusion or due to cardiac shadow, enlarged cardiac size, mild pulmonary congestion.; Provided with 2L NSS, Zosyn 4.5 g IV, and magnesium sulfate IV. 0424: Following initial evaluation of patient, nurse notified providers that patient was having rigors, N/V, and chest pain. HR > 120s, monitor reading Afib. EKG obtained, reading AFib; ? Afib vs artifact from rigors. Pt had not taken medications the day SMOKE EATER. Provided with famotidine, Tylenol, 20 mEq KCl, Zofran at time of episode. No fever at the time of episode. BP read as 163/84. Trop 28.7 then 30.2, lactate 2.2, TSH pending. No additional fluids given; urine retention > 500 mL so Torres catheter placed; Repeat lactate scheduled for 1000. #Sepsis/UTI Likely source urinary tract infection; initially hypotensive, received 2L NSS in ED, 500 mL by EMS (30 mL/kg calculated at 1568 mL). Meets SIRS criteria (HR > 90, WBC > 12). - CBC w/ leukocytosis; VBG pH 7.42; lactate 1.0; procal 8.38 - UA with infection - pending cx - Pending blood cultures - CXR blunting L costophrenic angle - Soft pressures, most recent 106/80; MAP 89 - Plasmalyte 80 mL/hr x 500 mL - gentle resuscitation given h/o CHF - Received 30mL/kg fluid criteria for sepsis (hypotension) - Ceftriaxone IV - Hold antihypertensives at admission - "Falls" likely 2/2 to sepsis/UTI- PT/OT ordered, appreciate assistance #Hypomagnesemia Identified on admission, on mag oxide as outpatient, also with hypokalemia; repleted - Mg 1.4- repeat am - MgSO4 1g IV given in ED #Hypokalemia Asymptomatic currently, also with hypomagnesemia. - K 3.3; Mg 1.4 - repeat AM - 20 mEq KCl IV now #Elevated troponin Pt w/ h/o CAD, HTN, CHF; no current chest pain/SOB/palpitations - Troponin 36.4, pending repeat - EKG NSR, without ischemic changes - Likely 2/2 demand/initial hypoxia #T2DM H/o DMT2; At home regimen Semaglutide, glargine 28U daily. - Most recent A1C 03/2024 @ 7.1% - SSI with target BSG range 110-140mg/dL, CF 25, carb ratio 8; Lantus 16U BID - T2DM diet - BSG ACHS if eating - Pharm glycemic management consult placed, appreciate assistance- Adjust regimen as needed #H/o DVT- Eliquis #HTN/CAD/CHF- Lisinopril, carvedilol, furosemide --> HELD antihypertensives at admission #HLD- Fenofibrate, ? alirocumab #Chronic pain/OA/DDD- Gabapentin, oxycodone #Psych- Sertraline #GERD- Famotidine #Hypothyroidism- Levothyroxine #Psoriatic arthritis- Otezla #OAB- Vibegron #CHRISTIANO- CPAP Dispo: Admit, PCU VTE Prophylaxis: On Eliquis This document was dictated utilizing Thumbs Up. Please excuse any grammatical errors that may be secondary to use of this software. Admission and Anticipated Discharge Date Admission Date: 05/16/2024 History of Present Illness Chief Complaint: Falls Primary Care Provider: Adrian Davies PA-C 73-year-old female PMHx frequent falls, CHRISTIANO, T2DM, HTN, HLD, CAD, CHF, prior DVT on Eliquis and chronic venous insufficiency presenting for ground-level fall at home. Patient states that she has "not felt good" for "weeks". States that she recently has not been able to get around as easily as she used to in the day SMOKE EATER she had 2 episodes where she slid out of bed. States that 1 happened early in the morning where she felt that she could not get herself up and slid to the ground, with assistance she got up and then the same occurrence in that afternoon, which prompted her daughter to call 911 for an evaluation. Patient states that she had a fever the day SMOKE EATER (39.4 Celsius) and felt that she has had chills. Complaining of some nausea without vomiting, but does find herself sometimes coughing up mucus which makes her gag. Over the past few days, she has had increased frequency with urination and she has some incontinence issues at baseline. Patient states that she has chronic back pain, but no new or worsening pain. Denies chest pain, shortness of breath, palpitations, abdominal pain, D/C, numbness/tingling, weakness, or dizziness. Was found to be hypotensive on arrival, given 500 mL NSS and route by EMS. Hypotensive again in ED, received total of 2L NSS. ED evaluation reveals leukocytosis 16.97, H&H 11.8/36.1; VBG's pH 7.42 otherwise grossly WNL; CMP potassium 3.3, BUN 28, ratio 26.7, glucose 196, magnesium 1.4; lactate 1; troponin 36.4, pending repeat; procalcitonin 8.38; UA with protein/ketones/blood/nitrite/LE/WBC/bacteria; p ending serology; CXR blunting of L costophrenic angle, minimal pleural effusion or due to cardiac shadow, enlarged cardiac size, mild pulmonary congestion.; Provided with 2L NSS, Zosyn 4.5 g IV, and magnesium sulfate IV. Please see Dr. Shaikh's attestation for adjustments/additions to treatment plan. Allergies Allergy/AdvReac Type Severity Reaction Status Date / Time Sulfa (Sulfonamide Allergy Anaphylaxis, Unverified 04/21/24 09:20 Antibiotics) rash pentazocine [From [place]] AdvReac Nausea Unverified 04/21/24 09:20 Home Medications Medication Instructions Recorded Confirmed Type allopurinol 100 mg tablet 100 mg PO BID 04/02/18 05/16/24 History apremilast 30 mg tablet (Otezla) 30 mg PO BID 04/02/18 05/16/24 History carvedilol 6.25 mg tablet 6.25 mg PO BID 04/02/18 05/16/24 History ergocalciferol (vitamin D2) 1,250 50,000 unit PO WK 04/02/18 05/16/24 History mcg (50,000 unit) capsule fenofibrate nanocrystallized 145 145 mg PO HS 04/02/18 05/16/24 History mg tablet furosemide 40 mg tablet 40 mg PO DAILY 04/02/18 05/16/24 History glucosamine sulf dipotassium Cl 1 tab PO BID 05/30/18 05/16/24 History 500 mg-chondroitin sulf 400 mg tablet (Glucosamine-Chondroitin DS) lisinopril 10 mg tablet 10 mg PO DAILY 05/30/18 05/16/24 History famotidine 40 mg tablet (Pepcid) 40 mg PO DAILY 01/14/19 05/16/24 History insulin lispro 100 unit/mL 0 units subcut TIDM 01/14/19 05/16/24 History subcutaneous pen (Humalog KwikPen (U-100) Insulin) magnesium oxide 500 mg capsule 500 mg PO DAILY 07/18/19 05/16/24 History semaglutide 0.25 mg or 0.5 mg (2 0.25 mg subcut WK 08/19/19 05/16/24 History mg/1.5 mL) subcutaneous pen injector (Ozempic) oxycodone 5 mg tablet 5 mg PO Q6H PRN pain, severe #20 08/30/19 05/16/24 Rx tabs sertraline 100 mg tablet 100 mg PO DAILY 08/11/22 05/16/24 History alirocumab 150 mg/mL subcutaneous 150 mg subcut 09/20/22 04/21/24 History pen injector (Praluent Pen) apixaban 5 mg tablet (Eliquis) 5 mg PO BID #180 tabs 05/23/23 05/16/24 Rx insulin glargine 100 unit/mL (3 28 unit subcut DAILY 08/24/23 05/16/24 History mL) subcutaneous pen (Lantus Solostar U-100 Insulin) levothyroxine 175 mcg tablet 175 mcg PO DAILY 08/24/23 05/16/24 History betamethasone dipropionate 0.05 % 1 applic topical BID #45 grams 11/02/23 05/16/24 Rx topical ointment gabapentin 400 mg capsule 400 mg PO BID 04/15/24 05/16/24 History clotrimazole-betamethasone 1 1 applic topical DAILY PRN itching 04/21/24 05/16/24 Rx %-0.05 % topical cream #45 grams estradiol 0.01% (0.1 mg/gram) 1 g vaginal .COMPLEX #42.5 grams 04/21/24 05/16/24 Rx vaginal cream (Estrace) vibegron 75 mg tablet (Gemtesa) 75 mg PO DAILY #90 tabs 05/09/24 05/16/24 Rx Past Med/Surg History Problem List (Updated 05/16/24 @ 05:25 by Everett Shaikh MD) Urine retention Hypokalemia Elevated troponin Hypomagnesemia (Acute) Acute UTI (urinary tract infection) (Acute) Severe sepsis (Acute) Chronic anticoagulation Apixaban for history of DVT History of lumbar fusion L4-S1 fusion with Dr. Berman in 2019 Chronic, continuous use of opioids Frequent falls Bilateral sacroiliitis Vulvar rash Arthritis with psoriasis on chronic methylprednisolone 4mg daily Lumbar radiculopathy CHRISTIANO (obstructive sleep apnea) CPAP DM type 2 (diabetes mellitus, type 2) IDDM Neurogenic claudication due to lumbar spinal stenosis Hypertension Hyperlipidemia Peripheral neuropathy right foot CAD (coronary artery disease) non-obstructive per 12/2018 cardiac cath per patient Chronic diastolic CHF (congestive heart failure) DVT prophylaxis Fever Urinary incontinence Acute and chronic respiratory failure with hypoxia Bronchopneumonia Indeterminate pulmonary nodules Influenza A Urinary incontinence Mixed incontinence DVT (deep venous thrombosis) Osteoarthritis of right wrist Chronic venous insufficiency Medical History History of blood transfusion post-op knee surgery Hypothyroidism s/p radioactive iodine Osteoarthritis Degenerative disc disease Chronic back pain Peptic ulcer disease hx GERD (gastroesophageal reflux disease) Depression Anxiety Congestive heart failure 2013 with pulmonary edema --> respiratory arrest --> [facility] [place] Bronchitis hx Surgical History History of cardiac cath no stents. Fall 2018, [facility] History of nasal septoplasty History of dilatation and curettage S/P right knee arthroscopy S/P lymph node biopsy left axillary node (-) S/P Achilles tendon repair and tarsal tunnel repair right foot S/P SHONA-BSO umbilicial hernia repair with cystocele & rectocele History of carpal tunnel release bilateral History of total knee arthroplasty bilateral History of revision of total knee arthroplasty left S/P epidural steroid injection History of cholecystectomy History of appendectomy History of esophagogastroduodenoscopy (EGD) History of colonoscopy Family History Other No family history of adverse response to anesthesia No pertinent family history Social History Smoking Status: Never smoker Second Hand Exposure: No; Do You Dip or Chew Tobacco: No; Hx Alcohol Use: Yes (occasionally) Alcohol type: beer, wine and hard liquor Hx Substance Use: No Preferred Language: Maldivian Communication Ability: Effective Yard Laborer Required: No Beliefs That Will Affect Care: None marital status: / Current Living Situation: Alone Feels Safe at Home: Yes Assistive Devices: Walker Review of Systems Review of Systems: All systems reviewed & are unremarkable except as noted in Subjective Physical Exam Physical Exam: General: No acute distress, soft BPs Skin: Warm and dry Head: Normocephalic, atraumatic Eyes: PERRL, conjunctivae clear, sclera non-icteric ENT: External ear and ear canal without swelling; nose atraumatic; good dentition, tongue normal appearance, pharynx normal Neck: Supple, no LAD Cardio: RRR, no M/G/R, S1 and S2 normal Resp: No respiratory distress, Lungs CTA in all lobes bilaterally, no wheezes, rales, or rhonchi Abdomen: Soft, symmetric, nontender; No masses or hepatosplenomegaly; Bowel sounds normoactive MSK: No deformities; pulses palpable and equal; no edema. Neuro: Awake, alert; Sensation intact bilaterally; CN grossly intact Psych: Appropriate mood and affect; good judgement and insight. Results & Data Results & Data Vital Signs (Past 12 Hours) Vital Signs Temp Pulse Pulse Resp BP BP Pulse Ox 05/16/24 02:00 102 H 22 107/65 95 05/16/24 02:00 36.6 C 115 H 22 107/65 94 05/16/24 01:30 96 H 24 101/56 L 95 05/16/24 01:06 05/16/24 01:00 90 24 93/53 L 95 05/16/24 01:00 78 24 115/61 98 05/16/24 00:30 82 24 92/58 L 95 05/16/24 00:30 78 20 93/53 L 96 05/16/24 00:00 91 H 24 97/44 L 95 05/15/24 23:35 115 H 20 98/68 L 94 05/15/24 23:30 90 24 98/68 L 95 05/15/24 23:23 99 H 05/15/24 23:05 05/15/24 23:05 36.7 C 107 H 20 101/58 L 88 L O2 Del Method O2 Flow Rate 05/16/24 02:00 Nasal Cannula 2 05/16/24 02:00 Nasal Cannula 2 05/16/24 01:30 05/16/24 01:06 Room Air 05/16/24 01:00 05/16/24 01:00 Nasal Cannula 2 05/16/24 00:30 05/16/24 00:30 Nasal Cannula 2 05/16/24 00:00 05/15/24 23:35 Nasal Cannula 2 05/15/24 23:30 05/15/24 23:23 05/15/24 23:05 Room Air 05/15/24 23:05 Room Air Laboratory Results 05/16/24 02:01 Urine Culture - Pending Urine,Clean Catch 05/16/24 01:15 Aerobic Blood Culture - Pending Blood Anaerobic Blood Culture - Pending 05/16/24 01:15 Aerobic Blood Culture - Pending Blood Anaerobic Blood Culture - Pending 05/16/24 05/16/24 05/15/24 02:01 01:15 23:20 WBC 16.97 H RBC 3.90 L Hgb 11.8 L Hct 36.1 L MCV 92.6 MCH 30.3 MCHC 32.7 RDW Std Deviation 45.9 RDW Coeff of Nadege 13.7 Plt Count 269 MPV 10.3 Immature Gran % (Auto) 0.5 Neut % (Auto) 86.1 Lymph % (Auto) 5.7 Jay % (Auto) 7.2 Eos % (Auto) 0.2 Baso % (Auto) 0.3 Neut # (Auto) 14.63 H Lymph # (Auto) 0.96 L Jay # (Auto) 1.22 H Eos # (Auto) 0.03 Baso # (Auto) 0.05 Immature Gran # (Auto) 0.08 VBG pH 7.42 H VBG pCO2 41 VBG pO2 54 VBG HCO3 27 VBG O2 Saturation 86.1 VBG Base Excess 1.9 Sodium 137 Potassium 3.3 L Chloride 102 Carbon Dioxide 26 Anion Gap 9 BUN 28 H Creatinine 1.05 Est Cr Clr Drug Dosing 53.5 eGFR 56.45 BUN/Creatinine Ratio 26.7 H Glucose 196 H Lactate 1.0 Calcium 9.2 Magnesium 1.4 L Total Bilirubin 0.6 Direct Bilirubin 0.2 AST 34 ALT 20 Alkaline Phosphatase 37 Troponin I High Sens 36.4 H Total Protein 6.4 Albumin 3.6 Procalcitonin 8.38 H Urine Color Yellow Urine Appearance Cloudy A Urine pH 6.0 Ur Specific [place]ham 1.015 Urine Protein 2+ H Urine Glucose (UA) Negative Urine Ketones Trace H Urine Blood 1+ H Urine Nitrite Positive A Urine Bilirubin Negative Urine Urobilinogen Negative Ur Leukocyte Esterase 3+ H Urine WBC (Auto) >50 H Urine RBC (Auto) 0-2 U Hyaline Cast (Auto) 3-5 H U Epithel Cells (Auto) 0-2 Urine Bacteria (Auto) 4+ H SARS-CoV-2 (PCR) NEGATIVE Influenza Type A (PCR) Negative Influenza Type B (PCR) Negative RSV (RT-PCR) Negative Diagnostic Findings Chest X-Ray 05/16/24 00:49 EXAM: XR chest 1V portable CLINICAL HISTORY: Sepsis. TECHNIQUE: An X-ray image of the chest is obtained in AP projection. COMPARISON: X-ray 08/30/2019 was reviewed. FINDINGS: Pulmonary Parenchyma: Prominent perihilar bronchovascular markings. No evidence of consolidation, collapse, or focal opacities. No pulmonary nodules are identified. Blunting of the left costophrenic angle. The right costophrenic angle is sharp. Heart and Mediastinum: Enlarged cardiac size. Prominent yo. No mediastinal widening or masses. Bony Thorax: The bony thorax appears intact without fractures or deformities. Soft Tissues: Calcification focus at the left greater tuberosity could represent calcific tendinosis. IMPRESSION: Blunting of the left costophrenic angle could represent minimal pleural effusion or be due to the cardiac shadow. Enlarged cardiac size. Stable. Mildly alert pulmonary congestion. Interval pronounced. Electronically signed by Lalit Aguilera 05-16-2024 02:12 AM Medications Administered 2L NSS Zosyn 4.5 g IV Magnesium sulfate IV ECG Additional Comments: Sinus rhythm, PACs, LAD, low voltage 73 bpm, MI 134, QRS 90, QT/QTc 400/440, PRT 59/-30/27 Supervising Physician Co-Signing Physician Notes I personally saw and examined the patient. I independently reviewed the labs, EKG, imaging, problem list, medication list, past medical history and family history. I verified all ray points and agree with Rm Wilson PA-C with the following exceptions and/or additions: 73-year-old female who presents to the ER with increased urinary frequency, chills with recurrent falls O/E Rigors, HS irregular rhythm, increased rate, no murmurs, Chest CTAB, No CVA tenderness, Abdo SNT, normal peripheral cap refill A/P Sepsis/UTI - no abdominal or flank pain to suggest kidney stone, Will continue on IV Zosyn given severity of illness and hypotension on admission with diabetes pending blood and urine cultures. Increased second lactate likely as a result of muscle rigors not a fluid problem given normal on admission and BP improved. Will repeat in approximately 6 hours. Abnormal EKG - repeat EKG electronically reported as a. fib however no transition on telemetry and this is in the setting of rigors with patient having PACs while having more definitive sinus rhythm earlier and some P eaves noted on current EKG therefore suspect this is still sinus tach with PACs, will continue to monitor on telemetry and repeat EKG once rigors subside with acetaminophen. Chest pain - not reproducible on exam, continue to trend troponin but suspect more likely GERD related with her missing her usual famotidine and associated nausea. Ondansetron and famotidine ordered. Appears to subsiding following this intervention. Hypo mag / K - replace and repeat levels Urine retention - PVR 534ml on bladder scan, torres catheter placed with 550ml immediate urine output. Suggest trial without torres prior to discharge once improving from infection stand point. PG Care Time/CCT Total # of Minutes Spent Total Time Spent with Patient: Total time spent is greater than 50% in coordination of care (as documented) at patient's floor/unit and/or counseling patient: Coding Level of Care Code 53771 INT INP/OBS CARE 3/75MIN Diagnoses Severe sepsis A41.9; R65.20 Acute UTI (urinary tract infection) N39.0 Hypomagnesemia E83.42 Hypokalemia E87.6 Elevated troponin R79.89 DM type 2 (diabetes mellitus, type 2) E11.9 Urine retention R33.9
[2024-05-16] MEDS: MAGNESIUM SULFATE / D5W 1 GM/100 ML BAG IV STA ×2 (03:11→05:44)
[2024-05-16] MEDS: ACETAMINOPHEN 1,000 MG/100 ML VIAL IV STA (04:46)
[2024-05-16] MEDS: ONDANSETRON INJ 2 MG/ML 2 ML VIAL IV STA (04:46)
[2024-05-16] MEDS: ONDANSETRON INJ 2 MG/ML 2 ML VIAL ONE (04:58)
[2024-05-16] MEDS: FAMOTIDINE 20MG IV PUSH 20 MG/5 ML SYR IV STA (04:58)
[2024-05-16 05:20] LABS: Troponin I High Sensitivity 30.2 pg/ml (0-14)
[2024-05-16 05:30] LABS: Thyroid Stimulating Hormone 2.64 uIu/ml (0.300-4.500)
[2024-05-16] MEDS ORDERED: CARBOHYDRATES FOR HYPOGLYCEMIA PO PRN (05:42)
[2024-05-16] MEDS ORDERED: GLUCAGON FOR INJ 1 MG VIAL SQ PRN (05:42)
[2024-05-16] MEDS ORDERED: PHARMACY GLYCEMIC MGMT CONSULT PRN (05:42)
[2024-05-16] MEDS ORDERED: GLUCOSE 10 TAB/TUBE PO PRN (05:42)
[2024-05-16] MEDS ORDERED: GLUCOSE 40% GEL 15 GM TUBE PO PRN (05:42)
[2024-05-16] MEDS ORDERED: MAGNESIUM HYDROXIDE SUSP 30 ML UDC PO PRN (05:42)
[2024-05-16] MEDS ORDERED: MELATONIN 3 MG TAB PO PRN (05:42)
[2024-05-16] MEDS ORDERED: DEXTROSE 50% 50 ML SYRINGE IV PRN (05:42)
[2024-05-16] MEDS ORDERED: POLYETHYLENE (MIRALAX) 17 GM PACK PO PRN (05:42)
[2024-05-16] MEDS: POTASSIUM CHLORIDE / WTR 10 MEQ/100 ML PLCT IV SCH (05:52)
[2024-05-16] MEDS: PLASMA-LYTE A 500 ML IV STA (06:07)
[2024-05-16] MEDS: LEVOTHYROXINE SODIUM 175 MCG TABLET PO SCH (06:54)
[2024-05-16] MEDS: PIPERACILLIN/TAZOBACTAM 4.5 GM/100 ML BAG IV SCH (08:19)
[2024-05-16] MEDS: SERTRALINE HCL 100 MG TABLET PO SCH (08:22)
[2024-05-16] MEDS: VIBEGRON 75 MG TAB PO SCH (08:22)
[2024-05-16] MEDS: GABAPENTIN 400 MG CAP PO SCH (08:22)
[2024-05-16] MEDS: allopurinoL 100 MG TAB PO SCH (08:22)
[2024-05-16] MEDS: MAGNESIUM OXIDE 400 MG TAB PO SCH (08:22)
[2024-05-16] MEDS: APIXABAN 5 MG TABLET PO SCH (08:22)
[2024-05-16] MEDS: FAMOTIDINE 40 MG TABLET PO SCH (08:22)
[2024-05-16] MEDS: INSULIN ASPART PER UNIT CHARGE SC SCH (08:31)
[2024-05-16] MEDS ORDERED: GLUCOSAMINE SU PO SCH (09:00)
[2024-05-16] MEDS ORDERED: LANTUS PER UNIT CHARGE SQ SCH (09:00)
--- NOTE | 2024-05-16 10:06 | Electrocardiogram Report ---
Test Reason : Blood Pressure : */* mmHG Vent. Rate : 73 BPM Atrial Rate : 73 BPM P-R Int : 134 ms QRS Dur : 90 ms QT Int : 400 ms P-R-T Axes : 59 -30 27 degrees QTcB Int : 440 ms Sinus rhythm with frequent Premature atrial complexes Left anterior fascicular block Low voltage QRS Abnormal ECG When compared with ECG of 05-Aug-2019 15:18, Premature atrial complexes are now Present Left anterior fascicular block now present Confirmed by Jovani Acosta ([id number]) on 05/16/2024 10:05:58 AM Referred By: REFERRED SELF Confirmed By: Jovani Acosta
--- NOTE | 2024-05-16 10:09 | Electrocardiogram Report ---
Test Reason : Blood Pressure : */* mmHG Vent. Rate : 110 BPM Atrial Rate : 110 BPM P-R Int : 142 ms QRS Dur : 86 ms QT Int : 336 ms P-R-T Axes : 67 -64 70 degrees QTcB Int : 454 ms Sinus tachycardia with Premature atrial complexes Left anterior fascicular block Possible Old Anterolateral infarct (cited on or before 16-May-2024) Abnormal ECG When compared with ECG of 16-May-2024 04:23, No significant change Confirmed by Jovani Acosta ([id number]) on 05/16/2024 10:09:11 AM Referred By: REFERRED SELF Confirmed By: Jovani Acosta
[2024-05-16] MEDS: LANTUS PER UNIT CHARGE SC SCH (12:23)
[2024-05-16 14:29] LABS: Hematocrit (blood only) 32.3 % (37.0-47.0); Hemoglobin 10.5 g/dl (12.0-16.0); Mean Corpuscular Hemoglobin 30.8 pg (25.0-34.0); Mean Corpuscular Hgb Conc 32.5 g/dL (32.0-36.0); Mean Corpuscular Volume 94.7 fL (80.0-100.0); Mean Platelet Volume 9.9 fL (9.4-12.4); Platelet Count 239 K/uL (130-400); RDW Coefficient of Variation 13.7 % (11.5-14.5); RDW Standard Deviation 47.6 fL (36.4-46.3); Red Blood Count 3.41 M/uL (4.20-5.40); White Blood Count 20.33 K/ul (4.8-10.8)
[2024-05-16] MEDS: ACETAMINOPHEN 325 MG TAB PO PRN (14:30)
[2024-05-16 14:33] LABS: A calco-baum cmplx NotReported Not Detected (NotDetected); Bact fragilis Not Reported Not Detected (NotDetected); Blood Culture Id Panel See PCR Comment (NotDetected); C auris Not Reported Not Detected (NotDetected); CTX-M Resistant Gene Not Detected (NotDetected); Calbicans Not Reported Not Detected (NotDetected); Candida glabrata Not Reported Not Detected (NotDetected); Candida krusei Not Reported Not Detected (NotDetected); Cneoformans/gatti Not Reported Not Detected (NotDetected); Cparapsilosis Not Reported Not Detected (NotDetected); E cloacae compx Not Reported Not Detected (NotDetected); Efaecalis Not Reported Not Detected (NotDetected); Efaecium Not Reported Not Detected (NotDetected); Enterobacterales DETECTED (NotDetected); Enterobacterales Not Reported DETECTED (NotDetected); Escherichia coli Not Reported DETECTED (NotDetected); H influenzae Not Reported Not Detected (NotDetected); IMP Resistant Gene Not Detected (NotDetected); K aerogenes Not Reported Not Detected (NotDetected); KPC Resistant Gene Not Detected (NotDetected); Koxytoca Not Reported Not Detected (NotDetected); Kpneumoniae grp Not Reported Not Detected (NotDetected); Lmonocyt Not Reported Not Detected (NotDetected); N meningitidis Not Reported Not Detected (NotDetected); NDM Resistant Gene Not Detected (NotDetected); OXA 48 Like Resistant Gene Not Detected (NotDetected); P aeruginosa Not Reported Not Detected (NotDetected); Proteus spp Not Reported Not Detected (NotDetected); Salmonella spp Not Reported Not Detected (NotDetected); Staph lugdunensis Not Reported Not Detected (NotDetected); Staph spp. Not Reported Not Detected (NotDetected); Staphaureus Not Reported Not Detected (NotDetected); Staphepi Not Reported Not Detected (NotDetected); Stenmaltophilia Not Reported Not Detected (NotDetected); Strep agal(GrpB) Not Reported Not Detected (NotDetected); Strep pneum Not Reported Not Detected (NotDetected); Strep pyog (GrpA) Not Reported Not Detected (NotDetected); Strep spp Not Reported Not Detected (NotDetected); VIM Resistant Gene Not Detected (NotDetected); mcr-1 Colistin Resistant Gene Not Detected (NotDetected)
--- NOTE | 2024-05-16 14:40 | Pharmacy Report ---
Pharmacy Glycemic Short Note 2 - Date of Service May 16, 2024 - Glycemic Short BSG Results (Last 24 hours): 05/15/24 05/16/24 05/16/24 23:20 04:38 05:49 Glucose 196 H POC Glucose 143 H 121 H 05/16/24 05/16/24 07:13 11:04 Glucose POC Glucose 135 H 187 H OUTPATIENT ANTIDIABETIC REGIMEN: * Lantus 28 units SC daily * Insulin lispro SS TIDM * Semaglutide 0.25 mg weekly ASSESSMENT: * 73 y/o F admitted for fall, sepsis due to UTI. Patient with history of Type 2 diabetes managed with basal and bolus insulins and Semaglutide weekly. * Since patient had nausea/vomiting this morning basal insulin was held. * By lunch time, she was eating more of her diet, basal insulin resumed at a stress of 1 dose. This may need increased tomorrow. * Novolog ordered based on stress of 2 parameters. PLAN FOR INPATIENT GLYCEMIC CONTROL: * Hold outpatient diabetes medications * Basal insulin * Lantus 12 units SQ QAM * Bolus insulin * NovoLog per scale ACHS or Q6hrs while NPO * Goal Range: Low 110 mg/dL - High 140 mg/dL * Correction Factor: 25 mg/dL/unit * Nutritional / Prandial insulin per carb ratio of 1 unit per 8 grams CHO consumed
[2024-05-16 14:47] LABS: BUN Creatinine Ratio 20.2 (10-20); Calcium 8.8 mg/dl (8.6-10.3); Creatinine Clr Calc Pharmacy 55.2 ml/min
[2024-05-16] MEDS: ACETAMINOPHEN 325 MG TAB PO SCH (18:36)
[2024-05-16] MEDS: oxyCODONE HCL IR 5 MG TAB (IMMEDIATE RELEASE) PO PRN (18:36)
[2024-05-16] MEDS: FENOFIBRATE NANOCRYSTALLIZED 145 MG TABLET PO SCH (21:43)
[2024-05-17 08:37] LABS: Hematocrit (blood only) 33.3 % (37.0-47.0); Hemoglobin 10.8 g/dl (12.0-16.0); Mean Corpuscular Hemoglobin 30.3 pg (25.0-34.0); Mean Corpuscular Hgb Conc 32.4 g/dL (32.0-36.0); Mean Corpuscular Volume 93.3 fL (80.0-100.0); Mean Platelet Volume 10.2 fL (9.4-12.4); Platelet Count 228 K/uL (130-400); RDW Coefficient of Variation 13.7 % (11.5-14.5); RDW Standard Deviation 46.9 fL (36.4-46.3); Red Blood Count 3.57 M/uL (4.20-5.40); White Blood Count 13.38 K/ul (4.8-10.8)
[2024-05-17 08:52] LABS: BUN Creatinine Ratio 17.3 (10-20); Calcium 9.1 mg/dl (8.6-10.3); Creatinine Clr Calc Pharmacy 57.6 ml/min; Potassium 4.3 mmol/L (3.5-5.1)
--- NOTE | 2024-05-17 15:14 | XRay Report ---
Exam: 3 view right shoulder. History: Trauma. Pain. Comparison: None. Findings: Mild productive changes of the acromioclavicular joint. Likely enthesophyte of the humeral head. No appreciated fracture or dislocation. Impression: Chronic changes. No acute process. Consider CT or MRI if clinical suspicion or symptoms persist. Electronically signed by Myke Godwin 05-17-2024 3:13 PM
[2024-05-17] MEDS: LIDOCAINE 5% 1 PATCH TD STA (17:02)
[2024-05-17] MEDS: APREMILAST PO SCH (20:33)
--- NOTE | 2024-05-17 23:07 | Hospitalist Progress Note ---
Date of Service May 17, 2024 Assessment & Plan (1) Severe sepsis: (2) Acute UTI (urinary tract infection): (3) Hypomagnesemia: (4) Hypokalemia: (5) Elevated troponin: (6) DM type 2 (diabetes mellitus, type 2): (7) Urine retention: Plan 73-year-old female PMHx frequent falls, CHRISTIANO, T2DM, HTN, HLD, CAD, CHF, prior DVT on Eliquis and chronic venous insufficiency presenting for ground-level fall at home. ED evaluation reveals leukocytosis 16.97, H&H 11.8/36.1; VBG's pH 7.42 otherwise grossly WNL; CMP potassium 3.3, BUN 28, ratio 26.7, glucose 196, magnesium 1.4; lactate 1; troponin 36.4, pending repeat; procalcitonin 8.38; UA with protein/ketones/blood/nitrite/LE/WBC/bacteria; pending serology; CXR blunting of L costophrenic angle, minimal pleural effusion or due to cardiac shadow, enlarged cardiac size, mild pulmonary congestion.; Provided with 2L NSS, Zosyn 4.5 g IV, and magnesium sulfate IV. 0424: Following initial evaluation of patient, nurse notified providers that patient was having rigors, N/V, and chest pain. HR > 120s, monitor reading Afib. EKG obtained, reading AFib; ? Afib vs artifact from rigors. Pt had not taken medications the day CAN [employer]. Provided with famotidine, Tylenol, 20 mEq KCl, Zofran at time of episode. No fever at the time of episode. BP read as 163/84. Trop 28.7 then 30.2, lactate 2.2, TSH pending. No additional fluids given; urine retention > 500 mL so Bello catheter placed; Repeat lactate scheduled for 1000. #Sepsis/UTI Likely source urinary tract infection; initially hypotensive, received 2L NSS in ED, 500 mL by EMS (30 mL/kg calculated at 1568 mL). Meets SIRS criteria (HR > 90, WBC > 12). - CBC w/ leukocytosis; VBG pH 7.42; lactate 1.0; procal 8.38 - UA with infection -Now with bacteremia. -gram negative baceremia. awaiting sensitivties, - CXR blunting L costophrenic angle - Soft pressures, most recent 106/80; MAP 89 -vitals are stable, however still with fever, antici[krishnan this to contiue for 24-48 hous. - Ceftriaxone IV - Hold antihypertensives at admission # "Falls" likely 2/2 to sepsis/UTI- PT/OT ordered, appreciate assistance -right shoulder pain ordered x ray. may need ortho consult ordered lidocaine patch #Hypomagnesemia Identified on admission, on mag oxide as outpatient, also with hypokalemia; repleted - Mg 1.4- repeat am - MgSO4 1g IV given in ED #Hypokalemia Asymptomatic currently, also with hypomagnesemia. - K 3.3; Mg 1.4 - repeat AM - 20 mEq KCl IV now #Elevated troponin Pt w/ h/o CAD, HTN, CHF; no current chest pain/SOB/palpitations - Troponin 36.4, pending repeat - EKG NSR, without ischemic changes - Likely 2/2 demand/initial hypoxia #T2DM H/o DMT2; At home regimen Semaglutide, glargine 28U daily. - Most recent A1C 03/2024 @ 7.1% - SSI with target BSG range 110-140mg/dL, CF 25, carb ratio 8; Lantus 16U BID - T2DM diet - BSG ACHS if eating - Pharm glycemic management consult placed, appreciate assistance- Adjust regimen as needed #H/o DVT- Eliquis #HTN/CAD/CHF- Lisinopril, carvedilol, furosemide --> HELD antihypertensives at admission #HLD- Fenofibrate, ? alirocumab #Chronic pain/OA/DDD- Gabapentin, oxycodone #Psych- Sertraline #GERD- Famotidine #Hypothyroidism- Levothyroxine #Psoriatic arthritis- Otezla #OAB- Vibegron #CHRISTIANO- CPAP Dispo: Admit, PCU VTE Prophylaxis: On Eliquis This document was dictated utilizing Lottay. Please excuse any grammatical errors that may be secondary to use of this software. Admission and Anticipated Discharge Date Admission Date: May 16, 2024 Subjective 73 yo female reports having pain in her right shoulder from her fall at home. It is worse today. Nurse states she continues to have fevers. Physical Exam Physical Exam: General: No acute distress, soft BPs Head: Normocephalic, atraumatic Neck: Supple, no LAD Cardio: RRR, no M/G/R, S1 and S2 normal Resp: No respiratory distress, Lungs CTA in all lobes bilaterally, no wheezes, rales, or rhonchi Abdomen: Soft, symmetric, nontender; No masses or hepatosplenomegaly; Bowel sounds normoactive Results & Data Results & Data Vital Signs (Past 12 Hours) Vital Signs Temp Pulse Pulse Resp BP BP Pulse Ox 05/17/24 22:58 37.0 C 70 20 109/65 94 05/17/24 19:54 37.0 C 62 20 105/68 95 05/17/24 19:00 05/17/24 15:03 36.7 C 61 18 108/68 98 05/17/24 13:27 92 H 05/17/24 11:43 36.7 C 76 18 136/77 97 O2 Del Method O2 Flow Rate 05/17/24 22:58 Nasal Cannula 2 05/17/24 19:54 Nasal Cannula 05/17/24 19:00 Nasal Cannula 2 05/17/24 15:03 Nasal Cannula 2 05/17/24 13:27 05/17/24 11:43 Nasal Cannula PG Care Time/CCT Total # of Minutes Spent Total Time Spent with Patient: Total time spent is greater than 50% in coordination of care (as documented) at patient's floor/unit and/or counseling patient: Coding Level of Care Code 51822 SUB INP/OBS CARE 3/50MIN Diagnoses Severe sepsis A41.9; R65.20 Acute UTI (urinary tract infection) N39.0 Hypomagnesemia E83.42 Hypokalemia E87.6 Elevated troponin R79.89 DM type 2 (diabetes mellitus, type 2) E11.9 Urine retention R33.9
[2024-05-18 07:05] LABS: Hematocrit (blood only) 33.6 % (37.0-47.0); Hemoglobin 10.6 g/dl (12.0-16.0); Mean Corpuscular Hemoglobin 29.6 pg (25.0-34.0); Mean Corpuscular Hgb Conc 31.5 g/dL (32.0-36.0); Mean Corpuscular Volume 93.9 fL (80.0-100.0); Mean Platelet Volume 10.1 fL (9.4-12.4); Platelet Count 235 K/uL (130-400); RDW Coefficient of Variation 13.5 % (11.5-14.5); RDW Standard Deviation 46.4 fL (36.4-46.3); Red Blood Count 3.58 M/uL (4.20-5.40)
[2024-05-18 07:36] LABS: BUN Creatinine Ratio 19.5 (10-20); C Reactive Protein 17.63 mg/dl (0-0.5); Calcium 9.2 mg/dl (8.6-10.3); Creatinine Clr Calc Pharmacy 69.5 ml/min; Potassium 4.2 mmol/L (3.5-5.1)
[2024-05-18] MEDS: LIDOCAINE 5% 1 PATCH TD SCH (08:18)
[2024-05-18] MEDS: cefTRIAXone SODIUM 2,000 MG/50 ML BAG IV STA (14:44)
[2024-05-18] MEDS ORDERED: ALBUT/IPRATROP 3MG/0.5MG NEB 3 ML VIAL NEB PRN (17:20)
--- NOTE | 2024-05-18 22:33 | Hospitalist Progress Note ---
Date of Service May 18, 2024 Assessment & Plan (1) Severe sepsis: (2) Acute UTI (urinary tract infection): (3) Hypomagnesemia: (4) Hypokalemia: (5) Elevated troponin: (6) DM type 2 (diabetes mellitus, type 2): (7) Urine retention: Plan 73-year-old female PMHx frequent falls, CHRISTIANO, T2DM, HTN, HLD, CAD, CHF, prior DVT on Eliquis and chronic venous insufficiency presenting for ground-level fall at home. ED evaluation reveals leukocytosis 16.97, H&H 11.8/36.1; VBG's pH 7.42 otherwise grossly WNL; CMP potassium 3.3, BUN 28, ratio 26.7, glucose 196, magnesium 1.4; lactate 1; troponin 36.4, pending repeat; procalcitonin 8.38; UA with protein/ketones/blood/nitrite/LE/WBC/bacteria; pending serology; CXR blunting of L costophrenic angle, minimal pleural effusion or due to cardiac shadow, enlarged cardiac size, mild pulmonary congestion.; Provided with 2L NSS, Zosyn 4.5 g IV, and magnesium sulfate IV. 0424: Following initial evaluation of patient, nurse notified providers that patient was having rigors, N/V, and chest pain. HR > 120s, monitor reading Afib. EKG obtained, reading AFib; ? Afib vs artifact from rigors. 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 Provided with famotidine, Tylenol, 20 mEq KCl, Zofran at time of episode. No fever at the time of episode. BP read as 163/84. Trop 28.7 then 30.2, lactate 2.2, TSH pending. No additional fluids given; urine retention > 500 mL so Bello catheter placed; Repeat lactate scheduled for 1000. #Sepsis/UTI Likely source urinary tract infection; initially hypotensive, received 2L NSS in ED, 500 mL by EMS (30 mL/kg calculated at 1568 mL). Meets SIRS criteria (HR > 90, WBC > 12). - CBC w/ leukocytosis; VBG pH 7.42; lactate 1.0; procal 8.38 - UA with infection -Now with bacteremia. -gram negative baceremia. e coli. pansensitive. - CXR blunting L costophrenic angle - Soft pressures, most recent 106/80; MAP 89 -vitals are stable, however still with fever, antici[krishnan this to contiue for 24-48 hous. - Ceftriaxone IV - Hold antihypertensives at admission-Patient continues to have fevers, # "Falls" likely 2/2 to sepsis/UTI- PT/OT ordered, appreciate assistance -right shoulder pain ordered x ray. may need ortho consult ordered lidocaine patch #Hypomagnesemia Identified on admission, on mag oxide as outpatient, also with hypokalemia; repleted - Mg 1.4- repeat am - MgSO4 1g IV given in ED #Hypokalemia Asymptomatic currently, also with hypomagnesemia. - K 3.3; Mg 1.4 - repeat AM - 20 mEq KCl IV now #Elevated troponin Pt w/ h/o CAD, HTN, CHF; no current chest pain/SOB/palpitations - Troponin 36.4, pending repeat - EKG NSR, without ischemic changes - Likely 2/2 demand/initial hypoxia #T2DM H/o DMT2; At home regimen Semaglutide, glargine 28U daily. - Most recent A1C 03/2024 @ 7.1% - SSI with target BSG range 110-140mg/dL, CF 25, carb ratio 8; Lantus 16U BID - T2DM diet - BSG ACHS if eating - Pharm glycemic management consult placed, appreciate assistance- Adjust regimen as needed #H/o DVT- Eliquis #HTN/CAD/CHF- Lisinopril, carvedilol, furosemide --> HELD antihypertensives at admission #HLD- Fenofibrate, ? alirocumab #Chronic pain/OA/DDD- Gabapentin, oxycodone #Psych- Sertraline #GERD- Famotidine #Hypothyroidism- Levothyroxine #Psoriatic arthritis- Otezla #OAB- Vibegron #CHRISTIANO- CPAP Dispo: Admit, PCU VTE Prophylaxis: On Eliquis This document was dictated utilizing [employer]zed. Please excuse any grammatical errors that may be secondary to use of this software. Admission and Anticipated Discharge Date Admission Date: May 16, 2024 Subjective Patient reports no new symptoms. Physical Exam Physical Exam: General: No acute distress, soft BPs Head: Normocephalic, atraumatic Neck: Supple, no LAD Cardio: RRR, no M/G/R, S1 and S2 normal Resp: No respiratory distress, Lungs CTA in all lobes bilaterally, no wheezes, rales, or rhonchi Abdomen: Soft, symmetric, nontender; No masses or hepatosplenomegaly; Bowel sounds normoactive Results & Data Results & Data Vital Signs (Past 12 Hours) Vital Signs Temp Pulse Pulse Resp BP Pulse Ox O2 Del Method 05/18/24 19:54 36.9 C 68 18 117/72 96 Nasal Cannula 05/18/24 15:32 36.9 C 56 L 18 98/66 L 96 Nasal Cannula 05/18/24 15:12 70 05/18/24 15:11 70 05/18/24 11:14 36.8 C 66 18 138/78 97 Nasal Cannula 05/18/24 11:06 Nasal Cannula O2 Flow Rate 05/18/24 19:54 05/18/24 15:32 2 05/18/24 15:12 05/18/24 15:11 05/18/24 11:14 2 05/18/24 11:06 2 PG Care Time/CCT Total # of Minutes Spent Total Time Spent with Patient: Total time spent is greater than 50% in coordination of care (as documented) at patient's floor/unit and/or counseling patient: Coding Level of Care Code 09425 SUB INP/OBS CARE 3/50MIN Diagnoses Severe sepsis A41.9; R65.20 Acute UTI (urinary tract infection) N39.0 Hypomagnesemia E83.42 Hypokalemia E87.6 Elevated troponin R79.89 DM type 2 (diabetes mellitus, type 2) E11.9 Urine retention R33.9
[2024-05-19] MEDS: ONDANSETRON INJ 2 MG/ML 2 ML VIAL IV PRN (03:22)
[2024-05-19 07:37] LABS: Hematocrit (blood only) 33.8 % (37.0-47.0); Mean Corpuscular Hemoglobin 30.3 pg (25.0-34.0); Mean Corpuscular Hgb Conc 32.5 g/dL (32.0-36.0); Mean Corpuscular Volume 93.1 fL (80.0-100.0); Mean Platelet Volume 10.2 fL (9.4-12.4); Platelet Count 271 K/uL (130-400); RDW Coefficient of Variation 13.2 % (11.5-14.5); RDW Standard Deviation 45.4 fL (36.4-46.3); Red Blood Count 3.63 M/uL (4.20-5.40); White Blood Count 12.88 K/ul (4.8-10.8)
[2024-05-19 08:07] LABS: Calcium 9.2 mg/dl (8.6-10.3); Creatinine Clr Calc Pharmacy 71.2 ml/min; Potassium 4.2 mmol/L (3.5-5.1)
[2024-05-19 11:16] LABS: C Reactive Protein 12.97 mg/dl (0-0.5)
[2024-05-19] MEDS: cefTRIAXone SODIUM 2,000 MG/50 ML BAG IV SCH (11:57)
--- NOTE | 2024-05-19 13:27 | Pharmacy Report ---
Pharmacy Glycemic Short Note 2 - Date of Service May 19, 2024 - Glycemic Short BSG Results (Last 24 hours): 05/18/24 05/18/24 05/19/24 16:13 20:25 07:09 Glucose 128 H POC Glucose 137 H 126 H 05/19/24 05/19/24 07:26 11:34 Glucose POC Glucose 127 H 138 H OUTPATIENT ANTIDIABETIC REGIMEN: * Lantus 28 units SC daily * Insulin lispro SS TIDM * Semaglutide 0.25 mg weekly ASSESSMENT: 05/19/24: * Blood sugars well-controlled since time of admission * Do not anticipate any changes to glycemic regimen * Antibiotics de-escalated to ceftriaxone for treatment of E.coli bacteremia 05/16/24: * 73 y/o F admitted for fall, sepsis due to UTI. Patient with history of Type 2 diabetes managed with basal and bolus insulins and Semaglutide weekly. * Since patient had nausea/vomiting this morning basal insulin was held. * By lunch time, she was eating more of her diet, basal insulin resumed at a stress of 1 dose. This may need increased tomorrow. * Novolog ordered based on stress of 2 parameters. PLAN FOR INPATIENT GLYCEMIC CONTROL: * Hold outpatient diabetes medications * Basal insulin * Lantus 12 units SQ QAM * Bolus insulin * NovoLog per scale ACHS or Q6hrs while NPO * Goal Range: Low 110 mg/dL - High 140 mg/dL * Correction Factor: 25 mg/dL/unit * Nutritional / Prandial insulin per carb ratio of 1 unit per 8 grams CHO consumed
--- NOTE | 2024-05-19 17:04 | Orthopedic Consultation ---
Date of Service May 19, 2024 Assessment & Plan (1) Right rotator cuff tear: She has a chronic rotator cuff tear, aggravated by this recent fall. Discussed with Dr. Sandoval. Continue conservative management. PT/OT, range of motion and activity as tolerated. Will order a sling for comfort. She can follow up with ortho in a month if symptoms not improving. History of Present Illness Reason for Consultation: . Requesting Physician: . Attending Physician: Andres Dorado . 73 year old right hand dominant patient with a history of chronic shoulder pain, admitted for sepsis/UTI, now with acute worsening of the shoulder pain after a fall 4 days ago. She said she landed onto her shoulder. She has worsening pain and function since the injury. Denies any past treatment for the shoulder. Allergies Allergy/AdvReac Type Severity Reaction Status Date / Time Sulfa (Sulfonamide Allergy Anaphylaxis, Unverified 04/21/24 09:20 Antibiotics) rash pentazocine [From Talwin] AdvReac Nausea Unverified 04/21/24 09:20 Home Medications Medication Instructions Recorded Confirmed Type allopurinol 100 mg tablet 100 mg PO BID 04/02/18 05/16/24 History apremilast 30 mg tablet (Otezla) 30 mg PO BID 04/02/18 05/16/24 History carvedilol 6.25 mg tablet 6.25 mg PO BID 04/02/18 05/16/24 History ergocalciferol (vitamin D2) 1,250 50,000 unit PO WK 04/02/18 05/16/24 History mcg (50,000 unit) capsule fenofibrate nanocrystallized 145 145 mg PO HS 04/02/18 05/16/24 History mg tablet furosemide 40 mg tablet 40 mg PO DAILY 04/02/18 05/16/24 History glucosamine sulf dipotassium Cl 1 tab PO BID 05/30/18 05/16/24 History 500 mg-chondroitin sulf 400 mg tablet (Glucosamine-Chondroitin DS) lisinopril 10 mg tablet 10 mg PO DAILY 05/30/18 05/16/24 History famotidine 40 mg tablet (Pepcid) 40 mg PO DAILY 01/14/19 05/16/24 History insulin lispro 100 unit/mL 0 units subcut TIDM 01/14/19 05/16/24 History subcutaneous pen (Humalog KwikPen (U-100) Insulin) magnesium oxide 500 mg capsule 500 mg PO DAILY 07/18/19 05/16/24 History semaglutide 0.25 mg or 0.5 mg (2 0.25 mg subcut WK 08/19/19 05/16/24 History mg/1.5 mL) subcutaneous pen injector (Ozempic) oxycodone 5 mg tablet 5 mg PO Q6H PRN pain, severe #20 08/30/19 05/16/24 Rx tabs sertraline 100 mg tablet 100 mg PO DAILY 08/11/22 05/16/24 History alirocumab 150 mg/mL subcutaneous 150 mg subcut 09/20/22 04/21/24 History pen injector (Praluent Pen) apixaban 5 mg tablet (Eliquis) 5 mg PO BID #180 tabs 05/23/23 05/16/24 Rx insulin glargine 100 unit/mL (3 28 unit subcut DAILY 08/24/23 05/16/24 History mL) subcutaneous pen (Lantus Solostar U-100 Insulin) levothyroxine 175 mcg tablet 175 mcg PO DAILY 08/24/23 05/16/24 History betamethasone dipropionate 0.05 % 1 applic topical BID #45 grams 11/02/23 05/16/24 Rx topical ointment gabapentin 400 mg capsule 400 mg PO BID 04/15/24 05/16/24 History clotrimazole-betamethasone 1 1 applic topical DAILY PRN itching 04/21/24 05/16/24 Rx %-0.05 % topical cream #45 grams estradiol 0.01% (0.1 mg/gram) 1 g vaginal .COMPLEX #42.5 grams 04/21/24 05/16/24 Rx vaginal cream (Estrace) vibegron 75 mg tablet (Gemtesa) 75 mg PO DAILY #90 tabs 05/09/24 05/16/24 Rx Past Med/Surg History Problem List (Updated 05/19/24 @ 17:03 by Wilver Madera PA-C) Right rotator cuff tear Urine retention Hypokalemia Elevated troponin Hypomagnesemia (Acute) Acute UTI (urinary tract infection) (Acute) Severe sepsis (Acute) Chronic anticoagulation Apixaban for history of DVT History of lumbar fusion L4-S1 fusion with Dr. Berman in 2019 Chronic, continuous use of opioids Frequent falls Bilateral sacroiliitis Vulvar rash Arthritis with psoriasis on chronic methylprednisolone 4mg daily Lumbar radiculopathy CHRISTIANO (obstructive sleep apnea) CPAP DM type 2 (diabetes mellitus, type 2) IDDM Neurogenic claudication due to lumbar spinal stenosis Hypertension Hyperlipidemia Peripheral neuropathy right foot CAD (coronary artery disease) non-obstructive per 12/2018 cardiac cath per patient Chronic diastolic CHF (congestive heart failure) DVT prophylaxis Fever Urinary incontinence Acute and chronic respiratory failure with hypoxia Bronchopneumonia Indeterminate pulmonary nodules Influenza A Urinary incontinence Mixed incontinence DVT (deep venous thrombosis) Osteoarthritis of right wrist Chronic venous insufficiency Medical History History of blood transfusion post-op knee surgery Hypothyroidism s/p radioactive iodine Osteoarthritis Degenerative disc disease Chronic back pain Peptic ulcer disease hx GERD (gastroesophageal reflux disease) Depression Anxiety Congestive heart failure 2013 with pulmonary edema --> respiratory arrest --> [facility] Bronchitis hx Surgical History History of cardiac cath no stents. [facility] History of nasal septoplasty History of dilatation and curettage S/P right knee arthroscopy S/P lymph node biopsy left axillary node (-) S/P Achilles tendon repair and tarsal tunnel repair right foot S/P SHONA-BSO umbilicial hernia repair with cystocele & rectocele History of carpal tunnel release bilateral History of total knee arthroplasty bilateral History of revision of total knee arthroplasty left S/P epidural steroid injection History of cholecystectomy History of appendectomy History of esophagogastroduodenoscopy (EGD) History of colonoscopy Family History Other No family history of adverse response to anesthesia No pertinent family history Social History Smoking Status: Never smoker Second Hand Exposure: No; Do You Dip or Chew Tobacco: No; Hx Alcohol Use: Yes Alcohol type: beer and wine Hx Substance Use: No Preferred Language: Nicaraguan Communication Ability: Effective [employer] Required: No Beliefs That Will Affect Care: None marital status: / Current Living Situation: Alone Other Information That Helps Us Care for You: No Feels Safe at Home: Yes Safety Concerns: Feels Safe At This Time Assistive Devices: Cane and Walker Review of Systems All systems reviewed & are unremarkable except as noted in HPI & below. Physical Exam .alert and oriented. NAD Right arm: Lidoderm patch on the shoulder. No erythema noted around this, no ecchymosis. No palpable effusion of the shoulder. She can actively raise her arm to about 80 degrees but does have pain, passive motion is about to 120 degrees. No pain with internal/external rotation. Pain and weakness with strength testing. NVI Results & Data Results & Data Laboratory Results . Diagnostic Findings .xrays of the right shoulder shows no fracture or dislocation. There is a small calcification in the area of the rotator cuff tendons. PG Care Time/CCT Total # of Minutes Spent Total Time Spent with Patient: Total time spent is greater than 50% in coordination of care (as documented) at patient's floor/unit and/or counseling patient: Supervising Physician Co-Signing Physician Notes Radiographs and chart reviewed. Case discussed with the physician respiratory assistant. I agree with the note and the plan of care as documented. Coding Level of Care Code 32781 IN/OBS CONSULT LVL 3,45M Diagnoses Right rotator cuff tear M75.101
--- NOTE | 2024-05-19 22:48 | Hospitalist Progress Note ---
Date of Service May 19, 2024 Assessment & Plan (1) Severe sepsis: (2) Acute UTI (urinary tract infection): (3) Hypomagnesemia: (4) Hypokalemia: (5) Elevated troponin: (6) DM type 2 (diabetes mellitus, type 2): (7) Urine retention: Plan 73-year-old female PMHx frequent falls, CHRISTIANO, T2DM, HTN, HLD, CAD, CHF, prior DVT on Eliquis and chronic venous insufficiency presenting for ground-level fall at home. ED evaluation reveals leukocytosis 16.97, H&H 11.8/36.1; VBG's pH 7.42 otherwise grossly WNL; CMP potassium 3.3, BUN 28, ratio 26.7, glucose 196, magnesium 1.4; lactate 1; troponin 36.4, pending repeat; procalcitonin 8.38; UA with protein/ketones/blood/nitrite/LE/WBC/bacteria; pending serology; CXR blunting of L costophrenic angle, minimal pleural effusion or due to cardiac shadow, enlarged cardiac size, mild pulmonary congestion.; Provided with 2L NSS, Zosyn 4.5 g IV, and magnesium sulfate IV. 0424: Following initial evaluation of patient, nurse notified providers that patient was having rigors, N/V, and chest pain. HR > 120s, monitor reading Afib. EKG obtained, reading AFib; ? Afib vs artifact from rigors. 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 Provided with famotidine, Tylenol, 20 mEq KCl, Zofran at time of episode. No fever at the time of episode. BP read as 163/84. Trop 28.7 then 30.2, lactate 2.2, TSH pending. No additional fluids given; urine retention > 500 mL so Bello catheter placed; Repeat lactate scheduled for 1000. #Sepsis/UTI Likely source urinary tract infection; initially hypotensive, received 2L NSS in ED, 500 mL by EMS (30 mL/kg calculated at 1568 mL). Meets SIRS criteria (HR > 90, WBC > 12). - CBC w/ leukocytosis; VBG pH 7.42; lactate 1.0; procal 8.38 - UA with infection -Now with bacteremia. -gram negative baceremia. e coli. pansensitive. - CXR blunting L costophrenic angle - Soft pressures, most recent 106/80; MAP 89 -vitals are stable, no fevers today. - Ceftriaxone IV - Hold antihypertensives at admission- -wbc resolving -anticpate discharge tomorrow. # "Falls" likely 2/2 to sepsis/UTI- PT/OT ordered, appreciate assistance -right shoulder pain ordered x ray. may need ortho consult ordered lidocaine patch #Hypomagnesemia Identified on admission, on mag oxide as outpatient, also with hypokalemia; repleted - Mg 1.4- repeat am - MgSO4 1g IV given in ED #Hypokalemia Asymptomatic currently, also with hypomagnesemia. - K 3.3; Mg 1.4 - repeat AM - 20 mEq KCl IV now #Elevated troponin Pt w/ h/o CAD, HTN, CHF; no current chest pain/SOB/palpitations - Troponin 36.4, pending repeat - EKG NSR, without ischemic changes - Likely 2/2 demand/initial hypoxia #T2DM H/o DMT2; At home regimen Semaglutide, glargine 28U daily. - Most recent A1C 03/2024 @ 7.1% - SSI with target BSG range 110-140mg/dL, CF 25, carb ratio 8; Lantus 16U BID - T2DM diet - BSG ACHS if eating - Pharm glycemic management consult placed, appreciate assistance- Adjust regimen as needed #H/o DVT- Eliquis #HTN/CAD/CHF- Lisinopril, carvedilol, furosemide --> HELD antihypertensives at admission #HLD- Fenofibrate, ? alirocumab #Chronic pain/OA/DDD- Gabapentin, oxycodone #Psych- Sertraline #GERD- Famotidine #Hypothyroidism- Levothyroxine #Psoriatic arthritis- Otezla #OAB- Vibegron #CHRISTIANO- CPAP Dispo: Admit, PCU VTE Prophylaxis: On Eliquis This document was dictated utilizing [employer]. Please excuse any grammatical errors that may be secondary to use of this software. Admission and Anticipated Discharge Date Admission Date: May 16, 2024 Subjective 73 yo female reports no new symptoms. Physical Exam Physical Exam: General: No acute distress, soft BPs Head: Normocephalic, atraumatic Neck: Supple, no LAD Cardio: RRR, no M/G/R, S1 and S2 normal Resp: No respiratory distress, Lungs CTA in all lobes bilaterally, no wheezes, rales, or rhonchi Abdomen: Soft, symmetric, nontender; No masses or hepatosplenomegaly; Bowel sounds normoactive Results & Data Results & Data Vital Signs (Past 12 Hours) Vital Signs Temp Pulse Pulse Resp BP BP Pulse Ox 05/19/24 19:49 37.0 C 86 20 127/72 92 05/19/24 16:06 36.9 C 83 18 125/57 L 92 05/19/24 13:58 76 05/19/24 11:09 36.7 C 88 18 117/63 92 O2 Del Method 05/19/24 19:49 Room Air 05/19/24 16:06 Room Air 05/19/24 13:58 05/19/24 11:09 Room Air PG Care Time/CCT Total # of Minutes Spent Total Time Spent with Patient: Total time spent is greater than 50% in coordination of care (as documented) at patient's floor/unit and/or counseling patient: Coding Level of Care Code 17228 SUB INP/OBS CARE 3/50MIN Diagnoses Severe sepsis A41.9; R65.20 Acute UTI (urinary tract infection) N39.0 Hypomagnesemia E83.42 Hypokalemia E87.6 Elevated troponin R79.89 DM type 2 (diabetes mellitus, type 2) E11.9 Urine retention R33.9
[2024-05-20 07:22] VITALS: RESP 18
[2024-05-20 07:31] LABS: Hematocrit (blood only) 34.8 % (37.0-47.0); Hemoglobin 11.4 g/dl (12.0-16.0); Mean Corpuscular Hemoglobin 30.5 pg (25.0-34.0); Mean Corpuscular Hgb Conc 32.8 g/dL (32.0-36.0); Platelet Count 302 K/uL (130-400); RDW Coefficient of Variation 13.3 % (11.5-14.5); RDW Standard Deviation 45.5 fL (36.4-46.3); Red Blood Count 3.74 M/uL (4.20-5.40); White Blood Count 10.06 K/ul (4.8-10.8)
[2024-05-20 07:45] LABS: BUN Creatinine Ratio 20.2 (10-20); C Reactive Protein 10.27 mg/dl (0-0.5); Calcium 9.7 mg/dl (8.6-10.3); Creatinine Clr Calc Pharmacy 67.8 ml/min; Potassium 4.3 mmol/L (3.5-5.1)
[2024-05-20 15:35] VITALS: TEMP 98.1
[2024-05-20] MEDS: carvediloL 6.25 MG TAB PO SCH (18:39)
--- NOTE | 2024-05-20 22:50 | Hospitalist Progress Note ---
Date of Service May 20, 2024 Assessment & Plan (1) Severe sepsis: (2) Acute UTI (urinary tract infection): (3) Hypomagnesemia: (4) Hypokalemia: (5) Elevated troponin: (6) DM type 2 (diabetes mellitus, type 2): (7) Urine retention: Plan 73-year-old female PMHx frequent falls, CHRISTIANO, T2DM, HTN, HLD, CAD, CHF, prior DVT on Eliquis and chronic venous insufficiency presenting for ground-level fall at home. ED evaluation reveals leukocytosis 16.97, H&H 11.8/36.1; VBG's pH 7.42 otherwise grossly WNL; CMP potassium 3.3, BUN 28, ratio 26.7, glucose 196, magnesium 1.4; lactate 1; troponin 36.4, pending repeat; procalcitonin 8.38; UA with protein/ketones/blood/nitrite/LE/WBC/bacteria; pending serology; CXR blunting of L costophrenic angle, minimal pleural effusion or due to cardiac shadow, enlarged cardiac size, mild pulmonary congestion.; Provided with 2L NSS, Zosyn 4.5 g IV, and magnesium sulfate IV. 0424: Following initial evaluation of patient, nurse notified providers that patient was having rigors, N/V, and chest pain. HR > 120s, monitor reading Afib. EKG obtained, reading AFib; ? Afib vs artifact from rigors. Pt had not taken medications the day [employer]. Provided with famotidine, Tylenol, 20 mEq KCl, Zofran at time of episode. No fever at the time of episode. BP read as 163/84. Trop 28.7 then 30.2, lactate 2.2, TSH pending. No additional fluids given; urine retention > 500 mL so Bello catheter placed; Repeat lactate scheduled for 1000. #Sepsis/UTI Likely source urinary tract infection; initially hypotensive, received 2L NSS in ED, 500 mL by EMS (30 mL/kg calculated at 1568 mL). Meets SIRS criteria (HR > 90, WBC > 12). - CBC w/ leukocytosis; VBG pH 7.42; lactate 1.0; procal 8.38 - UA with infection -Now with bacteremia. -gram negative baceremia. e coli. pansensitive. - CXR blunting L costophrenic angle - Soft pressures, most recent 106/80; MAP 89 -vitals are stable, no fevers today. - Ceftriaxone IV - Hold antihypertensives at admission- -wbc resolving, high normal -anticipate discharge on 05/21 will continue IV antibiotics no fever for 48 hours, but still weak and with night sweats # "Falls" likely 2/2 to sepsis/UTI- PT/OT ordered, appreciate assistance -right shoulder pain ordered x ray. may need ortho consult ordered lidocaine patch #Hypomagnesemia Identified on admission, on mag oxide as outpatient, also with hypokalemia; repleted - Mg 1.4- repeat am - MgSO4 1g IV given in ED #Hypokalemia Asymptomatic currently, also with hypomagnesemia. - K 3.3; Mg 1.4 - repeat AM - 20 mEq KCl IV now #Elevated troponin Pt w/ h/o CAD, HTN, CHF; no current chest pain/SOB/palpitations - Troponin 36.4, pending repeat - EKG NSR, without ischemic changes - Likely 2/2 demand/initial hypoxia #T2DM H/o DMT2; At home regimen Semaglutide, glargine 28U daily. - Most recent A1C 03/2024 @ 7.1% - SSI with target BSG range 110-140mg/dL, CF 25, carb ratio 8; Lantus 16U BID - T2DM diet - BSG ACHS if eating - Pharm glycemic management consult placed, appreciate assistance- Adjust regimen as needed #H/o DVT- Eliquis #HTN/CAD/CHF- Lisinopril, carvedilol, furosemide --> HELD antihypertensives at admission #HLD- Fenofibrate, ? alirocumab #Chronic pain/OA/DDD- Gabapentin, oxycodone #Psych- Sertraline #GERD- Famotidine #Hypothyroidism- Levothyroxine #Psoriatic arthritis- Otezla #OAB- Vibegron #CHRISTIANO- CPAP Dispo: Admit, PCU VTE Prophylaxis: On Eliquis Admission and Anticipated Discharge Date Admission Date: May 16, 2024 Subjective Patient continues to feel wiped out. Patient complaining of night sweats Physical Exam Physical Exam: General: No acute distress, soft BPs Head: Normocephalic, atraumatic Neck: Supple, no LAD Cardio: RRR, no M/G/R, S1 and S2 normal Resp: No respiratory distress, Lungs CTA in all lobes bilaterally, no wheezes, rales, or rhonchi Abdomen: Soft, symmetric, nontender; No masses or hepatosplenomegaly; Bowel sounds normoactive Results & Data Results & Data Vital Signs (Past 12 Hours) Vital Signs Temp Pulse Resp BP BP Pulse Ox O2 Del Method 05/20/24 15:34 36.7 C 70 18 138/71 93 Room Air 05/20/24 11:27 36.6 C 80 18 112/72 93 Room Air PG Care Time/CCT Total # of Minutes Spent Total Time Spent with Patient: Total time spent is greater than 50% in coordination of care (as documented) at patient's floor/unit and/or counseling patient: Coding Level of Care Code 09775 SUB INP/OBS CARE 3/50MIN Diagnoses Severe sepsis A41.9; R65.20 Acute UTI (urinary tract infection) N39.0 Hypomagnesemia E83.42 Hypokalemia E87.6 Elevated troponin R79.89 DM type 2 (diabetes mellitus, type 2) E11.9 Urine retention R33.9
[2024-05-21 07:07] VITALS: PULSE 61; O2SAT 93
[2024-05-21 07:35] LABS: Hematocrit (blood only) 33.1 % (37.0-47.0); Hemoglobin 10.9 g/dl (12.0-16.0); Mean Corpuscular Hemoglobin 30.4 pg (25.0-34.0); Mean Corpuscular Hgb Conc 32.9 g/dL (32.0-36.0); Mean Corpuscular Volume 92.5 fL (80.0-100.0); Mean Platelet Volume 9.9 fL (9.4-12.4); Platelet Count 353 K/uL (130-400); RDW Coefficient of Variation 13.2 % (11.5-14.5); RDW Standard Deviation 45.1 fL (36.4-46.3); Red Blood Count 3.58 M/uL (4.20-5.40); White Blood Count 13.18 K/ul (4.8-10.8)
[2024-05-21 07:59] LABS: BUN Creatinine Ratio 23.9 (10-20); C Reactive Protein 5.25 mg/dl (0-0.5); Calcium 9.8 mg/dl (8.6-10.3); Creatinine Clr Calc Pharmacy 64.7 ml/min; Potassium 4.3 mmol/L (3.5-5.1)
[2024-05-21 09:15] LABS: Basophils # (auto) 0.06 K/uL (0.00-0.20); Basophils % (auto) 0.5 %; Eosinophils # (auto) 0.27 K/uL (0.00-0.50); Eosinophils % (auto) 2.1 %; Immature Granulocytes # (auto) 0.17 K/uL (0.01-0.20); Immature Granulocytes % (auto) 1.3 %; Lymphocytes # (auto) 3.32 K/uL (1.20-3.40); Lymphocytes % (auto) 25.5 %; Monocytes # (auto) 1.04 K/uL (0.11-0.59); Neutrophils # (auto) 8.16 K/uL (1.40-6.50); Neutrophils % (auto) 62.6 %
[2024-05-21 11:04] VITALS: BP 112/72
--- NOTE | 2024-05-21 15:00 | Discharge Summary ---
Discharge Summary Date of Service May 21, 2024 Principal Dx & Hospital Course #1 = Principal Diagnosis (1) Severe sepsis: (2) Acute UTI (urinary tract infection): (3) Hypomagnesemia: (4) Hypokalemia: (5) Elevated troponin: (6) DM type 2 (diabetes mellitus, type 2): (7) Urine retention: Plan 73-year-old female PMHx frequent falls, CHRISTIANO, T2DM, HTN, HLD, CAD, CHF, prior DVT on Eliquis and chronic venous insufficiency presenting for ground-level fall at home. ED evaluation reveals leukocytosis 16.97, H&H 11.8/36.1; VBG's pH 7.42 otherwise grossly WNL; CMP potassium 3.3, BUN 28, ratio 26.7, glucose 196, magnesium 1.4; lactate 1; troponin 36.4, pending repeat; procalcitonin 8.38; UA with protein/ketones/blood/nitrite/LE/WBC/bacteria; pending serology; CXR blunting of L costophrenic angle, minimal pleural effusion or due to cardiac shadow, enlarged cardiac size, mild pulmonary congestion.; Provided with 2L NSS, Zosyn 4.5 g IV, and magnesium sulfate IV. 0424: Following initial evaluation of patient, nurse notified providers that patient was having rigors, N/V, and chest pain. HR > 120s, monitor reading Afib. EKG obtained, reading AFib; ? Afib vs artifact from rigors. Pt had not taken medications the day SLP. Provided with famotidine, Tylenol, 20 mEq KCl, Zofran at time of episode. No fever at the time of episode. BP read as 163/84. Trop 28.7 then 30.2, lactate 2.2, TSH pending. No additional fluids given; urine retention > 500 mL so Bello catheter placed; Repeat lactate scheduled for 1000. #Sepsis/UTI complicated by bacteremia Urine culture and blood culutre grew pansensitive E. coli. Patient had fevers for first 48-72 hours of hospital sta. -vitals are stable, no fevers for over 48 hours prior to discharge. - Ceftriaxone IV - Hold antihypertensives at admission- -leukocytosis resolved. -anticipate discharge on 05/21 will complete a 11-12 day course of antibiotics at home. # "Falls" likely 2/2 to sepsis/UTI- PT/OT ordered, appreciate assistance -right shoulder pain: no fracture, ortho recommended sling. #Hypomagnesemia Identified on admission, on mag oxide as outpatient, also with hypokalemia; repleted resolved. #Hypokalemia Asymptomatic currently, also with hypomagnesemia. #Elevated troponin Pt w/ h/o CAD, HTN, CHF; no current chest pain/SOB/palpitations - Troponin 36.4, pending repeat - EKG NSR, without ischemic changes - Likely 2/2 demand/initial hypoxia #T2DM H/o DMT2; At home regimen Semaglutide, glargine 28U daily. - Most recent A1C 03/2024 @ 7.1% -resume home meds #H/o DVT- Eliquis #HTN/CAD/CHF- Lisinopril, carvedilol, furosemide --> HELD antihypertensives at admission #HLD- Fenofibrate, ? alirocumab #Chronic pain/OA/DDD- Gabapentin, oxycodone #Psych- Sertraline #GERD- Famotidine #Hypothyroidism- Levothyroxine #Psoriatic arthritis- Otezla #OAB- Vibegron #CHRISTIANO- CPAP Admission HPI Per Admitting Provider 73-year-old female PMHx frequent falls, CHRISTIANO, T2DM, HTN, HLD, CAD, CHF, prior DVT on Eliquis and chronic venous insufficiency presenting for ground-level fall at home. Patient states that she has "not felt good" for "weeks". States that she recently has not been able to get around as easily as she used to in the day SLP she had 2 episodes where she slid out of bed. States that 1 happened early in the morning where she felt that she could not get herself up and slid to the ground, with assistance she got up and then the same occurrence in that afternoon, which prompted her daughter to call 911 for an evaluation. Patient states that she had a fever the day SLP (39.4 Celsius) and felt that she has had chills. Complaining of some nausea without vomiting, but does find herself sometimes coughing up mucus which makes her gag. Over the past few days, she has had increased frequency with urination and she has some incontinence issues at baseline. Patient states that she has chronic back pain, but no new or worsening pain. Denies chest pain, shortness of breath, palpitations, abdominal pain, D/C, numbness/tingling, weakness, or dizziness. Was found to be hypotensive on arrival, given 500 mL NSS and route by EMS. Hypotensive again in ED, received total of 2L NSS. ED evaluation reveals leukocytosis 16.97, H&H 11.8/36.1; VBG's pH 7.42 otherwise grossly WNL; CMP potassium 3.3, BUN 28, ratio 26.7, glucose 196, magnesium 1.4; lactate 1; troponin 36.4, pending repeat; procalcitonin 8.38; UA with protein/ketones/blood/nitrite/LE/WBC/bacteria; pending serology; CXR blunting of L costophrenic angle, minimal pleural effusion or due to cardiac shadow, enlarged cardiac size, mild pulmonary congestion.; Provided with 2L NSS, Zosyn 4.5 g IV, and magnesium sulfate IV. Discharge Exam General: No acute distress, soft BPs Head: Normocephalic, atraumatic Neck: Supple, no LAD Cardio: RRR, no M/G/R, S1 and S2 normal Resp: No respiratory distress, Lungs CTA in all lobes bilaterally, no wheezes, rales, or rhonchi Abdomen: Soft, symmetric, nontender; No masses or hepatosplenomegaly; Bowel sounds normoactive Discharge Plan Discharge Items Patient Disposition: Home - Home Health Services Reason For Visit: UTI Discharge Diagnosis: UTI Activity: Resume your previous activity Non-emergency contact: Primary Care Provider Call non-emergency contact if: you have any medication questions Follow-up/Referrals: Adrian Davies PA-C [Primary Care Provider] - 05/28/24 10:30 am (Hospital follow up on May 28 at 10:30 am.) Diet: Carb Consistent or DM2 Addtl Attending Provider Instructions: You have been hospitalized for a complicated UTI. During your stay at [facility], we have made an effort to correct the problem that brought you to the hospital while keeping you as comfortable as possible. Antibiotics were used to bring your condition under control and your discharge instructions will include directions for any medications you should take after leaving the hospital. Please make sure you see your Primary Care Provider as part of your follow up plan. Please followup with PCP in 1-2 weeks. Pending Studies at Discharge: No Stand-Alone Forms: My [facility], Smoking Cessation Medications and DC Order Prescriptions: New cefpodoxime 200 mg tablet 200 mg PO BID Qty: 10 0RF Rx Instructions: must administer with a meal/food First dose on 05/22 in the AM Continued Eliquis 5 mg tablet 5 mg PO BID Qty: 180 3RF Gemtesa 75 mg tablet 75 mg PO DAILY Qty: 90 2RF magnesium oxide 500 mg capsule 500 mg PO DAILY Rx Instructions: qam Ozempic 0.25 mg or 0.5 mg(2 mg/1.5 mL) pen injector 0.25 mg SQ WK levothyroxine 175 mcg tablet 175 mcg PO DAILY Praluent Pen 150 mg/mL pen injector 150 mg subcut famotidine [Pepcid] 40 mg tablet 40 mg PO DAILY Rx Instructions: qam clotrimazole-betamethasone 1-0.05 % cream 1 applic topical DAILY PRN (Reason: itching) Qty: 45 1RF estradiol [Estrace] 0.01 % (0.1 mg/gram) cream 1 g vaginal .COMPLEX Qty: 42.5 3RF Rx Instructions: 1 g vaginally; apply every other day at bedtime for 3 months than twice weekly thereafter. betamethasone dipropionate 0.05 % ointment 1 applic topical BID Qty: 45 1RF Rx Instructions: Apply to elbows and knees twice a day for 2 weeks, and repeat for flaring oxycodone 5 mg tablet 5 mg PO Q6H PRN (Reason: pain, severe) Qty: 20 0RF furosemide 40 mg Tablet 40 mg PO DAILY Rx Instructions: qam carvedilol 6.25 mg tablet 6.25 mg PO BID allopurinol 100 mg tablet 100 mg PO BID ergocalciferol (vitamin D2) 50,000 unit capsule 50,000 unit PO WK Rx Instructions: TAKE ON MON fenofibrate nanocrystallized 145 mg tablet 145 mg PO HS Otezla 30 mg tablet 30 mg PO BID sertraline 100 mg tablet 100 mg PO DAILY Rx Instructions: qam Lantus Solostar U-100 Insulin 100 unit/mL (3 mL) insulin pen 28 unit SUBCUT DAILY gabapentin 400 mg capsule 400 mg PO BID lisinopril 10 mg Tablet 10 mg PO DAILY Rx Instructions: qam glucosamine de la cruz 2KCl-chondroit [Glucosamine-Chondroitin DS] 500-400 mg Tablet 1 tab PO BID insulin lispro [Humalog KwikPen Insulin] 100 unit/mL insulin pen 0 units SUBCUT TIDM Rx Instructions: PER SLIDING SCALE Discharge Orders: Discharge Order (Routine); Ordered 05/21/24 Ordered By: Andres Joseph/Other Patient Handouts: UTIs Admission Data Admit Date/Time: 05/16/24 03:24 Attending Provider: Andres Dorado Admit Provider: Everett Shaikh Primary Care Provider: Adrian Davies Other Providers: Gary Sandoval; [facility] Other Interventions: Discharge Summary Assessment (RN) Last Done: 05/21/24 11:01 Hospital Stay Data Consultations 05/16/24 03:00 ED Decision to Admit Stat 05/19/24 10:24 Consult Orthopedic Surgery Routine Pending Results Patient Have Any Pending Studies at Discharge: No Discharge Instructions Given to Patient (Per Discharging Provider) You have been hospitalized for a complicated UTI. During your stay at [facility], we have made an effort to correct the problem that brought you to the hospital while keeping you as comfortable as possible. Antibiotics were used to bring your condition under control and your discharge instructions will include directions for any medications you should take after leaving the hospital. Please make sure you see your Primary Care Provider as part of your follow up plan. Please followup with PCP in 1-2 weeks. Total Time Total Time Spent Total Time Spent (In Minutes): 32 Coding Level of Care Code 00487 INP/OBS DISCH >30 MIN Diagnoses Severe sepsis A41.9; R65.20 Acute UTI (urinary tract infection) N39.0 Hypomagnesemia E83.42 Hypokalemia E87.6 Elevated troponin R79.89 DM type 2 (diabetes mellitus, type 2) E11.9 Urine retention R33.9
== END 2024-05-21 14:13 | disposition home health service (06) | DRG 872 ==
LOC: SUATTDRO → ED 23:11 → SUATTDRO 05-16 03:24 → 2S 05-16 03:24
DX: J96.11 Chronic respiratory failure with hypoxia; N39.0 Urinary tract infection, site not specified; R65.20 Severe sepsis without septic shock; L40.50 Arthropathic psoriasis, unspecified; R29.6 Repeated falls; I11.0 Hypertensive heart disease with heart failure; Z79.890 Hormone replacement therapy; I50.32 Chronic diastolic (congestive) heart failure; Z88.2 Allergy status to sulfonamides; A41.9 Sepsis, unspecified organism; Z98.1 Arthrodesis status; Z79.85 Long-term (current) use of injectable non-insulin antidiabetic drugs; G47.33 Obstructive sleep apnea (adult) (pediatric); R33.9 Retention of urine, unspecified; Z79.4 Long term (current) use of insulin; K21.9 Gastro-esophageal reflux disease without esophagitis; E87.6 Hypokalemia; Z96.653 Presence of artificial knee joint, bilateral; M75.101 Unspecified rotator cuff tear or rupture of right shoulder, not specified as traumatic; I25.10 Atherosclerotic heart disease of native coronary artery without angina pectoris; Z86.718 Personal history of other venous thrombosis and embolism; E78.5 Hyperlipidemia, unspecified; E83.42 Hypomagnesemia; N32.81 Overactive bladder; E03.9 Hypothyroidism, unspecified; E11.40 Type 2 diabetes mellitus with diabetic neuropathy, unspecified

== ENCOUNTER 2024-12-16 07:40 | Inpatient (IN) ==
--- NOTE | 2024-12-16 07:56 | Emergency Department Note ---
Impression & Plan Sepsis, Transaminitis, Acute pyelonephritis ED Provider Note NAME: LENNY MOTLEY AGE: 74 SEX: F : 1950 ARRIVES VIA: Ambulance INFORMANT: Patient ED PROVIDER(S): Jeovanny Mcfadden MD CHIEF COMPLAINT: Abdominal pain, nausea and vomiting. PLAN: Disposition: Admit MEDICAL DECISION MAKING: The patient is a pleasant 74 y/o woman with a PMHx CHF, osteoarthritis, degenerative disc disease, hypothyroidism, depression/anxiety who presents to the emergency department via EMS for evaluation of abdominal pain with nausea and vomiting on and off since Sunday afternoon. Patient was feeling well Sunday night into Sunday morning, however restarted Sunday evening. Last oral intake was last evening after eating at a [employer] games buffet. She reports upper abdominal pain, described and cramping and sharp, does not radiate. Emesis is bilious, non-bloody. Also endorsing new burning with urination. Urinary incontinence at baseline, reports increased frequency. Denies gross hematuria. Denies chest pain, palpitations, dizziness, SOB, exertional dyspnea. Lives at home by herself and is independent with ADLs. Denies use of alcohol, tobacco/nicotine, recreational drugs. On evaluation patient no distress, afebrile with heart rate in the 100s and blood pressure 170/110 vital signs otherwise stable. She appears euvolemic to dry. She exhibits mild epigastric discomfort without discrete tenderness. There is no guarding or rebound. EKG without overt acute ischemia. CXR negative for acute cardiopulmonary process per my personal preliminary review/interpretation. WBC 17.9 K with neutrophilia but no left shift. H/H and platelets within normal limits. Chemistry without metabolic acidosis. BUNs/creatinine 33 consistent with patient's clinically dry appearance. Magnesium 1.4 with IV repletion provided. LFTs demonstrate obstructive pattern with total bili 1.4, direct bilirubin 1.1, AST and ALT 721 and 391, respectively. Alk phos is not elevated. Ammonia is within normal limits. High-sensitivity troponin 9.5, within normal limits. Lipase is elevated at 6200. UA is consistent with infection with WBCs and 4+ bacteria. CT of the abdomen pelvis was completed and demonstrates 7 mm metallic density within the dependent lumen of the duodenum suggestive of cholecystectomy clip migration likely recently passed through the CBD. Mild nonspecific inflammatory stranding adjacent to the duodenum extending into the pancreaticoduodenal groove likely associated with pancreatitis given elevated lipase. Patient is status post cholecystectomy with unchanged mild dilation of the CBD. Evidence of cystitis with left-sided ascending infection is noted where there is urothelial thickening of the left renal pelvis and UPJ. Blood cultures were obtained and empiric treatment was initiated with IV Zosyn. Patient was treated with IV fluid hydration with caution in the setting of history of CHF. Patient did develop hypotension after walking to the bathroom and was administered 500 cc of normal saline and was fluid responsive initially. However, blood pressure then did decline once again and 1 L of normal saline was administered. Total of 1500 cc of normal saline was administered. Initial lactic acid 2.6 however improved to 0.8. Case was discussed with Tesfaye Mejia GI PAC with CHERELLE Meehan on-call. Appreciate consultation and recommendations. Agrees that given the patient's clip has passed into the duodenum unlikely to require intervention at this time. Agrees with admission to medicine service for treatment of component of urosepsis. They will be available for inpatient team consultation Case was discussed with Dr. Hurst [facility] hospitalist. Further management per admitting team. Triage Nursing notes reviewed and agree them. Prior/external medical records reviewed Vital Signs: reviewed Differential diagnosis: Gastroenteritis, food borne illness, infections, appendicitis, diverticulitis, inflammatory bowel disease, obstruction, GI bleed, biliary pathology, volvulus, as well as other pathologies. ER treatment provided: See below. Diagnostics interpreted by me: ECG: Sinus tachycardia, PACs, 112 bpm, left anterior fascicular block, no overt ST elevation or depression, QTc 431, QRS 76 Cardiac Monitoring: An order for continuous cardiac monitoring was placed and demonstrated Sinus tachycardia, PACs, 112 bpm Laboratory studies: See below Imaging studies: See below Consultation(s): CHERELLE Pickens PAC with CHERELLE Meehan on-call Dr. Hurst [facility] hospitalist. HPI: Per MDM. ROS: See above HPI for pertinent positives & negatives. A total of 10 systems reviewed and were otherwise negative. VITALS:See Below PHYSICAL EXAMINATION: GENERAL: Awake, alert, fatigued-appearing, in no distress HENT: Normocephalic, atraumatic. Oropharynx with dry mucous membranes and otherwise unremarkable. EYES: Normal conjunctiva. Sclera non-icteric. NECK: Supple. No nuchal rigidity. FROM. No JVD. RESPIRATORY: Clear to auscultation. CARDIAC: Tachycardic rate, normal rhythm. Extremities warm and well perfused. Pulses equal. ABDOMEN: Soft, non-distended. Mild epigastric discomfort without discrete tenderness to palpation. No rebound or guarding. MUSCULOSKELETAL: Chest examination reveals no tenderness. The back is symmetrical on inspection without obvious abnormality. There is no CVA tenderness to palpation. No joint edema. LOWER EXTREMITIES: Calves are equal size bilaterally and non-tender. No edema. No discoloration. NEURO: Normal sensorium. No sensory or motor deficits noted. SKIN: No rash or jaundice noted. ED COURSE: Critical Care: I have personally spent greater than 45 minutes of critical care time in the direct management of this patient. This includes bedside care, interpretation of diagnostic studies, and testing, discussion with consultants, patient, and family members, and other required patient management activities. This 45 minutes is in excess of all separately billable procedures. Jeovanny Mcfadden MD Past Med/Surg History Problem List (Updated 12/17/24 @ 18:39 by Jeovanny Mcfadden MD) Acute pyelonephritis (Acute) Transaminitis (Acute) Sepsis (Acute) Transaminitis Septic shock Abnormal CT of the abdomen Pancreatitis Urinary symptom or sign Sacroiliitis Left Right rotator cuff tear Urine retention Hypokalemia Elevated troponin Hypomagnesemia (Acute) Acute UTI (urinary tract infection) (Acute) Severe sepsis (Acute) Chronic anticoagulation Apixaban for history of DVT History of lumbar fusion L4-S1 fusion with Dr. Berman in 2019 Chronic, continuous use of opioids Frequent falls Bilateral sacroiliitis Vulvar rash Arthritis with psoriasis on chronic methylprednisolone 4mg daily Lumbar radiculopathy CHRISTIANO (obstructive sleep apnea) CPAP DM type 2 (diabetes mellitus, type 2) IDDM Neurogenic claudication due to lumbar spinal stenosis Hypertension Hyperlipidemia Peripheral neuropathy right foot CAD (coronary artery disease) non-obstructive per 12/2018 cardiac cath per patient Chronic diastolic CHF (congestive heart failure) DVT prophylaxis Fever Urinary incontinence Acute and chronic respiratory failure with hypoxia Bronchopneumonia Indeterminate pulmonary nodules Influenza A Urinary incontinence Mixed incontinence DVT (deep venous thrombosis) Osteoarthritis of right wrist Chronic venous insufficiency Medical History History of blood transfusion post-op knee surgery Hypothyroidism s/p radioactive iodine Osteoarthritis Degenerative disc disease Chronic back pain Peptic ulcer disease hx GERD (gastroesophageal reflux disease) Depression Anxiety Congestive heart failure 2013 with pulmonary edema --> respiratory arrest --> H [place] Bronchitis hx Surgical History History of cardiac cath no stents. Fall 2018, [facility] History of nasal septoplasty History of dilatation and curettage S/P right knee arthroscopy S/P lymph node biopsy left axillary node (-) S/P Achilles tendon repair and tarsal tunnel repair right foot S/P SHONA-BSO umbilicial hernia repair with cystocele & rectocele History of carpal tunnel release bilateral History of total knee arthroplasty bilateral History of revision of total knee arthroplasty left S/P epidural steroid injection History of cholecystectomy History of appendectomy History of esophagogastroduodenoscopy (EGD) History of colonoscopy Family History Other No family history of adverse response to anesthesia No pertinent family history Social History Smoking Status: Never smoker Second Hand Exposure: No; Do You Dip or Chew Tobacco: No; Hx Alcohol Use: No Hx Substance Use: No Preferred Language: Yoruba Communication Ability: Effective Police Artist Required: No Beliefs That Will Affect Care: None marital status: / Current Living Situation: Alone Feels Safe at Home: Yes Assistive Devices: Cane, CPAP and Wheelchair Allergies Allergies Allergy/AdvReac Type Severity Reaction Status Date / Time Sulfa (Sulfonamide Allergy Anaphylaxis, Verified 12/16/24 12:06 Antibiotics) rash pentazocine [From Talwin] AdvReac Nausea Verified 12/16/24 12:06 Home Meds Home Medications Medication Instructions Recorded Confirmed allopurinol 100 mg tablet 100 mg PO BID 04/02/18 12/16/24 apremilast 30 mg tablet (Otezla) 30 mg PO BID 04/02/18 12/16/24 carvedilol 6.25 mg tablet 6.25 mg PO BID 04/02/18 12/16/24 ergocalciferol (vitamin D2) 1,250 50,000 unit PO WK 04/02/18 12/16/24 mcg (50,000 unit) capsule fenofibrate nanocrystallized 145 145 mg PO HS 04/02/18 12/16/24 mg tablet furosemide 40 mg tablet 40 mg PO DAILY 04/02/18 12/16/24 glucosamine sulf dipotassium Cl 1 tab PO BID 05/30/18 12/16/24 500 mg-chondroitin sulf 400 mg tablet (Glucosamine-Chondroitin DS) lisinopril 10 mg tablet 10 mg PO DAILY 05/30/18 12/16/24 famotidine 40 mg tablet (Pepcid) 40 mg PO DAILY 01/14/19 12/16/24 insulin lispro 100 unit/mL 0 units subcut TIDM 01/14/19 12/16/24 subcutaneous pen (Humalog KwikPen (U-100) Insulin) magnesium oxide 500 mg capsule 500 mg PO DAILY 07/18/19 12/16/24 semaglutide 0.25 mg or 0.5 mg (2 0.25 mg subcut WK 08/19/19 12/16/24 mg/1.5 mL) subcutaneous pen injector (Ozempic) sertraline 100 mg tablet 100 mg PO DAILY 08/11/22 12/16/24 alirocumab 150 mg/mL subcutaneous 150 mg subcut 2XWK 09/20/22 12/16/24 pen injector (Praluent Pen) insulin glargine 100 unit/mL (3 26 unit subcut DAILY 08/24/23 12/16/24 mL) subcutaneous pen (Lantus Solostar U-100 Insulin) levothyroxine 175 mcg tablet 175 mcg PO DAILY 08/24/23 12/16/24 colchicine 0.6 mg capsule 0.6 mg PO DAILY 09/05/24 12/16/24 turmeric 400 mg capsule 400 mg PO DAILY 09/05/24 12/16/24 gabapentin 400 mg capsule 800 mg PO BID 09/10/24 12/16/24 hydrocodone 10 mg-acetaminophen 1 tab PO Q8H PRN Pain 12/16/24 12/16/24 325 mg tablet methylprednisolone 4 mg tablet 4 mg PO DAILY 12/16/24 12/16/24 Previous Rx's Medication Instructions Recorded oxycodone 5 mg tablet 5 mg PO Q6H PRN pain, severe #20 08/30/19 tabs clotrimazole-betamethasone 1 1 applic topical DAILY PRN itching 04/21/24 %-0.05 % topical cream #45 grams apixaban 5 mg tablet (Eliquis) 5 mg PO BID #180 tabs 06/10/24 mirabegron 50 mg tablet,extended 50 mg PO DAILY #30 tabs 06/24/24 release 24 hr (Myrbetriq) vibegron 75 mg tablet (Gemtesa) 75 mg PO DAILY #30 tabs 09/29/24 Results & Data (ED) Vital Signs Vital Signs - 24 hr 12/16/24 07:55 12/16/24 07:55 12/16/24 10:03 Temperature 37.3 C Temperature Source Oral Pulse Rate 106 H Pulse Rate [Apical] 123 H Respiratory Rate 24 20 Respiratory Effort / Characteristics Non-Labored Spontaneous Non-Labored Spontaneous Respiratory Depth Normal Normal Respiratory Pattern Blood Pressure 171/101 H Blood Pressure [Right Arm] 85/55 L Blood Pressure Mean 124 Blood Pressure Mean [Right Arm] 65 Pulse Oximetry 93 93 93 Oxygen Delivery Method Room Air Room Air Room Air Sepsis Recent Fever Within 48 Hours No Sepsis New/Unexplained Change in Mental Status N/A Sepsis Action Taken by Nursing No Action Required 12/16/24 10:32 12/16/24 11:33 12/16/24 12:03 Temperature 36.9 C Temperature Source Oral Pulse Rate Pulse Rate [Apical] 108 H 109 H 110 H Respiratory Rate 20 20 21 Respiratory Effort / Characteristics Non-Labored Spontaneous Non-Labored Spontaneous Respiratory Depth Normal Normal Respiratory Pattern Regular Blood Pressure Blood Pressure [Right Arm] 98/53 L 91/47 L 88/63 L Blood Pressure Mean Blood Pressure Mean [Right Arm] 68 61 71 Pulse Oximetry 94 98 92 Oxygen Delivery Method Room Air Room Air Room Air Sepsis Recent Fever Within 48 Hours Sepsis New/Unexplained Change in Mental Status Sepsis Action Taken by Nursing Laboratory Data Attestation: I reviewed the patient's lab results. 12/17/24 04:44 12/17/24 04:44 Lab Results 12/16/24 12/16/24 12/16/24 Range/Units 07:58 09:24 10:00 WBC 17.90 H (4.8-10.8) K/ul RBC 4.39 (4.20-5.40) M/uL Hgb 13.3 (12.0-16.0) g/dl Hct 42.0 (37.0-47.0) % MCV 95.7 (80.0-100.0) fL MCH 30.3 (25.0-34.0) pg MCHC 31.7 L (32.0-36.0) g/dL RDW Std Deviation 47.5 H (36.4-46.3) fL RDW Coeff of Nadege 13.4 (11.5-14.5) % Plt Count 286 (130-400) K/uL MPV 9.8 (9.4-12.4) fL Immature Gran % (Auto) 0.6 % Neut % (Auto) 92.5 % Lymph % (Auto) 3.5 % Evangeline % (Auto) 3.0 % Eos % (Auto) 0.1 % Baso % (Auto) 0.3 % Neut # (Auto) 16.56 H (1.40-6.50) K/uL Lymph # (Auto) 0.63 L (1.20-3.40) K/uL Evangeline # (Auto) 0.53 (0.11-0.59) K/uL Eos # (Auto) 0.02 (0.00-0.50) K/uL Baso # (Auto) 0.05 (0.00-0.20) K/uL Immature Gran # (Auto) 0.11 (0.01-0.20) K/uL Toxic Vacuolation 1+ PT Cancelled INR Cancelled Sodium 140 (136-145) mmol/L Potassium 4.0 (3.5-5.1) mmol/L Chloride 101 (98-107) mmol/L Carbon Dioxide 29 (21-32) mmol/L Anion Gap 10 (3-11) BUN 30 H (6-23) mg/dl Creatinine 0.91 (0.6-1.2) mg/dl Est Cr Clr Drug Dosing 60.7 ml/min eGFR 66.61 BUN/Creatinine Ratio 33.0 H (10-20) Glucose 241 H (70-99(Fasting)) mg/dl Lactate 2.6 H* (0.4-2.0) mmol/L Calcium 9.6 (8.6-10.3) mg/dl Magnesium 1.4 L (1.7-2.4) mg/dl Total Bilirubin 1.4 H (0.2-1.0) mg/dl Direct Bilirubin 1.1 H (0-0.2) mg/dl AST 721 H (13-39) U/L ALT 391 H (7-52) U/L Alkaline Phosphatase 93 (34-104) U/L Ammonia 31.0 (18-72) umol/L Troponin I High Sens 9.5 (0-14) pg/ml Total Protein 7.2 (6.0-8.3) gm/dl Albumin 4.2 (3.4-5.0) gm/dl Globulin 3.0 (2.5-4.0) gm/dl Albumin/Globulin Ratio 1.4 (0.9-2) Lipase 6254 H (11-82) U/L Procalcitonin 1.51 H (0-0.5) ng/ml Urine Color Dark Yellow Urine Appearance Cloudy A (Clear) Urine pH 6.0 (4.5-7.5) Ur Specific [place] 1.016 (1.000-1.030) Urine Protein 2+ H (Negative) Urine Glucose (UA) Negative (Negative) Urine Ketones Negative (Negative) Urine Blood Negative (Negative) Urine Nitrite Negative (Negative) Urine Bilirubin Negative (Negative) Urine Urobilinogen Negative (Negative) Ur Leukocyte Esterase 2+ H (Negative) Urine WBC (Auto) >50 H (0-5) /hpf Urine RBC (Auto) 0-2 (0-2) /hpf U Hyaline Cast (Auto) 6-10 H (0-2) /lpf U Epithel Cells (Auto) 3-5 H (0-2) /hpf Urine Bacteria (Auto) 4+ H (None Seen) Hyaline Casts Present A (None Presnt) /lpf Granular Casts Present A (None Prsent) /lpf Urine Comment Enterobacterales (PCR) DETECTED A (NotDetected) E. coli (PCR) DETECTED A (NotDetected) mcr-1 Colistin Res Gene PCR Not Detected (NotDetected) blaIMP Car res Gene PCR Not Detected (NotDetected) KPC-Carbap Res Gene PCR Not Detected (NotDetected) blaNDM Car Res Gene PCR Not Detected (NotDetected) OXA-48 Carbapenem Resis Gene (PCR) Not Detected (NotDetected) blaVIM Car Res Gene PCR Not Detected (NotDetected) CTX-M Gene Resistance (PCR) Not Detected (NotDetected) Bld Cult ID Panel PCR See PCR Comment (NotDetected) 12/16/24 Range/Units 11:08 WBC (4.8-10.8) K/ul RBC (4.20-5.40) M/uL Hgb (12.0-16.0) g/dl Hct (37.0-47.0) % MCV (80.0-100.0) fL MCH (25.0-34.0) pg MCHC (32.0-36.0) g/dL RDW Std Deviation (36.4-46.3) fL RDW Coeff of Nadege (11.5-14.5) % Plt Count (130-400) K/uL MPV (9.4-12.4) fL Immature Gran % (Auto) % Neut % (Auto) % Lymph % (Auto) % Evangeline % (Auto) % Eos % (Auto) % Baso % (Auto) % Neut # (Auto) (1.40-6.50) K/uL Lymph # (Auto) (1.20-3.40) K/uL Ev[place] # (Auto) (0.11-0.59) K/uL Eos # (Auto) (0.00-0.50) K/uL Baso # (Auto) (0.00-0.20) K/uL Immature Gran # (Auto) (0.01-0.20) K/uL Toxic Vacuolation PT 17.7 H INR 1.7 H Sodium (136-145) mmol/L Potassium (3.5-5.1) mmol/L Chloride (98-107) mmol/L Carbon Dioxide (21-32) mmol/L Anion Gap (3-11) BUN (6-23) mg/dl Creatinine (0.6-1.2) mg/dl Est Cr Clr Drug Dosing ml/min eGFR BUN/Creatinine Ratio (10-20) Glucose (70-99(Fasting)) mg/dl Lactate 0.8 (0.4-2.0) mmol/L Calcium (8.6-10.3) mg/dl Magnesium (1.7-2.4) mg/dl Total Bilirubin (0.2-1.0) mg/dl Direct Bilirubin (0-0.2) mg/dl AST (13-39) U/L ALT (7-52) U/L Alkaline Phosphatase (34-104) U/L Ammonia (18-72) umol/L Troponin I High Sens (0-14) pg/ml Total Protein (6.0-8.3) gm/dl Albumin (3.4-5.0) gm/dl Globulin (2.5-4.0) gm/dl Albumin/Globulin Ratio (0.9-2) Lipase (11-82) U/L Procalcitonin (0-0.5) ng/ml Urine Color Urine Appearance (Clear) Urine pH (4.5-7.5) Ur Specific [place] (1.000-1.030) Urine Protein (Negative) Urine Glucose (UA) (Negative) Urine Ketones (Negative) Urine Blood (Negative) Urine Nitrite (Negative) Urine Bilirubin (Negative) Urine Urobilinogen (Negative) Ur Leukocyte Esterase (Negative) Urine WBC (Auto) (0-5) /hpf Urine RBC (Auto) (0-2) /hpf U Hyaline Cast (Auto) (0-2) /lpf U Epithel Cells (Auto) (0-2) /hpf Urine Bacteria (Auto) (None Seen) Hyaline Casts (None Presnt) /lpf Granular Casts (None Prsent) /lpf Urine Comment Enterobacterales (PCR) (NotDetected) E. coli (PCR) (NotDetected) mcr-1 Colistin Res Gene PCR (NotDetected) blaIMP Car res Gene PCR (NotDetected) KPC-Carbap Res Gene PCR (NotDetected) blaNDM Car Res Gene PCR (NotDetected) OXA-48 Carbapenem Resis Gene (PCR) (NotDetected) blaVIM Car Res Gene PCR (NotDetected) CTX-M Gene Resistance (PCR) (NotDetected) Bld Cult ID Panel PCR (NotDetected) Administered Medications Apixaban (Apixaban 5 Mg Tablet) 5 mg PO BID [facility] Stop: 01/15/25 20:59 Last Admin: 12/17/24 08:33 Dose: 5 mg Documented By: Admin: 12/16/24 20:02 Dose: 5 mg Documented By: CR Fluticasone/Vilanterol (Fluticasone/Vilanterol 100/25mcg 14 Puffs/Inhaler) 1 puffs INH DAILY [facility] Stop: 01/16/25 08:59 Last Admin: 12/17/24 08:33 Dose: 1 puffs Documented By: DAWOOD Gabapentin (Gabapentin 400 Mg Cap) 400 mg PO BID [facility] Stop: 01/16/25 09:44 Last Admin: 12/17/24 11:09 Dose: 400 mg Documented By: DAWOOD Piperacillin Sod/Tazobactam Sod (Zosyn) 4.5 gm in 100 mls @ 25 mls/hr IV Q8H [facility]; Protocol Stop: 12/20/24 14:59 Last Admin: 12/17/24 15:07 Dose: 25 mls/hr Documented By: Infusion: 12/17/24 10:26 Dose: Infused Documented By: Admin: 12/17/24 06:26 Dose: 25 mls/hr Documented By: Infusion: 12/17/24 04:03 Dose: Infused Documented By: Admin: 12/17/24 00:16 Dose: 25 mls/hr Documented By: Infusion: 12/16/24 18:11 Dose: Infused Documented By: Admin: 12/16/24 14:13 Dose: 25 mls/hr Documented By: UBALDO Pantoprazole Sodium (Protonix) 40 mg in 10 mls @ 5 mls/min IV BID [facility] Stop: 01/15/25 12:59 Last Admin: 12/17/24 08:35 Dose: 5 mls/min Documented By: Admin: 12/16/24 20:01 Dose: 5 mls/min Documented By: Admin: 12/16/24 14:13 Dose: 5 mls/min Documented By: UBALDO Insulin Aspart (Insulin Aspart Per Unit Charge) 0 units SC ACHS [facility] Stop: 01/15/25 17:59 Last Admin: 12/17/24 18:10 Dose: Not Given Documented By: Admin: 12/17/24 11:35 Dose: 5 units Documented By: DAWOOD Co-signed By: AMB Levothyroxine Sodium (Levothyroxine Sodium 175 Mcg Tablet) 175 mcg PO DAILYBB [facility] Stop: 01/16/25 06:29 Last Admin: 12/17/24 05:39 Dose: 175 mcg Documented By: TIGRE Sertraline HCl (Sertraline Hcl 100 Mg Tablet) 100 mg PO DAILY [facility] Stop: 01/16/25 08:59 Last Admin: 12/17/24 08:33 Dose: 100 mg Documented By: DAWOOD Discontinued Medications Famotidine (Pepcid 20mg Iv Push) 20 mg in 5 mls @ 2.5 mls/min IV NOW STA Stop: 12/16/24 07:56 Last Admin: 12/16/24 08:03 Dose: 2.5 mls/min Documented By: MONI Acetaminophen (Ofirmev) 1,000 mg in 100 mls @ 400 mls/hr IV NOW STA Stop: 12/16/24 08:24 Last Infusion: 12/16/24 09:49 Dose: Infused Documented By: Admin: 12/16/24 08:55 Dose: 400 mls/hr Documented By: MONI Piperacillin Sod/Tazobactam Sod (Zosyn) 4.5 gm in 100 mls @ 200 mls/hr IV NOW ONE; Protocol Stop: 12/16/24 09:28 Last Infusion: 12/16/24 10:24 Dose: Infused Documented By: Admin: 12/16/24 09:37 Dose: 200 mls/hr Documented By: MONI Promethazine HCl (Phenergan) 12.5 mg in 50.5 mls @ 202 mls/hr IV NOW STA Stop: 12/16/24 10:19 Last Infusion: 12/16/24 10:43 Dose: Infused Documented By: Admin: 12/16/24 10:27 Dose: 202 mls/hr Documented By: MONI Magnesium Sulfate/Dextrose (Magnesium Sulfate / D5w) 1 gm in 100 mls @ 100 mls/hr IV Q1H [facility] Stop: 12/16/24 12:05 Last Infusion: 12/16/24 12:38 Dose: Infused Documented By: Admin: 12/16/24 11:38 Dose: 100 mls/hr Documented By: Infusion: 12/16/24 11:38 Dose: Infused Documented By: Admin: 12/16/24 10:44 Dose: 100 mls/hr Documented By: MONI Sodium Chloride (Nss) 1,000 mls @ 999 mls/hr IV .Q1H1M ONE Stop: 12/16/24 13:05 Last Infusion: 12/16/24 14:01 Dose: Infused Documented By: Admin: 12/16/24 12:38 Dose: 999 mls/hr Documented By: KAYLIE Lactated Ringer's (Lr) 1,000 mls @ 100 mls/hr IV .Q10H [facility] Stop: 12/19/24 12:44 Last Infusion: 12/17/24 06:35 Dose: Infused Documented By: Infusion: 12/17/24 06:35 Dose: 0 mls/hr Documented By: Admin: 12/17/24 05:11 Dose: 100 mls/hr Documented By: Infusion: 12/17/24 05:11 Dose: Infused Documented By: Admin: 12/16/24 22:25 Dose: 100 mls/hr Documented By: Infusion: 12/16/24 22:25 Dose: Infused Documented By: Admin: 12/16/24 14:11 Dose: 100 mls/hr Documented By: UBALDO Norepinephrine Bitartrate (Levophed/D5w) 4 mg in 250 mls @ 0 mls/hr IV .Q0M [facility]; Protocol Stop: 01/15/25 15:29 Last Titration: 12/17/24 10:47 Dose: Infused Documented By: KJL Co-signed By: JLM Titration: 12/17/24 00:30 Dose: 0 mcg/kg/min, 0 mls/hr Documented By: TIGRE Co-signed By: MNM Titration: 12/16/24 23:06 Dose: 0.01 mcg/kg/min, 3.5 mls/hr Documented By: CR Co-signed By: LLP Titration: 12/16/24 22:20 Dose: 0.03 mcg/kg/min, 10.6 mls/hr Documented By: CR Co-signed By: LLP Titration: 12/16/24 20:07 Dose: 0.05 mcg/kg/min, 17.7 mls/hr Documented By: CR Co-signed By: LLP Titration: 12/16/24 18:43 Dose: 0.07 mcg/kg/min, 24.8 mls/hr Documented By: ES Co-signed By: CR Titration: 12/16/24 15:48 Dose: 0.07 mcg/kg/min, 24.8 mls/hr Documented By: ES Co-signed By: CB Admin: 12/16/24 15:27 Dose: 0.05 mcg/kg/min, 17.7 mls/hr Documented By: UBALDO Co-signed By: LUIS Lactated Ringer's (Lr) 500 mls @ 999 mls/hr IV .Q31M ONE Stop: 12/16/24 15:49 Last Infusion: 12/16/24 15:53 Dose: Infused Documented By: Admin: 12/16/24 15:28 Dose: 999 mls/hr Documented By: UBALDO Magnesium Sulfate/Dextrose (Magnesium Sulfate / D5w) 1 gm in 100 mls @ 50 mls/hr IV ONE ONE Stop: 12/17/24 11:44 Last Infusion: 12/17/24 13:09 Dose: Infused Documented By: Admin: 12/17/24 11:09 Dose: 50 mls/hr Documented By: DAWOOD Lorazepam 0.5 mg/ Syringe 0.5 mls @ 2 mls/min IV NOW STA Stop: 12/17/24 16:16 Last Admin: 12/17/24 18:10 Dose: Not Given Documented By: DAWOOD Insulin Aspart (Insulin Aspart Per Unit Charge) 0 units SC Q6 [facility] Stop: 01/15/25 17:59 Last Admin: 12/17/24 05:38 Dose: Not Given Documented By: Admin: 12/17/24 00:25 Dose: Not Given Documented By: Admin: 12/16/24 15:53 Dose: Not Given Documented By: UBALDO Insulin Glargine (Lantus Per Unit Charge) 0 units SC HS [facility]; Protocol Stop: 12/16/24 21:01 Last Admin: 12/16/24 20:02 Dose: Not Given Documented By: TIGRE Ioversol (Optiray 320 100ml) 94 ml IV ONCE ONE Stop: 12/16/24 10:12 Last Admin: 12/16/24 10:11 Dose: 94 ml Documented By: DUSTY Reidaneous (Icu Protocol For Hyperglycemia) 1 each N/A ACHS [facility] Stop: 12/18/24 16:29 Last Admin: 12/17/24 10:46 Dose: Not Given Documented By: Admin: 12/17/24 08:36 Dose: Not Given Documented By: Admin: 12/16/24 20:02 Dose: Not Given Documented By: Admin: 12/16/24 14:13 Dose: Not Given Documented By: UBALDO Morphine Sulfate (Morphine Sulfate 2 Mg/Ml Carp) 2 mg IV NOW STA Stop: 12/16/24 10:05 Last Admin: 12/16/24 11:53 Dose: Not Given Documented By: MONI Norepinephrine Bitartrate (Norepinephrine/D5w 4 Mg/250 Ml) Confirm Administered Dose 4 mg IV .STK-MED ONE Stop: 12/16/24 14:41 Last Admin: 12/16/24 15:28 Dose: Not Given Documented By: UBALDO Ondansetron HCl (Ondansetron Inj 2 Mg/Ml 2 Ml Vial) 4 mg IV NOW STA Stop: 12/16/24 07:56 Last Admin: 12/16/24 08:03 Dose: 4 mg Documented By: MONI Oxycodone HCl (Oxycodone Hcl Ir 5 Mg Tab (Immediate Release)) 10 mg PO Q6H PRN PRN Reason: Mod-Sev Pain (Scale 4-10) Stop: 12/31/24 08:02 Last Admin: 12/17/24 08:21 Dose: 10 mg Documented By: DAWOOD Imaging Data Radiologist's Impression: Chest X-Ray 12/16/24 07:52 XR chest 1V portable CLINICAL HISTORY: abdominal pain/nausea/vomiting COMPARISON STUDY: Chest radiograph May 16, 2024. Chest CT January 14, 2019. FINDINGS: No lucency is identified under the hemidiaphragms to suggest pneumoperitoneum by radiography. Cardiomegaly is unchanged. No evidence for pulmonary edema. There is no pneumothorax or pleural effusion. There is no consolidation to suggest pneumonia. Incidental note is made of suspected calcific tendinitis of the rotator cuffs. IMPRESSION: No acute cardiopulmonary findings. No significant change in appearance of the chest. ACT 112: Negative or not required by law. Electronically signed by: James Kaplan M.D. 12/16/2024 8:33 AM Abdomen/Pelvis CT 12/16/24 09:[address] WITH IV CONTRAST CT DOSE: 1320.47 mGy.cm HISTORY: Acute upper abdominal pain suspected choledocholithiasis vs pancreatitis TECHNIQUE: Multiaxial CT images of the abdomen and pelvis were performed following the IV administration of 94 cc of Optiray, A dose lowering technique was utilized adhering to the principles of ALARA. COMPARISON STUDY: CT 03/09/2022, January 14, 2019. FINDINGS: Coronary artery calcifications. Clear lung bases. Borderline enlarged heart. No pneumatosis or pneumoperitoneum. Unremarkable spleen. Stable benign left adrenal gland nodule, unchanged from 2019. Mild nodular thickening of the right adrenal gland is also within normal limits. Hepatic steatosis with mild hepatomegaly. Patency of the hepatic and portal veins. Cholecystectomy with unchanged mild biliary ductal dilation which is likely postsurgical. The common bile duct measures 1.3 cm transversely. Mildly atrophic pancreas with scattered subcentimeter pancreatic calcifications. There is mild edema with trace ascites surrounding the duodenum extending into the pancreaticoduodenal groove and inferior to the right hepatic lobe. There is a 7 mm metallic density structure noted along the dependent wall of the duodenum on image 162 series 3 appears to represent a displaced cholecystectomy clip with change positioning compared to the prior CT. There are a few small cysts of the kidneys again noted. There is mild urothelial thickening of the left renal pelvis and left UPJ. Nonspecific urinary bladder wall thickening with perivesicular stranding. Hysterectomy. Atherosclerosis of the aorta without aneurysm. Mild periportal lymphadenopathy with lymph nodes measuring up to 1.2 cm. No bowel obstruction. Colonic diverticulosis. Redemonstration of a periumbilical hernia with opening of approximately 5 cm containing a portion of the nonobstructed transverse colon which is similar to prior. Scattered nondilated small bowel air fluid levels are likely physiologic. Degenerative and postoperative changes of the spine. IMPRESSION: 1. 7 mm metallic density focus within the dependent lumen of the duodenum is suggestive of cholecystectomy clip migration, likely recently passed through the common bile duct. 2. There is mild nonspecific inflammatory stranding adjacent to the duodenum extending into the pancreaticoduodenal groove, possibly mild associated pancreatitis related to the aforementioned clip migration. Correlate with serum lipase. 3. Evidence of chronic pancreatitis. 4. Cholecystectomy with unchanged mild dilation of the common bile duct which is likely postsurgical. Correlate with serum bilirubin. 5. No pneumoperitoneum. 6. Findings suggestive of cystitis with left-sided ascending infection. 7. Large bowel containing periumbilical hernia without obstruction. ACT 112: Negative or not required by law. The above report was generated using voice recognition software. It may contain grammatical, syntax or spelling errors. Electronically signed by: Pola Nichols M.D. 12/16/2024 10:51 AM Discharge Plan Visit Data Chief Complaint: Nausea Stated Complaint: ILLNESS, NAUSA, VOMITING, AB PAIN ED Provider: Jeovanny Mcfadden ED Midlevel Provider: Kayla Padgett Discharge Problem: Sepsis, Transaminitis, Acute pyelonephritis Patient Disposition: Admitted As Inpatient Condition: Critical Discharge Instructions Interventions: ED Discharge Assessment Last Done: 12/16/24 14:42 Discharge Problem: Sepsis Qualifiers: Sepsis type: sepsis due to unspecified organism Sepsis acute organ dysfunction status: with acute organ dysfunction Severe sepsis acute organ dysfunction type: unspecified Severe sepsis shock status: with septic shock Qualified Code(s): A 41.9 - Sepsis, unspecified organism; R65.21 - Severe sepsis with septic shock
[2024-12-16] MEDS: ONDANSETRON INJ 2 MG/ML 2 ML VIAL IV STA (08:03)
[2024-12-16] MEDS: FAMOTIDINE 20MG IV PUSH 20 MG/5 ML SYR IV STA (08:03)
[2024-12-16 08:10] LABS: Hematocrit (blood only) 42.0 % (37.0-47.0); Hemoglobin 13.3 g/dl (12.0-16.0); Mean Corpuscular Hemoglobin 30.3 pg (25.0-34.0); Mean Corpuscular Volume 95.7 fL (80.0-100.0); Platelet Count 286 K/uL (130-400); RDW Standard Deviation 47.5 fL (36.4-46.3); Red Blood Count 4.39 M/uL (4.20-5.40); White Blood Count 17.90 K/ul (4.8-10.8)
[2024-12-16 08:28] LABS: Anion Gap 10.0 (3-11); Blood Urea Nitrogen 30.0 mg/dl (6-23); Calcium 9.6 mg/dl (8.6-10.3); Carbon Dioxide 29.0 mmol/L (21-32); Chloride 101.0 mmol/L (98-107); Creatinine Clr Calc Pharmacy 60.7 ml/min; Glucose 241.0 mg/dl (70-99(Fasting)); Potassium 4.0 mmol/L (3.5-5.1); Sodium 140.0 mmol/L (136-145)
[2024-12-16 08:31] LABS: Immature Granulocytes # (auto) 0.11 K/uL (0.01-0.20); Immature Granulocytes % (auto) 0.6 %; Toxic Vacuolation 1+
--- NOTE | 2024-12-16 08:35 | XRay Report ---
XR chest 1V portable CLINICAL HISTORY: abdominal pain/nausea/vomiting COMPARISON STUDY: Chest radiograph May 16, 2024. Chest CT January 14, 2019. FINDINGS: No lucency is identified under the hemidiaphragms to suggest pneumoperitoneum by radiograph y. Cardiomegaly is unchanged. No evidence for pulmonary edema. There is no pneumothorax or pleural ef fusion. There is no consolidation to suggest pneumonia. Incidental note is made of suspected calcific tendinitis of the rotator cuffs. IMPRESSION: No acute cardiopulmonary findings. No significant change in appearance of the chest. ACT 112: Negative or not required by law. Electronically signed by: James Kaplan M.D. 12/16/2024 8:33 AM
[2024-12-16 08:44] LABS: Alanine Aminotransferase 391.0 U/L (7-52); Albumin Globulin Ratio 1.4 (0.9-2); Albumin Level 4.2 gm/dl (3.4-5.0); Alkaline Phosphatase 93.0 U/L (34-104); Bilirubin,Total 1.4 mg/dl (0.2-1.0); Globulin 3.0 gm/dl (2.5-4.0); Magnesium 1.4 mg/dl (1.7-2.4); Total Protein 7.2 gm/dl (6.0-8.3)
[2024-12-16] MEDS: ACETAMINOPHEN 1,000 MG/100 ML VIAL IV STA (08:55)
[2024-12-16] MEDS: PIPERACILLIN/TAZOBACTAM 4.5 GM/100 ML BAG IV ONE (09:37)
[2024-12-16] MEDS: OPTIRAY 320 100ml IV ONE (10:11)
[2024-12-16 10:23] LABS: Appearance Urine Cloudy (Clear); Bacteria Urine Automated 4+ (None Seen); Glucose Urine UA Negative (Negative); RBC Urine Automated 0-2 /hpf (0-2); WBC Urine Automated >50 /hpf (0-5)
[2024-12-16] MEDS: PROMETHAZINE 12.5 MG/50.5 ML BAG IV STA (10:27)
[2024-12-16] MEDS: MAGNESIUM SULFATE / D5W 1 GM/100 ML BAG IV SCH (10:44)
--- NOTE | 2024-12-16 10:52 | CT Scan Report ---
ABDOMEN AND PELVIS CT WITH IV CONTRAST CT DOSE: 1320.47 mGy.cm HISTORY: Acute upper abdominal pain suspected choledocholithiasis vs pancreatitis TECHNIQUE: Multiaxial CT images of the abdomen and pelvis were performed following the IV administrat ion of 94 cc of Optiray, A dose lowering technique was utilized adhering to the principles of ALARA. COMPARISON STUDY: CT 03/09/2022, January 14, 2019. FINDINGS: Coronary artery calcifications. Clear lung bases. Borderline enlarged heart. No pneumatosis or pneumoperitoneum. Unremarkable spleen. Stable benign left adrenal gland nodule, unchanged from 20 19. Mild nodular thickening of the right adrenal gland is also within normal limits. Hepatic steatosi s with mild hepatomegaly. Patency of the hepatic and portal veins. Cholecystectomy with unchanged mil d biliary ductal dilation which is likely postsurgical. The common bile duct measures 1.3 cm transver sely. Mildly atrophic pancreas with scattered subcentimeter pancreatic calcifications. There is mild edema with trace ascites surrounding the duodenum extending into the pancreaticoduodenal groove and i nferior to the right hepatic lobe. There is a 7 mm metallic density structure noted along the depende nt wall of the duodenum on image 162 series 3 appears to represent a displaced cholecystectomy clip w ith change positioning compared to the prior CT. There are a few small cysts of the kidneys again noted. There is mild urothelial thickening of the le ft renal pelvis and left UPJ. Nonspecific urinary bladder wall thickening with perivesicular strandin g. Hysterectomy. Atherosclerosis of the aorta without aneurysm. Mild periportal lymphadenopathy with lymph nodes measuring up to 1.2 cm. No bowel obstruction. Colonic diverticulosis. Redemonstration of a periumbilical hernia with opening of approximately 5 cm containing a portion of the nonobstructed t ransverse colon which is similar to prior. Scattered nondilated small bowel air fluid levels are like ly physiologic. Degenerative and postoperative changes of the spine. IMPRESSION: 1. 7 mm metallic density focus within the dependent lumen of the duodenum is suggestive of cholecyste ctomy clip migration, likely recently passed through the common bile duct. 2. There is mild nonspecific inflammatory stranding adjacent to the duodenum extending into the pancr eaticoduodenal groove, possibly mild associated pancreatitis related to the aforementioned clip migra tion. Correlate with serum lipase. 3. Evidence of chronic pancreatitis. 4. Cholecystectomy with unchanged mild dilation of the common bile duct which is likely postsurgical. Correlate with serum bilirubin. 5. No pneumoperitoneum. 6. Findings suggestive of cystitis with left-sided ascending infection. 7. Large bowel containing periumbilical hernia without obstruction. ACT 112: Negative or not required by law. The above report was generated using voice recognition software. It may contain grammatical, syntax o r spelling errors. Electronically signed by: Pola Nichols M.D. 12/16/2024 10:51 AM
[2024-12-16] MEDS: MoRPHine SULFATE 2 MG/ML CARP IV STA (11:53)
[2024-12-16 12:00] LABS: INR 1.7 (0.9-1.1); Prothrombin Time 17.7 Seconds (9.0-12.0)
--- NOTE | 2024-12-16 12:00 | Electrocardiogram Report ---
Test Reason : Blood Pressure : */* mmHG Vent. Rate : 112 BPM Atrial Rate : 112 BPM P-R Int : 142 ms QRS Dur : 76 ms QT Int : 316 ms P-R-T Axes : 17 -49 74 degrees QTcB Int : 431 ms Sinus tachycardia with Premature atrial complexes with Aberrant conduction Low voltage QRS Left anterior fascicular block Cannot rule out Anterior infarct (cited on or before 16-May-2024) Abnormal ECG When compared with ECG of 16-May-2024 06:21, No significant change was found Confirmed by David Mar ([id number]) on 12/16/2024 12:00:14 PM Referred By: REFERRED SELF Confirmed By: David Mar
[2024-12-16] MEDS ORDERED: DEXTROSE 50% 50 ML SYRINGE IV PRN (12:28)
[2024-12-16] MEDS ORDERED: GLUCOSE 40% GEL 15 GM TUBE PO PRN (12:28)
[2024-12-16] MEDS ORDERED: PHARMACY GLYCEMIC MGMT CONSULT PRN (12:28)
[2024-12-16] MEDS ORDERED: GLUCAGON FOR INJ 1 MG VIAL SQ PRN (12:28)
[2024-12-16] MEDS ORDERED: GLUCOSE 10 TAB/TUBE PO PRN (12:28)
[2024-12-16] MEDS ORDERED: CARBOHYDRATES FOR HYPOGLYCEMIA PO PRN (12:28)
[2024-12-16] MEDS: SODIUM CHLORIDE 0.9% 1,000 ML IV ONE (12:38)
--- NOTE | 2024-12-16 12:54 | Billing Data ---
Date of Service December 16, 2024 Coding Level of Care Code 05511 CRITICAL CARE
--- NOTE | 2024-12-16 12:54 | History & Physical Report ---
Date of Service December 16, 2024 Assessment & Plan (1) Severe sepsis: Plan: Assessment: 1. Severe sepsis with impending septic shock. Patient is hypotensive, tachycardic, leukocytotic. Blood cultures obtained. IV Zosyn for now. Probable urinary source and/or intra-abdominal source related to acute pancreatitis migrated cholecystectomy clip. Volume resuscitation. Commence Levophed probably if she does not respond to fluid challenge. 2. Acute pancreatitis. NPO. IV fluids. As needed antiemetics and analgesics. Recheck lipase in the AM. GI has been consulted. 3. UTI with acute cystitis by CT. Review of old culture data suggest essentially pansensitive E. coli. Continue Zosyn. 4. Migrated cholecystectomy clip as documented above. GI has been consulted. Monitor carefully. 5. Diabetes mellitus. Accu-Cheks been ordered. Glycemic management will take place pending glycemic control. 6. History of DVT. She is on Eliquis therapy at home. Will continue this cautiously at this point. If there is any evidence of bleeding and/or hemorrh agic pancreatitis this needs to be discontinued promptly. 7. Hypomagnesemia. Replaced. Recheck in the a.m. 8. GERD. IV Protonix has been ordered. 9. Hypothyroidism. Continue Synthroid replacement therapy. Recheck TSH in the a.m. 10. History of sleep apnea. CPAP per protocol at at bedtime has been ordered. 11. History of hypertension. Hold all antihypertensives at this time given the severe sepsis. Plan: As discussed above. Please refer to orders for further planning. 46 minutes of critical care time spent independent in addition to any other time or critical care time by any other practitioner on December 16, 2024. Patient's condition is critical. This was discussed with the patient and her daughter at the bedside. Prognosis guarded. History of Present Illness Chief Complaint: Nausea, vomiting, abdominal pain. Primary Care Provider: Adrian Davies PA-C This is a pleasant 74-year-old female who lives at home. Over the last 12 to 18 hours she developed nausea and vomiting with evolving abdominal pain. The sym ptoms are severe enough that she presented the ER today for further evaluation and treatment. In the emergency department she had multiple diagnostic studies including laboratory studies demonstrating a significant leukocytosis at over 17,000. Significant transaminitis with a total bilirubin of 1.4 and AST of 721 and ALT of 391. Alk phos was normal at 93. Lipase was found to be elevated greater than 6000. Procalcitonin grossly abnormal at 1.5. Urinalysis positive for UTI. CT of the abdomen pelvis was grossly abnormal showing a 7 mm metallic density in the dependent lumen of the duodenum suggestive of a cholecystectomy clip migration passing through the common bile duct, pancreatic stranding consistent with pancreatitis evidence of chronic pancreatitis as well. With findings of cystitis with a large periumbilical hernia containing large bowel without obstruction. Course in the ER the patient received IV Zosyn. Blood cultures were obtained. We were called admit the patient for further evaluation and treatment. Consultation was obtained with GI. They do not feel any further intervention needs to take place on the migrated metallic clip at this point. They will see the patient in consultation. We have ordered stat fluid. When I evaluated the patient her blood pressure was 80/40 with a heart rate in the 130s. Her lactic acid was reassuring but she is showing clinical evidence of impending septic shock. When I placed the patient in the ER. Continue to volume resuscitate her. And if she does not respond promptly with fluid boluses we will commence her on Levophed. Prior urine cultures have been reviewed and she has essentially grown pansensitive E. coli over the last 24 months. Allergies Allergy/AdvReac Type Severity Reaction Status Date / Time Sulfa (Sulfonamide Allergy Anaphylaxis, Verified 12/16/24 12:06 Antibiotics) rash pentazocine [From Talwin] AdvReac Nausea Verified 12/16/24 12:06 Home Medications Medication Instructions Recorded Confirmed Type allopurinol 100 mg tablet 100 mg PO BID 04/02/18 12/16/24 History apremilast 30 mg tablet (Otezla) 30 mg PO BID 04/02/18 12/16/24 History carvedilol 6.25 mg tablet 6.25 mg PO BID 04/02/18 12/16/24 History ergocalciferol (vitamin D2) 1,250 50,000 unit PO WK 04/02/18 12/16/24 History mcg (50,000 unit) capsule fenofibrate nanocrystallized 145 145 mg PO HS 04/02/18 12/16/24 History mg tablet furosemide 40 mg tablet 40 mg PO DAILY 04/02/18 12/16/24 History glucosamine sulf dipotassium Cl 1 tab PO BID 05/30/18 12/16/24 History 500 mg-chondroitin sulf 400 mg tablet (Glucosamine-Chondroitin DS) lisinopril 10 mg tablet 10 mg PO DAILY 05/30/18 12/16/24 History famotidine 40 mg tablet (Pepcid) 40 mg PO DAILY 01/14/19 12/16/24 History insulin lispro 100 unit/mL 0 units subcut TIDM 01/14/19 12/16/24 History subcutaneous pen (Humalog KwikPen (U-100) Insulin) magnesium oxide 500 mg capsule 500 mg PO DAILY 07/18/19 12/16/24 History semaglutide 0.25 mg or 0.5 mg (2 0.25 mg subcut WK 08/19/19 12/16/24 History mg/1.5 mL) subcutaneous pen injector (Ozempic) oxycodone 5 mg tablet 5 mg PO Q6H PRN pain, severe #20 08/30/19 09/26/24 Rx tabs sertraline 100 mg tablet 100 mg PO DAILY 08/11/22 12/16/24 History alirocumab 150 mg/mL subcutaneous 150 mg subcut 2XWK 09/20/22 12/16/24 History pen injector (Praluent Pen) insulin glargine 100 unit/mL (3 26 unit subcut DAILY 08/24/23 12/16/24 History mL) subcutaneous pen (Lantus Solostar U-100 Insulin) levothyroxine 175 mcg tablet 175 mcg PO DAILY 08/24/23 12/16/24 History clotrimazole-betamethasone 1 1 applic topical DAILY PRN itching 04/21/24 09/26/24 Rx %-0.05 % topical cream #45 grams apixaban 5 mg tablet (Eliquis) 5 mg PO BID #180 tabs 06/10/24 12/16/24 Rx mirabegron 50 mg tablet,extended 50 mg PO DAILY #30 tabs 06/24/24 09/26/24 Rx release 24 hr (Myrbetriq) colchicine 0.6 mg capsule 0.6 mg PO DAILY 09/05/24 12/16/24 History turmeric 400 mg capsule 400 mg PO DAILY 09/05/24 12/16/24 History gabapentin 400 mg capsule 800 mg PO BID 09/10/24 12/16/24 History vibegron 75 mg tablet (Gemtesa) 75 mg PO DAILY #30 tabs 09/29/24 Rx hydrocodone 10 mg-acetaminophen 1 tab PO Q8H PRN Pain 12/16/24 12/16/24 History 325 mg tablet methylprednisolone 4 mg tablet 4 mg PO DAILY 12/16/24 12/16/24 History Past Med/Surg History Problem List (Updated 09/26/24 @ 12:23 by Hortencia Marmolejo LPN) Urinary symptom or sign Sacroiliitis Left Right rotator cuff tear Urine retention Hypokalemia Elevated troponin Hypomagnesemia (Acute) Acute UTI (urinary tract infection) (Acute) Severe sepsis (Acute) Chronic anticoagulation Apixaban for history of DVT History of lumbar fusion L4-S1 fusion with Dr. Berman in 2019 Chronic, continuous use of opioids Frequent falls Bilateral sacroiliitis Vulvar rash Arthritis with psoriasis on chronic methylprednisolone 4mg daily Lumbar radiculopathy CHRISTIANO (obstructive sleep apnea) CPAP DM type 2 (diabetes mellitus, type 2) IDDM Neurogenic claudication due to lumbar spinal stenosis Hypertension Hyperlipidemia Peripheral neuropathy right foot CAD (coronary artery disease) non-obstructive per 12/2018 cardiac cath per patient Chronic diastolic CHF (congestive heart failure) DVT prophylaxis Fever Urinary incontinence Acute and chronic respiratory failure with hypoxia Bronchopneumonia Indeterminate pulmonary nodules Influenza A Urinary incontinence Mixed incontinence DVT (deep venous thrombosis) Osteoarthritis of right wrist Chronic venous insufficiency Medical History History of blood transfusion post-op knee surgery Hypothyroidism s/p radioactive iodine Osteoarthritis Degenerative disc disease Chronic back pain Peptic ulcer disease hx GERD (gastroesophageal reflux disease) Depression Anxiety Congestive heart failure 2013 with pulmonary edema --> respiratory arrest --> [facility] [place] Bronchitis hx Surgical History History of cardiac cath no stents. Fall 2018, [facility] History of nasal septoplasty History of dilatation and curettage S/P right knee arthroscopy S/P lymph node biopsy left axillary node (-) S/P Achilles tendon repair and tarsal tunnel repair right foot S/P SHONA-BSO umbilicial hernia repair with cystocele & rectocele History of carpal tunnel release bilateral History of total knee arthroplasty bilateral History of revision of total knee arthroplasty left S/P epidural steroid injection History of cholecystectomy History of appendectomy History of esophagogastroduodenoscopy (EGD) History of colonoscopy Family History Other No family history of adverse response to anesthesia No pertinent family history Social History Smoking Status: Never smoker Second Hand Exposure: No; Do You Dip or Chew Tobacco: No; Hx Alcohol Use: Yes Alcohol type: beer and wine Hx Substance Use: No Preferred Language: Vincentian Communication Ability: Effective [employer] Pro[employer] Required: No Beliefs That Will Affect Care: None marital status: / Current Living Situation: Alone Feels Safe at Home: Yes Assistive Devices: Cane and Walker Review of Systems Review of Systems: A 10 point review of system was obtained and unless otherwise stated here or in history of present illness are negative and noncontributory to chief complaint. Physical Exam Physical Exam: In General: In general this is an ill-appearing 74-year-old female who is alert and oriented x 3. She is accompanied by her daughter at the time my exam. She interacts appropriately but again is very ill-appearing HEENT: Normocephalic atraumatic pupils are equal round and reactive to light bilaterally. No scleral icterus no conjunctival injection external auditory canals are patent septum is in the midline nose is without discharge oral mucosa is pink and extremely dry without lesion. NECK: Supple no rigidity no lymphadenopathy no thyromegaly no carotid bruits no JVD no masses. HEART: Tachycardic. Appears regular. No martha murmur on auscultation. LUNGS: Clear to auscultation bilaterally and anteriorly with no evidence of adventitious sounds/wheezes rales or rhonchi. ABDOMEN: Obese, periumbilical hernia noted. No signs of incarceration. Hypoactive bowel sounds. Diffusely tender. No rebound. No peritoneal sign. EXTREMITIES: Intact, no peripheral cyanosis, clubbing or edema. NEUROLOGICAL: Cranial nerves II through XII are grossly intact with no focal deficit elicited upon examination. Results & Data Results & Data Vital Signs (Past 12 Hours) Vital Signs Temp Pulse Pulse Resp BP BP Pulse Ox 12/16/24 12:03 36.9 C 110 H 21 88/63 L 92 12/16/24 11:33 109 H 20 91/47 L 98 12/16/24 10:32 108 H 20 98/53 L 94 12/16/24 10:03 123 H 20 85/55 L 93 12/16/24 07:55 93 12/16/24 07:55 37.3 C 106 H 24 171/101 H 93 O2 Del Method 12/16/24 12:03 Room Air 12/16/24 11:33 Room Air 12/16/24 10:32 Room Air 12/16/24 10:03 Room Air 12/16/24 07:55 Room Air 12/16/24 07:55 Room Air Code Status & VTE Plan Code Status Full code. I personally discussed with patient and her daughter at the bedside. VTE Prophylaxis Plan VTE Prophylaxis will be ordered: Yes PG Care Time/CCT Total # of Minutes Spent Total Time Spent with Patient: Total time spent is greater than 50% in coordination of care (as documented) at patient's floor/unit and/or counseling patient: 46 minutes of critical care time spent in the clinical evaluation management and treatment of this patient today. This critical care time spent independent of and in addition to any other time or critical care time by any other practitioner on today's date of December 16, 2024. Coding Level of Care Code None Diagnoses Severe sepsis A41.9; R65.20 Time Spent (min) 46 Comment 96328 - Critical care- 46 minutes.
--- NOTE | 2024-12-16 14:10 | Gastrointestinal Consultation ---
Date of Consultation December 16, 2024 Assessment & Plan (1) Pancreatitis: (2) Abnormal CT of the abdomen: Plan Patient admitted with sepsis, UTI, and imaging suggestive of surgical clip having passed through bile duct with pancreatitis. - recommend supportive care. - continue to follow and trend LFTs. - could consider MRCP to further evaluate the biliary tree. - continue with NPO, IVF, and pain control. - Further recommendations to come with Supervising GI provider on medical rounds. Please see co-signature comments. Supervising Physician Co-Signing Physician Notes I saw and examined this patient with our nurse practitioner and agree with her assessment and plan. Clinical picture consistent with acute pancreatitis based on lab work and imaging. Most likely etiology is choledocholithiasis with past history of cholecystectomy. However need to consider other etiologies as well. Unlikely chronic pancreatitis with such an elevated lipase. Need to also consider autoimmune pancreatitis in light of her history of arthritis possibly autoimmune disease. Continue hydration and symptomatic care. Consider empiric antibiotic therapy for possible CBD stone. Recommend MRI MRCP to assess for choledocholithiasis. History of Present Illness Reason for Consultation: pancreatitis, migration of surgical clip Requesting Physician: Kumar Hurst DO Attending Physician: Kumar Hurst, PhD, DO History of Present Illness Patient is a 74 yearold female who presented to the ED this morning with new onset of nausea and vomiting with RUQ abdominal pain. The symptoms are severe enough that she presented the ER today for further evaluation and treatment. symptoms started a few hours after eating at a buffet with her family. no other members became ill. In the emergency department she had multiple diagnostic studies including laboratory studies demonstrating a significant leukocytosis at over 17,000. Significant transaminitis with a total bilirubin of 1.4 and AST of 721 and ALT of 391. Alk phos was normal at 93. Lipase was found to be elevated greater than 6000. Procalcitonin grossly abnormal at 1.5. Urinalysis positive for UTI. CT of the abdomen pelvis was grossly abnormal showing a 7 mm metallic density in the dependent lumen of the duodenum suggestive of a cholecystectomy clip migration passing through the common bile duct, pancreatic stranding consistent with pancreatitis evidence of chronic pancreatitis as well. With findings of cystitis with a large periumbilical hernia containing large bowel without obstruction. she admits to rare etoh use. gallbladder was done "years ago". Since admission, she tells me that pain has improved, but is still present. no further nausea or emesis. she is however very lethargic. The remainder of the GI ROS were unremarkable. 12/16/24 wbc 17.9, hgb 13.3, hct 42, plts 286, INR 1.7, Na 140, K 4, BUN 30, Cr 0.91, T bili 1.4, D bili 1.1, AST 721, ALT 391, Alk 93, Nh3 31, lipase 6254 12/16/24 CT - 1. 7 mm metallic density focus within the dependent lumen of the duodenum is suggestive of cholecystectomy clip migration, likely recently passed through the common bile duct. 2. There is mild nonspecific inflammatory stranding adjacent to the duodenum extending into the pancreaticoduodenal groove, possibly mild associated pancreatitis related to the aforementioned clip migration. Correlate with serum lipase. 3. Evidence of chronic pancreatitis. 4. Cholecystectomy with unchanged mild dilation of the common bile duct which is likely postsurgical. Correlate with serum bilirubin. 5. No pneumoperitoneum. 6. Findings suggestive of cystitis with left-sided ascending infection. 7. Large bowel containing periumbilical hernia without obstruction. Allergies Allergy/AdvReac Type Severity Reaction Status Date / Time Sulfa (Sulfonamide Allergy Anaphylaxis, Verified 12/16/24 12:06 Antibiotics) rash pentazocine [From Talwin] AdvReac Nausea Verified 12/16/24 12:06 Home Medications Medication Instructions Recorded Confirmed Type allopurinol 100 mg tablet 100 mg PO BID 04/02/18 12/16/24 History apremilast 30 mg tablet (Otezla) 30 mg PO BID 04/02/18 12/16/24 History carvedilol 6.25 mg tablet 6.25 mg PO BID 04/02/18 12/16/24 History ergocalciferol (vitamin D2) 1,250 50,000 unit PO WK 04/02/18 12/16/24 History mcg (50,000 unit) capsule fenofibrate nanocrystallized 145 145 mg PO HS 04/02/18 12/16/24 History mg tablet furosemide 40 mg tablet 40 mg PO DAILY 04/02/18 12/16/24 History glucosamine sulf dipotassium Cl 1 tab PO BID 05/30/18 12/16/24 History 500 mg-chondroitin sulf 400 mg tablet (Glucosamine-Chondroitin DS) lisinopril 10 mg tablet 10 mg PO DAILY 05/30/18 12/16/24 History famotidine 40 mg tablet (Pepcid) 40 mg PO DAILY 01/14/19 12/16/24 History insulin lispro 100 unit/mL 0 units subcut TIDM 01/14/19 12/16/24 History subcutaneous pen (Humalog KwikPen (U-100) Insulin) magnesium oxide 500 mg capsule 500 mg PO DAILY 07/18/19 12/16/24 History semaglutide 0.25 mg or 0.5 mg (2 0.25 mg subcut WK 08/19/19 12/16/24 History mg/1.5 mL) subcutaneous pen injector (Ozempic) oxycodone 5 mg tablet 5 mg PO Q6H PRN pain, severe #20 08/30/19 09/26/24 Rx tabs sertraline 100 mg tablet 100 mg PO DAILY 08/11/22 12/16/24 History alirocumab 150 mg/mL subcutaneous 150 mg subcut 2XWK 09/20/22 12/16/24 History pen injector (Praluent Pen) insulin glargine 100 unit/mL (3 26 unit subcut DAILY 08/24/23 12/16/24 History mL) subcutaneous pen (Lantus Solostar U-100 Insulin) levothyroxine 175 mcg tablet 175 mcg PO DAILY 08/24/23 12/16/24 History clotrimazole-betamethasone 1 1 applic topical DAILY PRN itching 04/21/24 09/26/24 Rx %-0.05 % topical cream #45 grams apixaban 5 mg tablet (Eliquis) 5 mg PO BID #180 tabs 06/10/24 12/16/24 Rx mirabegron 50 mg tablet,extended 50 mg PO DAILY #30 tabs 06/24/24 09/26/24 Rx release 24 hr (Myrbetriq) colchicine 0.6 mg capsule 0.6 mg PO DAILY 09/05/24 12/16/24 History turmeric 400 mg capsule 400 mg PO DAILY 09/05/24 12/16/24 History gabapentin 400 mg capsule 800 mg PO BID 09/10/24 12/16/24 History vibegron 75 mg tablet (Gemtesa) 75 mg PO DAILY #30 tabs 09/29/24 Rx hydrocodone 10 mg-acetaminophen 1 tab PO Q8H PRN Pain 12/16/24 12/16/24 History 325 mg tablet methylprednisolone 4 mg tablet 4 mg PO DAILY 12/16/24 12/16/24 History Patient History Medical History History of blood transfusion post-op knee surgery Hypothyroidism s/p radioactive iodine Osteoarthritis Degenerative disc disease Chronic back pain Peptic ulcer disease hx GERD (gastroesophageal reflux disease) Depression Anxiety Congestive heart failure 2013 with pulmonary edema --> respiratory arrest --> [facility] Bronchitis hx Surgical History History of cardiac cath no stents. Fall 2018, [facility] History of nasal septoplasty History of dilatation and curettage S/P right knee arthroscopy S/P lymph node biopsy left axillary node (-) S/P Achilles tendon repair and tarsal tunnel repair right foot S/P SHONA-BSO umbilicial hernia repair with cystocele & rectocele History of carpal tunnel release bilateral History of total knee arthroplasty bilateral History of revision of total knee arthroplasty left S/P epidural steroid injection History of cholecystectomy History of appendectomy History of esophagogastroduodenoscopy (EGD) History of colonoscopy Family History Other No family history of adverse response to anesthesia No pertinent family history Social History Smoking Status: Never smoker Second Hand Exposure: No; Do You Dip or Chew Tobacco: No; Hx Alcohol Use: No Hx Substance Use: No Preferred Language: Lithuanian Communication Ability: Effective Operations Clerk Required: No Beliefs That Will Affect Care: None marital status: / Current Living Situation: Alone Feels Safe at Home: Yes Assistive Devices: BiPap, Cane, Glasses and Walker Review of Systems Review of Systems: All systems reviewed & are unremarkable except as noted in HPI & below Physical Exam Constitutional: WD/WN, vitals as above Respiratory: normal respiratory effort, lungs clear to auscultation Cardiovascular: Rate/Rhythm: regular rate and regular rhythm Gastrointestinal (Abdomen): normal bowel sounds, soft, nontender, no hepatosplenomegaly Psychiatric: lethargic Results & Data Vital Signs (Past 12 Hours) Vital Signs Temp Pulse Pulse Resp BP BP Pulse Ox 12/16/24 12:51 115 H 12/16/24 12:45 125 H 19 85/64 L 92 12/16/24 12:03 98.5 F 110 H 21 88/63 L 92 12/16/24 11:33 109 H 20 91/47 L 98 12/16/24 10:32 108 H 20 98/53 L 94 12/16/24 10:03 123 H 20 85/55 L 93 12/16/24 07:55 93 12/16/24 07:55 99.1 F 106 H 24 171/101 H 93 O2 Del Method 12/16/24 12:51 12/16/24 12:45 Room Air 12/16/24 12:03 Room Air 12/16/24 11:33 Room Air 12/16/24 10:32 Room Air 12/16/24 10:03 Room Air 12/16/24 07:55 Room Air 12/16/24 07:55 Room Air Laboratory Results Laboratory Results - last 48 hr 12/16/24 12/16/24 12/16/24 07:58 09:24 10:00 WBC 17.90 H RBC 4.39 Hgb 13.3 Hct 42.0 MCV 95.7 MCH 30.3 MCHC 31.7 L RDW Std Deviation 47.5 H RDW Coeff of Nadege 13.4 Plt Count 286 MPV 9.8 Immature Gran % (Auto) 0.6 Neut % (Auto) 92.5 Lymph % (Auto) 3.5 [place] % (Auto) 3.0 Eos % (Auto) 0.1 Baso % (Auto) 0.3 Neut # (Auto) 16.56 H Lymph # (Auto) 0.63 L [place] # (Auto) 0.53 Eos # (Auto) 0.02 Baso # (Auto) 0.05 Immature Gran # (Auto) 0.11 Toxic Vacuolation 1+ PT Cancelled INR Cancelled Sodium 140 Potassium 4.0 Chloride 101 Carbon Dioxide 29 Anion Gap 10 BUN 30 H Creatinine 0.91 Est Cr Clr Drug Dosing 60.7 eGFR 66.61 BUN/Creatinine Ratio 33.0 H Glucose 241 H POC Glucose Lactate 2.6 H* Calcium 9.6 Magnesium 1.4 L Total Bilirubin 1.4 H Direct Bilirubin 1.1 H AST 721 H ALT 391 H Alkaline Phosphatase 93 Ammonia 31.0 Troponin I High Sens 9.5 Total Protein 7.2 Albumin 4.2 Globulin 3.0 Albumin/Globulin Ratio 1.4 Lipase 6254 H Procalcitonin 1.51 H Urine Color Dark Yellow Urine Appearance Cloudy A Urine pH 6.0 Ur Specific Lutz 1.016 Urine Protein 2+ H Urine Glucose (UA) Negative Urine Ketones Negative Urine Blood Negative Urine Nitrite Negative Urine Bilirubin Negative Urine Urobilinogen Negative Ur Leukocyte Esterase 2+ H Urine WBC (Auto) >50 H Urine RBC (Auto) 0-2 U Hyaline Cast (Auto) 6-10 H U Epithel Cells (Auto) 3-5 H Urine Bacteria (Auto) 4+ H Hyaline Casts Present A Granular Casts Present A Urine Comment 12/16/24 12/16/24 12/16/24 11:08 12:51 12:55 WBC RBC Hgb Hct MCV MCH MCHC RDW Std Deviation RDW Coeff of Nadege Plt Count MPV Immature Gran % (Auto) Neut % (Auto) Lymph % (Auto) [place] % (Auto) Eos % (Auto) Baso % (Auto) Neut # (Auto) Lymph # (Auto) [place] # (Auto) Eos # (Auto) Baso # (Auto) Immature Gran # (Auto) Toxic Vacuolation PT 17.7 H INR 1.7 H Sodium Potassium Chloride Carbon Dioxide Anion Gap BUN Creatinine Est Cr Clr Drug Dosing eGFR BUN/Creatinine Ratio Glucose POC Glucose 120 H Lactate 0.8 Calcium Magnesium Total Bilirubin Direct Bilirubin AST ALT Alkaline Phosphatase Ammonia Troponin I High Sens 11.9 Total Protein Albumin Globulin Albumin/Globulin Ratio Lipase Procalcitonin Urine Color Urine Appearance Urine pH Ur Specific [place] Urine Protein Urine Glucose (UA) Urine Ketones Urine Blood Urine Nitrite Urine Bilirubin Urine Urobilinogen Ur Leukocyte Esterase Urine WBC (Auto) Urine RBC (Auto) U Hyaline Cast (Auto) U Epithel Cells (Auto) Urine Bacteria (Auto) Hyaline Casts Granular Casts Urine Comment Diagnostic Findings Chest X-Ray 12/16/24 07:52 XR chest 1V portable CLINICAL HISTORY: abdominal pain/nausea/vomiting COMPARISON STUDY: Chest radiograph May 16, 2024. Chest CT January 14, 2019. FINDINGS: No lucency is identified under the hemidiaphragms to suggest pneumoperitoneum by radiography. Cardiomegaly is unchanged. No evidence for pulmonary edema. There is no pneumothorax or pleural effusion. There is no consolidation to suggest pneumonia. Incidental note is made of suspected calcific tendinitis of the rotator cuffs. IMPRESSION: No acute cardiopulmonary findings. No significant change in appearance of the chest. ACT 112: Negative or not required by law. Electronically signed by: James Kaplan M.D. 12/16/2024 8:33 AM Abdomen/Pelvis CT 12/16/24 09:[address] WITH IV CONTRAST CT DOSE: 1320.47 mGy.cm HISTORY: Acute upper abdominal pain suspected choledocholithiasis vs pancreatitis TECHNIQUE: Multiaxial CT images of the abdomen and pelvis were performed following the IV administration of 94 cc of Optiray, A dose lowering technique was utilized adhering to the principles of ALARA. COMPARISON STUDY: CT 03/09/2022, January 14, 2019. FINDINGS: Coronary artery calcifications. Clear lung bases. Borderline enlarged heart. No pneumatosis or pneumoperitoneum. Unremarkable spleen. Stable benign left adrenal gland nodule, unchanged from 2019. Mild nodular thickening of the right adrenal gland is also within normal limits. Hepatic steatosis with mild hepatomegaly. Patency of the hepatic and portal veins. Cholecystectomy with unchanged mild biliary ductal dilation which is likely postsurgical. The common bile duct measures 1.3 cm transversely. Mildly atrophic pancreas with scattered subcentimeter pancreatic calcifications. There is mild edema with trace ascites surrounding the duodenum extending into the pancreaticoduodenal groove and inferior to the right hepatic lobe. There is a 7 mm metallic density structure noted along the dependent wall of the duodenum on image 162 series 3 appears to represent a displaced cholecystectomy clip with change positioning compared to the prior CT. There are a few small cysts of the kidneys again noted. There is mild urothelial thickening of the left renal pelvis and left UPJ. Nonspecific urinary bladder wall thickening with perivesicular stranding. Hysterectomy. Atherosclerosis of the aorta without aneurysm. Mild periportal lymphadenopathy with lymph nodes measuring up to 1.2 cm. No bowel obstruction. Colonic diverticulosis. Redemonstr ation of a periumbilical hernia with opening of approximately 5 cm containing a portion of the nonobstructed transverse colon which is similar to prior. Scattered nondilated small bowel air fluid levels are likely physiologic. Degenerative and postoperative changes of the spine. IMPRESSION: 1. 7 mm metallic density focus within the dependent lumen of the duodenum is suggestive of cholecystectomy clip migration, likely recently passed through the common bile duct. 2. There is mild nonspecific inflammatory stranding adjacent to the duodenum extending into the pancreaticoduodenal groove, possibly mild associated pancreatitis related to the aforementioned clip migration. Correlate with serum lipase. 3. Evidence of chronic pancreatitis. 4. Cholecystectomy with unchanged mild dilation of the common bile duct which is likely postsurgical. Correlate with serum bilirubin. 5. No pneumoperitoneum. 6. Findings suggestive of cystitis with left-sided ascending infection. 7. Large bowel containing periumbilical hernia without obstruction. ACT 112: Negative or not required by law. The above report was generated using voice recognition software. It may contain grammatical, syntax or spelling errors. Electronically signed by: Pola Nichols M.D. 12/16/2024 10:51 AM Coding Level of Care Code 86193 INT INP/OBS CARE MIN Diagnoses Pancreatitis K85.[address] of the abdomen R93.5
[2024-12-16] MEDS: LACTATED RINGER'S 1,000 ML IV SCH (14:11)
[2024-12-16] MEDS: PIPERACILLIN/TAZOBACTAM 4.5 GM/100 ML BAG IV SCH (14:13)
[2024-12-16] MEDS: PANTOprazole 40 MG/10 ML SYR IV SCH (14:13)
--- NOTE | 2024-12-16 14:37 | Pharmacy Report ---
Pharmacy Glycemic Short Note 2 - Date of Service December 16, 2024 - Glycemic Short BSG Results (Last 24 hours): 12/16/24 12/16/24 07:58 12:55 Glucose 241 H POC Glucose 120 H OUTPATIENT ANTIDIABETIC REGIMEN: * Lantus 26 units daily * Lispro sliding scale * semaglutide 2.5mg SC weekly * A1c: pending ASSESSMENT: * Patient admitted with septic shock secondary to possible urinary/ intraabdominal source * Per RN patient did not take basal insulin today. * Based on previous inpatient data, patient requires significantly less basal insulin while admitted. BSG also normalized at lunchtime to 120mg/dL. Given t his and ongoing NPO status, will continue with novolog scale and order a conservative lantus scale for this evening for BSG > 180 mg/dL. Re-assess NPO status and basal needs tomorrow. PLAN FOR INPATIENT GLYCEMIC CONTROL: * Hold outpatient oral diabetes medications * Basal insulin * Lantus scale this evening -See MAR for details * Bolus insulin * NovoLog per scale ACHS or Q6hrs while NPO * Goal Range: Low 110 mg/dL - High 140 mg/dL * Correction Factor: 25 mg/dL/unit * Nutritional / Prandial insulin per carb ratio of 1 unit per 8 grams CHO consumed
[2024-12-16] MEDS ORDERED: STAT IV Infusion **Titration per Protocol STA (15:19)
[2024-12-16] MEDS: NOREPINEPHRINE/D5W 4 MG/250 ML PLCT IV SCH (15:27)
[2024-12-16] MEDS: LACTATED RINGER'S 500 ML IV ONE (15:28)
[2024-12-16] MEDS: NOREPINEPHRINE/D5W 4 MG/250 ML IV ONE (15:28)
[2024-12-16] MEDS ORDERED: ALBUT/IPRATROP 3MG/0.5MG NEB 3 ML VIAL NEB PRN (15:50)
--- NOTE | 2024-12-16 15:51 | Critical Care Consultation ---
Date of Consultation December 16, 2024 Assessment & Plan (1) Septic shock: (2) Pancreatitis: (3) Acute UTI (urinary tract infection): (4) Abnormal CT of the abdomen: (5) Chronic anticoagulation: (6) Transaminitis: (7) Chronic diastolic CHF (congestive heart failure): (8) CAD (coronary artery disease): (9) CHRISTIANO (obstructive sleep apnea): (10) DM type 2 (diabetes mellitus, type 2): Plan Patient is a 74-year-old female who presents to the hospital with abdominal discomfort, decreased p.o. intake and nausea and vomiting. Was found to be hypotensive and did not respond to fluid resuscitation. Laboratory and CT evaluation concerning for pancreatitis and cystitis. The patient is admitted to the ICU for resuscitation and need for vasopressor support. Reason Critically Ill: Distributive shock, likely secondary to sepsis with UTI and acute pancreatitis Pancreatitis Urinary tract infection Transaminitis Mildly elevated total bilirubin Elevated INR Hypomagnesemia Underlying HFpEF (echo 2019 with EF 50%, enlarged LA and LV with borderline LVH, sclerosis of aortic and mitral valve, RV pressure 40 mmHg) underlying CHRISTIANO Obesity Diabetes mellitus type 2 Hypothyroidism Neuro: Awake and alert. Nonfocal exam. No concerns at this time. Cardiac: Patient is in shock, likely distributive shock with sepsis pancreatitis. Echo in 2019 showed EF of 50% with evidence of HFpEF as well. X-ray shows cardiomegaly without pulmonary vascular congestion or effusions. Started on norepinephrine. Will place central venous catheter. Will check cortisol level. Troponin x 2 negative. Consider repeat echo if shock does not resolve with medical management. Respiratory: On nasal cannula. Patient has a history of CHRISTIANO, underlying obesity. Will need CPAP nightly. Monitor for volume overload given underlying cardiac dysfunction and need for volume resuscitation in setting of sepsis and pancreatitis. Reported history of asthma. DuoNebs as needed. Breo daily. GI: Pancreatitis appreciated on CT imaging. Lipase significantly elevated. Incidental finding of clip in the duodenum. May be a migrated clip from biliary procedure. Gastroenterology is consulted. Appreciate recommendations. Continue IV fluid resuscitation. Will repeat lipase in the morning. Pantoprazole for GI prophylaxis. RENAL/LYTES: Renal function acceptable at this time. Electrolytes okay. BUN slightly elevated, likely dehydrated. Will repeat labs in AM. Replace electrolytes as indicated. Place Bello catheter for strict I's and O's in setting of shock and titrating vasopressors. : Obtain culture. Insert Bello catheter. UTI present. ENDO: History of diabetes, mild hyperglycemia. Will need sliding scale insulin. Every 6 hour glucose checks. HEME: Leukocytosis. Hemoglobin stable. Monitor with daily CBC. ID: Pancreatitis appreciated on CT imaging. No evidence of necrosis. Panculture. UA suggestive of UTI. Cultures from September showing pansensitive E. coli. MRSA swab pending. Started on Zosyn, agree with this. Repeat procalcitonin in AM. Feeding: May have sips and chips. Fluids: LR at 200 cc an hour. Analgesia: None Activity: Bedrest Thromboprophylaxis: Home Eliquis Ulcer prophylaxis: Pantoprazole Glycemic control: Sign scale insulin Bowels: Monitor output if needed at [facility] Indwelling catheters: Bello catheter, will place central venous catheter Antibiotics: Zosyn Plan: Patient is being admitted to the ICU with shock. Distributive shock most likely etiology with pancreatitis and UTI. Gastroenterology has been consulted. Patient has received 2 L of crystalloid fluid bolus. On maintenance fluids. Monitor for evidence of volume overload, has a history of congestive heart failure. Started on norepinephrine, will place central venous catheter. Patient stated she did not want to be resuscitated including CPR, defibrillation or mechanical ventilation. DNR/DNI order was placed. I have personally spent 60 minutes of critical care time in the direct management of this patient. This is a life/limb threatening event. This includes time spent evaluating patient, direct bedside care, chart review, placing orders, interpretation of diagnostic studies, discussion with consultants, patient, and family members, as well as other required patient management activities. This time is exclusive of all separately billable procedures, and teaching time and separate from and in addition to any other critical care service time. History of Present Illness Reason for Consultation: Shock, sepsis, pancreatitis Requesting Physician: Kumar Hurst, PhD, DO Attending Physician: Kumar Hurst, PhD, DO History of Present Illness Patient is a 74-year-old female with a past medical history significant for hypertension, hyperlipidemia, chronic diastolic heart failure, history of unprovoked DVT in 2021 on anticoagulation, nonobstructive CAD, urinary incontinence, degenerative disc disease, hypothyroidism, depression anxiety, osteoarthritis. The patient presented to the hospital today with complaints of abdominal pain with nausea and vomiting. The patient had been sick since Sunday however had progressed over the past few days. She has been unable to take p.o. She was complaining of abdominal pain in bilateral upper quadrants, cramping and sharp pain without radiation. She did not have any bloody emesis. She also endorsed burning with urination. In the emergency department the patient was found to be hypotensive and tachycardic. Labs showed significant leukocytosis at 17, transaminitis with a T. bili of 1.4, AST 721 and ALT 391. Alk phos 93. Lipase was elevated greater than 6000. Procalcitonin was 1.5. Urinalysis was concerning for UTI. The patient received fluid resuscitation with 1.5 L of LR and was started on Zosyn. She underwent CT abdomen pelvis which showed evidence of pancreatic stranding consistent with acute and chronic pancreatitis. Bladder wall was thickened concerning for cystitis. Umbilical hernia containing large bowel without evidence of obstruction. Incidentally a 7 mm metallic density was noted in the duodenum concerning for a migrated cholecystectomy clip. The patient remained hypotensive after 1.5 L of LR. She was transferred to the medical ICU for further care. When examined the patient in the ICU she is resting comfortably in bed. She is awake and alert. She gives a history and wishes of being DNR/DNI. Blood pressure is low with 70s systolic. Patient has some tenderness with guarding of the abdomen. No bruising appreciated. Norepinephrine has been started peripherally. Patient is okay with central venous catheter and Levophed but would not want to be on advanced life support such as mechanical ventilation would not want CPR or defibrillation. She denies any history of alcohol use. Says she only drinks occasionally and has not done so recently. She denies any previous episodes of pancreatitis. Allergies Allergy/AdvReac Type Severity Reaction Status Date / Time Sulfa (Sulfonamide Allergy Anaphylaxis, Verified 12/16/24 12:06 Antibiotics) rash pentazocine [From [place]] AdvReac Nausea Verified 12/16/24 12:06 Home Medications Medication Instructions Recorded Confirmed Type allopurinol 100 mg tablet 100 mg PO BID 04/02/18 12/16/24 History apremilast 30 mg tablet (Otezla) 30 mg PO BID 04/02/18 12/16/24 History carvedilol 6.25 mg tablet 6.25 mg PO BID 04/02/18 12/16/24 History ergocalciferol (vitamin D2) 1,250 50,000 unit PO WK 04/02/18 12/16/24 History mcg (50,000 unit) capsule fenofibrate nanocrystallized 145 145 mg PO HS 04/02/18 12/16/24 History mg tablet furosemide 40 mg tablet 40 mg PO DAILY 04/02/18 12/16/24 History glucosamine sulf dipotassium Cl 1 tab PO BID 05/30/18 12/16/24 History 500 mg-chondroitin sulf 400 mg tablet (Glucosamine-Chondroitin DS) lisinopril 10 mg tablet 10 mg PO DAILY 05/30/18 12/16/24 History famotidine 40 mg tablet (Pepcid) 40 mg PO DAILY 01/14/19 12/16/24 History insulin lispro 100 unit/mL 0 units subcut TIDM 01/14/19 12/16/24 History subcutaneous pen (Humalog KwikPen (U-100) Insulin) magnesium oxide 500 mg capsule 500 mg PO DAILY 07/18/19 12/16/24 History semaglutide 0.25 mg or 0.5 mg (2 0.25 mg subcut WK 08/19/19 12/16/24 History mg/1.5 mL) subcutaneous pen injector (Ozempic) oxycodone 5 mg tablet 5 mg PO Q6H PRN pain, severe #20 08/30/19 09/26/24 Rx tabs sertraline 100 mg tablet 100 mg PO DAILY 08/11/22 12/16/24 History alirocumab 150 mg/mL subcutaneous 150 mg subcut 2XWK 09/20/22 12/16/24 History pen injector (Praluent Pen) insulin glargine 100 unit/mL (3 26 unit subcut DAILY 08/24/23 12/16/24 History mL) subcutaneous pen (Lantus Solostar U-100 Insulin) levothyroxine 175 mcg tablet 175 mcg PO DAILY 08/24/23 12/16/24 History clotrimazole-betamethasone 1 1 applic topical DAILY PRN itching 04/21/24 09/26/24 Rx %-0.05 % topical cream #45 grams apixaban 5 mg tablet (Eliquis) 5 mg PO BID #180 tabs 06/10/24 12/16/24 Rx mirabegron 50 mg tablet,extended 50 mg PO DAILY #30 tabs 06/24/24 09/26/24 Rx release 24 hr (Myrbetriq) colchicine 0.6 mg capsule 0.6 mg PO DAILY 09/05/24 12/16/24 History turmeric 400 mg capsule 400 mg PO DAILY 09/05/24 12/16/24 History gabapentin 400 mg capsule 800 mg PO BID 09/10/24 12/16/24 History vibegron 75 mg tablet (Gemtesa) 75 mg PO DAILY #30 tabs 09/29/24 Rx hydrocodone 10 mg-acetaminophen 1 tab PO Q8H PRN Pain 12/16/24 12/16/24 History 325 mg tablet methylprednisolone 4 mg tablet 4 mg PO DAILY 12/16/24 12/16/24 History Patient History Medical History History of blood transfusion post-op knee surgery Hypothyroidism s/p radioactive iodine Osteoarthritis Degenerative disc disease Chronic back pain Peptic ulcer disease hx GERD (gastroesophageal reflux disease) Depression Anxiety Congestive heart failure 2013 with pulmonary edema --> respiratory arrest --> [facility] Bronchitis hx Surgical History History of cardiac cath no stents. Fall 2018, [facility] History of nasal septoplasty History of dilatation and curettage S/P right knee arthroscopy S/P lymph node biopsy left axillary node (-) S/P Achilles tendon repair and tarsal tunnel repair right foot S/P SHONA-BSO umbilicial hernia repair with cystocele & rectocele History of carpal tunnel release bilateral History of total knee arthroplasty bilateral History of revision of total knee arthroplasty left S/P epidural steroid injection History of cholecystectomy History of appendectomy History of esophagogastroduodenoscopy (EGD) History of colonoscopy Family History Other No family history of adverse response to anesthesia No pertinent family history Social History Smoking Status: Never smoker Second Hand Exposure: No; Do You Dip or Chew Tobacco: No; Hx Alcohol Use: No Hx Substance Use: No Preferred Language: Malian Communication Ability: Effective Blueprint Duplicator Required: No Beliefs That Will Affect Care: None marital status: / Current Living Situation: Alone Feels Safe at Home: Yes Assistive Devices: BiPap, Cane, Glasses and Walker Review of Systems Review of Systems: Endorses abdominal pain. Endorses nausea. Did not denies blood blood per rectum. Denies hematemesis. Endorses dysuria and frequency of urination. Physical Exam Physical Exam: Physical examination: General: Obese, appears ill, resting in bed, not in acute distress. HEENT: Normocephalic, atraumatic. Extraocular movements intact. Slight scleral icterus is appreciated. Skin: Warm and dry. No rashes appreciated. No jaundice appreciated. No appreciated bruising of the abdomen or flank. Cardiovascular: Heart is a regular rate and rhythm, no murmurs appreciated on my exam. No significant lower extremity edema. Lungs: Clear bilaterally, no wheezing appreciated. No crackles. Nontachypneic. Resting comfortably on nasal cannula. Abdomen: Mildly distended, tender to palpation with guarding. Musculoskeletal: Normal muscle mass and tone. No gross joint deformity abnormalities. No effusions appreciated. Neurologic: Awake and alert, oriented. CN II through XII are grossly intact. Speech is fluent. Nonfocal exam. Psychiatric: Appropriate cooperative during my exam. Results & Data Results & Data Vital Signs (Past 12 Hours) Vital Signs Temp Pulse Pulse Resp BP BP Pulse Ox 12/16/24 15:06 91 H 26 H 92/46 L 96 12/16/24 14:57 96 H 25 H 97 12/16/24 14:51 102 H 19 92/59 L 97 12/16/24 14:50 39.1 C H 12/16/24 14:42 105 H 20 81/39 L 97 12/16/24 14:15 100 H 24 87/43 L 96 12/16/24 14:15 12/16/24 14:15 39.1 C H 12/16/24 14:06 100 H 27 H 81/55 L 92 12/16/24 13:45 112 H 24 84/46 L 93 12/16/24 12:51 115 H 12/16/24 12:45 125 H 19 85/64 L 92 12/16/24 12:03 36.9 C 110 H 21 88/63 L 92 12/16/24 11:33 109 H 20 91/47 L 98 12/16/24 10:32 108 H 20 98/53 L 94 12/16/24 10:03 123 H 20 85/55 L 93 12/16/24 07:55 93 12/16/24 07:55 37.3 C 106 H 24 171/101 H 93 O2 Del Method O2 Flow Rate 12/16/24 15:06 12/16/24 14:57 12/16/24 14:51 12/16/24 14:50 12/16/24 14:42 Nasal Cannula 2 12/16/24 14:15 12/16/24 14:15 Nasal Cannula 2 12/16/24 14:15 12/16/24 14:06 12/16/24 13:45 12/16/24 12:51 12/16/24 12:45 Room Air 12/16/24 12:03 Room Air 12/16/24 11:33 Room Air 12/16/24 10:32 Room Air 12/16/24 10:03 Room Air 12/16/24 07:55 Room Air 12/16/24 07:55 Room Air Laboratory Results Significant leukocytosis at 17, hemoglobin 13, platelet 286. INR 1.7, PT 17.7. Chemistry grossly normal except for mildly elevated BUN of 30. Glucose 241. Magnesium is 1.4. AST 721, ALT 391, total bili 1.4, direct 1.1. Ammonia 31. Troponin is 9.5 and 11.9. Lipase 6254. Procalcitonin 1.51. Urinalysis shows cloudy urine with 2+ protein, 2+ leukocyte esterase, many WBCs and bacteria appreciated. Diagnostic Findings CT imaging was reviewed by myself. Inflammatory stranding adjacent to the duodenum extending into the pancreaticoduodenal groove. I do not see any evidence of cyst or necrosis. Clip appreciated in the duodenum lumen. Mildly dilated common bile duct, status post cholecystectomy. Large bowel appreciated within the periumbilical hernia without evidence of obstruction. Chest x-ray shows cardiomegaly. Lungs are clear otherwise. There was lucency under the diaphragms concerning for pneumoperitoneum however this was ruled out by CT. Coding Level of Care Code 79429 CRITICAL CARE 1ST -74M Diagnoses Septic shock A41.9; R65.21 Pancreatitis K85.90 Acute UTI (urinary tract infection) N39.[address] of the abdomen R93.5 Chronic anticoagulation Z79.01 Transaminitis R74.01 Chronic diastolic CHF (congestive heart failure) I50.32 CAD (coronary artery disease) I25.10 CHRISTIANO (obstructive sleep apnea) G47.33 DM type 2 (diabetes mellitus, type 2) E11.9
[2024-12-16] MEDS: INSULIN ASPART PER UNIT CHARGE SC SCH (15:53)
--- NOTE | 2024-12-16 17:51 | Procedure Note ---
Procedure Note Date of Service December 16, 2024 Procedure: Inserting ultrasound-guided central product line manager: Dr. Kathie Potter Indication: Hypotension Consent: Signed by patient and verified was Timeout prior to procedure. Anesthesia: 1% lidocaine without epinephrine local. Procedure: Consent was verified and timeout performed. Appropriate imaging studies were reviewed prior to the procedure. Under aseptic and sterile condition, left IJ vein was accessed under direct ultrasound guidance. Guidewire was confirmed to be within the lumen of vein with the help of ultrasound. Catheter was introduced via Seldinger technique. Guide a wire was removed. Good non-pulsatile blood flow was appreciated from all the ports. The catheter was placed at 20 cm and sutured in place. BioPatch was applied to the catheter and a sterile Tegaderm dressing was applied over the catheter with careful attention to sterility. Chest x-ray was ordered. Patient tolerated the procedure well. Blood loss: Less than 2 cc Complications: None [facility] [place] Procedure Codes (Charges) Tubes, Drains, and Vasc Access Procedure 1: Tubes, Drains, and Vasc Access: [id number] Insertion Of Non-tunneled Catheter Age 6 Yrs> Coding CPT Codes Tubes, Drains, and Vasc Access - Tubes, Drains, and Vasc Access: [id number] Insertion Of Non-tunneled Catheter Age 6 Yrs> ([id number]) Additional Codes Date of Service ([email or web address])
[2024-12-16 18:41] LABS: Cholesterol 88.0 mg/dl (0-200); HDL Cholesterol 34.0 mg/dl; Triglycerides 141.0 mg/dl (0-150)
--- NOTE | 2024-12-16 18:54 | XRay Report ---
EXAM: Portable AP chest radiograph TECHNIQUE: AP portable radiograph of the chest was obtained. INDICATION: Shortness of breath. Central line placement. Comparison: Chest radiograph May 16, 2024 FINDINGS: LINES and TUBES: There is a left IJ central venous catheter with tip projecting over the left axilla. Likely the tip is terminating within the left subclavian vein CARDIOVASCULAR: Cardiac silhouette is stably enlarged in size. Atherosclerosis of the thoracic aorta. LUNGS/PLEURA: No definite focal consolidation identified. Mild interstitial pulmonary edema and chronic interstitial lung changes appear similar to the prior radiograph. No significant pleural fluid. No discernible pneumothorax. OSSEOUS/OTHER: No displaced acute osseous process identified. Calcific tendinosis over the greater tubercle of the left shoulder. IMPRESSION: Left IJ central venous catheter with tip projecting over the left axilla. Likely the tip is terminating in the left subclavian vein. No discernible pneumothorax. Similar congestive changes of the cardiovascular system compared to previous radiograph from May 2024. Electronically signed by Reggie Rizzo 12-16-2024 6:54 PM
[2024-12-16] MEDS: APIXABAN 5 MG TABLET PO SCH (20:02)
[2024-12-16] MEDS: LANTUS PER UNIT CHARGE SC SCH (20:02)
[2024-12-16 22:12] LABS: A calco-baum cmplx NotReported Not Detected (NotDetected); Bact fragilis Not Reported Not Detected (NotDetected); Blood Culture Id Panel See PCR Comment (NotDetected); C auris Not Reported Not Detected (NotDetected); CTX-M Resistant Gene Not Detected (NotDetected); Calbicans Not Reported Not Detected (NotDetected); Candida glabrata Not Reported Not Detected (NotDetected); Candida krusei Not Reported Not Detected (NotDetected); Cneoformans/gatti Not Reported Not Detected (NotDetected); Cparapsilosis Not Reported Not Detected (NotDetected); Ctropicalis Not Reported Not Detected (NotDetected); E cloacae compx Not Reported Not Detected (NotDetected); Efaecalis Not Reported Not Detected (NotDetected); Efaecium Not Reported Not Detected (NotDetected); Enterobacterales DETECTED (NotDetected); Enterobacterales Not Reported DETECTED (NotDetected); Escherichia coli Not Reported DETECTED (NotDetected); H influenzae Not Reported Not Detected (NotDetected); IMP Resistant Gene Not Detected (NotDetected); K aerogenes Not Reported Not Detected (NotDetected); KPC Resistant Gene Not Detected (NotDetected); Koxytoca Not Reported Not Detected (NotDetected); Kpneumoniae grp Not Reported Not Detected (NotDetected); Lmonocyt Not Reported Not Detected (NotDetected); N meningitidis Not Reported Not Detected (NotDetected); NDM Resistant Gene Not Detected (NotDetected); OXA 48 Like Resistant Gene Not Detected (NotDetected); P aeruginosa Not Reported Not Detected (NotDetected); Proteus spp Not Reported Not Detected (NotDetected); Salmonella spp Not Reported Not Detected (NotDetected); Staph lugdunensis Not Reported Not Detected (NotDetected); Staph spp. Not Reported Not Detected (NotDetected); Staphaureus Not Reported Not Detected (NotDetected); Staphepi Not Reported Not Detected (NotDetected); Stenmaltophilia Not Reported Not Detected (NotDetected); Strep agal(GrpB) Not Reported Not Detected (NotDetected); Strep pneum Not Reported Not Detected (NotDetected); Strep pyog (GrpA) Not Reported Not Detected (NotDetected); Strep spp Not Reported Not Detected (NotDetected); VIM Resistant Gene Not Detected (NotDetected); mcr-1 Colistin Resistant Gene Not Detected (NotDetected)
[2024-12-17 05:13] LABS: Hematocrit (blood only) 31.9 % (37.0-47.0); Hemoglobin 10.2 g/dl (12.0-16.0); Immature Granulocytes # (auto) 0.10 K/uL (0.01-0.20); Immature Granulocytes % (auto) 0.6 %; Mean Corpuscular Hemoglobin 30.4 pg (25.0-34.0); Mean Corpuscular Volume 95.2 fL (80.0-100.0); Platelet Count 219 K/uL (130-400); RDW Standard Deviation 49.1 fL (36.4-46.3); Red Blood Count 3.35 M/uL (4.20-5.40); White Blood Count 17.08 K/ul (4.8-10.8)
[2024-12-17 05:34] LABS: Alanine Aminotransferase 378.0 U/L (7-52); Albumin Globulin Ratio 1.1 (0.9-2); Albumin Level 2.9 gm/dl (3.4-5.0); Alkaline Phosphatase 77.0 U/L (34-104); Anion Gap 7.0 (3-11); Bilirubin,Total 2.7 mg/dl (0.2-1.0); Blood Urea Nitrogen 22.0 mg/dl (6-23); Calcium 8.2 mg/dl (8.6-10.3); Carbon Dioxide 29.0 mmol/L (21-32); Chloride 105.0 mmol/L (98-107); Cholesterol 85.0 mg/dl (0-200); Creatinine Clr Calc Pharmacy 53.1 ml/min; Globulin 2.6 gm/dl (2.5-4.0); Glucose 114.0 mg/dl (70-99(Fasting)); HDL Cholesterol 23.0 mg/dl; Lipase 215.0 U/L (11-82); Magnesium 1.8 mg/dl (1.7-2.4); Potassium 3.9 mmol/L (3.5-5.1); Sodium 141.0 mmol/L (136-145); Total Protein 5.5 gm/dl (6.0-8.3); Triglycerides 166.0 mg/dl (0-150)
[2024-12-17] MEDS: LEVOTHYROXINE SODIUM 175 MCG TABLET PO SCH (05:39)
[2024-12-17 05:43] LABS: Thyroid Stimulating Hormone 2.448 uIu/ml (0.300-4.500)
[2024-12-17 07:29] LABS: Hemoglobin A1C 7.0 % (4.5-5.6)
--- NOTE | 2024-12-17 07:42 | XRay Report ---
EXAM: XR chest 1V portable CLINICAL HISTORY: Shortness of breath. TECHNIQUE: An X-ray image of the chest was obtained in the AP portable projection. COMPARISON: 12/16/2024. FINDINGS: Pulmonary Parenchyma: The patient is technically rotated. There is redemonstration of bilateral hilar and interstitial prominence. There is obscuration of the left costophrenic angle secondary to the overlying cardiac shadow; the possibility of an underlying effusion cannot be entirely excluded. The right costophrenic angle appears clear. Heart and Mediastinum: Heart size cannot be commented upon due to AP projection. Bony Thorax: Degenerative changes are noted in the visualized thoracic spine and left shoulder joint. Soft Tissues: The soft tissues overlying the chest wall are unremarkable. IMPRESSION: 1. Redemonstration of bilateral hilar and interstitial prominence, grossly unchanged. 2. Obscuration of the left costophrenic angle secondary to overlying cardiac shadow; the possibility of an underlying effusion cannot be entirely excluded. 3. Needs clinical correlation and follow-up. Electronically signed by Lalit Aguilera 12-17-2024 07:42 AM
--- NOTE | 2024-12-17 08:25 | Critical Care Progress Note ---
Date of Service December 17, 2024 Assessment & Plan (1) Septic shock: (2) Pancreatitis: (3) Acute UTI (urinary tract infection): (4) Abnormal CT of the abdomen: (5) Chronic anticoagulation: (6) Transaminitis: (7) Chronic diastolic CHF (congestive heart failure): (8) CAD (coronary artery disease): (9) CHRISTIANO (obstructive sleep apnea): (10) DM type 2 (diabetes mellitus, type 2): Plan Patient is a 74-year-old female who presents to the hospital with abdominal discomfort, decreased p.o. intake and nausea and vomiting. Was found to be hypotensive and did not respond to fluid resuscitation. Laboratory and CT evaluation concerning for pancreatitis and cystitis. The patient is admitted to the ICU for resuscitation and need for vasopressor support. Reason Critically Ill: Distributive shock, likely secondary to sepsis with UTI and acute pancreatitis Pancreatitis Urinary tract infection Transaminitis Mildly elevated total bilirubin Elevated INR Hypomagnesemia Underlying HFpEF (echo 2019 with EF 50%, enlarged LA and LV with borderline LVH, sclerosis of aortic and mitral valve, RV pressure 40 mmHg) underlying CHRISTIANO Obesity Diabetes mellitus type 2 Hypothyroidism Neuro: Awake and alert. Nonfocal exam. No concerns at this time. Cardiac: Patient is in shock, likely distributive shock with sepsis pancreatitis. Echo in 2019 showed EF of 50% with evidence of HFpEF as well. X-ray shows cardiomegaly without pulmonary vascular congestion or effusions. She had a malpositioned central venous catheter which has since been removed. Off pressors. Troponin x 2 negative. Consider repeat echo if shock does not resolve with medical management. Given patient is having some mild chest discomfort check EKG now and repeat troponin. Judicial use of fluids. Respiratory: On nasal cannula. Patient has a history of CHRISTIANO, underlying obesity. Patient refused her nightly CPAP. Chest x-ray personally reviewed revealing bilateral interstitial prominence and probable small left pleural effusion. Reported history of asthma. DuoNebs as needed. Breo daily. Initiate incentive spirometer. GI: Pancreatitis appreciated on CT imaging. Lipase significantly elevated. Unclear precipitating event. Perhaps gastroduodenitis leading to pancreatitis. Possible migrating surgical clip leading to obstruction. GI following and considering MRCP. Incidental finding of clip in the duodenum. May be a migrated clip from biliary procedure. Gastroenterology is consulted. Appreciate recommendations. Judicious use of IV fluids given beginnings of fluid overload state. Lipase downtrending. Pantoprazole for GI prophylaxis. RENAL/LYTES: Renal function is resolving. Continue Bello catheter for today. : Urine cultures pending. ENDO: History of diabetes, mild hyperglycemia. Will need sliding scale insulin. Every 6 hour glucose checks. HEME: Leukocytosis. Hemoglobin stable. Monitor with daily CBC. ID: Pancreatitis appreciated on CT imaging. No evidence of necrosis. Blood cultures growing gram-negative bacilli possibly source is biliary. UA suggestive of UTI. Cultures from September showing pansensitive E. coli. MRSA swab negative. Continue Zosyn de-escalate pending culture data. Pro-Arthur downtrending. Feeding: May have sips and chips. Fluids: Judicial use at this time bolus. Urine output. Analgesia: None Activity: Bedrest Thromboprophylaxis: Home Eliquis Ulcer prophylaxis: Pantoprazole Glycemic control: Sliding scale insulin Bowels: Monitor output if needed at [facility] Indwelling catheters: Bello catheter Antibiotics: Zosyn Plan: Can likely transfer out of ICU to PCU status. Admission and Anticipated Discharge Date Admission Date: December 16, 2024 Subjective Patient having some mild chest discomfort and shortness of breath today. Sitting up in a chair. Oxygen cannula in place. Review of Systems Review of Systems: All systems reviewed & are unremarkable except as noted in HPI & below Physical Exam Physical Exam: Physical examination: General: Obese, appears ill, resting in bed, not in acute distress. HEENT: Normocephalic, atraumatic. Extraocular movements intact. Slight scleral icterus is appreciated. Skin: Warm and dry. No rashes appreciated. No jaundice appreciated. No appreciated bruising of the abdomen or flank. Cardiovascular: Heart is a regular rate and rhythm, no murmurs appreciated on my exam. No significant lower extremity edema. Lungs: Clear bilaterally, no wheezing appreciated. crackles. Mildly tachypneic. Resting comfortably on nasal cannula. Abdomen: Soft, nontender, nondistended. Musculoskeletal: Normal muscle mass and tone. No gross joint deformity abnormalities. No effusions appreciated. Neurologic: Awake and alert, oriented. CN II through XII are grossly intact. Speech is fluent. Nonfocal exam. Psychiatric: Appropriate cooperative during my exam. Results & Data Results & Data Vital Signs (Past 12 Hours) Vital Signs Temp Pulse Pulse Resp BP BP Pulse Ox 12/17/24 07:00 37.4 C 72 23 117/61 98 12/17/24 06:00 37.7 C H 77 18 117/74 93 12/17/24 04:05 74 17 142/76 H 96 12/17/24 03:30 84 24 104/51 L 94 12/17/24 03:00 37.9 C H 84 23 109/55 L 93 12/17/24 01:30 79 19 107/59 L 94 12/17/24 01:00 81 24 109/75 95 12/17/24 00:53 93 H 12/17/24 00:30 38.2 C H 84 18 119/65 95 12/17/24 00:00 38.2 C H 94 H 13 145/102 H 95 12/16/24 23:30 38.1 C H 92 H 24 114/98 95 12/16/24 23:00 36.6 C 86 18 140/77 95 12/16/24 22:30 85 18 112/59 L 95 12/16/24 22:06 37.9 C H 73 28 H 96 12/16/24 22:00 119/65 12/16/24 21:30 111/56 L 12/16/24 21:06 37.7 C H 74 24 96 12/16/24 21:00 138/77 12/16/24 20:30 108/57 L 12/16/24 20:18 37.7 C H 80 28 H 96 O2 Del Method O2 Flow Rate 12/17/24 07:00 Nasal Cannula 2 12/17/24 06:00 Room Air 12/17/24 04:05 Nasal Cannula 2 12/17/24 03:30 Nasal Cannula 2 12/17/24 03:00 Nasal Cannula 2 12/17/24 01:30 Nasal Cannula 2 12/17/24 01:00 Nasal Cannula 2 12/17/24 00:53 12/17/24 00:30 Nasal Cannula 2 12/17/24 00:00 Nasal Cannula 2 12/16/24 23:30 Nasal Cannula 2 12/16/24 23:00 Nasal Cannula 2 12/16/24 22:30 Nasal Cannula 2 12/16/24 22:06 12/16/24 22:00 Nasal Cannula 2 12/16/24 21:30 12/16/24 21:06 12/16/24 21:00 12/16/24 20:30 12/16/24 20:18 Coding Level of Care Code 15501 SUB INP/OBS CARE MIN Diagnoses Septic shock A41.9; R65.21 Pancreatitis K85.90 Acute UTI (urinary tract infection) N39.[address] of the abdomen R93.5 Chronic anticoagulation Z79.01 Transaminitis R74.01 Chronic diastolic CHF (congestive heart failure) I50.32 CAD (coronary artery disease) I25.10 CHRISTIANO (obstructive sleep apnea) G47.33 DM type 2 (diabetes mellitus, type 2) E11.9
[2024-12-17] MEDS: FLUTICASONE/VILANTEROL 100/25MCG 14 PUFFS/INHALER INH SCH (08:33)
[2024-12-17] MEDS: SERTRALINE HCL 100 MG TABLET PO SCH (08:33)
--- NOTE | 2024-12-17 10:27 | Gastroenterology Progress Note ---
Date of Service December 17, 2024 Assessment & Plan (1) Pancreatitis: (2) Transaminitis: Plan Patient is feeling better today. Lipase significantly improved. transaminitis also improving. - discussed with the ICU team, okay to advance diet to clears. - continue to monitor LFTs. t bili slightly higher, but will lag in falling down. Admission and Anticipated Discharge Date Admission Date: December 16, 2024 Supervising Physician Co-Signing Physician Notes I saw and examined this patient with our nurse practitioner and agree with her assessment and plan. Clinically improving lipase normalizing LFTs improving. Etiology of pancreatitis still unclear possibly retained CBD stone from prior gallstone disease. Can advance diet to clear liquid diet. Recommend MRI MRCP to exclude CBD stones. Will consider further workup pending results of MRI. Subjective Patient tells me she is feeling much better today. abdominal pain seems to have resolved. she questions trying to advance diet. no nausea, vomiting, changes in bowels. lipase improved to 215. 12/17/24 t bili 2.7, AST 430, ALT 378, Alk phos 77. Review of Systems Review of Systems: All systems reviewed & are unremarkable except as noted in HPI & below Physical Exam Constitutional: WD/WN, vitals as above Respiratory: normal respiratory effort, lungs clear to auscultation Cardiovascular: Rate/Rhythm: regular rate and regular rhythm Gastrointestinal (Abdomen): normal bowel sounds, soft, nontender, no hepatosplenomegaly Psychiatric: Orientation: alert and oriented x 3 Affect: euthymic affect Results & Data Results & Data Vital Signs (Past 12 Hours) Vital Signs Temp Pulse Pulse Resp BP BP Pulse Ox 12/17/24 08:45 76 24 123/65 94 12/17/24 08:41 12/17/24 08:00 78 12/17/24 07:00 99.3 F 72 23 117/61 98 12/17/24 06:00 99.9 F H 77 18 117/74 93 12/17/24 04:05 74 17 142/76 H 96 12/17/24 03:30 84 24 104/51 L 94 12/17/24 03:00 100.2 F H 84 23 109/55 L 93 12/17/24 01:30 79 19 107/59 L 94 12/17/24 01:00 81 24 109/75 95 12/17/24 00:53 93 H 12/17/24 00:30 100.8 F H 84 18 119/65 95 12/17/24 00:00 100.8 F H 94 H 13 145/102 H 95 12/16/24 23:30 100.6 F H 92 H 24 114/98 95 12/16/24 23:00 97.9 F 86 18 140/77 95 12/16/24 22:30 85 18 112/59 L 95 O2 Del Method O2 Flow Rate 12/17/24 08:45 Nasal Cannula 2 12/17/24 08:41 Nasal Cannula 2 12/17/24 08:00 12/17/24 07:00 Nasal Cannula 2 12/17/24 06:00 Room Air 12/17/24 04:05 Nasal Cannula 2 12/17/24 03:30 Nasal Cannula 2 12/17/24 03:00 Nasal Cannula 2 12/17/24 01:30 Nasal Cannula 2 12/17/24 01:00 Nasal Cannula 2 12/17/24 00:53 12/17/24 00:30 Nasal Cannula 2 12/17/24 00:00 Nasal Cannula 2 12/16/24 23:30 Nasal Cannula 2 12/16/24 23:00 Nasal Cannula 2 12/16/24 22:30 Nasal Cannula 2 Laboratory Results Laboratory Results - last 48 hr 12/16/24 12/16/24 12/16/24 07:58 09:24 10:00 WBC 17.90 H RBC 4.39 Hgb 13.3 Hct 42.0 MCV 95.7 MCH 30.3 MCHC 31.7 L RDW Std Deviation 47.5 H RDW Coeff of Nadege 13.4 Plt Count 286 MPV 9.8 Immature Gran % (Auto) 0.6 Neut % (Auto) 92.5 Lymph % (Auto) 3.5 [place] % (Auto) 3.0 Eos % (Auto) 0.1 Baso % (Auto) 0.3 Neut # (Auto) 16.56 H Lymph # (Auto) 0.63 L [place] # (Auto) 0.53 Eos # (Auto) 0.02 Baso # (Auto) 0.05 Immature Gran # (Auto) 0.11 Toxic Vacuolation 1+ PT Cancelled INR Cancelled Sodium 140 Potassium 4.0 Chloride 101 Carbon Dioxide 29 Anion Gap 10 BUN 30 H Creatinine 0.91 Est Cr Clr Drug Dosing 60.7 eGFR 66.61 BUN/Creatinine Ratio 33.0 H Glucose 241 H POC Glucose Estimat Average Glucose Hemoglobin A1c Lactate 2.6 H* Calcium 9.6 Phosphorus Magnesium 1.4 L Total Bilirubin 1.4 H Direct Bilirubin 1.1 H AST 721 H ALT 391 H Alkaline Phosphatase 93 Ammonia 31.0 Troponin I High Sens 9.5 Total Protein 7.2 Albumin 4.2 Globulin 3.0 Albumin/Globulin Ratio 1.4 Triglycerides Cholesterol LDL Cholesterol, Calc VLDL Cholesterol, Calc HDL Cholesterol Cholesterol/HDL Ratio Lipase 6254 H Procalcitonin 1.51 H TSH Random Cortisol Urine Color Dark Yellow Urine Appearance Cloudy A Urine pH 6.0 Ur Specific Newborn 1.016 Urine Protein 2+ H Urine Glucose (UA) Negative Urine Ketones Negative Urine Blood Negative Urine Nitrite Negative Urine Bilirubin Negative Urine Urobilinogen Negative Ur Leukocyte Esterase 2+ H Urine WBC (Auto) >50 H Urine RBC (Auto) 0-2 U Hyaline Cast (Auto) 6-10 H U Epithel Cells (Auto) 3-5 H Urine Bacteria (Auto) 4+ H Hyaline Casts Present A Granular Casts Present A Urine Comment Nasal Screen MRSA (PCR) Enterobacterales (PCR) DETECTED A E. coli (PCR) DETECTED A mcr-1 Colistin Res Gene PCR Not Detected blaIMP Car res Gene PCR Not Detected KPC-Carbap Res Gene PCR Not Detected blaNDM Car Res Gene PCR Not Detected OXA-48 Carbapenem Resis Gene (PCR) Not Detected blaVIM Car Res Gene PCR Not Detected CTX-M Gene Resistance (PCR) Not Detected Bld Cult ID Panel PCR See PCR Comment 12/16/24 12/16/24 12/16/24 11:08 12:51 12:55 WBC RBC Hgb Hct MCV MCH MCHC RDW Std Deviation RDW Coeff of Nadege Plt Count MPV Immature Gran % (Auto) Neut % (Auto) Lymph % (Auto) [place] % (Auto) Eos % (Auto) Baso % (Auto) Neut # (Auto) Lymph # (Auto) [place] # (Auto) Eos # (Auto) Baso # (Auto) Immature Gran # (Auto) Toxic Vacuolation PT 17.7 H INR 1.7 H Sodium Potassium Chloride Carbon Dioxide Anion Gap BUN Creatinine Est Cr Clr Drug Dosing eGFR BUN/Creatinine Ratio Glucose POC Glucose 120 H Estimat Average Glucose Hemoglobin A1c Lactate 0.8 Calcium Phosphorus Magnesium Total Bilirubin Direct Bilirubin AST ALT Alkaline Phosphatase Ammonia Troponin I High Sens 11.9 Total Protein Albumin Globulin Albumin/Globulin Ratio Triglycerides Cholesterol LDL Cholesterol, Calc VLDL Cholesterol, Calc HDL Cholesterol Cholesterol/HDL Ratio Lipase Procalcitonin TSH Random Cortisol Urine Color Urine Appearance Urine pH Ur Specific Newborn Urine Protein Urine Glucose (UA) Urine Ketones Urine Blood Urine Nitrite Urine Bilirubin Urine Urobilinogen Ur Leukocyte Esterase Urine WBC (Auto) Urine RBC (Auto) U Hyaline Cast (Auto) U Epithel Cells (Auto) Urine Bacteria (Auto) Hyaline Casts Granular Casts Urine Comment Nasal Screen MRSA (PCR) Enterobacterales (PCR) E. coli (PCR) mcr-1 Colistin Res Gene PCR blaIMP Car res Gene PCR KPC-Carbap Res Gene PCR blaNDM Car Res Gene PCR OXA-48 Carbapenem Resis Gene (PCR) blaVIM Car Res Gene PCR CTX-M Gene Resistance (PCR) Bld Cult ID Panel PCR 12/16/24 12/16/24 12/16/24 13:45 15:01 15:50 WBC RBC Hgb Hct MCV MCH MCHC RDW Std Deviation RDW Coeff of Nadege Plt Count MPV Immature Gran % (Auto) Neut % (Auto) Lymph % (Auto) [place] % (Auto) Eos % (Auto) Baso % (Auto) Neut # (Auto) Lymph # (Auto) [place] # (Auto) Eos # (Auto) Baso # (Auto) Immature Gran # (Auto) Toxic Vacuolation PT INR Sodium Potassium Chloride Carbon Dioxide Anion Gap BUN Creatinine Est Cr Clr Drug Dosing eGFR BUN/Creatinine Ratio Glucose POC Glucose 133 H Estimat Average Glucose Hemoglobin A1c Lactate Calcium Phosphorus Magnesium Total Bilirubin Direct Bilirubin AST ALT Alkaline Phosphatase Ammonia Troponin I High Sens Total Protein Albumin Globulin Albumin/Globulin Ratio Triglycerides Cholesterol LDL Cholesterol, Calc VLDL Cholesterol, Calc HDL Cholesterol Cholesterol/HDL Ratio Lipase Procalcitonin TSH Random Cortisol 39.68 Urine Color Urine Appearance Urine pH Ur Specific Newborn Urine Protein Urine Glucose (UA) Urine Ketones Urine Blood Urine Nitrite Urine Bilirubin Urine Urobilinogen Ur Leukocyte Esterase Urine WBC (Auto) Urine RBC (Auto) U Hyaline Cast (Auto) U Epithel Cells (Auto) Urine Bacteria (Auto) Hyaline Casts Granular Casts Urine Comment Nasal Screen MRSA (PCR) Negative Enterobacterales (PCR) E. coli (PCR) mcr-1 Colistin Res Gene PCR blaIMP Car res Gene PCR KPC-Carbap Res Gene PCR blaNDM Car Res Gene PCR OXA-48 Carbapenem Resis Gene (PCR) blaVIM Car Res Gene PCR CTX-M Gene Resistance (PCR) Bld Cult ID Panel PCR 12/16/24 12/16/24 12/17/24 18:07 19:49 00:23 WBC RBC Hgb Hct MCV MCH MCHC RDW Std Deviation RDW Coeff of Nadege Plt Count MPV Immature Gran % (Auto) Neut % (Auto) Lymph % (Auto) [place] % (Auto) Eos % (Auto) Baso % (Auto) Neut # (Auto) Lymph # (Auto) [place] # (Auto) Eos # (Auto) Baso # (Auto) Immature Gran # (Auto) Toxic Vacuolation PT INR Sodium Potassium Chloride Carbon Dioxide Anion Gap BUN Creatinine Est Cr Clr Drug Dosing eGFR BUN/Creatinine Ratio Glucose POC Glucose 141 H 118 H Estimat Average Glucose Hemoglobin A1c Lactate Calcium Phosphorus Magnesium Total Bilirubin Direct Bilirubin AST ALT Alkaline Phosphatase Ammonia Troponin I High Sens Total Protein Albumin Globulin Albumin/Globulin Ratio Triglycerides 141 Cholesterol 88 LDL Cholesterol, Calc 26 VLDL Cholesterol, Calc 28 HDL Cholesterol 34 Cholesterol/HDL Ratio 2.6 Lipase Procalcitonin TSH Random Cortisol Urine Color Urine Appearance Urine pH Ur Specific Newborn Urine Protein Urine Glucose (UA) Urine Ketones Urine Blood Urine Nitrite Urine Bilirubin Urine Urobilinogen Ur Leukocyte Esterase Urine WBC (Auto) Urine RBC (Auto) U Hyaline Cast (Auto) U Epithel Cells (Auto) Urine Bacteria (Auto) Hyaline Casts Granular Casts Urine Comment Nasal Screen MRSA (PCR) Enterobacterales (PCR) E. coli (PCR) mcr-1 Colistin Res Gene PCR blaIMP Car res Gene PCR KPC-Carbap Res Gene PCR blaNDM Car Res Gene PCR OXA-48 Carbapenem Resis Gene (PCR) blaVIM Car Res Gene PCR CTX-M Gene Resistance (PCR) Bld Cult ID Panel PCR 12/17/24 12/17/24 12/17/24 04:44 08:30 11:08 WBC 17.08 H RBC 3.35 L Hgb 10.2 L D Hct 31.9 L MCV 95.2 MCH 30.4 MCHC 32.0 RDW Std Deviation 49.1 H RDW Coeff of Nadege 14.0 Plt Count 219 MPV 9.9 Immature Gran % (Auto) 0.6 Neut % (Auto) 84.1 Lymph % (Auto) 7.6 [place] % (Auto) 7.0 Eos % (Auto) 0.4 Baso % (Auto) 0.3 Neut # (Auto) 14.37 H Lymph # (Auto) 1.30 [place] # (Auto) 1.20 H Eos # (Auto) 0.06 Baso # (Auto) 0.05 Immature Gran # (Auto) 0.10 Toxic Vacuolation PT INR Sodium 141 Potassium 3.9 Chloride 105 Carbon Dioxide 29 Anion Gap 7 BUN 22 Creatinine 1.03 Est Cr Clr Drug Dosing 53.1 eGFR 57.41 BUN/Creatinine Ratio 21.4 H Glucose 114 H POC Glucose 102 H Estimat Average Glucose 154 Hemoglobin A1c 7.0 H Lactate Calcium 8.2 L Phosphorus 3.1 Magnesium 1.8 Total Bilirubin 2.7 H D Direct Bilirubin AST 430 H ALT 378 H Alkaline Phosphatase 77 Ammonia Troponin I High Sens 14.8 H 14.8 H Total Protein 5.5 L D Albumin 2.9 L Globulin 2.6 Albumin/Globulin Ratio 1.1 Triglycerides 166 H Cholesterol 85 LDL Cholesterol, Calc 29 VLDL Cholesterol, Calc 33 H HDL Cholesterol 23 Cholesterol/HDL Ratio 3.7 Lipase 215 H Procalcitonin TSH 2.448 Random Cortisol Urine Color Urine Appearance Urine pH Ur Specific Newborn Urine Protein Urine Glucose (UA) Urine Ketones Urine Blood Urine Nitrite Urine Bilirubin Urine Urobilinogen Ur Leukocyte Esterase Urine WBC (Auto) Urine RBC (Auto) U Hyaline Cast (Auto) U Epithel Cells (Auto) Urine Bacteria (Auto) Hyaline Casts Granular Casts Urine Comment Nasal Screen MRSA (PCR) Enterobacterales (PCR) E. coli (PCR) mcr-1 Colistin Res Gene PCR blaIMP Car res Gene PCR KPC-Carbap Res Gene PCR blaNDM Car Res Gene PCR OXA-48 Carbapenem Resis Gene (PCR) blaVIM Car Res Gene PCR CTX-M Gene Resistance (PCR) Bld Cult ID Panel PCR Coding Level of Care Code 87448 SUB INP/OBS CARE /25MIN Diagnoses Pancreatitis K85.90 Transaminitis R74.01
[2024-12-17] MEDS ORDERED: Nursing to Pharmacy Communication SCH (11:00)
[2024-12-17] MEDS: GABAPENTIN 400 MG CAP PO SCH (11:09)
[2024-12-17] MEDS: MAGNESIUM SULFATE / D5W 1 GM/100 ML BAG IV ONE (11:09)
[2024-12-17] MEDS: INSULIN ASPART PER UNIT CHARGE SC SCH (11:35)
--- NOTE | 2024-12-17 12:47 | Electrocardiogram Report ---
Test Reason : Blood Pressure : */* mmHG Vent. Rate : 79 BPM Atrial Rate : 79 BPM P-R Int : 140 ms QRS Dur : 80 ms QT Int : 374 ms P-R-T Axes : -24 -34 33 degrees QTcB Int : 428 ms Sinus rhythm with Premature atrial complexes Left axis deviation Poor R wave progression, consider anterior MN vs. lead placement vs. LVH Abnormal ECG When compared with ECG of 16-Dec-2024 08:04, No significant change was found Confirmed by David Mar ([id number]) on 12/17/2024 12:47:24 PM Referred By: REFERRED SELF Confirmed By: David Mar
--- NOTE | 2024-12-17 17:35 | Magnetic Resonance Report ---
Clinical history: Possible dislodged cholecystectomy clip Technique: Multiple T1 and T2-weighted magnetic resonance images were obtained of the abdomen without gadolinium contrast. MRCP images were obtained No prior examination is available for comparison Findings: This examination is limited by artifact. No definite liver mass lesion is identified on this noncontrast study. There is no sign of cirrhosis or significant fatty infiltration. The gallbladder has been removed. The common bile duct measures up to 11 mm, within expected limits for the postcholecystectomy state. No definite stricturing or beading of the bile ducts is seen to suggest primary sclerosing cholangitis or other intrinsic bile duct pathology. There is no definite choledocholithiasis. No obvious displaced cholecystectomy clip is seen The pancreatic duct is of normal caliber. There is no definite sign of pancreatic divisum or other congenital anomaly. There is no sign of acute pancreatitis. No definite pancreatic mass lesion is seen The spleen is of normal size. No focal splenic lesion is evident. There is a suspected 2 cm left adrenal nodule. The right adrenal gland appears unremarkable There are apparent bilateral renal cysts, measuring up to 2.1 cm. No definite renal mass lesion is seen. There is no hydronephrosis The visualized aorta is of normal caliber. No adenopathy is seen. There are small bilateral pleural effusions and there is suspected bilateral upper lobe atelectasis. No definite abnormality of the abdominal wall musculature is identified. No hernia is seen There is lumbar scoliosis and degenerative disc disease. There is a lumbar fusion. Impression: 1. Mild bile duct prominence, likely due to the postcholecystectomy state 2. Small bilateral pleural effusions and bilateral upper lobe atelectasis 3. Bilateral renal cysts 4. Indeterminate left adrenal nodule. A follow-up dedicated adrenal protocol CT or MRI could be obtained ACT 112: Positive. There are findings on this exam that require communication between the performing entity and the patient following Patient Test Result Information Act ([place] ACT 112) guidelines. Electronically signed by Jacek Bass 12-17-2024 5:33 PM
[2024-12-17] MEDS: LORazepam Inj 0.5 MG in SYRINGE 0.25 ML IV STA (18:10)
--- NOTE | 2024-12-17 20:13 | Hospitalist Progress Note ---
Date of Service December 17, 2024 Assessment & Plan (1) E coli bacteremia: (2) Septic shock due to Escherichia coli: (3) E-coli UTI: (4) Abnormal LFTs: (5) Acute pancreatitis: (6) Recurrent UTI: (7) Hypothyroidism: (8) GERD (gastroesophageal reflux disease): (9) Hypomagnesemia: (10) Arthritis with psoriasis: (11) CHRISTIANO (obstructive sleep apnea): (12) DM type 2 (diabetes mellitus, type 2): (13) Hypertension: (14) Hyperlipidemia: (15) Urinary incontinence: (16) History of DVT (deep vein thrombosis): Plan 74yo female with h/o recurrent UTIs with urinary incontinence, CHRISTIANO, T2DM, HTN, Hyperlipidemia, nonobstructive CAD, diastolic CHF, prior DVT on Eliquis, psoriatic arthritis on Otezla & chronic steroids, and chronic venous insufficiency. Presented with nausea, emesis, abd pain and confusion. U/a at admission highly suspicious for UTI. Blood cx's obtained at ER presentation and all bottles + for e.coli. Required ICU admission due to hypotension & need for pressors albeit only briefly. Evidence of acute pancreatitis with presenting lipase of 6254. #E.coli bacteremia / septic shock - -shock resolved -only needed pressors briefly - weaned off early this am -need to clarify if she indeed takes chronic steroids for psoriatic arthritis -cont zosyn -await blood/urine cx results -with ongoing fever and ?biliary tract cause of e.coli in blood will obtain repeat blood cx's tomorrow am for test of cure #E.coli UTI - -cont zosyn -has had recurrent UTIs in the last few years -does follow with urology -once torres is removed check PVRs, etc to r/o retention issues #acute pancreatitis - -2nd to passed gallstone? -2nd to shock? -other etiology? -lipase markedly improved today -GI symptoms improved -MRCP without CBD stone or other abnormality of biliary ducts -did clip pass via CBD to the intestinal tract??? is that even possible?? -appreciate GI assistance #Hypomagnesemia - -s/p repletion and now level is normal #Minimally Elevated troponin - -2nd myocardial demand ischemia in setting of septic shock #T2DM - -a1c 7% -cont novolog SSI -cont lantus -BSGs ac/hs -DM diet #H/o DVT - -cont Eliquis 5mg BID #HTN/CAD/CHF - -BP meds on hold -CAD is nonobstructive per the chart -no evidence of decompensated CHF clinically #Hyperlipidemia - -typically on Praulent injections for such and fenofibrate; both on hold #Chronic pain/OA/DDD - -Gabapentin, oxycodone #Psych - -Sertraline #Hypothyroidism - -Levothyroxine -TSH wnl at 2.4 #Psoriatic arthritis - -on Otezla and chronic steroids - methylprednisolone 4mg daily? daughter updated at bedside will need PT/OT transfer to PCU from ICU status Admission and Anticipated Discharge Date Admission Date: December 16, 2024 Subjective events of last 24 hours noted per staff pressors were weaned off early this am, shortly after midnight BPs stable since then central line placed yesterday, then removed today (left neck) saw patient late afternoon after the MRCP was completed feels better overall confusion improved no abd pain no nausea/emesis Review of Systems Review of Systems: gen - fatigue, weak, expresses concerns about recurrent UTIs - has chronic urinary incontinence; wears Depends pulm - no dyspnea CV - no chest pain Physical Exam Physical Exam: gen - obese, NAD, lying comfortably in bed psych - a/o x 3 mouth - MM slightly dry neck - no JVD heart - irregularly irregular, s1 s2, no murmur lungs - CTA b/l, modestly decreased BS both bases abd - soft, mildly distended, mildly tender superior to the umbilicus/epigastric region, BS+, no HSM ext - no edema, pulses b/l feet 2+, warm feet Results & Data Results & Data Vital Signs (Past 12 Hours) Vital Signs Temp Pulse Pulse Resp BP BP Pulse Ox 12/17/24 20:00 37.3 C 80 23 124/77 93 12/17/24 16:40 37.6 C H 89 17 126/61 95 12/17/24 16:00 78 12/17/24 11:25 37.3 C 86 17 107/64 94 12/17/24 08:45 76 24 123/65 94 12/17/24 08:41 O2 Del Method O2 Flow Rate 12/17/24 20:00 Room Air 12/17/24 16:40 Nasal Cannula 2 12/17/24 16:00 12/17/24 11:25 Nasal Cannula 2 12/17/24 08:45 Nasal Cannula 2 12/17/24 08:41 Nasal Cannula 2 Laboratory Results Laboratory Results - last 24 hr 12/16/24 12/17/24 12/17/24 09:24 00:23 04:44 WBC 17.08 H RBC 3.35 L Hgb 10.2 L D Hct 31.9 L MCV 95.2 MCH 30.4 MCHC 32.0 RDW Std Deviation 49.1 H RDW Coeff of Nadege 14.0 Plt Count 219 MPV 9.9 Immature Gran % (Auto) 0.6 Neut % (Auto) 84.1 Lymph % (Auto) 7.6 Wayne % (Auto) 7.0 Eos % (Auto) 0.4 Baso % (Auto) 0.3 Neut # (Auto) 14.37 H Lymph # (Auto) 1.30 Wayne # (Auto) 1.20 H Eos # (Auto) 0.06 Baso # (Auto) 0.05 Immature Gran # (Auto) 0.10 Sodium 141 Potassium 3.9 Chloride 105 Carbon Dioxide 29 Anion Gap 7 BUN 22 Creatinine 1.03 Est Cr Clr Drug Dosing 53.1 eGFR 57.41 BUN/Creatinine Ratio 21.4 H Glucose 114 H POC Glucose 118 H Estimat Average Glucose 154 Hemoglobin A1c 7.0 H Calcium 8.2 L Phosphorus 3.1 Magnesium 1.8 Total Bilirubin 2.7 H D AST 430 H ALT 378 H Alkaline Phosphatase 77 Troponin I High Sens 14.8 H Total Protein 5.5 L D Albumin 2.9 L Globulin 2.6 Albumin/Globulin Ratio 1.1 Triglycerides 166 H Cholesterol 85 LDL Cholesterol, Calc 29 VLDL Cholesterol, Calc 33 H HDL Cholesterol 23 Cholesterol/HDL Ratio 3.7 Lipase 215 H TSH 2.448 Enterobacterales (PCR) DETECTED A E. coli (PCR) DETECTED A mcr-1 Colistin Res Gene PCR Not Detected blaIMP Car res Gene PCR Not Detected KPC-Carbap Res Gene PCR Not Detected blaNDM Car Res Gene PCR Not Detected OXA-48 Carbapenem Resis Gene (PCR) Not Detected blaVIM Car Res Gene PCR Not Detected CTX-M Gene Resistance (PCR) Not Detected Bld Cult ID Panel PCR See PCR Comment 12/17/24 12/17/24 12/17/24 08:30 11:08 18:25 WBC RBC Hgb Hct MCV MCH MCHC RDW Std Deviation RDW Coeff of Nadege Plt Count MPV Immature Gran % (Auto) Neut % (Auto) Lymph % (Auto) Wayne % (Auto) Eos % (Auto) Baso % (Auto) Neut # (Auto) Lymph # (Auto) Wayne # (Auto) Eos # (Auto) Baso # (Auto) Immature Gran # (Auto) Sodium Potassium Chloride Carbon Dioxide Anion Gap BUN Creatinine Est Cr Clr Drug Dosing eGFR BUN/Creatinine Ratio Glucose POC Glucose 102 H 99 Estimat Average Glucose Hemoglobin A1c Calcium Phosphorus Magnesium Total Bilirubin AST ALT Alkaline Phosphatase Troponin I High Sens 14.8 H Total Protein Albumin Globulin Albumin/Globulin Ratio Triglycerides Cholesterol LDL Cholesterol, Calc VLDL Cholesterol, Calc HDL Cholesterol Cholesterol/HDL Ratio Lipase TSH Enterobacterales (PCR) E. coli (PCR) mcr-1 Colistin Res Gene PCR blaIMP Car res Gene PCR KPC-Carbap Res Gene PCR blaNDM Car Res Gene PCR OXA-48 Carbapenem Resis Gene (PCR) blaVIM Car Res Gene PCR CTX-M Gene Resistance (PCR) Bld Cult ID Panel PCR 12/17/24 20:04 WBC RBC Hgb Hct MCV MCH MCHC RDW Std Deviation RDW Coeff of Nadege Plt Count MPV Immature Gran % (Auto) Neut % (Auto) Lymph % (Auto) Wayne % (Auto) Eos % (Auto) Baso % (Auto) Neut # (Auto) Lymph # (Auto) Wayne # (Auto) Eos # (Auto) Baso # (Auto) Immature Gran # (Auto) Sodium Potassium Chloride Carbon Dioxide Anion Gap BUN Creatinine Est Cr Clr Drug Dosing eGFR BUN/Creatinine Ratio Glucose POC Glucose 99 Estimat Average Glucose Hemoglobin A1c Calcium Phosphorus Magnesium Total Bilirubin AST ALT Alkaline Phosphatase Troponin I High Sens Total Protein Albumin Globulin Albumin/Globulin Ratio Triglycerides Cholesterol LDL Cholesterol, Calc VLDL Cholesterol, Calc HDL Cholesterol Cholesterol/HDL Ratio Lipase TSH Enterobacterales (PCR) E. coli (PCR) mcr-1 Colistin Res Gene PCR blaIMP Car res Gene PCR KPC-Carbap Res Gene PCR blaNDM Car Res Gene PCR OXA-48 Carbapenem Resis Gene (PCR) blaVIM Car Res Gene PCR CTX-M Gene Resistance (PCR) Bld Cult ID Panel PCR Diagnostic Findings Chest X-Ray 12/17/24 06:45 EXAM: XR chest 1V portable CLINICAL HISTORY: Shortness of breath. TECHNIQUE: An X-ray image of the chest was obtained in the AP portable projection. COMPARISON: 12/16/2024. FINDINGS: Pulmonary Parenchyma: The patient is technically rotated. There is redemonstration of bilateral hilar and interstitial prominence. There is obscuration of the left costophrenic angle secondary to the overlying cardiac shadow; the possibility of an underlying effusion cannot be entirely excluded. The right costophrenic angle appears clear. Heart and Mediastinum: Heart size cannot be commented upon due to AP projection. Bony Thorax: Degenerative changes are noted in the visualized thoracic spine and left shoulder joint. Soft Tissues: The soft tissues overlying the chest wall are unremarkable. IMPRESSION: 1. Redemonstration of bilateral hilar and interstitial prominence, grossly unchanged. 2. Obscuration of the left costophrenic angle secondary to overlying cardiac shadow; the possibility of an underlying effusion cannot be entirely excluded. 3. Needs clinical correlation and follow-up. Electronically signed by Lalit Aguilera 12-17-2024 07:42 AM Cholangiopancreatography MRI 12/17/24 13:37 Clinical history: Possible dislodged cholecystectomy clip Technique: Multiple T1 and T2-weighted magnetic resonance images were obtained of the abdomen without gadolinium contrast. MRCP images were obtained No prior examination is available for comparison Findings: This examination is limited by artifact. No definite liver mass lesion is identified on this noncontrast study. There is no sign of cirrhosis or significant fatty infiltration. The gallbladder has been removed. The common bile duct measures up to 11 mm, within expected limits for the postcholecystectomy state. No definite stricturing or beading of the bile ducts is seen to suggest primary sclerosing cholangitis or other intrinsic bile duct pathology. There is no definite choledocholithiasis. No obvious displaced cholecystectomy clip is seen The pancreatic duct is of normal caliber. There is no definite sign of pancreatic divisum or other congenital anomaly. There is no sign of acute pancreatitis. No definite pancreatic mass lesion is seen The spleen is of normal size. No focal splenic lesion is evident. There is a suspected 2 cm left adrenal nodule. The right adrenal gland appears unremarkable There are apparent bilateral renal cysts, measuring up to 2.1 cm. No definite renal mass lesion is seen. There is no hydronephrosis The visualized aorta is of normal caliber. No adenopathy is seen. There are small bilateral pleural effusions and there is suspected bilateral upper lobe atelectasis. No definite abnormality of the abdominal wall musculature is identified. No hernia is seen There is lumbar scoliosis and degenerative disc disease. There is a lumbar fusion. Impression: 1. Mild bile duct prominence, likely due to the postcholecystectomy state 2. Small bilateral pleural effusions and bilateral upper lobe atelectasis 3. Bilateral renal cysts 4. Indeterminate left adrenal nodule. A follow-up dedicated adrenal protocol CT or MRI could be obtained ACT 112: Positive. There are findings on this exam that require communication between the performing entity and the patient following Patient Test Result Information Act ([place] ACT 112) guidelines. Electronically signed by Jacek Bass 12-17-2024 5:33 PM PG Care Time/CCT Total # of Minutes Spent Total Time Spent with Patient: Total time spent is greater than 50% in coordination of care (as documented) at patient's floor/unit and/or counseling patient: Coding Level of Care Code 39694 SUB INP/OBS CARE 3/50MIN Diagnoses E coli bacteremia R78.81; B96.20 Septic shock due to Escherichia coli A41.51; R65.21 E-coli UTI N39.0; B96.20 Abnormal LFTs R79.89 Acute pancreatitis K85.90 Recurrent UTI N39.0 Hypothyroidism E03.9 GERD (gastroesophageal reflux disease) K21.9 Hypomagnesemia E83.42 Arthritis with psoriasis L40.50 CHRISTIANO (obstructive sleep apnea) G47.33 DM type 2 (diabetes mellitus, type 2) E11.9 Hypertension I10 Hyperlipidemia E78.5 Urge incontinence of urine N39.41 Urinary Incontinence type: urge incontinence History of DVT (deep vein thrombosis) Z86.718 (15) Urinary incontinence Urinary Incontinence type: urge incontinence Qualified Code(s): N39.41 - Urge incontinence
[2024-12-17] MEDS: LANTUS PER UNIT CHARGE SC SCH (20:34)
[2024-12-18] MEDS: ACETAMINOPHEN 500 MG TAB PO PRN (04:16)
[2024-12-18 09:47] LABS: Hematocrit (blood only) 32.4 % (37.0-47.0); Hemoglobin 10.8 g/dl (12.0-16.0); Mean Corpuscular Hemoglobin 31.7 pg (25.0-34.0); Mean Corpuscular Volume 95.0 fL (80.0-100.0); Platelet Count 203 K/uL (130-400); RDW Standard Deviation 48.3 fL (36.4-46.3); Red Blood Count 3.41 M/uL (4.20-5.40); White Blood Count 13.28 K/ul (4.8-10.8)
[2024-12-18 09:57] LABS: Alanine Aminotransferase 286.0 U/L (7-52); Albumin Globulin Ratio 1.1 (0.9-2); Albumin Level 3.3 gm/dl (3.4-5.0); Alkaline Phosphatase 91.0 U/L (34-104); Anion Gap 8.0 (3-11); Bilirubin,Total 1.8 mg/dl (0.2-1.0); Blood Urea Nitrogen 14.0 mg/dl (6-23); Calcium 9.2 mg/dl (8.6-10.3); Carbon Dioxide 28.0 mmol/L (21-32); Chloride 103.0 mmol/L (98-107); Creatinine Clr Calc Pharmacy 64.5 ml/min; Globulin 3.1 gm/dl (2.5-4.0); Glucose 208.0 mg/dl (70-99(Fasting)); Lipase 108.0 U/L (11-82); Potassium 4.1 mmol/L (3.5-5.1); Sodium 139.0 mmol/L (136-145); Total Protein 6.4 gm/dl (6.0-8.3)
[2024-12-18 10:29] LABS: EBV IgM Antibody Negative; EBV IgM Quant < 10.0 U/mL (< 36.0); EBV Nuclear Antigen IgG Ab Positive; EBV Nuclear Antigen IgG Quant > 600.0 U/mL (< 18.0)
[2024-12-18 10:30] LABS: EBV Early Antigen IgG Ab Positive (Negative); EBV Early Antigen IgG Quant 30.0 U/mL (< 9.0); EBV IgG Antibody Positive; EBV IgG Quant 715.0 U/mL (< 18.0)
--- NOTE | 2024-12-18 10:32 | Gastroenterology Progress Note ---
Date of Service December 18, 2024 Assessment & Plan (1) Abnormal LFTs: (2) Acute pancreatitis: Plan 74yowf is seen today on GI rounds for evaluation of pancreatitis. (1) Pancreatitis - MRCP unremarkable outside of 11mm CBD dilation which could be due to age and h/o CCY. No masses, stones or anatomical features that would explain pancreatitis. - DDX - Passed stone, Viral, Autoimmune, Medication related. No alcohol use to explain pancreatitis. Triglycerides 166. - Clinically patient continues to demonstrate improvement in LFTs and Lipase. - She is tolerating food well and abdominal pain is improving but not entirely resolved. - We'll obtain MAGGIE, ASMA, IgG subclasses to assess for autoimmune pancreatitis - Check Hepatitis A, B, CMV and EBV to assess for viral pancreatitis. - Continue to trending clinically. If she continues to do well, then we'll likely recommend low fat diet and follow up with out patient GI. - If s/s worsen may consider further evaluation with ERCP for further evaluation. Patient made NPO after midnight in case this is necessary. - Thank you for allowing us to participate in the care of this patient. Please call with any acute changes, questions or concerns. Please see addendum below with additional recommendation from my supervising physician. Admission and Anticipated Discharge Date Admission Date: December 16, 2024 Supervising Physician Co-Signing Physician Notes I saw and examined this patient with our nurse practitioner and agree with her assessment and plan. Patient clinically improving tolerating clear liquids, less abdominal pain and tenderness. Liver enzymes are slowly normalizing. I reviewed the MRI with radiology who felt that retained common bile duct stones were unlikely. This is supported by her clinical course. Will reassess her tomorrow if things continue to move in the right direction can advance diet further. Subjective 74yowf with h/o DVT on chronic anticoagulation, chronic diastolic CHF, CAD, Peripheral neuropathy, DL, HTN, T2DM, CHRISTIANO, neurogenic claudication is seen today on daily rounds for pancreatitis. Patient reports that she continues to feel better. She has been advancing her diet and tolerating this well. She does have some mild residual abdominal pain but overall this has been trending well. no nausea, vomiting, changes in bowels. lipase improved to 108 from 215. 12/18/24 T-Bili 1.8, AST 182 ALT 286, Alk Phos 91. Improving from yesterday. MRCP No definite liver mass lesion is identified on this noncontrast study. There is no sign of cirrhosis or significant fatty infiltration. The gallbladder has been removed. The common bile duct measures up to 11 mm, within expected limits for the postcholecystectomy state. No definite stricturing or beading of the bile ducts is seen to suggest primary sclerosing cholangitis or other intrinsic bile duct pathology. There is no definite choledocholithiasis. No obvious displaced cholecystectomy clip is seen The pancreatic duct is of normal caliber. There is no definite sign of pancreatic divisum or other congenital anomaly. There is no sign of acute pancreatitis. No definite pancreatic mass lesion is seen Review of Systems Review of Systems: See HPI Physical Exam Physical Exam: Examined with Dr. Brennan on rounds. GEN: Patient alert answering questions appropriately. Resp: Breathing even non-labored. Abdomen: Soft. Mild epigastric tenderness without guarding or rebound tenderness. Non-distended. BS + x 4. Results & Data Results & Data Vital Signs (Past 12 Hours) Vital Signs Temp Pulse Pulse Resp BP Pulse Ox O2 Del Method 12/18/24 08:01 97.9 F 77 20 124/64 90 Room Air 12/18/24 08:00 Room Air 12/18/24 08:00 80 12/18/24 04:08 100.2 F H 82 18 131/73 95 CPAP 12/18/24 02:53 78 28 H 94 12/18/24 01:13 97.9 F 68 18 121/72 97 CPAP 12/17/24 22:22 95 H 29 H 90 12/17/24 21:39 88 12/17/24 21:24 99.9 F H 100 H 18 136/75 90 Room Air 12/17/24 21:20 Room Air, CPAP 12/17/24 20:42 Room Air, CPAP O2 Flow Rate 12/18/24 08:01 12/18/24 08:00 12/18/24 08:00 12/18/24 04:08 12/18/24 02:53 3 12/18/24 01:13 12/17/24 22:22 3 12/17/24 21:39 12/17/24 21:24 12/17/24 21:20 12/17/24 20:42 PG Care Time/CCT Total # of Minutes Spent Total Time Spent with Patient: Total time spent is greater than 50% in coordination of care (as documented) at patient's floor/unit and/or counseling patient: Coding Level of Care Code 29319 SUB INP/OBS CARE 235MIN Diagnoses Abnormal LFTs R79.89 Acute pancreatitis K85.90
--- NOTE | 2024-12-18 12:21 | Pharmacy Report ---
Pharmacy Glycemic Short Note 2 - Date of Service December 18, 2024 - Glycemic Short BSG Results (Last 24 hours): 12/17/24 12/17/24 12/18/24 18:25 20:04 07:15 Glucose POC Glucose 99 99 128 H 12/18/24 12/18/24 09:08 10:51 Glucose 208 H POC Glucose 130 H OUTPATIENT ANTIDIABETIC REGIMEN: * Lantus 26 units daily * Lispro sliding scale * semaglutide 2.5mg SC weekly * A1c: 7.0% (12/17/24) ASSESSMENT: 12/18: * BSG controlled (90s-130) over the past 48 hours on just sliding scale insulin * Patient was NPO 12/16-12/17, now on clear liquid/T2DM diet * Will continue with same regimen of Novolog and use sliding scale glargine as patient advances diet * Pressors are now off and patient has downgraded from ICU * Stressors: infection (E. coli bacteremia on Zosyn) 12/16: * Patient admitted with septic shock secondary to possible urinary/ intraabdominal source * Per RN patient did not take basal insulin today. * Based on previous inpatient data, patient requires significantly less basal insulin while admitted. BSG also normalized at lunchtime to 120mg/dL. Given this and ongoing NPO status, will continue with novolog scale and order a conservative lantus scale for this evening for BSG > 180 mg/dL. Re-assess NPO status and basal needs tomorrow. PLAN FOR INPATIENT GLYCEMIC CONTROL: * Hold outpatient oral diabetes medications * Basal insulin * Lantus scale QHS -See MAR for details * Bolus insulin * NovoLog per scale ACHS or Q6hrs while NPO * Goal Range: Low 110 mg/dL - High 140 mg/dL * Correction Factor: 25 mg/dL/unit * Nutritional / Prandial insulin per carb ratio of 1 unit per 8 grams CHO consumed
[2024-12-18] MEDS: methylPREDNISolone 4 MG TAB PO ONE (18:38)
--- NOTE | 2024-12-18 19:24 | Hospitalist Progress Note ---
Date of Service December 18, 2024 Assessment & Plan (1) E coli bacteremia: (2) Septic shock due to Escherichia coli: (3) E-coli UTI: (4) Abnormal LFTs: (5) Acute pancreatitis: (6) Recurrent UTI: (7) Hypothyroidism: (8) GERD (gastroesophageal reflux disease): (9) Hypomagnesemia: (10) Arthritis with psoriasis: (11) CHRISTIANO (obstructive sleep apnea): (12) DM type 2 (diabetes mellitus, type 2): (13) Hypertension: (14) Hyperlipidemia: (15) Urinary incontinence: (16) History of DVT (deep vein thrombosis): Plan 74yo female with h/o recurrent UTIs with urinary incontinence, CHRISTIANO, T2DM, HTN, Hyperlipidemia, nonobstructive CAD, diastolic CHF, prior DVT on Eliquis, psoriatic arthritis on Otezla & chronic steroids, and chronic venous insufficiency. Presented with nausea, emesis, abd pain and confusion. U/a at admission highly suspicious for UTI. Blood cx's obtained at ER presentation and all bottles + for e.coli. Required ICU admission due to hypotension & need for pressors albeit only briefly. Evidence of acute pancreatitis with presenting lipase of 6254. #E.coli bacteremia / septic shock - -shock resolved, bacteremia clinically improved -only needed pressors briefly - weaned off early AM of 12/17/24 -e.coli is pansensitive; stop IV zosyn, change to IV rocephin daily; can ultimately transition to PO cipro -obtain repeat blood cx's today for test of cure #E.coli UTI - -stop zosyn, change to IV rocephin daily -has had recurrent UTIs in the last few years -does follow with urology -once torres is removed check PVRs, etc to r/o retention issues #acute pancreatitis - -2nd to passed gallstone? -2nd to shock? -other etiology? -trigs only 166 on lipids check -lipase markedly improved, down to ~100 from peak of 6254 -GI symptoms improved -MRCP without CBD stone or other abnormality of biliary ducts -did clip pass via CBD to the intestinal tract??? -appreciate GI assistance #abnormal LFTs - -2nd to passed gallstone? -other? -LFTs improving -repeat set of LFTs in am tomorrow #Hypomagnesemia - -s/p repletion and now level is normal -repeat level in am for stability #Minimally Elevated troponin - -2nd myocardial demand ischemia in setting of septic shock -peak trop 14.8 #T2DM - -a1c 7% -cont novolog SSI -cont lantus -BSGs ac/hs -DM diet #H/o DVT - -cont Eliquis 5mg BID #HTN/CAD/CHF - -BP meds on hold, but BPs starting to trend upward; likely will need at least 1 med resumed on 12/19 -CAD is nonobstructive per the chart -no evidence of decompensated CHF clinically #Hyperlipidemia - -typically on Praulent injections for such and fenofibrate; both on hold #Chronic pain/OA/DDD - -Gabapentin -oxycodone prn #Psych - -Sertraline #Hypothyroidism - -Levothyroxine -TSH wnl at 2.4 #Psoriatic arthritis - -on Otezla and chronic steroids - methylprednisolone 4mg daily -give methylprednisolone 6mg po x 1 now, then resume 4mg daily starting 12/19 #CHRISTIANO - -CPAP HS daughter updated at bedside 12/17 PT/OT progressing appreciate GI assistance Admission and Anticipated Discharge Date Admission Date: December 16, 2024 Subjective main complaint is that of fatigue and feeling tired tolerating full liquid diet without abd pain or N/V using CPAP with sleep; has been on such for 20+ years has not had sleep study in 20+ years does not blend o2 in the CPAP at night she has lost 50# of weight in the last few years (intentional) denies any dyspnea Review of Systems Review of Systems: gen - no fevers or chills CV - no cp, no edema pulm - no dyspnea Physical Exam Physical Exam: gen - obese, NAD, lying comfortably in bed; looks tired psych - a/o x 3 mouth - MMM neck - no JVD heart - irregular, s1 s2, no murmur lungs - CTA b/l, decreased BS both bases, no rales abd - soft, mildly distended, NT, BS+, no HSM, lower abdominal wall hernia near the umbilicus - reducible ext - no edema, pulses b/l feet 2+ Results & Data Results & Data Vital Signs (Past 12 Hours) Vital Signs Temp Pulse Pulse Resp BP Pulse Ox Pulse Ox 12/18/24 15:38 37.5 C 73 20 146/84 H 94 12/18/24 15:00 77 12/18/24 13:38 98 12/18/24 11:39 36.6 C 82 18 147/77 H 92 12/18/24 08:01 36.6 C 77 20 124/64 90 12/18/24 08:00 12/18/24 08:00 80 O2 Del Method O2 Del Method 12/18/24 15:38 Room Air 12/18/24 15:00 12/18/24 13:38 Room Air 12/18/24 11:39 Room Air 12/18/24 08:01 Room Air 12/18/24 08:00 Room Air 12/18/24 08:00 Laboratory Results Laboratory Results - last 24 hr 12/18/24 12/18/24 12/18/24 07:15 09:08 10:51 WBC 13.28 H RBC 3.41 L Hgb 10.8 L Hct 32.4 L MCV 95.0 MCH 31.7 MCHC 33.3 RDW Std Deviation 48.3 H RDW Coeff of Nadege 13.8 Plt Count 203 MPV 10.4 Sodium 139 Potassium 4.1 Chloride 103 Carbon Dioxide 28 Anion Gap 8 BUN 14 Creatinine 0.88 Est Cr Clr Drug Dosing 64.5 eGFR 69.35 BUN/Creatinine Ratio 15.9 Glucose 208 H POC Glucose 128 H 130 H Calcium 9.2 Total Bilirubin 1.8 H AST 182 H ALT 286 H Alkaline Phosphatase 91 Total Protein 6.4 Albumin 3.3 L Globulin 3.1 Albumin/Globulin Ratio 1.1 Lipase 108 H IgG Pending IgG1 Pending IgG2 Pending IgG3 Pending IgG4 Pending MAGGIE Screen Pending Anti-Smooth Muscle Ab Pending CMV IgM Ab Pending CMV IgG Ab/TORCH Pending EBV Capsid Ag IgG Ab Positive EBV Caps Ag IgG Sig Str 715.0 EBV Capsid Ag IgM Ab Negative EBV Caps Ag IgM Sig Str < 10.0 EBV Early Antigen IgG Positive A EBV EA Signal Strength 30.0 EBV Nuclear Antigen Ab Positive EBV Nucl Ag IgG Sig Str > 600.0 EBV Interpretation See Comment Hepatitis A Ab Total Pending Hep Bs Antigen Negative Hep B Core IgM Ab Pending Monoscreen Negative Diagnostic Findings Microbiology 12/16/24 10:00 Urine,Clean Catch Urine Culture - Final Escherichia coli 12/16/24 09:35 Blood Aerobic Blood Culture - Final Escherichia coli 12/16/24 09:35 Blood Anaerobic Blood Culture - Final Escherichia coli 12/16/24 09:24 Blood Aerobic Blood Culture - Final Escherichia coli 12/16/24 09:24 Blood Anaerobic Blood Culture - Final Escherichia coli PG Care Time/CCT Total # of Minutes Spent Total Time Spent with Patient: Total time spent is greater than 50% in coordination of care (as documented) at patient's floor/unit and/or counseling patient: Coding Level of Care Code 81897 SUB INP/OBS CARE 35MIN Diagnoses E coli bacteremia R78.81; B96.20 Septic shock due to Escherichia coli A41.51; R65.21 E-coli UTI N39.0; B96.20 Abnormal LFTs R79.89 Acute pancreatitis K85.90 Recurrent UTI N39.0 Hypothyroidism E03.9 GERD (gastroesophageal reflux disease) K21.9 Hypomagnesemia E83.42 Arthritis with psoriasis L40.50 CHRISTIANO (obstructive sleep apnea) G47.33 DM type 2 (diabetes mellitus, type 2) E11.9 Hypertension I10 Hyperlipidemia E78.5 Urge incontinence of urine N39.41 Urinary Incontinence type: urge incontinence History of DVT (deep vein thrombosis) Z86.718 (15) Urinary incontinence Urinary Incontinence type: urge incontinence Qualified Code(s): N39.41 - Urge incontinence
[2024-12-18] MEDS: cefTRIAXone SODIUM 2,000 MG/50 ML BAG IV SCH (20:15)
[2024-12-19] MEDS: INSULIN ASPART PER UNIT CHARGE SC SCH ×2 (05:42→17:24)
[2024-12-19] MEDS: ONDANSETRON INJ 2 MG/ML 2 ML VIAL IV PRN (06:13)
[2024-12-19 06:50] LABS: Hematocrit (blood only) 35.8 % (37.0-47.0); Hemoglobin 11.7 g/dl (12.0-16.0); Mean Corpuscular Hemoglobin 30.8 pg (25.0-34.0); Mean Corpuscular Volume 94.2 fL (80.0-100.0); Platelet Count 226 K/uL (130-400); RDW Standard Deviation 46.7 fL (36.4-46.3); Red Blood Count 3.80 M/uL (4.20-5.40); White Blood Count 11.49 K/ul (4.8-10.8)
[2024-12-19] MEDS: methylPREDNISolone 4 MG TAB PO SCH (07:54)
[2024-12-19 09:12] LABS: Albumin Level 3.2 gm/dl (3.4-5.0); Anion Gap 11.0 (3-11); Bilirubin,Total 1.1 mg/dl (0.2-1.0); Calcium 9.5 mg/dl (8.6-10.3); Carbon Dioxide 24.0 mmol/L (21-32); Chloride 105.0 mmol/L (98-107); Magnesium 1.7 mg/dl (1.7-2.4); Potassium 4.1 mmol/L (3.5-5.1); Sodium 140.0 mmol/L (136-145)
[2024-12-19 09:19] LABS: Alanine Aminotransferase 219.0 U/L (7-52); Albumin Globulin Ratio 0.9 (0.9-2); Alkaline Phosphatase 102.0 U/L (34-104); Blood Urea Nitrogen 12.0 mg/dl (6-23); Creatinine Clr Calc Pharmacy 73.1 ml/min; Globulin 3.5 gm/dl (2.5-4.0); Glucose 110.0 mg/dl (70-99(Fasting)); Total Protein 6.7 gm/dl (6.0-8.3)
--- NOTE | 2024-12-19 10:37 | Gastroenterology Progress Note ---
Date of Service December 19, 2024 Assessment & Plan (1) Acute pancreatitis: Plan 74yowf with h/o pancreatitis is seen today on daily GI rounds. Patient is doing well. LFTs continue to improve. (1) Pancreatitis - MRCP unremarkable outside of 11mm CBD dilation which could be due to age and h/o CCY. No masses, stones or anatomical features that would explain pancreatitis. - DDX - Passed stone, Viral, Autoimmune, Medication related. No alcohol use to explain pancreatitis. Triglycerides 166. - Clinically patient continues to demonstrate improvement in LFTs and Lipase. - Viral and autoimmune serologies pending. - Case reviewed with Dr. Brennan Attending Gastroenterology. No need to proceed with ERCP today. May advance diet as tolerated. If above labs are non-diagnostic then leading diagnoses would be a passed stone based on pattern of LFT/Lipase and resolution. Dr. Brennan would recommend repeat CT pancreas in 6 weeks as opposed to EUS at this point. - Recommend that she follow a low fat diet. Avoid alcohol and tobacco products. - I generated a task to follow up with her in office for 2-3 weeks. - Continue to trending clinically. If she continues to do well, then we'll likely recommend low fat diet and follow up with out patient GI. I generated a task with our office to arrange for this. - Thank you for allowing us to participate in the care of this patient. Please call with any acute changes, questions or concerns. Please see addendum below with additional recommendation from my supervising physician. Admission and Anticipated Discharge Date Admission Date: December 16, 2024 Supervising Physician Co-Signing Physician Notes I saw and examined this patient with our nurse practitioner and agree with her a ssessment and plan. Patient continues to improve no significant abdominal pain liver enzymes continue to normalize. Can advance diet as tolerated. Possible discharge if tolerates regular food. Will follow-up in our office as an outpatient to continue to monitor liver enzymes. Will also review hospital labs to further investigate etiology of her pancreatitis. Subjective 74yowf with h/o DVT on chronic anticoagulation, chronic diastolic CHF, CAD, Peripheral neuropathy, DL, HTN, T2DM, CHRISTIANO, neurogenic claudication is seen today on daily rounds for pancreatitis. Patient reports that she continues to feel better. She does have some mild residual abdominal pain but overall this has been trending well. She would like to eat. Reviewed LFTs today which are continuing to improve. no nausea, vomiting, changes in bowels. lipase improved to 108 from 215. 12/18/24 T-Bili 1.8, AST 182 ALT 286, Alk Phos 91. Improving from yesterday. 12/19/24 - T-Bili 1.1 AST 99, ALT 219, Alk Phos 102. 12/19/24 - WBC 11.49, Hgb 11.7 (delta +0.9), Hct 35.8, Plt 226 MRCP No definite liver mass lesion is identified on this noncontrast study. There is no sign of cirrhosis or significant fatty infiltration. The gallbladder has been removed. The common bile duct measures up to 11 mm, within expected limits for the postcholecystectomy state. No definite stricturing or beading of the bile ducts is seen to suggest primary sclerosing cholangitis or other intrinsic bile duct pathology. There is no definite choledocholithiasis. No obvious displaced cholecystectomy clip is seen The pancreatic duct is of normal caliber. There is no definite sign of pancreatic divisum or other congenital anomaly. There is no sign of acute pancreatitis. No definite pancreatic mass lesion is seen Review of Systems Review of Systems: See HPI Physical Exam Physical Exam: Constitutional: NAD. Alert. Answering questions appropriately. Respiratory: Breathing is even, non-labored. Lungs polk are clear to auscultation anteriorly. Cardiovascular: Regular Rate and Rhythm, no murmurs, rubs or gallops appreciated. Gastrointestinal (Abdomen): Normoactive bowel sounds x4, soft, non-distended, non-tender. Musculoskeletal: Lying in bed comfortably. No peripheral edema. Results & Data Results & Data Vital Signs (Past 12 Hours) Vital Signs Temp Pulse Pulse Resp BP Pulse Ox O2 Del Method 12/19/24 08:13 97.5 F L 64 23 109/72 90 Room Air 12/19/24 08:00 Room Air 12/19/24 08:00 66 12/19/24 03:53 97.3 F L 57 L 18 154/81 H 97 CPAP 12/19/24 02:02 68 21 96 12/18/24 23:39 97.7 F 65 18 143/87 H 96 CPAP 12/18/24 23:05 71 23 95 PG Care Time/CCT Total # of Minutes Spent Total Time Spent with Patient: Total time spent is greater than 50% in coordination of care (as documented) at patient's floor/unit and/or counseling patient: Coding Level of Care Code 52998 SUB INP/OBS CARE 50MIN Diagnoses Acute pancreatitis K85.90
--- NOTE | 2024-12-19 17:45 | Hospitalist Progress Note ---
Date of Service December 19, 2024 Assessment & Plan (1) E coli bacteremia: (2) Septic shock due to Escherichia coli: (3) E-coli UTI: (4) Abnormal LFTs: (5) Acute pancreatitis: (6) Recurrent UTI: (7) Hypothyroidism: (8) GERD (gastroesophageal reflux disease): (9) Hypomagnesemia: (10) Arthritis with psoriasis: (11) CHRISTIANO (obstructive sleep apnea): (12) DM type 2 (diabetes mellitus, type 2): (13) Hypertension: (14) Hyperlipidemia: (15) Urinary incontinence: (16) History of DVT (deep vein thrombosis): Plan 74yo female with h/o recurrent UTIs with urinary incontinence, CHRISTIANO, T2DM, HTN, Hyperlipidemia, nonobstructive CAD, diastolic CHF, prior DVT on Eliquis, psoriatic arthritis on Otezla & chronic steroids, and chronic venous insufficiency. Presented with nausea, emesis, abd pain and confusion. U/a at admission highly suspicious for UTI. Blood cx's obtained at ER presentation and all bottles + for e.coli. Required ICU admission due to hypotension & need for pressors albeit only briefly. Evidence of acute pancreatitis with presenting lipase of 6254. #E.coli bacteremia / septic shock - -shock resolved, bacteremia resolved -only needed pressors briefly - weaned off early AM of 12/17/24 -e.coli is pansensitive; was on IV zosyn, then changed to IV rocephin daily; can ultimately transition to PO cipro or similar -repeat blood cx's 12/18 are negative -will need 14 days of Rx #E.coli UTI - resolving - -stopped zosyn, changed to IV rocephin daily -has had recurrent UTIs in the last few years -does follow with urology -once torres is removed check PVRs, etc to r/o retention issues -remove torres tomorrow am #acute pancreatitis - -2nd to passed gallstone? -2nd to shock? -other etiology? -trigs only 166 on lipids check -large w/u for the pancreatitis is pending (send by GI) -lipase markedly improved, down to ~100 from peak of 6254 -GI symptoms improved/resolved -MRCP without CBD stone or other abnormality of biliary ducts -did clip pass via CBD to the intestinal tract??? -appreciate GI assistance #abnormal LFTs - -2nd to passed gallstone? -other? -LFTs improving -repeat set of LFTs in am tomorrow #Hypomagnesemia - -s/p repletion and now level is normal -repeat level today wnl #Minimally Elevated troponin - -2nd myocardial demand ischemia in setting of septic shock -peak trop 14.8 #T2DM - -a1c 7% -cont novolog SSI -cont lantus -BSGs ac/hs -DM diet #H/o DVT - -cont Eliquis 5mg BID #HTN/CAD/CHF - -BP meds on hold -CAD is nonobstructive per the chart -no evidence of decompensated CHF clinically #Hyperlipidemia - -typically on Praulent injections for such and fenofibrate; both on hold -can resume both at d/c #Chronic pain/OA/DDD - -Gabapentin -oxycodone prn #Psych - -Sertraline #Hypothyroidism - -Levothyroxine -TSH wnl at 2.4 #Psoriatic arthritis - -on Otezla and chronic steroids - methylprednisolone 4mg daily -gave methylprednisolone 6mg po x 1 yesterday; then resumed 4mg daily starting today, 12/19 #CHRISTIANO - -CPAP HS #insomnia - -atarax HS #?gall bladder metallic clip passed to small bowel? - -recheck KUB x-ray in am tomorrow to see if a clip entered the small bowel PT/OT radhika completed - felt to be able to return home d/c this weekend? Admission and Anticipated Discharge Date Admission Date: December 16, 2024 Subjective tele overnight - NSR, karlaemalpa at times patient overall feeling better no abd pain or N/V asks for a sleep aid for tonight asks when she can d/c home tolerating regular diet today and does have an appetite Review of Systems Review of Systems: gen - no fevers or chills cv - no chest pain pulm - no dyspnea, no CAREY Physical Exam Physical Exam: gen - obese, NAD, looks better today psych - a/o x 3 mouth - MMM neck - no JVD heart - irregular, s1 s2, no murmur lungs - CTA b/l, decreased BS both bases, no rales abd - soft, ND, NT, BS+, no HSM, hayden-umbilical hernia reducible ext - no edema, pulses b/l feet 2+ Results & Data Results & Data Vital Signs (Past 12 Hours) Vital Signs Temp Pulse Pulse Resp BP BP Pulse Ox 12/19/24 17:06 37.0 C 73 23 130/64 92 12/19/24 16:00 75 12/19/24 14:00 12/19/24 11:24 36.5 C 65 21 127/74 92 12/19/24 08:13 36.4 C L 64 23 109/72 90 12/19/24 08:00 12/19/24 08:00 66 O2 Del Method O2 Del Method 12/19/24 17:06 Room Air 12/19/24 16:00 12/19/24 14:00 Room Air 12/19/24 11:24 Room Air 12/19/24 08:13 Room Air 12/19/24 08:00 Room Air 12/19/24 08:00 Laboratory Results Laboratory Results - last 24 hr 12/19/24 12/19/24 12/19/24 05:40 06:07 11:26 WBC 11.49 H RBC 3.80 L Hgb 11.7 L Hct 35.8 L MCV 94.2 MCH 30.8 MCHC 32.7 RDW Std Deviation 46.7 H RDW Coeff of Nadege 13.6 Plt Count 226 MPV 10.4 Sodium 140 Potassium 4.1 Chloride 105 Carbon Dioxide 24 Anion Gap 11 BUN 12 Creatinine 0.75 Est Cr Clr Drug Dosing 73.1 eGFR 84.01 BUN/Creatinine Ratio 16.0 Glucose 110 H POC Glucose 101 H 152 H Calcium 9.5 Magnesium 1.7 Total Bilirubin 1.1 H AST 99 H ALT 219 H Alkaline Phosphatase 102 Total Protein 6.7 Albumin 3.2 L Globulin 3.5 Albumin/Globulin Ratio 0.9 Diagnostic Findings Microbiology 12/18/24 09:08 Blood Aerobic Blood Culture - Preliminary No growth in Aerobic bottle after 24 hours. 12/18/24 09:08 Blood Anaerobic Blood Culture - Preliminary No growth in Anaerobic bottle after 24 hours. 12/18/24 09:16 Blood Aerobic Blood Culture - Preliminary No growth in Aerobic bottle after 24 hours. 12/18/24 09:16 Blood Anaerobic Blood Culture - Preliminary No growth in Anaerobic bottle after 24 hours. 12/16/24 10:00 Urine,Clean Catch Urine Culture - Final Escherichia coli 12/16/24 09:35 Blood Aerobic Blood Culture - Final Escherichia coli 12/16/24 09:35 Blood Anaerobic Blood Culture - Final Escherichia coli 12/16/24 09:24 Blood Aerobic Blood Culture - Final Escherichia coli 12/16/24 09:24 Blood Anaerobic Blood Culture - Final Escherichia coli PG Care Time/CCT Total # of Minutes Spent Total Time Spent with Patient: Total time spent is greater than 50% in coordination of care (as documented) at patient's floor/unit and/or counseling patient: Coding Level of Care Code 13147 SUB INP/OBS CARE 3/50MIN Diagnoses E coli bacteremia R78.81; B96.20 Septic shock due to Escherichia coli A41.51; R65.21 E-coli UTI N39.0; B96.20 Abnormal LFTs R79.89 Acute pancreatitis K85.90 Recurrent UTI N39.0 Hypothyroidism E03.9 GERD (gastroesophageal reflux disease) K21.9 Hypomagnesemia E83.42 Arthritis with psoriasis L40.50 CRHISTIANO (obstructive sleep apnea) G47.33 DM type 2 (diabetes mellitus, type 2) E11.9 Hypertension I10 Hyperlipidemia E78.5 Urge incontinence of urine N39.41 Urinary Incontinence type: urge incontinence History of DVT (deep vein thrombosis) Z86.718 (15) Urinary incontinence Urinary Incontinence type: urge incontinence Qualified Code(s): N39.41 - Urge incontinence
[2024-12-20 08:01] LABS: Alanine Aminotransferase 155.0 U/L (7-52); Albumin Globulin Ratio 1.0 (0.9-2); Albumin Level 3.5 gm/dl (3.4-5.0); Alkaline Phosphatase 101.0 U/L (34-104); Anion Gap 10.0 (3-11); Bilirubin,Total 0.7 mg/dl (0.2-1.0); Blood Urea Nitrogen 16.0 mg/dl (6-23); Calcium 9.5 mg/dl (8.6-10.3); Carbon Dioxide 27.0 mmol/L (21-32); Chloride 102.0 mmol/L (98-107); Creatinine Clr Calc Pharmacy 64.4 ml/min; Globulin 3.4 gm/dl (2.5-4.0); Glucose 159.0 mg/dl (70-99(Fasting)); Potassium 3.8 mmol/L (3.5-5.1); Sodium 139.0 mmol/L (136-145); Total Protein 6.9 gm/dl (6.0-8.3)
--- NOTE | 2024-12-20 08:42 | XRay Report ---
KUB CLINICAL HISTORY: ?gallbladder clip that migrated into the bowel? COMPARISON STUDY: CT of the abdomen and pelvis December 16, 2024. FINDINGS: The bowel gas pattern is normal. There is a moderate amount of stool within the colon and r ectum. A 6 mm metallic clip within the right lower quadrant has migrated since CT of December 16, 2024 . This is suggestive of a cholecystectomy clips. The other clip is within the right upper quadrant. P ostoperative findings within the spine are incidentally noted. IMPRESSION: 1. No evidence for a bowel obstruction. 2. Distal migration of a 6 mm clip, now within the right lower quadrant. This is suggestive of a chol ecystectomy clip which could be within the distal small bowel or cecum. ACT 112: Negative or not required by law. Electronically signed by: James Kaplan M.D. 12/20/2024 8:41 AM
--- NOTE | 2024-12-20 20:07 | Hospitalist Progress Note ---
Date of Service December 20, 2024 Assessment & Plan (1) E coli bacteremia: (2) Septic shock due to Escherichia coli: (3) E-coli UTI: (4) Abnormal LFTs: (5) Acute pancreatitis: (6) Recurrent UTI: (7) Hypothyroidism: (8) GERD (gastroesophageal reflux disease): (9) Hypomagnesemia: (10) Arthritis with psoriasis: (11) CHRISTIANO (obstructive sleep apnea): (12) DM type 2 (diabetes mellitus, type 2): (13) Hypertension: (14) Hyperlipidemia: (15) Urinary incontinence: (16) History of DVT (deep vein thrombosis): Plan 74yo female with h/o recurrent UTIs with urinary incontinence, CHRISTIANO, T2DM, HTN, Hyperlipidemia, nonobstructive CAD, diastolic CHF, prior DVT on Eliquis, psoriatic arthritis on Otezla & chronic steroids, and chronic venous insufficiency. Presented with nausea, emesis, abd pain and confusion. U/a at admission highly suspicious for UTI. Blood cx's obtained at ER presentation and all bottles + for e.coli. Required ICU admission due to hypotension & need for pressors albeit only briefly. Evidence of acute pancreatitis with presenting lipase of 6254. #E.coli bacteremia / septic shock - -shock resolved, bacteremia resolved -only needed pressors briefly - weaned off early AM of 12/17/24 -e.coli is pansensitive; was on IV zosyn, then changed to IV rocephin daily; can ultimately transition to PO cipro or similar closer to d/c - likely tomorrow -repeat blood cx's 12/18 are negative -will need 14 days of Rx; today is day #5 of Rx #E.coli UTI - resolved - -stopped zosyn, changed to IV rocephin daily -has had recurrent UTIs in the last few years -does follow with urology -check PVRs now that torres has been removed #acute pancreatitis - -2nd to passed cholecystectomy clip vs gallstone? -other etiology? -trigs only 166 on lipids check -large w/u for the pancreatitis is pending (send by GI) -lipase markedly improved' -last lipase was ~100; peak of 6254 -GI symptoms resolved -MRCP without CBD stone or other abnormality of biliary ducts -did clip pass via CBD to the intestinal tract causing the pancreatitis? -appreciate GI assistance -today a KUB was ordered to determine the location of cholecystectomy clip - it has now migrated to the distal small bowel -GI reports nothing to do - it will pass in the stool #abnormal LFTs - -2nd to passed clip vs gallstone? -other? -LFTs improving -repeat ast/alt in am #Hypomagnesemia - -s/p repletion and now level is normal #Minimally Elevated troponin - -2nd myocardial demand ischemia in setting of septic shock -peak trop 14.8 #T2DM - -a1c 7% -cont novolog SSI -cont lantus -BSGs ac/hs -DM diet #H/o DVT - -cont Eliquis 5mg BID #HTN/CAD/CHF - -BP meds on hold -CAD is nonobstructive per the chart -no evidence of decompensated CHF clinically -cont to hold coreg, lasix & lisinopril #Hyperlipidemia - -typically on Praulent injections for such and fenofibrate; both on hold -can resume both at d/c #Chronic pain/OA/DDD - -Gabapentin -oxycodone prn #Psych - -Sertraline #Hypothyroidism - -Levothyroxine -TSH wnl at 2.4 #Psoriatic arthritis - -on Otezla and chronic steroids - methylprednisolone 4mg daily -cont steroids #CHRISTIANO - -CPAP HS -perform overnight oximetry study to see if she needs blended O2 in her CPAP at home #insomnia - -atarax HS #gall bladder metallic clip passed to small bowel - -KUB x-ray today -- clip has passed to distal small bowel PT/OT radhika completed - felt to be able to return home d/c to home tomorrow updated pt's daughter by phone this evening, 12/20 Admission and Anticipated Discharge Date Admission Date: December 16, 2024 Subjective no events overnight torres removed this am w/o incident slept better last pm with the hydroxyzine eating well no significant abdominal pain no nausea or emesis denies dyspnea Review of Systems Review of Systems: gen - no fevers or chills cv - no chest pain pulm - no dyspnea or cough GI - stool on 12/19 Physical Exam Physical Exam: gen - obese, NAD, looks overall well today mouth - MMM neck - no JVD heart - RRR, s1 s2, no murmur lungs - CTA b/l abd - soft, ND, NT, BS+, no HSM, hayden-umbilical hernia reducible ext - no edema, pulses b/l feet 2+ psych - a/o x 3 Results & Data Results & Data Vital Signs (Past 12 Hours) Vital Signs Temp Pulse Pulse Resp BP Pulse Ox Pulse Ox 12/20/24 16:16 60 20 116/77 93 12/20/24 16:00 71 12/20/24 14:00 95 12/20/24 13:36 63 12/20/24 11:45 36.9 C 58 L 18 128/69 97 O2 Del Method O2 Del Method 12/20/24 16:16 Room Air 12/20/24 16:00 12/20/24 14:00 Room Air 12/20/24 13:36 12/20/24 11:45 Room Air Laboratory Results Laboratory Results - last 24 hr 12/20/24 12/20/24 12/20/24 06:54 07:20 11:21 Sodium 139 Potassium 3.8 Chloride 102 Carbon Dioxide 27 Anion Gap 10 BUN 16 Creatinine 0.84 Est Cr Clr Drug Dosing 64.4 eGFR 73.33 BUN/Creatinine Ratio 19.0 Glucose 159 H POC Glucose 143 H 156 H Calcium 9.5 Total Bilirubin 0.7 AST 55 H ALT 155 H Alkaline Phosphatase 101 Total Protein 6.9 Albumin 3.5 Globulin 3.4 Albumin/Globulin Ratio 1.0 Diagnostic Findings KUB X-Ray 12/20/24 08:00 KUB CLINICAL HISTORY: ?gallbladder clip that migrated into the bowel? COMPARISON STUDY: CT of the abdomen and pelvis December 16, 2024. FINDINGS: The bowel gas pattern is normal. There is a moderate amount of stool within the colon and rectum. A 6 mm metallic clip within the right lower quadrant has migrated since CT of December 16, 2024. This is suggestive of a cholecystectomy clips. The other clip is within the right upper quadrant. Postoperative findings within the spine are incidentally noted. IMPRESSION: 1. No evidence for a bowel obstruction. 2. Distal migration of a 6 mm clip, now within the right lower quadrant. This is suggestive of a cholecystectomy clip which could be within the distal small bowel or cecum. ACT 112: Negative or not required by law. Electronically signed by: James Kaplan M.D. 12/20/2024 8:41 AM PG Care Time/CCT Total # of Minutes Spent Total Time Spent with Patient: Total time spent is greater than 50% in coordination of care (as documented) at patient's floor/unit and/or counseling patient: Coding Level of Care Code 86539 SUB INP/OBS CARE 2/35MIN Diagnoses E coli bacteremia R78.81; B96.20 Septic shock due to Escherichia coli A41.51; R65.21 E-coli UTI N39.0; B96.20 Abnormal LFTs R79.89 Acute pancreatitis K85.90 Recurrent UTI N39.0 Hypothyroidism E03.9 GERD (gastroesophageal reflux disease) K21.9 Hypomagnesemia E83.42 Arthritis with psoriasis L40.50 CHRISTIANO (obstructive sleep apnea) G47.33 DM type 2 (diabetes mellitus, type 2) E11.9 Hypertension I10 Hyperlipidemia E78.5 Urge incontinence of urine N39.41 Urinary Incontinence type: urge incontinence History of DVT (deep vein thrombosis) Z86.718 (15) Urinary incontinence Urinary Incontinence type: urge incontinence Qualified Code(s): N39.41 - Urge incontinence
[2024-12-21 04:02] VITALS: RESP 18
[2024-12-21 06:32] LABS: Hematocrit (blood only) 36.1 % (37.0-47.0); Hemoglobin 12.1 g/dl (12.0-16.0); Mean Corpuscular Hemoglobin 31.3 pg (25.0-34.0); Mean Corpuscular Volume 93.3 fL (80.0-100.0); Platelet Count 288 K/uL (130-400); RDW Standard Deviation 45.9 fL (36.4-46.3); Red Blood Count 3.87 M/uL (4.20-5.40); White Blood Count 12.77 K/ul (4.8-10.8)
[2024-12-21 06:53] LABS: Alanine Aminotransferase 116.0 U/L (7-52); Anion Gap 10.0 (3-11); Blood Urea Nitrogen 21.0 mg/dl (6-23); Calcium 9.8 mg/dl (8.6-10.3); Carbon Dioxide 28.0 mmol/L (21-32); Chloride 103.0 mmol/L (98-107); Creatinine Clr Calc Pharmacy 73.0 ml/min; Glucose 148.0 mg/dl (70-99(Fasting)); Potassium 3.8 mmol/L (3.5-5.1); Sodium 141.0 mmol/L (136-145)
[2024-12-21 11:43] VITALS: PULSE 74; TEMP 98.2; O2SAT 94
[2024-12-21] MEDS: methylPREDNISolone 4 MG TAB PO ONE (13:06)
--- NOTE | 2024-12-21 14:18 | Discharge Summary ---
Discharge Summary Date of Service December 21, 2024 Principal Dx & Hospital Course #1 = Principal Diagnosis (1) E coli bacteremia: (2) Septic shock due to Escherichia coli: (3) E-coli UTI: (4) Abnormal LFTs: (5) Acute pancreatitis: (6) Recurrent UTI: (7) Hypothyroidism: (8) GERD (gastroesophageal reflux disease): (9) Hypomagnesemia: (10) Arthritis with psoriasis: (11) CHRISTIANO (obstructive sleep apnea): (12) DM type 2 (diabetes mellitus, type 2): (13) Hypertension: (14) Hyperlipidemia: (15) Urinary incontinence: (16) History of DVT (deep vein thrombosis): Plan 74yo female with h/o recurrent UTIs with urinary incontinence, CHRISTIANO, T2DM, HTN, Hyperlipidemia, nonobstructive CAD, diastolic CHF, prior DVT on Eliquis, psoriatic arthritis on Otezla & chronic steroids, and chronic venous insufficiency. Presented with nausea, emesis, abd pain and confusion. U/a at admission highly suspicious for UTI. Blood cx's obtained at ER presentation and all bottles + for e.coli. Required ICU admission due to hypotension & need for pressors albeit only briefly. Evidence of acute pancreatitis with presenting lipase of 6254. #E.coli bacteremia / septic shock - -shock resolved, bacteremia resolved -only needed pressors briefly - weaned off early AM of 12/17/24 -e.coli is pansensitive; was on IV zosyn, then changed to IV rocephin daily; can ultimately transition to PO cipro or similar closer to d/c - likely tomorrow -repeat blood cx's 12/18 are negative -will need 14 days of Rx; today is day #5 of Rx #E.coli UTI - resolved - -stopped zosyn, changed to IV rocephin daily -has had recurrent UTIs in the last few years -does follow with urology -check PVRs now that torres has been removed #acute pancreatitis - -2nd to passed cholecystectomy clip vs gallstone? -other etiology? -trigs only 166 on lipids check -large w/u for the pancreatitis is pending (send by GI) -lipase markedly improved' -last lipase was ~100; peak of 6254 -GI symptoms resolved -MRCP without CBD stone or other abnormality of biliary ducts -did clip pass via CBD to the intestinal tract causing the pancreatitis? -appreciate GI assistance -today a KUB was ordered to determine the location of cholecystectomy clip - it has now migrated to the distal small bowel -GI reports nothing to do - it will pass in the stool #abnormal LFTs - -2nd to passed clip vs gallstone? -other? -LFTs improving -repeat ast/alt in am #Hypomagnesemia - -s/p repletion and now level is normal #Minimally Elevated troponin - -2nd myocardial demand ischemia in setting of septic shock -peak trop 14.8 #T2DM - -a1c 7% -cont novolog SSI -cont lantus -BSGs ac/hs -DM diet #H/o DVT - -cont Eliquis 5mg BID #HTN/CAD/CHF - -BP meds on hold -CAD is nonobstructive per the chart -no evidence of decompensated CHF clinically -cont to hold coreg, lasix & lisinopril #Hyperlipidemia - -typically on Praulent injections for such and fenofibrate; both on hold -can resume both at d/c #Chronic pain/OA/DDD - -Gabapentin -oxycodone prn #Psych - -Sertraline #Hypothyroidism - -Levothyroxine -TSH wnl at 2.4 #Psoriatic arthritis - -on Otezla and chronic steroids - methylprednisolone 4mg daily -cont steroids #CHRISTIANO - -CPAP HS -perform overnight oximetry study to see if she needs blended O2 in her CPAP at home #insomnia - -atarax HS #gall bladder metallic clip passed to small bowel - -KUB x-ray today -- clip has passed to distal small bowel PT/OT radhika completed - felt to be able to return home d/c to home tomorrow updated pt's daughter by phone this evening, 12/20 Admission HPI Per Admitting Provider This is a pleasant 74-year-old female who lives at home. Over the last 12 to 18 hours she developed nausea and vomiting with evolving abdominal pain. The symptoms are severe enough that she presented the ER today for further evaluation and treatment. In the emergency department she had multiple diagnostic studies including laboratory studies demonstrating a significant leukocytosis at over 17,000. Significant transaminitis with a total bilirubin of 1.4 and AST of 721 and ALT of 391. Alk phos was normal at 93. Lipase was found to be elevated greater than 6000. Procalcitonin grossly abnormal at 1.5. Urinalysis positive for UTI. CT of the abdomen pelvis was grossly abnormal showing a 7 mm metallic density in the dependent lumen of the duodenum suggestive of a cholecystectomy clip migration passing through the common bile duct, pancreatic stranding consistent with pancreatitis evidence of chronic pancreatitis as well. With findings of cystitis with a large periumbilical hernia containing large bowel without obstruction. Course in the ER the patient received IV Zosyn. Blood cultures were obtained. We were called admit the patient for further evaluation and treatment. Consultation was obtained with GI. They do not feel any further intervention needs to take place on the migrated metallic clip at this point. They will see the patient in consultation. We have ordered stat fluid. When I evaluated the patient her blood pressure was 80/40 with a heart rate in the 130s. Her lactic acid was reassuring but she is showing clinical evidence of impending septic shock. When I placed the patient in the ER. Continue to volume resuscitate her. And if she does not respond promptly with fluid boluses we will commence her on Levophed. Prior urine cultures have been reviewed and she has essentially grown pansensitive E. coli over the last 24 months. Discharge Exam gen - obese, NAD, looks overall well today mouth - MMM neck - no JVD heart - RRR, s1 s2, no murmur lungs - CTA b/l abd - soft, ND, NT, BS+, no HSM, hayden-umbilical hernia reducible ext - no edema, pulses b/l feet 2+ psych - a/o x 3 Discharge Plan Discharge Items Patient Disposition: Home - Self-Care Reason For Visit: SEPTIC SHOCK Discharge Diagnosis: 1. septic shock due to e.coli infection 2. e.coli infection - due to urinary tract infection and suspected biliary source as well 3. passage of old cholecystectomy clip 4. acute pancreatitis - resolved; due to #3? 5. psoriatic arthritis on chronic steroids & Otezla 6. left elbow tendonitis, etc. 7. type 2 diabetes 8. high blood pressure 9. history of DVT 10. hypothyroidism Activity: As commented below Activity Comment: gradually increase activities over the next 5-7 days Non-emergency contact: Primary Care Provider Call non-emergency contact if: you have any medication questions Follow-up/Referrals: Roseline Smith MD [Physician] - (see Dr Smith for ongoing left elbow tendonitis/swelling) Adrian Davies PA-C [Primary Care Provider] - (follow-up THIS WEEK for re check ) Tesfaye Mejia PA-C [Physician Laundry Operator [employer] Room] - (please see Mr Mejia or one of his partners in about 3-4 weeks ) Diet: Carb Consistent or DM2 and Low Fat Addtl Attending Provider Instructions: Mrs Jacobo, You were hospitalized due to bacteremia (blood stream infection) / septic shock. The culprit bacterium was e.coli. The e.coli grew out of your blood and urine cultures. You needed a brief ICU stay due to your low blood pressure (shock). In addition, you had evidence of pancreatitis during the hospitalization. Your CT scan of the abdomen showed that an old cholecystectomy clip from your gall bladder surgery years ago had migrated down the bile duct and into the small intestine. It is very possible that the migrating clip caused the pancreatitis. The e.coli may have gotten into your bile duct (biliary system) as well. You improved nicely with IV antibiotics and supportive care. Your liver function tests are nearly normal on day of discharge. Recommendations - 1. antibiotics - -amoxicillin-clavulanate 875mg twice daily x 8 days; take with meals -start this TONIGHT -most common side effect - diarrhea 2. if you want you can take a probiotic supplement once a day and eat yogurt once or twice daily to help prevent diarrhea from your antibiotics 3. on 12/22 and 12/23 you can take extra methylprednisolone to help recover a bit easier. You can take an additional 2mg on 12/22 and 12/23 (take your typical 4mg plus an extra 2mg). On 12/24 resume your 4mg daily dose as previous. 4. hold your OTEZLA until you are off the amoxicillin antibiotics. 5. for sleep - -hydroxyzine 25mg at bedtime as needed/as desired -this could give you dry mouth as a side effect 6. please HOLD your carvedilol for now; this has been on hold during the hospitalization and your blood pressures have been fine without it. It may need to be resumed in the future. 7. at least until you see your family doctor please use the furosemide diuretic as needed for edema/swelling rather than taking it scheduled each morning. 8. I changed your magnesium supplement to magnesium chloride which may help your stools not be so loose. This magnesium is a twice daily product. 9. when you see the conference organizer in about 3-4 weeks you can talk to them about a "bile acid binder" to help with your chronic loose stool. Common bile acid binders include cholestyramine & colestipol. 10. left elbow pain/swelling - ice as needed. CHAVEZ wrap if desired. 11. follow a low-fat diet until you see the conference organizer (see handout). Follow-up - see separate section Return to [facility] if - -you have fevers over 100 degrees -you develop severe diarrhea (3 or more liquid stools over 24 hours) -you have shortness of breath -you develop recurrent abdominal pains -any other concerns It was our pleasure to care for you! -Everett Ventura Pending Studies at Discharge: Yes (repeat blood cultures are negative (bloodstream infection resolving)) Stand-Alone Forms: My [facility], Smoking Cessation Medications and DC Order Prescriptions: New hydroxyzine HCl 25 mg Tablet 25 mg PO HS PRN (Reason: sleep) Qty: 7 0RF amoxicillin-pot clavulanate 875-125 mg tablet 1 tab PO BID 8 Days Qty: 16 0RF Rx Instructions: take with food. start evening of 12/21/24. Continued gabapentin 400 mg capsule 800 mg PO BID Eliquis 5 mg tablet 5 mg PO BID Qty: 180 3RF Ozempic 0.25 mg or 0.5 mg(2 mg/1.5 mL) pen injector 0.25 mg SQ WK levothyroxine 175 mcg tablet 175 mcg PO DAILY Praluent Pen 150 mg/mL pen injector 150 mg subcut 2XWK famotidine [Pepcid] 40 mg tablet 40 mg PO DAILY Rx Instructions: qam clotrimazole-betamethasone 1-0.05 % cream 1 applic topical DAILY PRN (Reason: itching) Qty: 45 1RF mirabegron [Myrbetriq] 50 mg tablet extended release 24 hr 50 mg PO DAILY Qty: 30 2RF turmeric 400 mg capsule 400 mg PO DAILY colchicine 0.6 mg capsule 0.6 mg PO DAILY allopurinol 100 mg tablet 100 mg PO BID ergocalciferol (vitamin D2) 50,000 unit capsule 50,000 unit PO WK Rx Instructions: TAKE ON MON fenofibrate nanocrystallized 145 mg tablet 145 mg PO HS sertraline 100 mg tablet 100 mg PO DAILY Rx Instructions: qam Lantus Solostar U-100 Insulin 100 unit/mL (3 mL) insulin pen 26 unit SUBCUT DAILY lisinopril 10 mg Tablet 10 mg PO DAILY Rx Instructions: qam glucosamine de la cruz 2KCl-chondroit [Glucosamine-Chondroitin DS] 500-400 mg Tablet 1 tab PO BID insulin lispro [Humalog KwikPen Insulin] 100 unit/mL insulin pen 0 units SUBCUT TIDM Rx Instructions: PER SLIDING SCALE methylprednisolone 4 mg tablet 4 mg PO DAILY hydrocodone-acetaminophen 10-325 mg tablet 1 tab PO Q8H PRN (Reason: Pain) Changed furosemide 40 mg Tablet 40 mg PO DAILY PRN (Reason: edema/swelling) Qty: 0 0RF Rx Instructions: qam magnesium chloride 64 mg tablet,delayed release (DR/EC) 64 mg PO BID Qty: 60 2RF Held Gemtesa 75 mg tablet 75 mg PO DAILY Qty: 30 2RF Hold Instructions: please hold this medicine since you are taking Myrbetriq carvedilol 6.25 mg tablet 6.25 mg PO BID Hold Instructions: hold for now Otezla 30 mg tablet 30 mg PO BID Hold Instructions: HOLD until you are off your antibiotics Discontinued oxycodone 5 mg tablet 5 mg PO Q6H PRN (Reason: pain, severe) Qty: 20 0RF Discharge Orders: Discharge Order (Routine); Ordered 12/21/24 Ordered By: Everett Joseph/Other Patient Handouts: Managing Type 2 Diabetes, Understanding Pancreatitis, Special Foot Care for Diabetes, ED Diet, Low Fat Admission Data Admit Date/Time: 12/16/24 12:23 Attending Provider: Everett Ventura Admit Provider: Kumar Hurst Primary Care Provider: Adrian Davies Other Providers: Kumar Hurst; Kathie Potter; Genaro Brennan I Hospital Stay Data Consultations 12/16/24 11:16 ED Decision to Admit Stat 12/16/24 12:23 Consult Hand Striper Routine 12/16/24 12:28 Consult Gastroenterology Routine Diagnostic Imagining Performed 12/16/24 09:07 CT Abd and Pelvis [CT abd pelvis IV con only] Stat 12/17/24 13:37 MR MRCP Urgent Pending Results Patient Have Any Pending Studies at Discharge: Yes (repeat blood cultures are negative (bloodstream infection resolving)) Discharge Instructions Given to Patient (Per Discharging Provider) Mrs Jacobo, You were hospitalized due to bacteremia (blood stream infection) / septic shock. The culprit bacterium was e.coli. The e.coli grew out of your blood and urine cultures. You needed a brief ICU stay due to your low blood pressure (shock). In addition, you had evidence of pancreatitis during the hospitalization. Your CT scan of the abdomen showed that an old cholecystectomy clip from your gall bladder surgery years ago had migrated down the bile duct and into the small intestine. It is very possible that the migrating clip caused the pancreatitis. The e.coli may have gotten into your bile duct (biliary system) as well. You improved nicely with IV antibiotics and supportive care. Your liver function tests are nearly normal on day of discharge. Recommendations - 1. antibiotics - -amoxicillin-clavulanate 875mg twice daily x 8 days; take with meals -start this TONIGHT -most common side effect - diarrhea 2. if you want you can take a probiotic supplement once a day and eat yogurt once or twice daily to help prevent diarrhea from your antibiotics 3. on 12/22 and 12/23 you can take extra methylprednisolone to help recover a bit easier. You can take an additional 2mg on 12/22 and 12/23 (take your typical 4mg plus an extra 2mg). On 12/24 resume your 4mg daily dose as previous. 4. hold your OTEZLA until you are off the amoxicillin antibiotics. 5. for sleep - -hydroxyzine 25mg at bedtime as needed/as desired -this could give you dry mouth as a side effect 6. please HOLD your carvedilol for now; this has been on hold during the hospitalization and your blood pressures have been fine without it. It may need to be resumed in the future. 7. at least until you see your family doctor please use the furosemide diuretic as needed for edema/swelling rather than taking it scheduled each morning. 8. I changed your magnesium supplement to magnesium chloride which may help your stools not be so loose. This magnesium is a twice daily product. 9. when you see the conference organizer in about 3-4 weeks you can talk to them about a "bile acid binder" to help with your chronic loose stool. Common bile acid binders include cholestyramine & colestipol. 10. left elbow pain/swelling - ice as needed. CHAVEZ wrap if desired. 11. follow a low-fat diet until you see the conference organizer (see handout). Follow-up - see separate section Return to [facility] if - -you have fevers over 100 degrees -you develop severe diarrhea (3 or more liquid stools over 24 hours) -you have shortness of breath -you develop recurrent abdominal pains -any other concerns It was our pleasure to care for you! -Everett Ventura Coding Diagnoses E coli bacteremia R78.81; B96.20 Septic shock due to Escherichia coli A41.51; R65.21 E-coli UTI N39.0; B96.20 Abnormal LFTs R79.89 Acute pancreatitis K85.90 Recurrent UTI N39.0 Hypothyroidism E03.9 GERD (gastroesophageal reflux disease) K21.9 Hypomagnesemia E83.42 Arthritis with psoriasis L40.50 CHRISTIANO (obstructive sleep apnea) G47.33 DM type 2 (diabetes mellitus, type 2) E11.9 Hypertension I10 Hyperlipidemia E78.5 Urge incontinence of urine N39.41 Urinary Incontinence type: urge incontinence History of DVT (deep vein thrombosis) Z86.718
[2024-12-21 14:20] VITALS: BP 133/82
[2024-12-23 13:42] LABS: Anti Nuclear Antibody Screen POSITIVE (NEGATIVE); Hepatitis B Core Antibody IgM NON-REACTIVE (NON-REACTIVE); Immunoglobulin G 477 mg/dL (600-1540)
[2024-12-24 15:25] LABS: ANA Pattern Nuclear, Homogeneous; ANA Titer 1:40 titer; Hepatitis A Antibody IgM NON-REACTIVE (NON-REACTIVE)
== END 2024-12-21 15:00 | disposition home or self-care (01) | DRG 871 ==
LOC: ED 07:40 → SUATTDRO 12:23 → 1E 12:23 → 2E 12-17 21:20